=== PATIENT | female | born 1930 | race Caucasian/White ===

== ENCOUNTER 2016-07-04 13:15 | Inpatient (IN) | payer MEDICARE, OTHER, MEDICAID ==
[~2016-07-04] VITALS: Ht 165.1 cm; Wt 70.8 kg
--- OUTSIDE RECORDS SUMMARY | 2016-07-04 13:18 | XMS REPORT | Summary of Care ---
Author Author Meek Pham M.D. Unknown Address [address] [place], [place] [id number] Phone Unavailable Care Team Providers Care Pump Mechanic Name Role Phone Meek Pham M.D. Unavailable Unavailable NoxubeeSrikanth PP Unavailable Unavailable Unavailable Functional Status Functional Status Health Issues* Name Dates Details Functional status health issues are not documented Status: Cognitive Status Health Issues* Name Dates Details Cognitive status health issues are not documented Status: Problems Name Dates Details Cough (786.2, R05) Status: Active Complete heart block (426.0, I44.2) Status: Active Aortic stenosis (424.1, I35.0) Status: Active Mitral regurgitation (424.0, I34.0) Status: Active Atrial fibrillation (427.31, I48.91) Status: Active Encounter for interrogation of cardiac pacemaker (V53.31, Z45.018) Status: Active Hypertension (401.9, I10) Status: Active Hyperlipidemia (272.4, E78.5) Status: Active Medications Name Dates Details Lisinopril 20 MG Oral Tablet TAKE 1 TABLET DAILY DIRECTED. * Started 02-Jun-2014 ActiveTessalon Perles 100 MG Oral Capsule TAKE 1 CAPSULE EVERY 6 HOURS NEEDED. * Refills: 0 * Started 02-Jun-2014 ActiveAcetaminophen 325 MG Oral Tablet TAKE 1 TO 2 TABLETS EVERY 4 HOURS NEEDED * Refills: 0 * Started 02-Jun-2014 ActiveMetoprolol Succinate ER 50 MG Oral Tablet Extended Release 24 Hour TAKE 1 TABLET DAILY. * Refills: 0 * Started 02-Jun-2014 ActiveAspirin 81 MG Oral Tablet TAKE 1 TABLET DAILY. * Refills: 0 * Started 02-Jun-2014 ActiveAtorvastatin Calcium 20 MG Oral Tablet TAKE 2 TABLETs DAILY AT BEDTIME. * Refills: 0 * Started 02-Jun-2014 ActiveXarelto 20 MG Oral Tablet take one tablet by mouth every day * Quantity: 30 Refills: 3 Meek Pham M.D.* Started 10-Jun-2014 Active Allergies and Adverse Reactions Name Dates Details Biaxin Status: Active Duricef Status: Active Penicillins Status: Active Procedures Procedure Dates Details History of Pacemaker Placement History of Tonsillectomy CP Echo Ordered:03-Jun-2014 Immunization Name Dates Details Immunizations not documented Family History natural daughter* Name Dates Details Family history of heart murmur (V17.49, Z82.49) Status: Active Child* Name Dates Details Family history of heart murmur (V17.49, Z82.49) Status: Active Father* Name Dates Details Family history of arthritis (V17.7, Z82.61) Status: Active Social History Name Dates Details Smoking Status* Never smoker Vital Signs Date Test Result Details No Known Vitals to report Results Date Description Value Details Results not documented Plan of Care Planned Observations* Name Dates Details Planned Goals not documented Goal Planned Encounters* Appointment; Provider: Meek Pham On 27-Jul-2014 14:45 Instructions * Instructions not documented Encounters Appointment; Meek Pham Encounter Diagnosis: Problem not documented On 03-Jun-2014 10:00
--- OUTSIDE RECORDS SUMMARY | 2016-07-04 13:19 | XMS REPORT | Summary of Care ---
Author Author Meek Pham M.D. Unknown Address [address] [place], [place] [id number] Phone Unavailable Care Team Providers Care Loadmaster Name Role Phone Meek Pham M.D. Unavailable Unavailable MckinleySrikanth PP Unavailable Unavailable Unavailable Functional Status Functional [...]
--- OUTSIDE RECORDS SUMMARY | 2016-07-04 13:19 | XMS REPORT | Summary of Care ---
Author Author Srikanth Zamora M.D. Unknown Address [address] [place], [place] [id number] Phone Unavailable Care Team Providers Care Cassandra Architect Name Role Phone Meek Pham M.D. Unavailable Unavailable Srikanth Zamora PP Unavailable Unavailable Unavailable Functional Status Functional Status Health Issues* Name Dates Details Functional status health issues are not documented Status: Cognitive Status Health Issues* Name Dates Details Cognitive status health issues are not documented Status: Problems Name Dates Details Complete heart block (426.0, I44.2) Status: Active Aortic stenosis (747.22, Q25.3) Status: Active Mitral regurgitation (424.0, I34.0) Status: Active Encounter for interrogation of cardiac pacemaker (V53.31, Z45.018) Status: Active Hypertension (401.9, I10) Status: Active Pacemaker (V45.01, Z95.0) Status: Active Urinary tract infection, acute (599.0, N39.0) Status: Active Hyperlipidemia (272.4, E78.5) Status: Active Paroxysmal atrial fibrillation (427.31, I48.0) Status: Active Stroke (434.91, I63.9) Status: Active Chronic diastolic congestive heart failure (428.32, I50.32) Status: Active Carotid artery stenosis (433.10, I65.29) Status: Active Myocardial infarct (410.90, I21.3) Status: Active 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 Quantity: 90 Meek Pham M.D.* Started 02-Jun-2014 ActiveAcetaminophen 325 MG Oral Tablet [...] mouth every day * Quantity: 30 Refills: 11 Meek Pham M.D.* Started 10-Jun-2014 ActiveLasix 80 MG Oral Tablet TAKE 1 TABLET DAILY DIRECTED. * Refills: 0 * Started 24-Jun-2015 ActiveMacrobid 100 MG Oral Capsule TAKE 1 CAPSULE TWICE DAILY WITH MEALS. * Quantity: 20 Refills: 0 * Started 28-Jun-2015 Active Allergies and Adverse Reactions Name Dates Details Biaxin Status: Active Duricef Status: Active Penicillins Status: Active Past Medical History Name Dates Details History of labyrinthitis (V12.49, Z86.69) Status: Resolved Procedures Procedure Dates Details History of Pacemaker Placement History of Tonsillectomy Procedures not documented Immunization Name Dates Details Immunizations not documented Family History natural daughter* Name Dates Details Family history of heart murmur (V17.49, Z84.89) Status: Active Child* Name Dates Details Family history of heart murmur (V17.49, Z84.89) Status: Active Father* Name Dates Details Family history of arthritis (V17.7, Z82.61) Status: Active Social History Name Dates Details Smoking Status* Never smoker Vital Signs Date Test Result Details 05-Aug-2015 09:47 BP Systolic 124 mm[Hg] Status: BP Diastolic 62 mm[Hg] Status: Temperature 98.5 f Status: Heart Rate 60 /min Status: Respiration Rate 20 /min Status: Weight 150 lb Status: O2 SAT 95 % Status: Body Mass Index Calculated 25.75 kg/m2 Status: Body Surface Area Calculated 1.73 m2 Status: Results Date Description Value Details 01-Aug-2015 08:10 THYROID STIM. HORMONE 3602 THYROID STIM. HORMONE 0.09 (Better) 08:11 FREE T4 3604 FREE T4 0.81 (Better) Plan of Care Planned Observations* Name Dates Details Planned Goals not documented Goal Planned Encounters* Appointment; Provider: Meek Pham On 15:00 * Appointment; Provider: Rick Zamora On 02-Aug-2015 14:30 Instructions * Instructions not documented Encounters Appointment; Srikanth Zamora Encounter Diagnosis: Problem not documented On 08-Jul-2015 10:45 Appointment; Meek Pham Encounter Diagnosis: Problem not documented On 31-May-2015 14:45 Appointment; Meek Pham Encounter Diagnosis: Problem not documented On 22-Feb-2015 14:00 Appointment; Meek Pham Encounter Diagnosis: Problem not documented On 14:15 Appointment; Meek Pham Encounter Diagnosis: Problem not documented On 03-Jun-2014 10:00
--- OUTSIDE RECORDS SUMMARY | 2016-07-04 13:19 | XMS REPORT | Summary of Care ---
Author Author Vero Castaneda, Meek Durbin Unknown Address [address] [place], [place] [id number] Phone Unavailable Care Team Providers Care Ice Guard Inspector Name Role Phone Meek Pham M.D. Unavailable Unavailable Srikanth Zamora M.D. 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) Status: Active Insomnia (780.52, G47.00) Status: Active Depression (311, F32.9) Status: Active Constipation (564.00, K59.00) Status: Active Cataract (366.9, H26.9) Status: Active Altered mental status (780.97, R41.82) Status: Active Seizure (780.39, R56.9) Status: Active Atrial fibrillation (427.31, I48.91) Status: Active Dementia (294.20, F03.90) Status: Active Paroxysmal atrial fibrillation (427.31, I48.0) Status: Active Hypertension, essential, benign (401.1, I10) Status: Active Current use of [facility] anticoagulation (V58.61, Z79.01) Status: Active Medications Name Dates Details Acetaminophen 325 MG Oral Tablet Take 2 po q 8 hr * Started 02-Jun-2014 ActiveAtorvastatin Calcium 80 MG Oral Tablet TAKE 1 TABLET AT BEDTIME. * Quantity: 30 Refills: 11 * Started 02-Jun-2014 ActiveXarelto 20 MG Oral Tablet take one tablet by mouth every day * Quantity: 30 Refills: 11 Meek Pham M.D.* Started 10-Jun-2014 ActiveLasix 80 MG Oral Tablet TAKE 1 TABLET DAILY DIRECTED. * Refills: 0 * Started 24-Jun-2015 ActiveMacrobid 100 MG Oral Capsule TAKE 1 CAPSULE TWICE DAILY WITH MEALS. * Quantity: 20 Refills: 0 * Started 28-Jun-2015 ActiveLisinopril 10 MG Oral Tablet TAKE 1 TABLET DAILY. * Quantity: 30 Refills: 6 Srikanth Zamora M.D.* Started 09-Aug-2015 ActiveMetoprolol Tartrate 25 MG Oral Tablet TAKE 1 TABLET TWICE DAILY. * Refills: 0 Srikanth Zamora M.D.* Started 09-Aug-2015 ActiveMelatonin 3 MG Oral Tablet take one at hs * Refills: 0 Srikanth Zamora M.D.* Started 09-Aug-2015 ActivePotassium Chloride ER 10 MEQ Oral Capsule Extended Release TAKE 1 CAPSULE TWICE DAILY. * Refills: 0 Srikanth Zamora M.D.* Started 09-Aug-2015 ActiveCalcium 500 +D 500-400 MG-UNIT Oral Tablet Take one tab daily * Refills: 0 Srikanth Zamora M.D.* Started 09-Aug-2015 ActiveLevETIRAcetam 100 MG/ML Oral Solution Take 7.5 ml po twice daily * Refills: 0 Srikanth Zamora M.D.* Started 09-Aug-2015 ActiveFish Oil 1000 MG Oral Capsule TAKE ONE CAPSULE PO TWICE DAILY * Refills: 0 Srikanth Zamora M.D.* Started 09-Aug-2015 ActiveMulti-Vitamins Oral Tablet TAKE 1 TABLET DAILY. * Refills: 0 Srikanth Zamora M.D.* Started 09-Aug-2015 ActiveMirtazapine 15 MG Oral Tablet TAKE 1/2 TABLET AT BEDTIME. * Refills: 0 Srikanth Zamora M.D.* Started 09-Aug-2015 ActiveColace 100 MG Oral Capsule TAKE 1 CAPSULE TWICE DAILY. * Refills: 0 Srikanth Zamora M.D.* Started 09-Aug-2015 ActiveMilk of Magnesia 400 MG/5ML Oral Suspension Take 30 ml po daily PRN * Refills: 0 Srikanth Zamora M.D.* Started 09-Aug-2015 ActiveMiraLax Oral Powder MIX 1 CAPFUL IN 8 OUNCES OF WATER AND DRINK DAILY DIRECTED. * Refills: 0 Srikanth Zamora M.D.* Started 09-Aug-2015 ActiveBisacodyl 10 MG Rectal Suppository Insert one supp recutally BID PRN * Refills: 0 Srikanth Zamora M.D.* Started 09-Aug-2015 ActivePromethazine HCl - 12.5 MG Rectal Suppository Insert 1 supp rectally twice daily PRN * Refills: 0 Srikanth Zamora M.D.* Started 09-Aug-2015 Active Allergies and Adverse Reactions Name Dates Details Biaxin Status: Active Duricef Status: Active Penicillins Status: Active Shellfish Status: Active Past Medical History Name Dates Details History of Coronary artery disease (414.00, I25.10) Status: Resolved History of labyrinthitis (V12.49, Z86.69) Status: Resolved History of myocardial infarction (412, I25.2) Status: Resolved History of pulmonary hypertension (V12.59, Z86.79) Status: Resolved History of stroke (V12.54, Z86.73) Status: Resolved Procedures Procedure Dates Details History [...] smoker Vital Signs Date Test Result Details 01-Vjel-0080 15:05 BP Systolic 138 mm[Hg] Status: BP Diastolic 58 mm[Hg] Status: Heart Rate 75 /min Status: Weight 150.25 lb Status: Body Mass Index Calculated 25.79 kg/m2 Status: Body Surface Area Calculated 1.73 m2 Status: 11:12 BP Systolic 132 mm[Hg] Status: BP Diastolic 64 mm[Hg] Status: Temperature 97.8 f Status: Heart Rate 88 /min Status: Respiration Rate 16 /min Status: Weight 149 lb Status: Body Mass Index Calculated 25.58 kg/m2 Status: Body Surface Area Calculated 1.73 m2 Status: 05-Aug-2015 09:47 BP Systolic 124 mm[Hg] Status: [...] not documented Goal Planned Encounters* Appointment; Provider: Srikanth Zamora On 14:00 * Appointment; Provider: Rick Zamora On 02-Aug-2015 14:30 Instructions * Instructions not documented Encounters Appointment; Meek Pham Encounter Diagnosis: Problem not documented On 15:00 Appointment; Srikanth Zamora Encounter Diagnosis: Problem not documented On 08-Jul-2015 10:45 Appointment; Meek Pham Encounter Diagnosis: Problem not documented On 31-May-2015 14:45 Appointment; Meek Pham Encounter Diagnosis: Problem not documented On 22-Feb-2015 14:00 Appointment; Meek Pham Encounter Diagnosis: Problem not documented On 14:15 Appointment; Meek Pham Encounter Diagnosis: Problem not documented On 03-Jun-2014 10:00
--- OUTSIDE RECORDS SUMMARY | 2016-07-04 13:19 | XMS REPORT | Summary of Care ---
Author Author Meek Pham M.D. Unknown Address [address] [place], [place] [phone] Phone Unavailable Care Team Providers Care Watch Repair Person Name Role Phone Meek Pham M.D. Unavailable Unavailable MahaskaSrikanth PP Unavailable Unavailable Unavailable Functional Status Functional [...] Status: Active Hyperlipidemia (272.4, E78.5) Status: Active Atrial fibrillation (427.31, I48.91) Status: Active Current use of technician terminal and repeater anticoagulation (V58.61, Z79.01) Status: Active Medications Name Dates Details Lisinopril [...] Refills: 11 Meek Pham M.D.* Started 10-Jun-2014 ActiveAspirin 325 MG Oral Tablet TAKE 1 TABLET DAILY. * Refills: 0 * Started 31-May-2015 Active Allergies and Adverse Reactions Name Dates [...] smoker Vital Signs Date Test Result Details 31-May-2015 14:50 BP Systolic 112 mm[Hg] Status: BP Diastolic 54 mm[Hg] Status: Heart Rate 62 /min Status: Results Date Description Value Details Results not documented Plan of Care Planned Observations* Name Dates Details Planned Goals not documented Goal Instructions * Instructions not documented Encounters Appointment; Meek Pham Encounter Diagnosis: Problem not documented On 31-May-2015 14:45 Appointment; Meek Pham Encounter Diagnosis: Problem not documented On 22-Feb-2015 14:00 Appointment; Meek Pham Encounter Diagnosis: Problem not documented On 14:15 Appointment; Meek Pham Encounter Diagnosis: Problem not documented On 03-Jun-2014 10:00
--- OUTSIDE RECORDS SUMMARY | 2016-07-04 13:19 | XMS REPORT | Summary of Care ---
Author Author Noah Castaneda, Srikanth Organization Unknown Address Unknown Phone Unavailable Care Team Providers Care Rock Crusher Operator Name Role Phone Meek Pham M.D. Unavailable Unavailable Srikanth Zamora M.D. Unavailable Srikanth Zamora Unavailable Unavailable Ovidio Farris Unavailable Unavailable Unavailable Unavailable Functional Status Name Dates Details Functional status health issues are not documented Status: Name Dates Details Cognitive status health issues are not documented Status: Problems Name Dates Details Complete heart block (426.0, I44.2) Status: Active Aortic stenosis (424.1, I35.0) Status: Active Mitral regurgitation (424.0, I34.0) Status: Active Encounter for interrogation of cardiac pacemaker (V53.31, Z45.018) Status: Active Pacemaker (V45.01, Z95.0) Status: Active Urinary tract infection, acute (599.0, N39.0) Status: Active Stroke (434.91, I63.9) Status: Active [...] Status: Active Seizure (780.39, R56.9) Status: Active Dementia (294.20, F03.90) Status: Active Paroxysmal atrial fibrillation (427.31, I48.0) Status: Active Hypertension, essential, benign (401.1, I10) Status: Active Current use of [facility] anticoagulation (V58.61, Z79.01) Status: Active Seasonal allergies (477.9, J30.2) Status: Active Atrial fibrillation (427.31, I48.91) Status: Active Hyperlipidemia (272.4, E78.5) Status: Active Hypertension (401.9, I10) Status: Active Cough (786.2, R05) Status: Active Environmental allergies (V15.09, Z91.09) Status: Active Medications Name Dates Details Acetaminophen 500 MG Oral Tablet Take 2 tab po q 6 hr PRN * Start 02-Jun-2014 Active Atorvastatin Calcium 80 MG Oral Tablet TAKE 1 TABLET AT BEDTIME. * Quantity: 30 Refills: 11 * Start 02-Jun-2014 Active Xarelto 20 MG Oral Tablet take one tablet by mouth every day * Quantity: 30 Refills: 11 Meek Pham M.D. * Start 10-Jun-2014 Active Lasix 80 MG Oral Tablet TAKE 1 TABLET DAILY DIRECTED. * Refills: 0 * Start 24-Jun-2015 Active Lisinopril 10 MG Oral Tablet TAKE 1 TABLET DAILY. * Quantity: 30 Refills: 6 Prim M.D.Srikanth * Start 09-Aug-2015 Active Metoprolol Tartrate 25 MG Oral Tablet TAKE 1 TABLET TWICE DAILY. * Refills: 0 Prim M.D.Srikanth * Start 09-Aug-2015 Active Melatonin 3 MG Oral Tablet take one at hs * Refills: 0 Prim M.D., Srikanth * Start 09-Aug-2015 Active Potassium Chloride ER 10 MEQ Oral Capsule Extended Release TAKE 1 CAPSULE TWICE DAILY. * Refills: 0 Prim M.D.Srikanth * Start 09-Aug-2015 Active Calcium 500 +D 500-400 MG-UNIT Oral Tablet Take one tab daily * Refills: 0 Noah M.D., Srikanth * Start 09-Aug-2015 Active LevETIRAcetam 100 MG/ML Oral Solution Take 7.5 ml po twice daily * Refills: 0 Prim M.D., Srikanth * Start 09-Aug-2015 Active Fish Oil 1000 MG Oral Capsule TAKE ONE CAPSULE PO TWICE DAILY * Refills: 0 Prim M.D., Srikanth * Start 09-Aug-2015 Active Multi-Vitamins Oral Tablet TAKE 1 TABLET DAILY. * Refills: 0 Noah M.D., Srikanth * Start 09-Aug-2015 Active Mirtazapine 15 MG Oral Tablet TAKE 1/2 TABLET AT BEDTIME. * Refills: 0 Prim M.DCatracho, Srikanth * Start 09-Aug-2015 Active Colace 100 MG Oral Capsule TAKE 1 CAPSULE TWICE DAILY. * Refills: 0 Noah M.D., Srikanth * Start 09-Aug-2015 Active Milk of Magnesia 400 MG/5ML Oral Suspension Take 30 ml po daily PRN * Refills: 0 Prim M.D., Srikanth * Start 09-Aug-2015 Active MiraLax Oral Powder MIX 1 CAPFUL IN 8 OUNCES OF WATER AND DRINK DAILY DIRECTED. * Refills: 0 Noah M.D.Srikanth * Start 09-Aug-2015 Active Bisacodyl 10 MG Rectal Suppository Insert one supp recutally BID PRN * Refills: 0 Prim M.D., Srikanth * Start 09-Aug-2015 Active Promethazine HCl - 12.5 MG Rectal Suppository Insert 1 supp rectally twice daily PRN * Refills: 0 Prim M.D., Srikanth * Start 09-Aug-2015 Active Fluticasone Propionate 50 MCG/ACT Nasal Suspension 1 [place] Each Nostril Daily * Quantity: 1 Refills: 12 Prim M.D., Srikanth * Start 12-Oct-2015 Active 16 GM Bottle Refresh Lacri-Lube Ophthalmic Ointment APPLY 1/2" STRIP TO AFFECTED EYE(S) AT BEDTIME * Refills: 0 Prim M.D.Srikanth * Start 12-Oct-2015 Active Montelukast Sodium 10 MG Oral Tablet Take one tablet by mouth daily * Quantity: 30 Refills: 5 Prim M.D., Srikanth * Start 18-Jan-2016 Active Allergies and Adverse Reactions Name Dates Details Biaxin (Allergy) Status: Active Duricef (Allergy) Status: Active Penicillins (Allergy) Status: Active Shellfish (Allergy) Status: Active Past Medical History Name Dates [...] Dates Details Immunizations not documented Family History Name Dates Details Family history of heart murmur (V17.49, Z84.89) Status: Active Name Dates Details Family history of heart murmur (V17.49, Z84.89) Status: Active Name Dates Details Family history of arthritis (V17.7, Z82.61) Status: Active Social History Name Dates Details - Status: Name Dates Details Never smoker Vital Signs Date Test Result Details No Known Vitals to report Results Date Description Value Details Results not documented Plan of Care Name Dates Details Planned Observations Planned Goals not documented Interventions Provided Medication Changes* Montelukast Sodium 10 MG Oral Tablet - Start Instructions Name Dates Details Instructions not documented Encounters Appointment; Meek Pham M.D. Encounter Diagnosis: Problem not documented On 15:00 Appointment; Srikanth Zamora M.D. Encounter Diagnosis: Problem not documented On 08-Jul-2015 10:45 Appointment; Meek Pham M.D. Encounter Diagnosis: Problem not documented On 31-May-2015 14:45 Appointment; Meek Pham M.D. Encounter Diagnosis: Problem not documented On 22-Feb-2015 14:00 Appointment; Meek Pham M.D. Encounter Diagnosis: Problem not documented On 14:15 Appointment; Meek Pham M.D. Encounter Diagnosis: Problem not documented On 03-Jun-2014 10:00
--- OUTSIDE RECORDS SUMMARY | 2016-07-04 13:19 | XMS REPORT | Summary of Care ---
Author Author Noah Castaneda, Srikanth Organization Unknown Address Unknown Phone Unavailable Care Team Providers Care Lmsw Name Role Phone Vero Castaneda, Meek Unavailable Unavailable Srikanth Zmaora M.D. Unavailable Unavailable Iveth Xiao M.D. 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 * Quantity: 30 Refills: 6 [place] M.D.Srikanth * Start 09-Aug-2015 Active Metoprolol Tartrate 25 MG Oral Tablet TAKE 1 TABLET TWICE DAILY. * Refills: 0 Noah M.D., Srikanth * Start 09-Aug-2015 Active Melatonin 3 MG Oral Tablet take one at hs * Refills: 0 Noah M.D., Srikanth * Start 09-Aug-2015 Active Potassium Chloride ER 10 MEQ Oral Capsule Extended Release TAKE 1 CAPSULE TWICE DAILY. * Refills: 0 [place] M.D., Srikanth * Start 09-Aug-2015 Active Calcium 500 +D 500-400 MG-UNIT Oral Tablet Take one tab daily * Refills: 0 [place] M.D., Srikanth * Start 09-Aug-2015 Active LevETIRAcetam 100 MG/ML Oral Solution Take 7.5 ml po twice daily * Refills: 0 Noah M.D., Srikanth * Start 09-Aug-2015 Active Fish Oil 1000 MG Oral Capsule TAKE ONE CAPSULE PO TWICE DAILY * Refills: 0 Noah M.D., Srikanth * Start 09-Aug-2015 Active Multi-Vitamins Oral Tablet TAKE 1 TABLET DAILY. * Refills: 0 [place] M.D., Srikanth * Start 09-Aug-2015 Active Colace 100 MG Oral Capsule TAKE 1 CAPSULE TWICE DAILY. * Refills: 0 [place] M.D., Srikanth * Start 09-Aug-2015 Active Milk of Magnesia 400 MG/5ML Oral Suspension Take 30 ml po daily PRN * Refills: 0 Noah M.D., Srikanth * Start 09-Aug-2015 Active MiraLax Oral Powder MIX 1 CAPFUL IN 8 OUNCES OF WATER AND DRINK DAILY DIRECTED. * Refills: 0 [place]um [place] M.D., Srikanth * Start 09-Aug-2015 Active Bisacodyl 10 MG Rectal Suppository Insert one supp recutally BID PRN * Refills: 0 [place]um [place] M.D., Srikanth * Start 09-Aug-2015 Active Fluticasone Propionate 50 MCG/ACT Nasal Suspension 1 Garrett Each Nostril Daily * Quantity: 1 Refills: 12 Gum [place] M.D.Srikanth * Start 12-Oct-2015 Active 16 GM Bottle Refresh Lacri-Lube Ophthalmic Ointment APPLY 1/2" STRIP TO AFFECTED EYE(S) AT BEDTIME * Refills: 0 Noah M.DSrikanth Hayden * Start 12-Oct-2015 Active Montelukast Sodium 10 MG Oral Tablet Take one tablet by mouth daily * Quantity: 30 Refills: 5 Gum [place] M.D.Srikanth * Start 18-Jan-2016 Active Azelastine HCl - 0.1 % Nasal Solution USE 2 PUFFS EACH NOSTRIL EVERY 12 HOURS NEEDED. * Quantity: 30 Refills: 3 Ganj M.D., Beltran A * Start 19-Mar-2016 Active Saline Mist Garrett 0.65 % Nasal Solution USE 2 SPRAYS IN EACH NOSTRIL IN AM AND HS * Refills: 0 Beltran Xiao M.D. * Start 19-Mar-2016 Active Ativan 0.5 MG Oral Tablet Take 1 tab po TID PRN anxiety * Refills: 0 Gum [place] M.DSrikanth Hayden * Start 19-Apr-2016 Active ALPRAZolam ER 1 MG Oral Tablet Extended Release 24 Hour TAKE 1 TABLET DAILY. * Refills: 0 [place]um [place] M.D., Srikanth * Start 04-May-2016 Active BusPIRone HCl - 15 MG Oral Tablet TAKE 1 TABLET TWICE DAILY. * Quantity: 60 Refills: 1 Gum [place] M.D., Srikanth * Start 04-May-2016 Active LORazepam 1 MG Oral Tablet TAKE 1 TABLET 1 HOUR BEFORE MRI. MAY REPEAT ONCE 15 MINUTES BEFORE MRI. * Quantity: 1 Refills: 0 Gum [place] M.D., Srikanth * Start 17-May-2016 Active ALPRAZolam 0.5 MG Oral Tablet 1 po BID PRN anxiety * Quantity: 20 Refills: 2 Gum [place] M.D., Srikanth * Start 12-Jun-2016 Active Arthritis Pain Reliever 650 MG Oral Tablet Extended Release TAKE 1 TABLET BY MOUTH EVERY 8 HOURS * Quantity: 93 Refills: 3 Gum [place] M.D., Srikanth * Start 15-Jun-2016 Active Allergies and Adverse Reactions Name Dates [...] smoker Vital Signs Date Test Result Details 12-Jun-2016 11:02 BP Systolic 143 mm[Hg] Status: Comments: Location: ; Position: BP Diastolic 64 mm[Hg] Status: Comments: Location: ; Position: Temperature 97.1 f Status: Comments: Method: Heart Rate 60 /min Status: Comments: Location: ; Physical Findings 20 Status: Comments: Respiration Weight 161 lb Status: Body Mass Index Calculated 27.64 kg/m2 Status: Body Surface Area Calculated 1.78 m2 Status: Results Date Description Value Details Results not documented Plan of Care Name Dates Details Planned Observations Planned Goals not documented Instructions Name Dates Details Instructions not documented Encounters Appointment; Beltran Xiao M.D. Encounter Diagnosis: Problem not documented On 19-Mar-2016 09:15 Appointment; Meek Pham M.D. Encounter Diagnosis: Problem not documented On 15:00 Appointment; Srikanth Zamora M.D. Encounter Diagnosis: Problem not documented On 08-Jul-2015 10:45 Appointment; Meek Pham M.D. Encounter Diagnosis: Problem not documented On 31-May-2015 14:45 Appointment; Meek Pham M.D. Encounter Diagnosis: Problem not documented On 22-Feb-2015 14:00 Appointment; Meek hPam M.D. Encounter Diagnosis: Problem not documented On 14:15
--- OUTSIDE RECORDS SUMMARY | 2016-07-04 13:19 | XMS REPORT | Summary of Care ---
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 * Quantity: 20 Refills: 0 * Start 28-Jun-2015 Active Lisinopril 10 MG Oral Tablet TAKE 1 TABLET DAILY. * Quantity: 30 Refills: 6 [place] M.D.Srikanth * Start 09-Aug-2015 Active Metoprolol Tartrate 25 MG Oral Tablet TAKE 1 TABLET TWICE DAILY. * Refills: 0 [place] M.D., Srikanth * Start 09-Aug-2015 Active Melatonin 3 MG Oral Tablet take one at hs * Refills: 0 [place] M.D., Srikanth * Start 09-Aug-2015 Active Potassium Chloride ER 10 MEQ Oral Capsule Extended Release TAKE 1 CAPSULE TWICE DAILY. * Refills: 0 Noah M.D., Srikanth * Start 09-Aug-2015 Active Calcium [...] TWICE DAILY * Refills: 0 Noah M.D., Srkianth * Start 09-Aug-2015 Active Multi-Vitamins Oral Tablet TAKE 1 TABLET DAILY. * Refills: 0 [place] M.D., Srikanth * Start 09-Aug-2015 Active Mirtazapine 15 MG Oral Tablet TAKE 1/2 TABLET AT BEDTIME. * Refills: 0 [place] M.D., Srikanth * Start 09-Aug-2015 Active Colace [...] AND DRINK DAILY DIRECTED. * Refills: 0 [place] M.D., Srikanth * Start 09-Aug-2015 Active Bisacodyl 10 MG Rectal Suppository Insert one supp recutally BID PRN * Refills: 0 Noah M.D., Srikanth * Start 09-Aug-2015 Active Promethazine HCl - 12.5 MG Rectal Suppository Insert 1 supp rectally twice daily PRN * Refills: 0 [place] M.D., Srikanth * Start 09-Aug-2015 Active Allergies and Adverse Reactions Name [...] to report Results Date Description Value Details 16:32 POTASSIUM 1170 POTASSIUM 4.8 Plan of Care Name Dates Details Planned Observations Planned Goals not documented Planned Encounters Appointment; Provider: Srikanth Zamora M.D. On 11-Oct-2015 13:45 Instructions Name Dates Details Instructions not documented Encounters Appointment; Meek Pham M.D. Encounter Diagnosis: Problem not documented On 15:00 Appointment; Srikanth Zamora M.D. Encounter Diagnosis: Problem not documented On 08-Jul-2015 10:45 Appointment; Meek Pham M.D. Encounter Diagnosis: Problem not documented On 31-May-2015 14:45 Appointment; Meek Pham M.D. Encounter Diagnosis: Problem not documented On 22-Feb-2015 14:00 Appointment; Meke Pham M.D. Encounter Diagnosis: Problem not documented On 14:15 Appointment; Meek Pham M.D. Encounter Diagnosis: Problem not documented On 03-Jun-2014 10:00
--- OUTSIDE RECORDS SUMMARY | 2016-07-04 13:19 | XMS REPORT | Summary of Care ---
Author Author Noah Castaneda, Srikanth Organization Unknown Address [address] [place], [place] [id number] Phone Unavailable Care Team Providers Care Maintenance Leader Name Role Phone Meek Pham M.D. Unavailable [...] with residual effects (438.9, I69.30) Status: Active Current use of senior care anticoagulation (V58.61, Z79.01) Status: Active Insomnia (780.52, G47.00) Status: Active Depression (311, F32.9) Status: Active Constipation (564.00, K59.00) Status: Active Cataract (366.9, H26.9) Status: Active Altered mental status (780.97, R41.82) Status: Active Seizure (780.39, R56.9) Status: Active Atrial fibrillation (427.31, I48.91) Status: Active Dementia (294.20, F03.90) Status: Active Medications Name Dates Details Acetaminophen [...] Meek Pham On 15:00 * Appointment; Provider: Srikanth Zamora On 14:00 * [...]
--- OUTSIDE RECORDS SUMMARY | 2016-07-04 13:19 | XMS REPORT | Summary of Care ---
Author Author Vero Castaneda, Meek Durbin Unknown Address [address] [place], [place] [id number] Phone Unavailable Care Team Providers Care Meat Seafood Associate Name Role Phone Meek Pham M.D. Unavailable Unavailable [place]pet[place]Srikanth PP Unavailable Unavailable Unavailable Functional Status Functional [...] (427.31, I48.91) Status: Active Current use of long winder tender anticoagulation (V58.61, Z79.01) Status: Active Medications Name Dates Details Lisinopril 20 MG Oral Tablet TAKE 1 TABLET DAILY DIRECTED. * Started 02-Jun-2014 ActiveAcetaminophen 325 MG Oral [...] tablet by mouth every day * Quantity: 15 Refills: 0 Meek Pham M.D.* Started 10-Jun-2014 Active Allergies [...] smoker Vital Signs Date Test Result Details 14:18 BP Systolic 138 mm[Hg] Status: BP Diastolic 76 mm[Hg] Status: Heart Rate 60 /min Status: Weight 152 lb Status: Body Mass Index Calculated 26.09 kg/m2 Status: Body Surface Area Calculated 1.74 m2 Status: Results Date Description Value Details Results not documented Plan of Care Planned Observations* Name Dates Details Planned Goals not documented Goal Instructions * Instructions not documented Encounters Appointment; Meek Pham Encounter Diagnosis: Problem not documented On 14:15 Appointment; Meek Pham Encounter Diagnosis: Problem not documented On 03-Jun-2014 10:00
--- OUTSIDE RECORDS SUMMARY | 2016-07-04 13:20 | XMS REPORT | Continuity of Care Document ---
Author Author [facility] Address Unknown Phone Unavailable Care Team Providers Care Watch Train Assembler Name Role Phone BERNICE, KAUR Addison MD Primary Care Physician [phone] Insurance Providers Payer Name Policy Number Subscriber Name Relationship Snf Consolidated Billing Ginger Yan 18 Self / Same As Patient Advance Directives Directive Response Recorded Date/Time Advanced Directives Yes 10/06/15 8:56am Type Durable Power of Machine Bunch Maker 10/06/15 8:56am Problems Active Problems Medical Problem Onset Date Status Acute respiratory failure with hypoxia ~06/13/2015 Acute Acute systolic (congestive) heart failure Unknown Acute Fever ~06/13/2015 Acute Hypokalemia Unknown Acute Hypoxia ~06/13/2015 Acute Insomnia Unknown Acute Leukopenia Unknown Acute Pulmonary edema Unknown Acute SIRS (systemic inflammatory response syndrome) ~06/13/2015 Acute Medications Current Home Medications Medication Dose Units Route Directions Days/Qty Instructions Start Date Atorvastatin 80 Mg 80 Mg ORAL Daily 06/14/15 Levetiracetam 100 Mg/Ml 750 Mg ORAL Twice A Day 06/14/15 Metoprolol Tartrate 25 Mg 25 Mg ORAL Twice A Day 06/14/15 Rivaroxaban 20 Mg 20 Mg ORAL Daily 06/14/15 Aspirin 325 Mg 325 Mg ORAL Daily 06/14/15 Acetaminophen (Tylenol) 325 Mg 650 Mg ORAL Every 8HRS 06/14/15 Lisinopril (Zestril) 10 Mg 10 Mg ORAL Daily 06/14/15 Calcium Carbonate/Vitamin D3 1 Each 1 Tab ORAL Daily 06/14/15 Mirtazapine (Remeron) 15 Mg 7.5 Mg ORAL Bedtime 06/14/15 Acetaminophen (Tylenol) 325 Mg 325 Mg ORAL Every 4HRS as needed for Pain/ Fever 06/14/15 Bisacodyl 10 Mg 10 Mg RECTAL Twice A Day as needed for Constipation 06/14/15 Promethazine Hcl 12.5 Mg 12.5 Mg RECTAL Twice A Day as needed for Nausea/ Vomiting 06/14/15 Fluticasone Propionate 16 Gm 2 Sprays Each Nostril Daily 06/14/15 Mineral Oil/Petrolatum,White 3.5 Gm 1 Applic OPTHALMIC Every 4HRS as needed for Dry Eyes 06/14/15 Furosemide 20 Mg 40 Mg ORAL Daily 0 06/17/15 Potassium Chloride 10 Meq 10 Meq ORAL Twice A Day With Meals 0 Polyethylene Glycol 3350 17 Gm 17 Gm ORAL Daily as needed for Constipation 0 06/17/15 Magnesium Hydroxide 400 Mg/5 Ml 30 Ml ORAL Daily as needed for Constipation 0 06/17/15 Docusate Sodium 100 Mg 100 Mg ORAL Twice A Day as needed for Constipation 0 06/17/15 Melatonin 3 Mg 3 Mg ORAL Bedtime 0 06/17/15 Past Home Medications Medication Directions Ordered Status Furosemide 20 Mg Tablet, 20 Mg Oral Daily 06/14/15 Discontinued Alprazolam (Xanax) 0.25 Mg Tablet, 0.25 Mg Oral Bedtime 06/14/15 Discontinued Alprazolam (Xanax) 0.25 Mg Tablet, 0.25-0.5 Mg Oral Every 6 Hours as needed for Agitation 06/14/15 Discontinued Social History Social History Problem Response Recorded Date/Time Onset Date Status Occupation or Former Occupation retired 10/06/2015 8:58am Query Response Start Date Stop Date Smoking Status Never smoker Hospital Discharge Instructions No hospital discharge instructions. Plan of Care Discharge Date 10/06/15 11:04am Prescriptions See Medication Section Functional Status No functional status results. Allergies, Adverse Reactions, Alerts Allergen Type Severity Reaction Status Last Updated Penicillin Allergy Unknown Active 09/28/15 Clarithromycin Allergy Unknown Active 09/28/15 cefadroxil Allergy Unknown Active 10/05/15 shellfish derived Allergy Unknown Active 10/06/15 Immunizations No immunization records. Vital Signs Acute Vital Signs Vital Response Date/Time Temperature (Fahrenheit) 98.2 10/06/2015 8:56am Pulse 60 bpm 10/06/2015 10:45am Respirations 20 10/06/2015 10:45am Height 5 ft 2 in Weight 150 lb Body Mass Index 27.0 kg/m^2 Results Laboratory Results Test Name Result Units Flags Reference Collection Date/Time Result Date/ Time Comments Potassium Level 4.8 mmol/L # 3.5-5.1 10/06/2015 9:43am 10/06/2015 9:55am Pending Laboratory Results Test Name Collection Date/Time Procedures Procedure Status Date Provider(s) URINALYSIS AUTO W/O SCOPE Completed 09/26/15 MICROSCOPIC EXAM OF URINE Completed 09/26/15 URINE BACTERIA CULTURE Completed 09/26/15 Encounters Encounter Location Arrival/Admit Date Discharge/Depart Date Attending Provider Registered [facility] 10/06/15 8:52am NESHA COLON MD Registered Referred [facility] 09/26/15 3:24pm KAUR QUEEN MD
--- OUTSIDE RECORDS SUMMARY | 2016-07-04 13:20 | XMS REPORT | Summary of Care ---
Author Author Rick Zamora M.D. Unknown Address [address] [place], [place] [phone] Phone Unavailable Care Team Providers Care Rug Renovator Name Role Phone Meek Pham M.D. 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
--- OUTSIDE RECORDS SUMMARY | 2016-07-04 13:20 | XMS REPORT | Summary of Care ---
Author Author Meek Pham M.D. Unknown Address [address] [place], [place] [id number] Phone Unavailable Care Team Providers Care Mobility Specialist Name Role Phone Meek Pham M.D. Unavailable Unavailable DuplinSrikanth PP Unavailable Unavailable Unavailable Functional Status Functional [...] (427.31, I48.91) Status: Active Current use of professor of oceanography anticoagulation (V58.61, Z79.01) Status: Active Medications Name [...]
--- OUTSIDE RECORDS SUMMARY | 2016-07-04 13:20 | XMS REPORT | Summary of Care ---
Author Author Noah Castaneda, Srikanth Organization Unknown Address Unknown Phone Unavailable Care Team Providers Care Internet Project Manager Name Role Phone Meek Pham M.D. Unavailable [...] (401.1, I10) Status: Active Current use of group home anticoagulation (V58.61, Z79.01) Status: Active Seasonal allergies (477.9, J30.2) Status: Active Atrial fibrillation (427.31, I48.91) Status: Active Hyperlipidemia (272.4, E78.5) Status: Active Hypertension (401.9, I10) Status: Active Medications Name Dates Details Acetaminophen [...] TABLET DAILY. * Quantity: 30 Refills: 6 [place] M.D., Srikanth * Start 09-Aug-2015 Active Metoprolol Tartrate 25 MG Oral Tablet TAKE 1 TABLET TWICE DAILY. * Refills: 0 [place] M.D., Srikanth * Start 09-Aug-2015 Active Melatonin 3 MG Oral Tablet take one at hs * Refills: 0 Noah M.D., Srikanth * Start 09-Aug-2015 Active Potassium Chloride ER 10 MEQ Oral Capsule Extended Release TAKE 1 CAPSULE TWICE DAILY. * Refills: 0 [place] M.D., Srikanth * Start 09-Aug-2015 Active Calcium 500 +D 500-400 MG-UNIT Oral Tablet Take one tab daily * Refills: 0 [place] M.D., Srikanth * Start 09-Aug-2015 Active LevETIRAcetam 100 MG/ML Oral Solution Take 7.5 ml po twice daily * Refills: 0 [place] M.D., Srikanth * Start 09-Aug-2015 Active Fish Oil 1000 MG Oral Capsule TAKE ONE CAPSULE PO TWICE DAILY * Refills: 0 Noah M.D., Srikanth * Start 09-Aug-2015 Active Multi-Vitamins Oral Tablet TAKE 1 TABLET DAILY. * Refills: 0 Noah M.D., Srikanth * Start 09-Aug-2015 Active Mirtazapine 15 MG Oral Tablet TAKE 1/2 TABLET AT BEDTIME. * Refills: 0 Noah M.D., Srikanth * Start 09-Aug-2015 Active Colace 100 MG Oral Capsule TAKE 1 CAPSULE TWICE DAILY. * Refills: 0 [place] M.D., Srikanth * Start 09-Aug-2015 Active Milk of Magnesia 400 MG/5ML Oral Suspension Take 30 ml po daily PRN * Refills: 0 Noah M.D., Srikanth * Start 09-Aug-2015 Active MiraLax Oral Powder MIX 1 CAPFUL IN 8 OUNCES OF WATER AND DRINK DAILY DIRECTED. * Refills: 0 [place] M.D., Srikanth * Start 09-Aug-2015 Active Bisacodyl 10 MG Rectal Suppository Insert one supp recutally BID PRN * Refills: 0 Noah M.D., Srikanth * Start 09-Aug-2015 Active Promethazine HCl - 12.5 MG Rectal Suppository Insert 1 supp rectally twice daily PRN * Refills: 0 Noah M.D., Srikanth * Start 09-Aug-2015 Active Fluticasone Propionate 50 MCG/ACT Nasal Suspension 1 [place] Each Nostril Daily * Quantity: 1 Refills: 12 [place] M.D., Srikanth * Start 12-Oct-2015 Active 16 GM Bottle Refresh Lacri-Lube Ophthalmic Ointment APPLY 1/2" STRIP TO AFFECTED EYE(S) AT BEDTIME * Refills: 0 [place] M.D., Srikanth * Start 12-Oct-2015 Active Allergies and Adverse Reactions Name Dates [...] smoker Vital Signs Date Test Result Details 13-Dec-2015 08:49 BP Systolic 138 mm[Hg] Status: Comments: Location: ; Position: BP Diastolic 60 mm[Hg] Status: Comments: Location: ; Position: Temperature 97 f Status: Comments: Method: Heart Rate 60 /min Status: Comments: Location: ; Physical Findings 18 Status: Comments: Respiration Weight 148 lb Status: Body Mass Index Calculated 25.4 kg/m2 Status: Body Surface Area Calculated 1.72 m2 Status: Results Date Description Value Details Results not documented Plan of Care Name Dates Details Planned Observations Planned Goals not documented Planned Encounters Appointment; Provider: Srikanth Zamora M.D. On 13-Dec-2015 13:30 Instructions Name Dates Details Instructions not documented [...]
--- OUTSIDE RECORDS SUMMARY | 2016-07-04 13:20 | XMS REPORT | Summary of Care ---
Author Author Noah Castaneda, Srikanth Organization Unknown Address [address], [place] [phone] Phone Unavailable Care Team Providers Care Pot Pusher Name Role Phone Meek Pham M.D. Unavailable [...] (438.9, I69.30) Status: Active Current use of fpc anticoagulation (V58.61, Z79.01) Status: Active Insomnia (780.52, [...] smoker Vital Signs Date Test Result Details 11:12 BP Systolic 132 mm[Hg] Status: BP [...]
--- OUTSIDE RECORDS SUMMARY | 2016-07-04 13:20 | XMS REPORT | Summary of Care ---
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 * Quantity: 30 Refills: 6 [place] M.D.Srikanth * Start 09-Aug-2015 Active Metoprolol Tartrate 25 MG Oral Tablet TAKE 1 TABLET TWICE DAILY. * Refills: 0 [place] M.D., Srikanth * Start 09-Aug-2015 Active Melatonin 3 MG Oral Tablet take one at hs * Refills: 0 [place] M.D.Srikanth * Start 09-Aug-2015 Active Potassium Chloride ER 10 MEQ Oral Capsule Extended Release TAKE 1 CAPSULE TWICE DAILY. * Refills: 0 Noah M.D., Srikanth * Start 09-Aug-2015 Active Calcium 500 +D 500-400 MG-UNIT Oral Tablet Take one tab daily * Refills: 0 [place] M.D., Srikanth * Start 09-Aug-2015 Active LevETIRAcetam 100 MG/ML Oral Solution Take 7.5 ml po twice daily * Refills: 0 [place] M.D., Srikanth * Start 09-Aug-2015 Active Fish Oil 1000 MG Oral Capsule TAKE ONE CAPSULE PO TWICE DAILY * Refills: 0 [place] MSrikanth Mi * Start 09-Aug-2015 Active Multi-Vitamins Oral Tablet TAKE 1 TABLET DAILY. * Refills: 0 Noah M.Srikanth [place] * Start 09-Aug-2015 Active Colace 100 MG Oral Capsule TAKE 1 CAPSULE TWICE DAILY. * Refills: 0 Noah M.DCatracho, Srikanth * Start 09-Aug-2015 Active Milk of Magnesia 400 MG/5ML Oral Suspension Take 30 ml po daily PRN * Refills: 0 Noah M.DSrikanth Hayden * Start 09-Aug-2015 Active MiraLax Oral Powder MIX 1 CAPFUL IN 8 OUNCES OF WATER AND DRINK DAILY DIRECTED. * Refills: 0 Noah M.Srikanth [place] * Start 09-Aug-2015 Active Bisacodyl 10 MG Rectal Suppository Insert one supp recutally BID PRN * Refills: 0 [place] M.DCatracho, Srikanth * Start 09-Aug-2015 Active Fluticasone Propionate 50 MCG/ACT Nasal Suspension 1 [place] Each Nostril Daily * Quantity: 1 Refills: 12 [place] MCatrachoDSrikanth Hayden * Start 12-Oct-2015 Active 16 GM Bottle Refresh Lacri-Lube Ophthalmic Ointment APPLY 1/2" STRIP TO AFFECTED EYE(S) AT BEDTIME * Refills: 0 [place] MSrikanth Mi * Start 12-Oct-2015 Active Montelukast Sodium 10 MG Oral Tablet Take one tablet by mouth daily * Quantity: 30 Refills: 5 [place] MSrikanth Mi * Start 18-Jan-2016 Active Azelastine HCl - 0.1 % Nasal Solution USE 2 PUFFS EACH NOSTRIL EVERY 12 HOURS NEEDED. * Quantity: 30 Refills: 3 Ninoska Castaneda, Beltran A * Start 19-Mar-2016 Active Saline Mist [place] 0.65 % Nasal Solution USE 2 SPRAYS IN EACH NOSTRIL IN AM AND HS * Refills: 0 Beltran Xiao M.D. * Start 19-Mar-2016 Active DiazePAM 5 MG Oral Tablet Take 1 po 1 time only. * Quantity: 1 Refills: 0 BelcourtRick rizvi M.D. Start 18-Apr-2016 Active Ativan 0.5 MG Oral Tablet Take 1 tab po TID PRN anxiety * Refills: 0 [place] M.D., Srikanth * Start 19-Apr-2016 Active ALPRAZolam ER 1 MG Oral Tablet Extended Release 24 Hour TAKE 1 TABLET DAILY. * Refills: 0 [place] M.D., Srikanth * Start 04-May-2016 Active BusPIRone HCl - 15 MG Oral Tablet TAKE 1 TABLET TWICE DAILY. * Quantity: 60 Refills: 1 [place] M.D., Srikanth * Start 04-May-2016 Active LORazepam 1 MG Oral Tablet TAKE 1 TABLET 1 HOUR BEFORE MRI. MAY REPEAT ONCE 15 MINUTES BEFORE MRI. * Quantity: 1 Refills: 0 [place] M.D., Srikanth * Start 17-May-2016 Active Allergies and Adverse Reactions Name Dates [...] m2 Status: Results Date Description Value Details 14-May-2016 15:10 CBC w/ Auto Diff 7150 WBC 6.7 RBC 4.01 HGB 11.8 HCT 37.0 15:11 Comprehensive Metabolic Panel 1212 SODIUM 141 POTASSIUM 4.4 CHLORIDE 105 CARBON DIOXIDE 30 ANION GAP 6 BUN 23 GLUCOSE 92 AST 14 ALT 16 TOTAL PROTEIN 5.7 15:13 THYROID STIM. HORMONE 3602 THYROID STIM. HORMONE 0.05 15:14 VITAMIN B12 3606 VITAMIN B12 368 15:14 HIV Ag/Ab Combo 3405 HIV negative Plan of Care Name Dates Details Planned Observations Planned Goals not documented Planned Encounters Appointment; Provider: Srikanth Zamora M.D. On 12-Jun-2016 14:30 Instructions Name Dates Details Instructions not documented [...] not documented On 22-Feb-2015 14:00 Appointment; Meek Phma M.D. Encounter Diagnosis: Problem not documented On 14:15
--- OUTSIDE RECORDS SUMMARY | 2016-07-04 13:20 | XMS REPORT | Summary of Care ---
Author Author Noah Castaneda, Srikanth Organization Unknown Address Unknown Phone Unavailable Care Team Providers Care Buyer Agent Name Role Phone Meek Pham M.D. 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 * Quantity: 30 Refills: 11 * Start 02-Jun-2014 Active Xarelto 20 MG Oral Tablet take one tablet by mouth every day * Quantity: 30 Refills: 11 Mattar M.D., Costy * Start 10-Jun-2014 Active Lasix 80 MG Oral Tablet TAKE 1 TABLET DAILY DIRECTED. * Refills: 0 * Start 24-Jun-2015 Active Lisinopril 10 MG Oral Tablet TAKE 1 TABLET DAILY. * Quantity: 30 Refills: 6 [place] M.D., Srikanth * Start 09-Aug-2015 Active Metoprolol Tartrate 25 MG Oral Tablet TAKE 1 TABLET TWICE DAILY. * Refills: 0 Noah M.D., Srikanth * Start 09-Aug-2015 Active Melatonin 3 MG Oral Tablet take one at hs * Refills: 0 [place] M.D., Srikanth * Start 09-Aug-2015 Active Potassium Chloride ER 10 MEQ Oral Capsule Extended Release TAKE 1 CAPSULE TWICE DAILY. * Refills: 0 [place] M.D., Srikanth * Start 09-Aug-2015 Active Calcium 500 +D 500-400 MG-UNIT Oral Tablet Take one tab daily * Refills: 0 [place] M.D., Srikanth * Start 09-Aug-2015 Active LevETIRAcetam 100 MG/ML Oral Solution Take 7.5 ml po twice daily * Refills: 0 [place] M.D., Srikanth * Start 09-Aug-2015 Active Fish Oil 1000 MG Oral Capsule TAKE ONE CAPSULE PO TWICE DAILY * Refills: 0 Noah M.D., Srikanth * Start 09-Aug-2015 Active Multi-Vitamins Oral Tablet TAKE 1 TABLET DAILY. * Refills: 0 [place] M.D., Srikanth * Start 09-Aug-2015 Active Mirtazapine 15 MG Oral Tablet TAKE 1/2 TABLET AT BEDTIME. * Refills: 0 [place] M.D., Srikanth * Start 09-Aug-2015 Active Colace 100 MG Oral Capsule TAKE 1 CAPSULE TWICE DAILY. * Refills: 0 [place] M.D., Srikanth * Start 09-Aug-2015 Active Milk of Magnesia 400 MG/5ML Oral Suspension Take 30 ml po daily PRN * Refills: 0 [place] M.D., Srikanth * Start 09-Aug-2015 Active MiraLax Oral Powder MIX 1 CAPFUL IN 8 OUNCES OF WATER AND DRINK DAILY DIRECTED. * Refills: 0 Noah M.D., Srikanth * Start 09-Aug-2015 Active Bisacodyl 10 MG Rectal Suppository Insert one supp recutally BID PRN * Refills: 0 [place] M.D., Srikanth * Start 09-Aug-2015 Active Promethazine HCl - 12.5 MG Rectal Suppository Insert 1 supp rectally twice daily PRN * Refills: 0 [place] M.D., Srikanth * Start 09-Aug-2015 Active Fluticasone Propionate 50 MCG/ACT Nasal Suspension 1 [place] Each Nostril Daily * Quantity: 1 Refills: 12 [place] M.D., Srikanth * Start 12-Oct-2015 Active 16 GM Bottle Refresh Lacri-Lube Ophthalmic Ointment APPLY 1/2" STRIP TO AFFECTED EYE(S) AT BEDTIME * Refills: 0 Noah M.D., Srikanth * Start 12-Oct-2015 Active Montelukast Sodium 10 MG Oral Tablet Take one tablet by mouth daily * Quantity: 30 Refills: 5 Noah M.D., Srikanth * Start 18-Jan-2016 Active Allergies [...] smoker Vital Signs Date Test Result Details 14-Feb-2016 17:48 BP Systolic 104 mm[Hg] Status: Comments: Location: ; Position: BP Diastolic 54 mm[Hg] Status: Comments: Location: ; Position: Temperature 98.3 f Status: Comments: Method: Heart Rate 62 /min Status: Comments: Location: ; Physical Findings 20 Status: Comments: Respiration Physical Findings 95 Status: Comments: O2 Saturation Results Date Description Value Details 26-Jan-2016 08:32 LIPID PROFILE 1184 CHOLESTEROL 104 TRIGLYCERIDES 66 HDL Cholesterol 35 LDL - CALCULATED 56 CARDIAC RSK FACTOR 3.0 08:33 Comprehensive Metabolic Panel 1212 POTASSIUM 4.3 BUN 25 CREATININE, SERUM 0.89 CALCIUM 8.4 08:34 CBC w/ Auto Diff 7150 RBC 3.73 HGB 11.1 HCT 33.8 Plan of Care Name Dates Details Planned Observations Planned Goals not documented Planned Encounters Appointment; Provider: Srikanth Zamora M.D. On 14-Feb-2016 13:45 Instructions Name Dates Details Instructions not [...]
--- OUTSIDE RECORDS SUMMARY | 2016-07-04 13:20 | XMS REPORT | Summary of Care ---
Author Author Srikanth Zamora M.D. Unknown Address [address] [place], [place] [id number] Phone Unavailable Care Team Providers Care Clinical Project Assistant Name Role Phone Meke Pham M.D. Unavailable Unavailable Srikanth Zamora PP Unavailable Unavailable Unavailable Functional Status Functional Status Health Issues* Name Dates Details Functional status health issues are not documented Status: Cognitive Status Health Issues* Name Dates Details Cognitive status health issues are not documented Status: Problems Name Dates Details Encounter for interrogation of cardiac pacemaker (V53.31, Z45.018) Status: Active Hypertension (401.9, I10) Status: Active Hyperlipidemia (272.4, E78.5) Status: Active Atrial fibrillation (427.31, I48.91) Status: Active Paroxysmal atrial fibrillation (427.31, I48.0) Status: Active Current use of retirement anticoagulation (V58.61, Z79.01) Status: Active 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 * Refills: 0 * Started 31-May-2015 ActiveLasix 80 MG Oral Tablet TAKE 1 [...] smoker Vital Signs Date Test Result Details 08-Jul-2015 11:22 BP Systolic 118 mm[Hg] Status: BP Diastolic 50 mm[Hg] Status: Temperature 97.2 f Status: Heart Rate 82 /min Status: O2 SAT 95 % Status: Results Date Description Value Details Results not documented Plan of Care Planned Observations* Name Dates Details Planned Goals not documented Goal Planned Encounters* Appointment; Provider: Meek Pham On 15:00 Instructions * Instructions not documented Encounters Appointment; [...]
--- OUTSIDE RECORDS SUMMARY | 2016-07-04 13:21 | XMS REPORT | Summary of Care ---
Author Author Beltran Xiao M.D. Unknown Address Unknown Phone Unavailable Care Team Providers Care Vocational Education Teacher Name Role Phone Meek Pham M.D. Unavailable Unavailable Srikanth Zamora M.D. Unavailable Unavailable Iveth Xiao M.D. 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 * Quantity: 30 Refills: 6 [place] M.D., Srikanth * Start 09-Aug-2015 Active Metoprolol Tartrate 25 MG Oral Tablet TAKE 1 TABLET TWICE DAILY. * Refills: 0 [place] M.D., Srikanth * Start 09-Aug-2015 Active Melatonin 3 MG Oral Tablet take one at hs * Refills: 0 [place] M.D., Srikanth * Start 09-Aug-2015 Active Potassium Chloride ER 10 MEQ Oral Capsule Extended Release TAKE 1 CAPSULE TWICE DAILY. * Refills: 0 [place] M.D., Srikanth * Start 09-Aug-2015 Active Calcium 500 +D 500-400 MG-UNIT Oral Tablet Take one tab daily * Refills: 0 [place] M.D., Srikanth * Start 09-Aug-2015 Active LevETIRAcetam 100 MG/ML Oral Solution Take 7.5 ml po twice daily * Refills: 0 [place] M.D., Srikanth * Start 09-Aug-2015 Active Fish Oil 1000 MG Oral Capsule TAKE ONE CAPSULE PO TWICE DAILY * Refills: 0 [place] M.D., Srikanth * Start 09-Aug-2015 Active Multi-Vitamins Oral Tablet TAKE 1 TABLET DAILY. * Refills: 0 Noah M.D., Srikanth * Start 09-Aug-2015 Active Mirtazapine 15 MG Oral Tablet TAKE 1/2 TABLET AT BEDTIME. * Refills: 0 [place] M.D., Srikanth * Start 09-Aug-2015 Active Colace [...] supp recutally BID PRN * Refills: 0 [place] M.D., Srikanth * Start 09-Aug-2015 Active Promethazine HCl - 12.5 MG Rectal Suppository Insert 1 supp rectally twice daily PRN * Refills: 0 [place] M.D., Srikanth * Start 09-Aug-2015 Active Fluticasone Propionate 50 MCG/ACT Nasal Suspension 1 [place] Each Nostril Daily * Quantity: 1 Refills: 12 Noah M.D., Srikanth * Start 12-Oct-2015 Active 16 GM Bottle Refresh Lacri-Lube Ophthalmic Ointment APPLY 1/2" STRIP TO AFFECTED EYE(S) AT BEDTIME * Refills: 0 [place] M.D.Srikanth * Start 12-Oct-2015 Active Montelukast Sodium 10 MG Oral Tablet Take one tablet by mouth daily * Quantity: 30 Refills: 5 [place] M.D., Srikanth * Start 18-Jan-2016 Active Azelastine HCl - 0.1 % Nasal Solution USE 2 PUFFS EACH NOSTRIL EVERY 12 HOURS NEEDED. * Quantity: 30 Refills: 3 [place] M.Gene., Beltran Lazaro * Start 19-Mar-2016 Active Saline Mist [place] 0.65 % Nasal Solution USE 2 SPRAYS IN EACH NOSTRIL IN AM AND HS * Refills: 0 Ninoska Castaneda, Beltran A * Start 19-Mar-2016 Active Allergies and Adverse Reactions Name Dates [...] smoker Vital Signs Date Test Result Details 19-Mar-2016 09:41 Temperature 97 f Status: Comments: Method: Weight 159 lb Status: Body Mass Index Calculated 27.29 kg/m2 Status: Body Surface Area Calculated 1.77 m2 Status: Results Date Description Value Details [...]
--- OUTSIDE RECORDS SUMMARY | 2016-07-04 13:21 | XMS REPORT | Summary of Care ---
Author Author Noah Castaneda, Srikanth Durbin Unknown Address Unknown Phone Unavailable Care Team Providers Care Ocean Export Agent Name Role Phone Vero Castaneda, Meek Unavailable [...] (401.1, I10) Status: Active Current use of vermin exterminator anticoagulation (V58.61, Z79.01) Status: Active Seasonal allergies [...] TABLET DAILY. * Quantity: 30 Refills: 6 [place] M.D.Srikanth * Start 09-Aug-2015 Active Metoprolol Tartrate 25 MG Oral Tablet TAKE 1 TABLET TWICE DAILY. * Refills: 0 [place] M.D., Srikanth * Start 09-Aug-2015 Active Melatonin 3 MG Oral Tablet take one at hs * Refills: 0 [place] M.D.Srikanth * Start 09-Aug-2015 Active Potassium Chloride ER 10 MEQ Oral Capsule Extended Release TAKE 1 CAPSULE TWICE DAILY. * Refills: 0 Noah M.D., Srikanth * Start 09-Aug-2015 Active Calcium 500 +D 500-400 MG-UNIT Oral Tablet Take one tab daily * Refills: 0 [place] M.D., Srikanth * Start 09-Aug-2015 Active LevETIRAcetam 100 MG/ML Oral Solution Take 7.5 ml po twice daily * Refills: 0 [place] M.D., Srikanth * Start 09-Aug-2015 Active Fish Oil 1000 MG Oral Capsule TAKE ONE CAPSULE PO TWICE DAILY * Refills: 0 [place] MSrikanth Mi * Start 09-Aug-2015 Active Multi-Vitamins [...] supp recutally BID PRN * Refills: 0 [place] M.DCatracho, Srikanth * Start 09-Aug-2015 Active Fluticasone Propionate 50 MCG/ACT Nasal Suspension 1 [place] Each Nostril Daily * Quantity: 1 Refills: 12 [place] MCatrachoDSrikanth Hayden * Start 12-Oct-2015 Active 16 GM Bottle Refresh Lacri-Lube Ophthalmic Ointment APPLY 1/2" STRIP TO AFFECTED EYE(S) AT BEDTIME * Refills: 0 [place] MSrikanth Mi * Start 12-Oct-2015 Active Montelukast Sodium 10 MG Oral Tablet Take one tablet by mouth daily * Quantity: 30 Refills: 5 [place] MSrikanth Mi * Start 18-Jan-2016 Active Azelastine HCl - 0.1 % Nasal Solution USE 2 PUFFS EACH NOSTRIL EVERY 12 HOURS NEEDED. * Quantity: 30 Refills: 3 Ninoska Castaneda, Beltran A * Start 19-Mar-2016 Active Saline Mist [place] 0.65 % Nasal Solution USE 2 SPRAYS IN EACH NOSTRIL IN AM AND HS * Refills: 0 Beltran Xiao M.D. * Start 19-Mar-2016 Active DiazePAM 5 MG Oral Tablet Take 1 po 1 time only. * Quantity: 1 Refills: 0 [place] rizvi M.D. Start 18-Apr-2016 Active Ativan 0.5 MG Oral Tablet Take 1 tab po TID PRN anxiety * Refills: 0 [place] M.D., Srikanth * Start 19-Apr-2016 Active ALPRAZolam ER 1 MG Oral Tablet Extended Release 24 Hour TAKE 1 TABLET DAILY. * Refills: 0 [place] M.D., Srikanth * Start 04-May-2016 Active BusPIRone HCl - 15 MG Oral Tablet TAKE 1 TABLET TWICE DAILY. * Quantity: 60 Refills: 1 [place] M.D., Srikanth * Start 04-May-2016 Active Allergies and Adverse Reactions Name Dates [...] smoker Vital Signs Date Test Result Details 17-Apr-2016 17:37 BP Systolic 107 mm[Hg] Status: Comments: Location: ; Position: BP Diastolic 50 mm[Hg] Status: Comments: Location: ; Position: Temperature 97.3 f Status: Comments: Method: Heart Rate 60 /min Status: Comments: Location: ; Physical Findings 20 Status: Comments: Respiration Weight 156.1 lb Status: Body Mass Index Calculated 26.79 kg/m2 Status: Body Surface Area Calculated 1.76 m2 Status: Results Date Description Value Details Results not documented Plan of Care Name Dates Details Planned Observations Planned Goals not documented Interventions Provided Medication Changes* Mirtazapine 15 MG Oral Tablet - Stop Instructions Name Dates Details Instructions not documented [...]
--- OUTSIDE RECORDS SUMMARY | 2016-07-04 13:21 | XMS REPORT | Summary of Care ---
Author Author Noah Castaneda, Srikanth Durbin Unknown Address Unknown Phone Unavailable Care Team Providers Care Industrial Registered Nurse Name Role Phone Vero Castaneda, Meek Unavailable [...] (401.1, I10) Status: Active Current use of detention anticoagulation (V58.61, Z79.01) Status: Active Seasonal allergies [...] TABLET DAILY. * Quantity: 30 Refills: 6 [place] M.D., Srikanth * Start 09-Aug-2015 Active Metoprolol Tartrate 25 MG Oral Tablet TAKE 1 TABLET TWICE DAILY. * Refills: 0 [place] M.D., Srikanth * Start 09-Aug-2015 Active Melatonin 3 MG Oral Tablet take one at hs * Refills: 0 [place] M.D., Srikanth * Start 09-Aug-2015 Active Potassium Chloride ER 10 MEQ Oral Capsule Extended Release TAKE 1 CAPSULE TWICE DAILY. * Refills: 0 Noah M.D., Srikanth * Start 09-Aug-2015 Active Calcium 500 +D 500-400 MG-UNIT Oral Tablet Take one tab daily * Refills: 0 [place] M.D., Srikanth * Start 09-Aug-2015 Active LevETIRAcetam 100 MG/ML Oral Solution Take 7.5 ml po twice daily * Refills: 0 Noah M.D., Srikanth * Start 09-Aug-2015 Active Fish Oil 1000 MG Oral Capsule TAKE ONE CAPSULE PO TWICE DAILY * Refills: 0 [place] M.D., Srikanth * Start 09-Aug-2015 Active Multi-Vitamins Oral Tablet TAKE 1 TABLET DAILY. * Refills: 0 [place] M.D., Srikanth * Start 09-Aug-2015 Active Colace 100 MG Oral Capsule TAKE 1 CAPSULE TWICE DAILY. * Refills: 0 [place] M.D., Srikanth * Start 09-Aug-2015 Active Milk of Magnesia 400 MG/5ML Oral Suspension Take 30 ml po daily PRN * Refills: 0 Noah M.D., Srikanth * Start 09-Aug-2015 Active MiraLax Oral Powder MIX 1 CAPFUL IN 8 OUNCES OF WATER AND DRINK DAILY DIRECTED. * Refills: 0 [place] M.D., Srikanth * Start 09-Aug-2015 Active Bisacodyl 10 MG Rectal Suppository Insert one supp recutally BID PRN * Refills: 0 Noah M.D., Srikanth * Start 09-Aug-2015 Active Fluticasone Propionate 50 MCG/ACT Nasal Suspension 1 [place] Each Nostril Daily * Quantity: 1 Refills: 12 Noah M.D., Srikanth * Start 12-Oct-2015 Active 16 GM Bottle Refresh Lacri-Lube Ophthalmic Ointment APPLY 1/2" STRIP TO AFFECTED EYE(S) AT BEDTIME * Refills: 0 [place] M.D.Srikanth * Start 12-Oct-2015 Active Montelukast Sodium 10 MG Oral Tablet Take one tablet by mouth daily * Quantity: 30 Refills: 5 [place] M.D.Srikanth * Start 18-Jan-2016 Active Azelastine HCl - 0.1 % Nasal Solution USE 2 PUFFS EACH NOSTRIL EVERY 12 HOURS NEEDED. * Quantity: 30 Refills: 3 [place] M.D., Beltran A * Start 19-Mar-2016 Active Saline Mist [place] 0.65 % Nasal Solution USE 2 SPRAYS IN EACH NOSTRIL IN AM AND HS * Refills: 0 Ninoska MBeltran Mi * Start 19-Mar-2016 Active DiazePAM 5 MG Oral Tablet Take 1 po 1 time only. * Quantity: 1 Refills: 0 [place] MRick Mi * Start 18-Apr-2016 Active Ativan 0.5 MG Oral Tablet Take 1 tab po TID PRN anxiety * Refills: 0 [place] M.D., Srikanth * Start 19-Apr-2016 Active ALPRAZolam ER 1 MG Oral Tablet Extended Release 24 Hour TAKE 1 TABLET DAILY. * Refills: 0 [place] M.D., Srikanth * Start 04-May-2016 Active BusPIRone HCl - 15 MG Oral Tablet TAKE 1 TABLET TWICE DAILY. * Quantity: 60 Refills: 1 [place] M.D., Srikanth * Start 04-May-2016 Active LORazepam 1 MG Oral Tablet TAKE 1 TABLET 1 HOUR BEFORE MRI. MAY REPEAT ONCE 15 MINUTES BEFORE MRI. * Quantity: 1 Refills: 0 [place] M.D., Srikanth * Start 17-May-2016 Active Arthritis Pain Reliever 650 MG Oral Tablet Extended Release TAKE 1 TABLET BY MOUTH EVERY 8 HOURS * Quantity: 93 Refills: 3 Noah M.D., Srikanth * Start 14-Jun-2016 Active ALPRAZolam 0.5 MG Oral Tablet 1 po BID PRN anxiety * Quantity: 20 Refills: 2 [place] M.D., Srikanth * Start 12-Jun-2016 Active Allergies and Adverse Reactions Name Dates [...] Goals not documented Interventions Provided Medication Changes* Arthritis Pain Reliever 650 MG Oral Tablet Extended Release - Renew Instructions Name Dates Details Instructions not documented [...]
--- OUTSIDE RECORDS SUMMARY | 2016-07-04 13:21 | XMS REPORT | Summary of Care ---
Author Author Noah Castaneda, Srikanth Organization Unknown Address Unknown Phone Unavailable Care Team Providers Care Olive Pitter Name Role Phone Meek Pham M.D. Unavailable [...] TABLET DAILY. * Quantity: 30 Refills: 6 Langlade M.D., Srikanth * Start 09-Aug-2015 Active Metoprolol Tartrate 25 MG Oral Tablet TAKE 1 TABLET TWICE DAILY. * Refills: 0 Langlade M.D., Srikanth * Start 09-Aug-2015 Active Melatonin 3 MG Oral Tablet take one at hs * Refills: 0 Noah M.D., Srikanth * Start 09-Aug-2015 Active Potassium Chloride ER 10 MEQ Oral Capsule Extended Release TAKE 1 CAPSULE TWICE DAILY. * Refills: 0 Langlade M.D., Srikanth * Start 09-Aug-2015 Active Calcium 500 +D 500-400 MG-UNIT Oral Tablet Take one tab daily * Refills: 0 Langlade M.D., Srikanth * Start 09-Aug-2015 Active LevETIRAcetam 100 MG/ML Oral Solution Take 7.5 ml po twice daily * Refills: 0 Langlade M.D., Srikanth * Start 09-Aug-2015 Active Fish [...] 1 CAPSULE TWICE DAILY. * Refills: 0 Langlade M.D., Srikanth * Start 09-Aug-2015 Active Milk of Magnesia 400 MG/5ML Oral Suspension Take 30 ml po daily PRN * Refills: 0 Noah M.D., Srikanth * Start 09-Aug-2015 Active MiraLax Oral Powder MIX 1 CAPFUL IN 8 OUNCES OF WATER AND DRINK DAILY DIRECTED. * Refills: 0 Langlade M.D., Srikanth * Start 09-Aug-2015 Active Bisacodyl 10 MG Rectal Suppository Insert one supp recutally BID PRN * Refills: 0 Noah M.D., Srikanth * Start 09-Aug-2015 Active Promethazine HCl - 12.5 MG Rectal Suppository Insert 1 supp rectally twice daily PRN * Refills: 0 Noah M.D., Srikanth * Start 09-Aug-2015 Active Fluticasone Propionate 50 MCG/ACT Nasal Suspension 1 [place] Each Nostril Daily * Quantity: 1 Refills: 12 Langlade M.D., Srikanth * Start 12-Oct-2015 Active 16 GM Bottle Refresh Lacri-Lube Ophthalmic Ointment APPLY 1/2" STRIP TO AFFECTED EYE(S) AT BEDTIME * Refills: 0 Langlade M.D., Srikanth * Start 12-Oct-2015 Active Allergies [...] Provider: Srikanth Zamora M.D. On 13-Dec-2015 13:30 Appointment; Provider: Srikanth Zamora M.D. On 11-Oct-2015 13:45 Appointment; Provider: Srikanth Zamora M.D. On 14:00 Appointment; Provider: Rick Zamora M.D. On 02-Aug-2015 14:30 Instructions Name Dates Details Instructions not [...]
--- OUTSIDE RECORDS SUMMARY | 2016-07-04 13:21 | XMS REPORT | Summary of Care ---
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 * Refills: 0 * Started 02-Jun-2014 Active Allergies and Adverse Reactions Name Dates Details Biaxin Status: Active Duricef Status: Active Penicillins Status: Active Procedures Procedure Dates Details History of Pacemaker Placement History of Tonsillectomy CP Echo Ordered:03-Jun-2014 BASIC METABOLIC PROFILE 1210 Ordered:03-Jun-2014 Immunization Name Dates Details Immunizations not [...] smoker Vital Signs Date Test Result Details 03-Jun-2014 10:18 BP Systolic 130 mm[Hg] Status: BP Diastolic 60 mm[Hg] Status: Heart Rate 84 /min Status: Weight 145 lb Status: Height 64 in Status: Body Mass Index Calculated 24.89 kg/m2 Status: Body Surface Area Calculated 1.71 m2 Status: Results Date Description Value Details Results not documented Plan of Care Planned Observations* Name Dates Details Planned Goals not documented Goal Planned Encounters* Appointment; Provider: Meek Pham On 27-Jul-2014 14:45 Instructions * Instructions not documented Encounters Appointment; Meek Pham Encounter Diagnosis: Problem not documented On 03-Jun-2014 10:00
--- OUTSIDE RECORDS SUMMARY | 2016-07-04 13:21 | XMS REPORT | Referral Summary ---
Author Author [facility] Organization [facility] Address Unknown Phone Unavailable Care Team Providers Care Application Support Name Role Phone Azael Zamora Primary Care Physician [phone] Encounter VC Date(s): 04/05/15 - 04/26/15 [facility] [address] [place] [address] [phone] Discharge Disposition: 03-[facility] Facility Attending Physician: Junior Mc DO Admitting Physician: Zeeshan Pruett JR, MD Vital Signs Most recent to 1 oldest [Reference Range]: Temperature Axillary 36.5 degC [35.2-36.7 degC] (04/25/15 7:00 PM) Temperature Oral 36.6 degC [35.8-37.3 degC] (04/26/15 12:20 PM) Temperature Skin 36.8 degC [36-37 degC] (04/23/15 9:20 AM) Temperature Temporal 36.4 degC Artery [36.3-37.8 (04/23/15 10:50 AM) degC] Apical Heart Rate 60 bpm [60-100 bpm] (04/23/15 5:52 AM) Peripheral Pulse 60 bpm Rate [60-100 bpm] (04/26/15 12:20 PM) Heart Rate Monitored 74 bpm [60-100 bpm] (04/25/15 3:39 AM) Respiratory Rate 17 br/min [14-20 br/min] (04/26/15 12:20 PM) Blood Pressure 118/66 mmHg [90-140/60-90 mmHg] (04/26/15 12:20 PM) Mean Arterial 71 mmHg Pressure, Cuff (04/24/15 4:00 PM) Pulse Rate [60-100 74 bpm bpm] (04/16/15 8:35 AM) SpO2 94 % (04/26/15 12:20 PM) Problem List Condition Effective Dates Status Health Status Informant Acute Active pain(Confirmed) Alteration in Active nutrition(Confirmed) 1 At risk for activity Active intolerance(Confirme d)2 At risk for Active aspiration(Confirmed )3 At risk for Active falls(Confirmed)4 At risk for Active injury(Confirmed)5 At risk of pressure Active sore(Confirmed) Cardiac Active disorder(Confirmed)6 Pacemaker(Confirmed) Active patient Cataract(Confirmed) Active patient Fluid Active imbalance(Confirmed) 7 Hypertension(Confirm Active patient ed)8 Irregular heart Active patient rhythm(Confirmed)9 Knowledge Active deficit(Confirmed)10 Pressure ulcer stage Active 1(Confirmed) Pressure ulcer stage Active 2(Confirmed) Self -care Active deficit(Confirmed)11 Tissue perfusion Active alteration(Confirmed )12 1Problem added automatically by system based on initiation of Alteration in Nutrition Plan of Care 2Problem added automatically by system based on initiation of At Risk for Activity Intolerance Plan of Care 3Problem added automatically by system based on initiation of At Risk for Aspiration Plan of Care 4This problem was added by Discern Expert. 5Problem added automatically by system based on initiation of Risk for Injury Plan of Care 6Problem added automatically by system based on initiation of Cardiac Output/ Ineffective Cardiac Perfusion Plan of Care 7Problem added automatically by system based on initiation of Fluid Volume Imbalance Plan of Care 8lisinopril and metopolol home med 9Xarelto and Aspirin 10Problem added automatically by system based on initiation of Knowledge Deficit Plan of Care 11Problem added automatically by system based on initiation of Self Care Deficit Plan of Care 12Problem added automatically by system based on initiation of Tissue Perfusion Cerebral Plan of Care Allergies, Adverse Reactions, Alerts Substance Reaction Severity Status penicillin Active shellfish Active Medications acetaminophen 325 mg oral tablet 325 mg 1 tabs, G-Tube, q4hr, as needed for pain, # 60 tabs, 0 Refill(s), other reason (Rx) Start Date: 04/25/15 Status: Ordered aspirin 325 mg oral tablet 325 mg 1 tabs, G-Tube, Daily, 0 Refill(s) Start Date: 04/25/15 Status: Ordered Colace 100 mg 10 mL, Oral, BID, 0 Refill(s) Start Date: 04/25/15 Status: Ordered Dulcolax Laxative 10 mg rectal suppository 10 mg 1 supp, Rectal, BID, Constipation, 0 Refill(s) Start Date: 04/25/15 Status: Ordered lactulose 10 g/15 mL oral syrup 20 g 30 mL, Oral, TID, Constipation, 0 Refill(s) Start Date: 04/25/15 Status: Ordered levETIRAcetam 100 mg/mL oral solution 750 mg 7.5 mL, Dobhoff Tube, BID, 0 Refill(s) Start Date: 04/25/15 Status: Ordered Lipitor 80 mg oral tablet 80 mg 1 tabs, Oral, Daily, 0 Refill(s) Start Date: 04/25/15 Status: Ordered Lopressor 50 mg oral tablet 25 mg 0.5 tabs, NG-Tube, BID, 0 Refill(s) Start Date: 04/25/15 Status: Ordered ocular lubricant ophthalmic ointment Eye-Both, q4hr, Dry Eyes, 0 Refill(s) Start Date: 04/25/15 Status: Ordered Xarelto 20 mg oral tablet 20 mg 1 tabs, Oral, Daily, 0 Refill(s) Start Date: 04/25/15 Status: Ordered Results Blood Gases Most recent to 1 oldest [Reference Range]: pH [7.35-7.45] 7.49 *HI* (04/15/15 6:45 PM) pCO2 Art [35-45 46 mmHg mmHg] *HI* (04/15/15 6:45 PM) Bicarbonate [22-26 35 mEq/L mEq/L] *HI* (04/15/15 6:45 PM) Base Excess Art 10 [0-2] *HI* (04/15/15 6:45 PM) O2 Sat Art 96.8 % [90.0-97.0 %] (04/15/15 6:45 PM) pO2 Art [80-100 78 mmHg mmHg] *LOW* (04/15/15 6:45 PM) LPM Art 2.0 L/min (04/15/15 6:45 PM) O2 Panel Nasal Cannula (04/15/15 6:45 PM) Vent Mode AC (04/07/15 6:25 AM) Set Vt 450 mL (04/07/15 6:25 AM) Set Rate 14 br/min (04/07/15 6:25 AM) FiO2 Art [0-100] 30 (04/07/15 6:25 AM) PEEP 5.0 (04/07/15 6:25 AM) Inspiratory Time Art 0.90 seconds (04/07/15 6:25 AM) Spec Site Brachial-L (04/15/15 6:45 PM) Hematology Most recent to 1 oldest [Reference Range]: WBC [4.8-10.8 11.2 10*3/uL 10*3/uL] *HI* (04/25/15 6:40 AM) RBC [4.00-5.20] 4.37 (04/25/15 6:40 AM) Hgb [12.0-16.0 12.4 gm/dL gm/dL] (04/25/15 6:40 AM) Hct [37.0-47.0 %] 38.4 % (04/25/15 6:40 AM) MCV [82.0-99.0 fL] 87.9 fL (04/25/15 6:40 AM) MCH [27.0-32.0 pg] 28.4 pg (04/25/15 6:40 AM) MCHC [32.0-36.0 32.3 gm/dL gm/dL] (04/25/15 6:40 AM) RDW [11.5-14.5 %] 14.2 % (04/25/15 6:40 AM) Platelet [150-400 346 10*3/uL 10*3/uL] (04/25/15 6:40 AM) MPV [9.4-12.4 fL] 11.0 fL (04/25/15 6:40 AM) Immature 0.5 % Granulocytes (04/21/15 3:38 AM) [0.0-1.0 %] Neutrophils [51-75 65 % %] (04/21/15 3:38 AM) Band Man [0-8 %] 1 % (04/19/15 3:44 AM) Lymphocytes [20-46 19 % %] *LOW* (04/21/15 3:38 AM) Monocytes [4-11 %] 9 % (04/21/15 3:38 AM) Eosinophils [0-4 %] 7 % *HI* (04/21/15 3:38 AM) Basophils [0-2 %] 1 % (04/21/15 3:38 AM) Neutro Absolute 6.14 10*3 [1.90-7.00 10*3] (04/21/15 3:38 AM) Lymph Absolute 1.76 10*3 [0.80-3.30 10*3] (04/21/15 3:38 AM) Wetzel Absolute 0.83 10*3 [0.30-1.00 10*3] (04/21/15 3:38 AM) Eos Absolute 0.66 10*3 [0.00-0.50 10*3] *HI* (04/21/15 3:38 AM) Baso Absolute 0.05 10*3 [0.00-0.20 10*3] (04/21/15 3:38 AM) Giant Platelets Occasional *ABN* (04/19/15 3:44 AM) Polychrom Occasional *ABN* (04/19/15 3:44 AM) Ovalocytes Occasional *ABN* (04/19/15 3:44 AM) Nucleated RBC 0.0 /100 WBC Automated [0 /100 (04/21/15 3:38 AM) WBC] Differential Manual *ABN* (04/19/15 3:44 AM) Sedimentation Rate 25 Manual [0-20] *HI* (04/05/15 10:09 PM) Coagulation Most recent to 1 oldest [Reference Range]: INR [0.9-1.2] 1.4 *HI* (04/06/15 12:40 PM) PTT [25.0-35.0 77.5 seconds seconds] *HI* (04/13/15 8:10 AM) Factor 10A (Lovenox) Not Detected 1 (04/15/15 4:24 AM) 1Result Comment: Therapeutic ranges for Adults > or=18 years: -Standard heparin (UHF): 0.30 to 0.70 IU/mL -Low molecular weight heparin (LMWH): 0.50 to 1.0 IU/mL for twice daily dosing (specimen drawn 4-6 hours following subcutaneous injection) or 1.00 to 2.00 IU/mL for once daily dosing (specimen drawn 4-6 hours following subcutaneous injection) -LMWH (prophylactic): 0.10 to 0.30 IU/mL Chemistry Most recent to 1 oldest [Reference Range]: Sodium Lvl [136-144 136 mEq/L mEq/L] (2/15/16 6:40 AM) Potassium Lvl 4.2 mEq/L [3.6-5.1 mEq/L] (04/25/15 6:40 AM) Chloride [99-109 102 mEq/L mEq/L] (04/25/15 6:40 AM) CO2 [22-32 mEq/L] 27 mEq/L (04/25/15 6:40 AM) AGAP [3-20] 7 (04/25/15 6:40 AM) BUN [4-20 mg/dL] 25 mg/dL *HI* (04/25/15 6:40 AM) Glucose Lvl [70-100 137 mg/dL mg/dL] *HI* (04/25/15 6:40 AM) Creatinine Lvl 0.84 mg/dL [0.44-1.03 mg/dL] (04/25/15 6:40 AM) eGFR [>60] >60 1 (04/25/15 6:40 AM) Calcium Lvl 8.8 mg/dL [8.6-10.0 mg/dL] (04/25/15 6:40 AM) Albumin Lvl [3.5-4.8 2.6 gm/dL gm/dL] *LOW* (04/25/15 6:40 AM) Total Protein 6.0 gm/dL [6.1-7.9 gm/dL] *LOW* (04/21/15 3:38 AM) Globulin [1.9-4.3 3.5 gm/dL gm/dL] (04/21/15 3:38 AM) ALT [14-54 U/L] 24 U/L (04/21/15 3:38 AM) AST [15-41 U/L] 24 U/L (04/21/15 3:38 AM) Alk Phos [26-104 68 U/L U/L] (04/21/15 3:38 AM) Bili Total [0.2-1.2 0.3 mg/dL 2 mg/dL] (04/21/15 3:38 AM) Magnesium Lvl 2.2 mg/dL [1.8-2.5 mg/dL] (04/25/15 6:40 AM) Phosphorus [2.4-4.7 3.6 mg/dL 3 mg/dL] (04/25/15 6:40 AM) BNP [0-99 pg/mL] 841 pg/mL *HI* (04/06/15 3:30 AM) Troponin [<0.06 31.22 ng/mL 4 ng/mL] *HHI* (04/07/15 7:10 AM) Ammonia [9-35 23 mcmol/L mcmol/L] (04/14/15 8:06 AM) Osmolality [275-300 296 mOsm/kg mOsm/kg] (04/05/15 10:09 PM) Prealbumin [18-38 16 mg/dL mg/dL] *LOW* (04/19/15 3:44 AM) Homocyst Tot 13.8 mcmol/L [4.0-14.0 mcmol/L] (04/05/15 10:09 PM) Vitamin B12 Lvl 213 pg/mL [213-816 pg/mL] (04/05/15 10:09 PM) Folate Lvl [7.0-31.4 10.9 ng/mL ng/mL] (04/05/15 10:09 PM) Blood Glucose, 97 mg/dL Capillary [70-100 (04/23/15 9:05 AM) mg/dL] Blood Glucose, High Capillary Out of (04/11/15 6:43 PM) Range Chol [0-200 mg/dL] 102 mg/dL (04/06/15 3:30 AM) Trig [0-150 mg/dL] 126 mg/dL (04/06/15 3:30 AM) HDL [>40 mg/dL] 35 mg/dL *ABN* (04/06/15 3:30 AM) LDL [0-100 mg/dL] 42 mg/dL (04/06/15 3:30 AM) VLDL Cholesterol 25 mg/dL [0-30 mg/dL] (04/06/15 3:30 AM) Cardiac Risk 2.9 [0.0-5.0] (04/06/15 3:30 AM) Hep Bs Ag Negative (04/05/15 10:07 PM) Hep C Ab Negative (04/05/15 10:07 PM) HIV 1 and 2 Abs Non-reactive (04/05/15 10:07 PM) T4 Free [0.6-1.1 1.1 ng/dL ng/dL] (04/05/15 10:09 PM) TSH with Reflex Free 0.53 T4 [0.35-5.50] (04/22/15 3:29 AM) Hgb A1c [4.1-5.6 %] 6.1 % *HI* (04/05/15 10:09 PM) eAvg Glucose 128.4 mg/dL (04/05/15 10:09 PM) Procalcitonin 1.00 ng/mL 5 [0.00-0.09 ng/mL] *HI* (04/12/15 4:29 AM) 1Result Comment: Multiply eGFR results by 1.21 for race. 2Result Comment: Naproxen, specifically the metabolite O-desmethylnaproxen, may cause spurious elevation in Total Bilirubin levels. 3Result Comment: High dosages of liposomal Amphotericin B (AmBisome) therapy or other drug preparations that use a liposomal envelope to facilitate drug delivery may cause falsely elevated results for phosphorus. 4Result Comment: Critical value called, and read-back verified. Called to Kristin Mcgovern RN ([facility]) 04/07/2015 07:57 5Result Comment: Normal: <0.1 ng/mL (infants >72 hrs - adults) Suspected Lower Respiratory Tract Infection 0.10-0.25 ng/mL=Low likelihood for bacterial infection; Antibiotics discouraged. >0.25 ng/mL=Increased likelihood for bacterial infection; Antibiotics encouraged. Suspected Sepsis: Strongly consider initiating antibiotics in all unstable patients. 0.10-0.50 ng/mL=Low likelihood for sepsis; Antibiotics discouraged. >0.50 ng/mL=Increased likelihood for sepsis; Antibiotics encouraged. Decisions on antibiotic use should not be based solely on procalcitonin levels. If antibiotics are administered, repeat procalcitonin testing should be obtained every 2-3 days to consider early antibiotic cessation. PCT is a dynamic biomarker and most useful when trends are analyzed over time in accompaniment with other clinical data. Interpretation should be based upon clinical context and algorithms. Urinalysis Most recent to 1 oldest [Reference Range]: UA Color Yellow (04/18/15 6:46 PM) UA Appear Clear (04/18/15 6:46 PM) UA pH [5.0-8.0] 5.0 (04/18/15 6:46 PM) UA Leuk Est Negative [Negative] (04/18/15 6:46 PM) UA Nitrite Negative [Negative] (04/18/15 6:46 PM) UA Protein Negative [Negative] (04/18/15 6:46 PM) UA Glucose Negative [Negative] (04/18/15 6:46 PM) UA Ketones Negative [Negative] (04/18/15 6:46 PM) UA Urobilinogen 2.0 mg/dL [<1.0 mg/dL] *ABN* (04/18/15 6:46 PM) UA Bili [Negative] Negative (04/18/15 6:46 PM) UA Blood [Negative] Negative (04/18/15 6:46 PM) UA Spec Grav 1.030 [1.003-1.030] (04/18/15 6:46 PM) Type Catheter (04/18/15 6:46 PM) UA WBC [0-4] 2-5 (04/05/15 10:31 PM) UA RBC [0-2] 10-20 *ABN* (04/05/15 10:31 PM) Epithelial Cells None Seen (04/05/15 10:31 PM) UA Bacteria Rare (04/05/15 10:31 PM) UA Mucous Present (04/05/15 10:31 PM) Microbiology Reports TEST: Blood Culture STATUS: Auth (Verified) BODY SITE: SOURCE: Blood COLLECTED DATE/TIME: 04/18/15 6:21 PM Blood Culture No growth after 5 days of incubation. TEST: Blood Culture1 STATUS: Auth (Verified) BODY SITE: SOURCE: Blood COLLECTED DATE/TIME: 04/18/15 6:17 PM Blood Culture No growth after 5 days of incubation. TEST: Quant. Ventilator Associated Cult/Smear STATUS: Auth (Verified) BODY SITE: SOURCE: Mini - BAL COLLECTED DATE/TIME: 04/11/15 12:30 PM Quant. Ventilator Associated Cult/Smear Staphylococcus aureus >100,000 cfu/ml ORGANISM:Staphylococcus aureus INTERPRETIVE DATA 1Pediatric bottle ONLY received Immunizations No data available for this section Procedures Procedure Date Related Diagnosis Body Site Esophagogastroduodenoscopy - SN1 04/23/15 Esophagogastroduodenoscopy with Peg 04/23/15 Placement2 Arterial puncture, withdrawal of blood for 04/15/15 diagnosis Arterial puncture, withdrawal of blood for 04/15/15 diagnosis Arterial puncture, withdrawal of blood for 04/07/15 diagnosis Arterial puncture, withdrawal of blood for 04/05/15 diagnosis 1auto-populated from documented surgical case 2auto-populated from documented surgical case Social History Social History Type Response Smoking Status Never smoker Assessment and Plan Extracted from: Title: Neurology Inpt Progress Note Author: Manoj Jack MD Date: 04/23/15 Impression and Plan 1) Altered mental status Encephalopathy, multifactorial: ?? anoxic/hypoxic brain injury 2/2 NSTEMI, toxic metabolic (but labs now normal) ,? subclinical sz (less likely), ? thyroid , ? 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 Her mental status has been stable like this for many days now. No other neuro intervention planned. Will follow peripherally. Please call with questions. Extracted from: Title: Neurology Inpt Progress Note Author: Manoj Jack MD Date: 04/22/15 Impression and Plan 1) Altered mental status Encephalopathy, multifactorial: ?? anoxic/hypoxic brain injury 2/2 NSTEMI, toxic metabolic (but labs now normal) ,? subclinical sz (less likely), ? thyroid , ? thiamine def Has PPM, cannot get MRI B12 supplement started 04/18/15 for borderline B12 Levetiracetam started 04/18/15, mental status seems not much changed before and after Has QTc prolongation--per literature levetiracetam does not cause QTc prolongation EEG overnight with bitemporal sharps but no sz--will stop EEG monitoring-- official report pending On levetiracetam 750mg bid, continue--mental status was not clearly any worse now on levetiracetam compared to before levetiracetam Now on thiamine Unsure exactly what cause of lingering encephalopathy is--potentially reversible causes have been ruled out and covered 2) L basal ganglia subacute-chronic infarct Now back on ASA and Xarelto (home dose) 3) R CCA/ICA stenosis, 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 Morillo and nurse. Unsure what cause of encaphalopathy, therefore unsure prognosis. May well need PEG tube if not feeding/swallowing well. See no absolute indication for LP. No other neuro intervention planned. Please call with questions. Extracted from: Title: Neurology Inpt Progress Note Author: Manoj Jack MD Date: 04/21/15 Impression and Plan 1) Altered mental status Encephalopathy, multifactorial: ?? anoxic/hypoxic brain injury 2/2 NSTEMI, toxic metabolic (but labs now normal) ,? subclinical sz, ? thyroid Has PPM, cannot get MRI HCT showed L BG infarct, age indeterminate (also seems to have other areas of encephalomalacia elsewhere likely chronic) B12 supplement started 04/18/15 for borderline B12 Levetiracetam 500mg bid started 04/18/15 and mental status seemed improved some, increased to 750mg bid on 04/19/15 and not much response today Will keep LVT at 750mg bid for now--I am hesitant to increase more as LVT can also cause more sedation and alteration of consciousness in some patients Her exam in 2/9/16 was following some commands to me (on LVT 500mg bid)-- increased it to 750mg bid and she was sleepy--? unclear if due to med effects or her baseline waxing and waning state Ordered continuous bedside EEG today--Dr. Jacobsen to read--appreciate help-- anticipate until tomorrow to evaluate for possible subclinical sz (less likely) Unsure exactly what cause of lingering encephalopathy is Consider thiamine high-dose supplementation and/or thyroid recheck/correction-- thinking outside the box--discussed with Dr. 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 Morillo and nurse. No objection if for transfer to regular nursing floor at this time. Extracted from: Title: Neurology Inpt Progress Note Author: Manoj Jack MD Date: 04/20/15 Impression and Plan 1) Altered mental status Encephalopathy, multifactorial: likely toxic metabolic, ?? anoxic/hypoxic brain injury 2/2 NSTEMI, ? 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 Please call with questions. Extracted from: Title: Neurology Inpt Progress Note Author: Manoj Jack MD Date: 04/19/15 Impression and Plan 1) Altered mental status Encephalopathy, likely toxic metabolic ??? 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 subclinical sz ? delirium Has PPM, cannot get MRI--unclear why on PPM Mental status seems a bit better today, able to follow commands HCT showed L BG infarct, age indeterminate (also seems to have other areas of encephalomalacia elsewhere) B12 supplement started 04/18/15 for borderline B12 Levetiracetam 500mg bid started 04/18/15 due to epileptiform discharges noted and fluctuating mental status--today per nursing report mental status seems better, and able to follow some commands compared to yesterday Will increase LVT to 750mg bid, follow clinically for now 2) L basal ganglia subacute-chronic infarct Now back on ASA and Xarelto (home dose) 3) R CCA/ICA stenosis, 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 Please call with questions. Extracted from: Title: Neurology Inpt Progress Note Author: Manoj Jack MD Date: 04/18/15 Patient: GINGER YAN Age: 84 years Sex: Female : 1930 Associated Diagnoses: None Author: Manoj Jack MD Visit Information Visit type: Follow-up hospital visit. Accompanied by: Nurse. Source of history: Medical record, Nurse. History limitation: Clinical condition. Chief Complaint Follow-up History of Present Illness I am seeing Ms. Ginger Yan who neurology was asked to see due to altered mental status. Has pacemaker. 84/F admitted on 04/05/15, found unresponsive at home. Brought to [facility], intubated. Transferred to [facility] for ? stroke. On ASA and Xarelto at home. Found to have elevated troponin, HCT done showed ? L BG infarct (age indeterminate). She subsequently was transferred to CICU. She has had 2 HCT which were stable. CTA head/neck showed severely stenotic R CCA/ ICA stenosis and stenosis in post-PICA L vert artery. EEG showed diffuse encephalopathy. Labs for reversible causes of encephalopathy negative, except for TSH that was low. My partners Dr. Fisher and Dr. Baker had seen patient. Most recently, has been having fluctuating mental status. Pt seen today for follow-up. EEG just got done. Nurse tells me that mental status continues to fluctuate. However, on further questioning, pt seems to be "choosing" when she wants to respond. Per nurse, a PA was in this morning, and pt would not cooperate. With pain in limb, pt would not say or move limb. But with prolonged pressure and letting her know, pt apparently moved and said she could feel it. Pt apparently, at best, only could respond yes or no. No seizure-like activity noted. Cannot get MRI due to pacemaker. Cardiology awaiting mental status to improve before proceeding with heart cath for NSTEMI. Review of Systems Unable to obtain ROS due to pt's condition Health Status Allergies: Allergic Reactions (Selected) Severity Not Documented Penicillin- No reactions were documented. Shellfish- No reactions were documented. Current medications: (Selected) Inpatient Medications Ordered Colace: 100 mg=10 mL, Oral, BID Dulcolax Laxative: 10 mg=1 supp, Rectal, BID, PRN: Constipation Lipitor: 80 mg=1 tabs, Oral, Daily Lopressor: 25 mg=1 tabs, NG-Tube, BID Normal Saline Flush: 2 mL, IV Push, BID Normal Saline Flush: 2 mL, IV Push, q3min, PRN: Other (See Comment) Pepcid: 20 mg=1 tabs, Oral, BID Xarelto: 20 mg=1 tabs, Oral, Daily Zofran: 4 mg=2 mL, IV Push, q6hr, PRN: Nausea acetaminophen: 650 mg=1 supp, Rectal, q4hr, PRN: Other (See Comment) albuterol 5 mg/mL (0.5%) inhalation solution: 2.5 mg=0.5 mL, NEB, BID albuterol 5 mg/mL (0.5%) inhalation solution: 2.5 mg=0.5 mL, NEB, q2hr ( scheduled), PRN: Other (See Comment) aspirin: 325 mg=1 tabs, G-Tube, Daily labetalol: 10 mg=2 mL, IV Push, q6hr, PRN: Hypertension/High Blood Pressure lactulose: 20 g=30 mL, Oral, TID, PRN: Constipation ocular lubricant ophthalmic ointment: 3.5 g=1 ruddy, Eye-Both, q4hr, PRN: Dry Eyes Documented Medications Documented Communication: See Instructions, Patient transfered from [facility]. Refer to paperwork/MAR for recent orders, 0 Refill(s) Durezol 0.05% ophthalmic emulsion: See Instructions, Patient used when she had cataract surgery a couple of weeks ago. Family instilled some drops due to red eye and irritation, 0 Refill(s) Xarelto: 20 mg, Oral, Daily, 0 Refill(s) aspirin: 81 mg, Oral, Daily, 0 Refill(s) atorvastatin: 40 mg, Oral, Bedtime (once a day), 0 Refill(s) lisinopril: 20 mg, Oral, Bedtime (once a day), 0 Refill(s) metoprolol succinate 50 mg oral tablet, extended release: 50 mg=1 tabs, Oral, Daily, 0 Refill(s) Histories PMHx/FMHx/SHx reviewed. Physical Examination Vital Signs 04/18/2015 10:09 [employer] Heart Rate Monitored 60 bpm Respiratory Rate 32 br/min HI 04/18/2015 10:00 [employer] Systolic Blood Pressure 139 mmHg Diastolic Blood Pressure 58 mmHg LOW Mean Arterial Pressure, Cuff 88 mmHg SpO2 98 % 04/18/2015 8:00 [employer] Temperature Temporal Artery 36 degC LOW Measurements from flowsheet : Measurements 04/18/2015 10:34 [employer] Weight Nutrition 72.8 kg No sedation Eyes closed Not following commands No response to name calling or sternal rub Overweight, in bed (+) supple neck Mental status exam as above Pupils round minimally reactive to light, 3-4 mm (-) oculocephalic maneuver V1 to V3 sensation unable to assess No facial droop Hearing unable to assess Palate elevation unable to assess Shoulder shrug unable to assess Tongue protrusion unable to assess Motor strength unable to assess but at least antigravity Pt noted to be crossing ankles spontaneously intermittently--even when manually uncrossed, she would bring it back Reflexes 2+ on BUE, 3+ on B knees, ? upgoing toes bilaterally (+) flexion withdrawal to pain on all extremities Finger to nose test unable to assess Unable to have her stand Review / Management Results review: Lab results 04/18/2015 13:10 [employer] Blood Glucose, Capillary 130 mg /dL MA 04/18/2015 7:38 [employer] Blood Glucose, Capillary 123 mg/ dL HI 04/18/2015 7:36 [employer] Blood Glucose, Capillary 123 mg/ dL MA 04/18/2015 4:28 [employer] WBC 11.2 10*3/uL HI RBC 4.05 Hgb 11.5 gm/dL LOW Hct 36.1 % LOW MCV 89.1 fL MCH 28.4 pg MCHC 31.9 gm/dL LOW RDW 14.0 % Platelet 326 10*3/uL MPV 10.6 fL Immature Granulocytes 0.5 % Neutrophils 67 % Lymphocytes 20 % Monocytes 8 % Eosinophils 5 % HI Basophils 0 % Neutro Absolute 7.49 10*3 HI Lymph Absolute 2.21 10*3 Wetzel Absolute 0.85 10*3 Eos Absolute 0.51 10*3 HI Baso Absolute 0.03 10*3 Nucleated RBC Automated 0.0 /100 WBC Sodium Lvl 134 mEq/L LOW Potassium Lvl 4.2 mEq/L Chloride 97 mEq/L LOW CO2 31 mEq/L AGAP 6 BUN 34 mg/dL HI Glucose Lvl 140 mg/dL HI Creatinine Lvl 0.73 mg/dL eGFR > 60 Calcium Lvl 8.2 mg/dL LOW Albumin Lvl 2.3 gm/dL LOW Magnesium Lvl 2.4 mg/dL Phosphorus 1.9 mg/dL LOW 04/18/2015 0:17 [employer] Blood Glucose, Capillary 155 mg/ dL MA 04/17/2015 18:14 [employer] Blood Glucose, Capillary 117 mg /dL HI 04/17/2015 13:35 [employer] Blood Glucose, Capillary 136 mg /dL HI 04/17/2015 4:47 [employer] WBC 11.1 10*3/uL HI RBC 4.11 Hgb 11.7 gm/dL LOW Hct 36.8 % LOW MCV 89.5 fL MCH 28.5 pg MCHC 31.8 gm/dL LOW RDW 14.1 % Platelet 314 10*3/uL MPV 10.8 fL Immature Granulocytes 0.7 % Neutrophils 66 % Lymphocytes 19 % LOW Monocytes 9 % Eosinophils 5 % HI Basophils 0 % Neutro Absolute 7.33 10*3 HI Lymph Absolute 2.11 10*3 Wetzel Absolute 0.97 10*3 Eos Absolute 0.56 10*3 HI Baso Absolute 0.02 10*3 Nucleated RBC Automated 0.0 /100 WBC Sodium Lvl 137 mEq/L Potassium Lvl 4.1 mEq/L Chloride 98 mEq/L LOW CO2 33 mEq/L HI AGAP 6 BUN 39 mg/dL HI Glucose Lvl 120 mg/dL HI Creatinine Lvl 0.69 mg/dL eGFR > 60 Calcium Lvl 8.1 mg/dL LOW Albumin Lvl 2.3 gm/dL LOW Magnesium Lvl 2.4 mg/dL Phosphorus 2.0 mg/dL LOW 04/17/2015 0:23 [employer] Blood Glucose, Capillary 130 mg/ dL HI . 04/06/15 CTA head/neck (report only): 1: There is diffuse brain parenchymal small vessel ischemic disease with no gross CT evidence of acute cerebral infarct, intracranial hemorrhage, or enhancing mass. If there is concern for acute cerebral infarct, then MRI would better evaluate given the diffuse small vessel ischemic disease. 2: Otherwise brain parenchyma is unremarkable for patient's age. 3: There is severe stenosis with atherosclerotic calcification involving the distal right common carotid artery/right ICA bulb region. 4: There is [id number] narrowing of the intracranial post PICA left vertebral artery. 5: Heterogeneous thyroid gland and a 15 mm hypodense right thyroid gland nodule. Nonemergent thyroid ultrasound would better evaluate. 04/08/15 CT head wwo (report and films visualized): Stable CT appearance of the brain when compared to the recent prior study. No acute abnormality is suspected. 04/15/15 CT head wo (report and films visualized): Multifocal chronic ischemic sequelae, stable from the prior exam. No hemorrhage or acute finding. No interval change. 04/06/15 TTE: 1.Normal left ventricular ejection fraction. 2.Left ventricular hypertrophy. 3.Moderate to severe mitral regurgitation. Moderate pulmonary hypertension. 04/06/15 EEG (Dr. Bran): encephalopathy 04/08/15 EEG (Dr. Fisher): mod encephalopathy Impression and Plan 1) Altered mental status Encephalopathy likely toxic metabolic ??? 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 behavioral--with pt intermittently responding ? delirium Has PPM, cannot get MRI--unclear why on PPM HCT showed L BG infarct, age indeterminate (also seems to have other areas of encephalomalacia elsewhere)--? possible cardioembolic source in past At this time all treatable causes of encephalopathy have been ruled out. Repeat EEG pending 2) L basal ganglia subacute-chronic infarct Now back on ASA and Xarelto (home dose) 3) R CCA/ICA stenosis, severe 4) L vertebral artery stenosis (post-PICA), mild-mod Not candidate for intervention at this time High risk for CVA because of her carotid stenosis Vascular surgery consult when pt is medically stable 5) NSTEMI 6) PPM Cardiology waiting for mental status to improve--unclear if/when this will happen Will follow with you. Please call with questions. Addendum EEG report noted. Discussed with Dr. Jacobsen. EEG encephalopathy seems a bit improved by Sih, compared to previous, but now with more obvious L-sided epileptiform discharges. Would Maonj Ortiz recommend starting levetiracetam 500mg IV bid and follow clinically. Discussed with Dr. ROBERTSON on [facility]. April 18, 2015 18:09 [employer]
--- OUTSIDE RECORDS SUMMARY | 2016-07-04 13:22 | XMS REPORT | Summary of Care ---
Author Author Srikanth Zamora M.D. Unknown Address [address], [place] [id number] Phone Unavailable Care Team Providers Care Development Mgr Name Role Phone Meek Pham M.D. Unavailable [...] (427.31, I48.0) Status: Active Current use of watermelon inspector anticoagulation (V58.61, Z79.01) Status: Active Pacemaker (V45.01, Z95.0) Status: Active Stroke (434.91, I63.9) Status: Active Urinary tract infection, acute (599.0, N39.0) Status: Active Medications Name Dates Details Lisinopril [...]
--- OUTSIDE RECORDS SUMMARY | 2016-07-04 13:22 | XMS REPORT | Continuity of Care Document ---
Author Author [facility] Address Unknown Phone Unavailable Allergies Active Description Code Type Severity Reaction Onset Reported/Identified Relationship to Patient Clinical Status Yes No Known Drug Allergies [id number] Drug Allergy Unknown N/ A 06/13/2015 Yes cefadroxil [id number] Drug Allergy Unknown N/A 05/07/2016 Yes clarithromycin [id number] Drug Allergy Unknown N/A 05/07/2016 Yes Penicillins [id number] Drug Allergy Unknown N/A 05/07/2016 Yes shellfish derived [id number] Drug Allergy Unknown N/A 05/07/2016 Medications Problems Date Dx Coded Attending Type Code Diagnosis Diagnosed By 07/07/2014 PEACE ROBERTSON, ABIMBOLA S Ot 427.31 04/27/2015 Weston Ricci Ot R11.10 04/27/2015 Weston Ricci Ot R41.82 05/09/2015 Weston Ricci Ot R11.10 05/09/2015 Weston Ricci Ot R41.82 06/07/2015 BERNICE ROBERTSON, KAUR Addison Ot I69.391 06/07/2015 PEACE ROBERTSON, ABIMBOLA S Ot 427.31 06/07/2015 Weston Ricci Ot R11.10 06/07/2015 Weston Ricci Ot R41.82 06/07/2015 BERNICE ROBERTSON, KAUR Addison Ot I69.391 06/08/2015 Weston Ricci Ot R11.10 06/08/2015 Weston Ricci Ot R41.82 06/13/2015 BERNICE ROBERTSON, KAUR Addison Ot I69.391 DYSPHAGIA FOLLOWING CEREBRAL INFARCTION 06/16/2015 BERNICE ROBERTSON, KAUR Addison Ot I69.391 06/16/2015 BERNICE ROBERTSON, KAUR Addison Ot I69.391 06/17/2015 CARMEN ROBERTSON, FRANK Beaver Ot F32.9 06/17/2015 CARMEN ROBERTSON, FRANK Beaver Ot F41.9 06/17/2015 FRANK MORALES MD Ot 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 06/17/2015 FRANK MORALES MD Ot I10 06/17/2015 FRANK MORALES MD Ot I25.10 ATHSCL HEART DISEASE OF [place] CORONARY 06/17/2015 FRANK MORALES MD Ot I25.2 06/17/2015 FRANK MORALES MD Ot I35.0 NONRHEUMATIC AORTIC (VALVE) STENOSIS 06/17/2015 FRANK MORALES MD Ot I44.2 ATRIOVENTRICULAR BLOCK, COMPLETE 06/17/2015 FRANK MORALES MD Ot I48.91 UNSPECIFIED ATRIAL FIBRILLATION 06/17/2015 FRANK MORALES MD Ot I50.33 ACUTE ON CHRONIC DIASTOLIC (CONGESTIVE) 06/17/2015 FRANK MORALES MD Ot 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 06/17/2015 FRANK MORALES MD Ot J06.9 ACUTE UPPER RESPIRATORY INFECTION, UNSPE 06/17/2015 FRANK MORALES MD Ot J80 ACUTE RESPIRATORY DISTRESS SYNDROME 06/17/2015 FRANK MORALES MD Ot R11.2 NAUSEA WITH VOMITING, UNSPECIFIED 06/17/2015 FRANK MORALES MD Ot R65.10 SIRS OF NON-INFECTIOUS ORIGIN W/O ACUTE 06/17/2015 FRANK MORALES MD Ot Z66 DO NOT RESUSCITATE 06/17/2015 FRANK MORALES MD Ot Z86.73 06/17/2015 FRANK MORALES MD Ot Z95.0 PRESENCE OF CARDIAC PACEMAKER 06/29/2015 KAUR QUEEN MD Ot I69.391 DYSPHAGIA FOLLOWING CEREBRAL INFARCTION 06/29/2015 KAUR QUEEN MD Ot N39.0 URINARY TRACT INFECTION, SITE NOT SPECIF 07/05/2015 KYRIE CLINE MD Ot I50.9 HEART FAILURE, UNSPECIFIED 07/11/2015 KAUR QUEEN MD Ot I69.391 DYSPHAGIA FOLLOWING CEREBRAL INFARCTION 07/15/2015 KAUR QUEEN MD Ot N39.0 URINARY TRACT INFECTION, SITE NOT SPECIF 07/18/2015 KAUR QUEEN MD Ot I69.391 DYSPHAGIA FOLLOWING CEREBRAL INFARCTION 07/18/2015 PEACE ROBERTSON, ABIMBOLA S Ot 427.31 ATRIAL FIBRILLATION 07/18/2015 Weston Ricci Ot R11.10 VOMITING, UNSPECIFIED 07/18/2015 Weston Ricci Ot R41.82 ALTERED MENTAL STATUS, UNSPECIFIED 07/18/2015 KAUR QUEEN MD Ot I69.391 DYSPHAGIA FOLLOWING CEREBRAL INFARCTION 07/18/2015 KAUR QUEEN MD Ot N39.0 URINARY TRACT INFECTION, SITE NOT SPECIF 07/18/2015 KYRIE CLINE MD Ot I50.9 HEART FAILURE, UNSPECIFIED 07/18/2015 PEACE ROBERTSON, ABIMBOLA S Ot 427.31 ATRIAL FIBRILLATION 07/18/2015 Weston Ricci Ot R11.10 VOMITING, UNSPECIFIED 07/18/2015 Weston Ricci Ot R41.82 ALTERED MENTAL STATUS, UNSPECIFIED 07/18/2015 KAUR QUEEN MD, Ot I69.391 DYSPHAGIA FOLLOWING CEREBRAL INFARCTION 07/18/2015 KAUR QUEEN MD, Ot N39.0 URINARY TRACT INFECTION, SITE NOT SPECIF 07/18/2015 KYRIE CLINE MD Ot I50.9 HEART FAILURE, UNSPECIFIED 07/20/2015 KAUR QUEEN MD Ot N39.0 URINARY TRACT INFECTION, SITE NOT SPECIF 07/21/2015 KYRIE CLINE MD Ot I50.9 HEART FAILURE, UNSPECIFIED 07/25/2015 KAUR QUEEN MD, Ot N39.0 URINARY TRACT INFECTION, SITE NOT SPECIF 07/29/2015 KAUR QUEEN MD Ot M62.81 MUSCLE WEAKNESS (GENERALIZED) 07/29/2015 KAUR QUEEN MD Ot M62.81 MUSCLE WEAKNESS (GENERALIZED) 08/02/2015 KAUR QUEEN MD Ot I51.9 HEART DISEASE, UNSPECIFIED 08/02/2015 KAUR QUEEN MD Ot M62.81 MUSCLE WEAKNESS (GENERALIZED) 08/04/2015 KYRIE CLINE MD Ot I50.9 HEART FAILURE, UNSPECIFIED 08/04/2015 KAUR QUEEN MD Ot I51.9 HEART DISEASE, UNSPECIFIED 08/04/2015 KAUR QUEEN MD Ot M62.81 MUSCLE WEAKNESS (GENERALIZED) 08/09/2015 KAUR QUEEN MD Ot N39.0 URINARY TRACT INFECTION, SITE NOT SPECIF 08/10/2015 KAUR QUEEN MD Ot N39.0 URINARY TRACT INFECTION, SITE NOT SPECIF 08/19/2015 KAUR QUEEN MD Ot I51.9 HEART DISEASE, UNSPECIFIED 08/19/2015 KAUR QUEEN MD Ot M62.81 MUSCLE WEAKNESS (GENERALIZED) 08/24/2015 MARLYN ROBERTSON, KYRIE Naranjo Ot I50.9 HEART FAILURE, UNSPECIFIED 08/26/2015 KAUR QUEEN MD Ot N39.0 URINARY TRACT INFECTION, SITE NOT SPECIF 09/21/2015 KUAR QUEEN MD Ot I51.9 HEART DISEASE, UNSPECIFIED 09/21/2015 KAUR QUEEN MD Ot M62.81 MUSCLE WEAKNESS (GENERALIZED) 09/21/2015 KAUR QUEEN MD Ot I51.9 HEART DISEASE, UNSPECIFIED 09/21/2015 KAUR QUEEN MD Ot M62.81 MUSCLE WEAKNESS (GENERALIZED) 09/21/2015 KAUR QUEEN MD Ot N39.0 URINARY TRACT INFECTION, SITE NOT SPECIF 10/04/2015 KAUR QUEEN MD Ot N39.0 URINARY TRACT INFECTION, SITE NOT SPECIF 10/04/2015 KAUR QUEEN MD Ot R82.99 OTHER ABNORMAL FINDINGS IN URINE 10/06/2015 NESHA COLON MD Ot I48.91 UNSPECIFIED ATRIAL FIBRILLATION 10/06/2015 NESHA COLON MD Ot Z43.1 ENCOUNTER FOR ATTENTION TO GASTROSTOMY 10/06/2015 NESHA COLON MD Ot Z79.02 INCOMING FREIGHT CLERK (CURRENT) USE OF ANTITHROMBOTI 10/06/2015 NESHA COLON MD Ot Z79.82 INCOMING FREIGHT CLERK (CURRENT) USE OF ASPIRIN 10/06/2015 NESHA COLON MD Ot Z86.73 PRSNL HX OF TIA (TIA), AND CEREB INFRC W 10/13/2015 NESHA COLON MD Ot I48.91 UNSPECIFIED ATRIAL FIBRILLATION 10/13/2015 NESHA COLON MD Ot Z43.1 ENCOUNTER FOR ATTENTION TO GASTROSTOMY 10/13/2015 NESHA COLON MD Ot Z79.02 [facility] (CURRENT) USE OF ANTITHROMBOTI 10/13/2015 NESHA COLON MD Ot Z79.82 [facility] (CURRENT) USE OF ASPIRIN 10/13/2015 NESHA COLON MD Ot Z86.73 PRSNL HX OF TIA (TIA), AND CEREB INFRC W 10/13/2015 NESHA COLON MD Ot I48.91 UNSPECIFIED ATRIAL FIBRILLATION 10/13/2015 NESHA COLON MD, Ot Z43.1 ENCOUNTER FOR ATTENTION TO GASTROSTOMY 10/13/2015 NESHA COLON MD, Ot Z79.02 [facility] (CURRENT) USE OF ANTITHROMBOTI 10/13/2015 NESHA COLON MD Ot Z79.82 INCOMING FREIGHT CLERK (CURRENT) USE OF ASPIRIN 10/13/2015 NESHA COLON MD, Ot Z86.73 PRSNL HX OF TIA (TIA), AND CEREB INFRC W 10/20/2015 KAUR QUEEN MD, Ot N39.0 URINARY TRACT INFECTION, SITE NOT SPECIF 10/20/2015 KAUR QUEEN MD Ot R82.99 OTHER ABNORMAL FINDINGS IN URINE 10/20/2015 PEACE ROBERTSON, ABIMBOLA S Ot 427.31 ATRIAL FIBRILLATION 10/20/2015 Weston Ricci Ot R11.10 VOMITING, UNSPECIFIED 10/20/2015 Weston Ricci Ot R41.82 ALTERED MENTAL STATUS, UNSPECIFIED 10/20/2015 KAUR QUEEN MD Ot I69.391 DYSPHAGIA FOLLOWING CEREBRAL INFARCTION 10/20/2015 KAUR QUEEN MD, Ot N39.0 URINARY TRACT INFECTION, SITE NOT SPECIF 10/20/2015 MARLYN ROBERTSON, KYRIE Naranjo Ot I50.9 HEART FAILURE, UNSPECIFIED 10/20/2015 KAUR QUEEN MD, Ot N39.0 URINARY TRACT INFECTION, SITE NOT SPECIF 10/20/2015 KAUR QUEEN MD Ot I51.9 HEART DISEASE, UNSPECIFIED 10/20/2015 KAUR QUEEN MD Ot M62.81 MUSCLE WEAKNESS (GENERALIZED) 10/20/2015 KAUR QUEEN MD, Ot N39.0 URINARY TRACT INFECTION, SITE NOT SPECIF 10/20/2015 KAUR QUEEN MD, Ot N39.0 URINARY TRACT INFECTION, SITE NOT SPECIF 10/20/2015 KAUR QUEEN MD Ot R82.99 OTHER ABNORMAL FINDINGS IN URINE 10/25/2015 KAUR QUEEN MD, Ot N39.0 URINARY TRACT INFECTION, SITE NOT SPECIF 10/25/2015 KAUR QUEEN MD Ot R82.99 OTHER ABNORMAL FINDINGS IN URINE 11/04/2015 NESHA COLON MD Ot I48.91 UNSPECIFIED ATRIAL FIBRILLATION 11/04/2015 NESHA COLON MD, Ot Z43.1 ENCOUNTER FOR ATTENTION TO GASTROSTOMY 11/04/2015 NESHA COLON MD, Ot Z79.02 [facility] (CURRENT) USE OF ANTITHROMBOTI 11/04/2015 NESHA COLON MD, Ot Z79.82 [facility] (CURRENT) USE OF ASPIRIN 11/04/2015 NESHA COLON MD, Ot Z86.73 PRSNL HX OF TIA (TIA), AND CEREB INFRC W 11/08/2015 KAUR QUEEN MD Ot N39.0 URINARY TRACT INFECTION, SITE NOT SPECIF 11/08/2015 KAUR QUEEN MD Ot R82.99 OTHER ABNORMAL FINDINGS IN URINE 11/21/2015 NESHA COLON MD, Ot I48.91 UNSPECIFIED ATRIAL FIBRILLATION 11/21/2015 NESHA COLON MD, Ot Z43.1 ENCOUNTER FOR ATTENTION TO GASTROSTOMY 11/21/2015 NESHA COLON MD, Ot Z79.02 [facility] (CURRENT) USE OF ANTITHROMBOTI 11/21/2015 NESHA COLON MD, Ot Z79.82 INCOMING FREIGHT CLERK (CURRENT) USE OF ASPIRIN 11/21/2015 NESHA COLON MD, Ot Z86.73 PRSNL HX OF TIA (TIA), AND CEREB INFRC W 11/21/2015 NESHA COLON MD Ot I48.91 UNSPECIFIED ATRIAL FIBRILLATION 11/21/2015 NESHA COLON MD Ot Z43.1 ENCOUNTER FOR ATTENTION TO GASTROSTOMY 11/21/2015 NESHA COLON MD, Ot Z79.02 [facility] (CURRENT) USE OF ANTITHROMBOTI 11/21/2015 NESHA COLON MD, Ot Z79.82 INCOMING FREIGHT CLERK (CURRENT) USE OF ASPIRIN 11/21/2015 NESHA COLON MD Ot Z86.73 PRSNL HX OF TIA (TIA), AND CEREB INFRC W 11/28/2015 NESHA COLON MD Ot I48.91 UNSPECIFIED ATRIAL FIBRILLATION 11/28/2015 NESHA COLON MD Ot Z43.1 ENCOUNTER FOR ATTENTION TO GASTROSTOMY 11/28/2015 NESHA COLON MD, Ot Z79.02 INCOMING FREIGHT CLERK (CURRENT) USE OF ANTITHROMBOTI 11/28/2015 NESHA COLON MD, Ot Z79.82 INCOMING FREIGHT CLERK (CURRENT) USE OF ASPIRIN 11/28/2015 NESHA COLON MD, Ot Z86.73 PRSNL HX OF TIA (TIA), AND CEREB INFRC W 11/30/2015 NESHA COLON MD, Ot I48.91 UNSPECIFIED ATRIAL FIBRILLATION 11/30/2015 NESHA COLON MD, Ot Z43.1 ENCOUNTER FOR ATTENTION TO GASTROSTOMY 11/30/2015 NESHA COLON MD, Ot Z79.02 INCOMING FREIGHT CLERK (CURRENT) USE OF ANTITHROMBOTI 11/30/2015 NESHA COLON MD, Ot Z79.82 [facility] (CURRENT) USE OF ASPIRIN 11/30/2015 NESHA COLON MD, Ot Z86.73 PRSNL HX OF TIA (TIA), AND CEREB INFRC W 12/01/2015 NESHA COLON MD, Ot I48.91 UNSPECIFIED ATRIAL FIBRILLATION 12/01/2015 NESHA COLON MD, Ot Z43.1 ENCOUNTER FOR ATTENTION TO GASTROSTOMY 12/01/2015 NESHA COLON MD, Ot Z79.02 [facility] (CURRENT) USE OF ANTITHROMBOTI 12/01/2015 NESHA COLON MD, Ot Z79.82 [facility] (CURRENT) USE OF ASPIRIN 12/01/2015 NESHA COLON MD, Ot Z86.73 PRSNL HX OF TIA (TIA), AND CEREB INFRC W 12/05/2015 NESHA COLON MD, Ot I48.91 UNSPECIFIED ATRIAL FIBRILLATION 12/05/2015 NESHA OCLON MD, Ot Z43.1 ENCOUNTER FOR ATTENTION TO GASTROSTOMY 12/05/2015 NESHA COLON MD, Ot Z79.02 INCOMING FREIGHT CLERK (CURRENT) USE OF ANTITHROMBOTI 12/05/2015 NESHA COLON MD, Ot Z79.82 INCOMING FREIGHT CLERK (CURRENT) USE OF ASPIRIN 12/05/2015 NESHA COLON MD, Ot Z86.73 PRSNL HX OF TIA (TIA), AND CEREB INFRC W 12/07/2015 NESHA COLON MD, Ot I48.91 UNSPECIFIED ATRIAL FIBRILLATION 12/07/2015 NESHA COLON MD, Ot Z43.1 ENCOUNTER FOR ATTENTION TO GASTROSTOMY 12/07/2015 NESHA COLON MD Ot Z79.02 [facility] (CURRENT) USE OF ANTITHROMBOTI 12/07/2015 NESHA COLON MD Ot Z79.82 [facility] (CURRENT) USE OF ASPIRIN 12/07/2015 NESHA COLON MD Ot Z86.73 PRSNL HX OF TIA (TIA), AND CEREB INFRC W 02/03/2016 KAUR QUEEN MD, Ot N39.0 URINARY TRACT INFECTION, SITE NOT SPECIF 02/03/2016 KAUR QUEEN MD Ot R82.99 OTHER ABNORMAL FINDINGS IN URINE 02/11/2016 KAUR QUEEN MD, Ot N39.0 URINARY TRACT INFECTION, SITE NOT SPECIF 02/11/2016 KAUR QUEEN MD, Ot N39.0 URINARY TRACT INFECTION, SITE NOT SPECIF 02/11/2016 KAUR QUEEN MD, Ot N39.0 URINARY TRACT INFECTION, SITE NOT SPECIF 02/17/2016 KAUR QUEEN MD, Ot N39.0 URINARY TRACT INFECTION, SITE NOT SPECIF 03/07/2016 KAUR QUEEN MD, Ot N39.0 URINARY TRACT INFECTION, SITE NOT SPECIF 03/28/2016 KAUR QUEEN MD, Ot N39.0 URINARY TRACT INFECTION, SITE NOT SPECIF 05/17/2016 KAUR QUEEN MD Ot R35.0 FREQUENCY OF MICTURITION 05/19/2016 KAUR QUEEN MD Ot R35.0 FREQUENCY OF MICTURITION 06/05/2016 KAUR QUEEN MD Ot R35.0 FREQUENCY OF MICTURITION 06/12/2016 KAUR QUEEN MD Ot R35.0 FREQUENCY OF MICTURITION 06/13/2016 PEACE ROBERTSON, ABIMBOLA S Ot 427.31 ATRIAL FIBRILLATION 06/13/2016 Weston Ricci Ot R11.10 VOMITING, UNSPECIFIED 06/13/2016 Weston Ricci Ot R41.82 ALTERED MENTAL STATUS, UNSPECIFIED 06/13/2016 KAUR QUEEN MD Ot I69.391 DYSPHAGIA FOLLOWING CEREBRAL INFARCTION 06/13/2016 KAUR QUEEN MD, Ot N39.0 URINARY TRACT INFECTION, SITE NOT SPECIF 06/13/2016 MARLYN ROBERTSON, KYRIE Naranjo Ot I50.9 HEART FAILURE, UNSPECIFIED 06/13/2016 KAUR QUEEN MD, Ot N39.0 URINARY TRACT INFECTION, SITE NOT SPECIF 06/13/2016 KAUR QUEEN MD, Ot I51.9 HEART DISEASE, UNSPECIFIED 06/13/2016 KAUR QUEEN MD Ot M62.81 MUSCLE WEAKNESS (GENERALIZED) 06/13/2016 KAUR QUEEN MD, Ot N39.0 URINARY TRACT INFECTION, SITE NOT SPECIF 06/13/2016 KAUR QUEEN MD, Ot N39.0 URINARY TRACT INFECTION, SITE NOT SPECIF 06/13/2016 KAUR QUEEN MD Ot R82.99 OTHER ABNORMAL FINDINGS IN URINE 06/13/2016 KAUR QUEEN MD, Ot N39.0 URINARY TRACT INFECTION, SITE NOT SPECIF 06/13/2016 KAUR QUEEN MD Ot R35.0 FREQUENCY OF MICTURITION 06/14/2016 PEACE ROBERTSON, ABIMBOLA S Ot 427.31 ATRIAL FIBRILLATION 06/14/2016 Weston Ricci Ot R11.10 VOMITING, UNSPECIFIED 06/14/2016 Weston Ricci Ot R41.82 ALTERED MENTAL STATUS, UNSPECIFIED 06/14/2016 KAUR QUEEN MD Ot I69.391 DYSPHAGIA FOLLOWING CEREBRAL INFARCTION 06/14/2016 KAUR QUEEN MD, Ot N39.0 URINARY TRACT INFECTION, SITE NOT SPECIF 06/14/2016 MARLYN ROBERTSON, KYRIE Naranjo Ot I50.9 HEART FAILURE, UNSPECIFIED 06/14/2016 KAUR QUEEN MD, Ot N39.0 URINARY TRACT INFECTION, SITE NOT SPECIF 06/14/2016 KAUR QUEEN MD, Ot I51.9 HEART DISEASE, UNSPECIFIED 06/14/2016 KAUR QUEEN MD Ot M62.81 MUSCLE WEAKNESS (GENERALIZED) 06/14/2016 KAUR QUEEN MD, Ot N39.0 URINARY TRACT INFECTION, SITE NOT SPECIF 06/14/2016 KAUR QUEEN MD, Ot N39.0 URINARY TRACT INFECTION, SITE NOT SPECIF 06/14/2016 KAUR QUEEN MD Ot R82.99 OTHER ABNORMAL FINDINGS IN URINE 06/14/2016 KAUR QUEEN MD, Ot N39.0 URINARY TRACT INFECTION, SITE NOT SPECIF 06/14/2016 KAUR QUEEN MD Ot R35.0 FREQUENCY OF MICTURITION 06/18/2016 KAUR QUEEN MD Ot F03.90 UNSPECIFIED DEMENTIA WITHOUT BEHAVIORAL 06/23/2016 KAUR QUEEN MD Ot F03.90 UNSPECIFIED DEMENTIA WITHOUT BEHAVIORAL Procedures Results Test Result Range UA (urinalysis) - 02/10/16 23:55 COLLECTION METHOD RANDOM VOIDED Color of urine by auto Yellow Urine appearance determination Cloudy Urine pH measurement by automated test strip 5.0 5.0 - 8.0 Specific gravity of urine by automated test strip 1.025 1.005-1.030 PROTEIN, URINE Negative Urine glucose detection by automated test strip Negative Negative Urine erythrocytes count by automated test strip (number/volume) Trace-intact Negative Urine ketones detection by automated test strip Negative Negative NITRITE,URINE Negative Negative Urine total bilirubin detection by automated test strip Negative Negative Urine urobilinogen measurement by automated test strip (mass/volume) 0.2 0.2-1.0 Urine leukocyte esterase detection by dipstick 2+ Negative Microscopic examination of urine - 02/10/16 23:55 Urine volume measurement 12 mL Urine erythrocytes detection by automated method 5-10 Automated urine sediment leukocyte count by microscopy (number/high power field ) Bacteria 1+ Negative SQUAMOUS EPITHELIAL CELL,UR 2-5 Amorphous sediment detection in urine sediment by light microscopy 3+ Urine culture - 02/10/16 23:55 Urine culture DUBOSE FOR RESULTS: * - NEW RESULT - RESULT WAS MODIFIED AFTER FINAL STATUS SET Encounters ACCT No. Visit Date/Time Discharge Status Pt. Type Provider Facility Loc./Unit Complaint [id number] 02/11/2016 08:58:00 2015 08:58:00 CAN Preadmit KAUR QUEEN MD [facility] LAB LAB DROP OFF FROM [facility] [id number] 10/06/2015 08:52:00 2015 11:04:00 DIS Outpatient ISAIAH ROBERTSON, NESHA Mills [facility] ASC REMOVAL OF PEG TUBE IN ASC W/ANESTHESIA [id number] 06/13/2015 21:34:00 2015 14:00:00 DIS Inpatient CARMEN ROBERTSON, FRANK [facility] MED/SURG SIRS [id number] 06/07/2015 11:40:00 2015 10:48:00 DIS Outpatient BERNICE ROBERTSON, KAUR [facility] [id number] 06/15/2014 16:29:00 2014 23:59:59 CLS Outpatient PEACE ROBERTSON, ABIMBOLA Ortiz [facility] LAB [id number] 06/14/2016 10:14:00 ACT Outpatient BERNICE ROBERTSON, [facility] RAD UNSPECIFIED DEMENTIA W/O BEHAVIORAL DISTURBANCE [id number] 05/07/2016 16:24:00 ACT Outpatient BERNICE ROBERTSON, [facility] EUOP [id number] 02/10/2016 16:02:00 ACT Outpatient BERNICE ROBERTSON, [facility] LAB CEDARS DROP OFF [id number] 09/26/2015 15:24:00 ACT Outpatient BERNICE ROBERTSON, [facility] LAB [id number] 08/01/2015 16:13:00 ACT Outpatient BERNICE ROBERTSON, [id number]/2015 13:25:00 ACT Outpatient BERNICE ROBERTSON, [facility] LAB [id number] 07/12/2015 11:43:00 ACT Outpatient BERNICE ROBERTSON, [facility] LAB LAB DROP OFF: DR KAUR QUEEN [id number] 06/29/2015 15:25:00 ACT Outpatient MARLYN ROBERTSON , [facility] RAD [id number] 06/21/2015 15:51:00 ACT Outpatient BERNICE ROBERTSON, [facility] LAB LAB DROP OFF FROM [facility] FOR DR. Audra QUEEN [id number] 06/07/2015 10:04:00 ACT Outpatient BERNICE ROBERTSON, [facility] RAD ORAL [place]ANY[place] DYSPHAGIA I69.391 [id number] 04/05/2015 17:36:00 ACT Outpatient Weston Ricci [facility] TRANSPORT FROM HOME TO [facility]
--- OUTSIDE RECORDS SUMMARY | 2016-07-04 13:22 | XMS REPORT | Summary of Care ---
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 * Quantity: 30 Refills: 6 Monroe M.D., Srikanth * Start 09-Aug-2015 Active Metoprolol Tartrate 25 MG Oral Tablet TAKE 1 TABLET TWICE DAILY. * Refills: 0 Noah M.D., Srikanth * Start 09-Aug-2015 Active Melatonin 3 MG Oral Tablet take one at hs * Refills: 0 Monroe M.D., Srikanth * Start 09-Aug-2015 Active Potassium Chloride ER 10 MEQ Oral Capsule Extended Release TAKE 1 CAPSULE TWICE DAILY. * Refills: 0 Monroe M.D., Srikanth * Start 09-Aug-2015 Active Calcium 500 +D 500-400 MG-UNIT Oral Tablet Take one tab daily * Refills: 0 Monroe M.D., Srikanth * Start 09-Aug-2015 Active LevETIRAcetam 100 MG/ML Oral Solution Take 7.5 ml po twice daily * Refills: 0 Noah M.D., Srikanth * Start 09-Aug-2015 Active Fish Oil 1000 MG Oral Capsule TAKE ONE CAPSULE PO TWICE DAILY * Refills: 0 Noah M.D., Srikanth * Start 09-Aug-2015 Active Multi-Vitamins Oral Tablet TAKE 1 TABLET DAILY. * Refills: 0 Monroe M.D., Srikanth * Start 09-Aug-2015 Active Mirtazapine 15 MG Oral Tablet TAKE 1/2 TABLET AT BEDTIME. * Refills: 0 Monroe M.D., Srikanth * Start 09-Aug-2015 Active Colace 100 MG Oral Capsule TAKE 1 CAPSULE TWICE DAILY. * Refills: 0 Noah M.D., Srikanth * Start 09-Aug-2015 Active Milk of Magnesia 400 MG/5ML Oral Suspension Take 30 ml po daily PRN * Refills: 0 Monroe M.D., Srikanth * Start 09-Aug-2015 Active MiraLax Oral Powder MIX 1 CAPFUL IN 8 OUNCES OF WATER AND DRINK DAILY DIRECTED. * Refills: 0 Monroe M.D., Srikanth * Start 09-Aug-2015 Active Bisacodyl 10 MG Rectal Suppository Insert one supp recutally BID PRN * Refills: 0 Monroe M.D., Srikanth * Start 09-Aug-2015 Active Promethazine HCl - 12.5 MG Rectal Suppository Insert 1 supp rectally twice daily PRN * Refills: 0 Noah M.D., Srikanth * Start 09-Aug-2015 Active Fluticasone Propionate 50 MCG/ACT Nasal Suspension 1 [place] Each Nostril Daily * Quantity: 1 Refills: 12 Monroe M.D., Srikanth * Start 12-Oct-2015 Active 16 GM Bottle Refresh Lacri-Lube Ophthalmic Ointment APPLY 1/2" STRIP TO AFFECTED EYE(S) AT BEDTIME * Refills: 0 Monroe M.D., Srikanth * Start 12-Oct-2015 Active Montelukast Sodium 10 MG Oral Tablet Take one tablet by mouth daily * Quantity: 30 Refills: 5 Noah M.D., Srikanth * Start 18-Jan-2016 Active Azelastine HCl - 0.1 % Nasal Solution USE 2 PUFFS EACH NOSTRIL EVERY 12 HOURS NEEDED. * Quantity: 30 Refills: 3 Ninoska M.Gene., Beltran Lazaro * Start 19-Mar-2016 Active Saline Mist [place] 0.65 % Nasal Solution USE 2 SPRAYS IN EACH NOSTRIL IN AM AND HS * Refills: 0 Beltran Xiao M.D. * Start 19-Mar-2016 Active Allergies and Adverse [...] Body Surface Area Calculated 1.76 m2 Status: 19-Mar-2016 09:41 Temperature 97 f Status: Comments: Method: Weight 159 lb Status: Body Mass Index Calculated 27.29 kg/m2 Status: Body Surface Area Calculated 1.77 m2 Status: Results Date Description Value Details Results not documented Plan of Care Name Dates Details Planned Observations Planned Goals not documented Planned Encounters Appointment; Provider: Srikanth Zamora M.D. On 17-Apr-2016 14:00 Instructions Name Dates Details Instructions not documented [...]
--- OUTSIDE RECORDS SUMMARY | 2016-07-04 13:22 | XMS REPORT | Summary of Care ---
Author Author Noah Castaneda, Srikanth Durbin Unknown Address Unknown Phone Unavailable Care Team Providers Care Conduit Installer Name Role Phone Vero Castaneda, Meek Unavailable [...] (401.1, I10) Status: Active Current use of assisted anticoagulation (V58.61, Z79.01) Status: Active Seasonal allergies [...] Altered mental status (780.97, R41.82) Status: Active Medications Name Dates Details Acetaminophen [...] TABLET DAILY. * Quantity: 30 Refills: 6 [place] M.D.Srikanth * Start 09-Aug-2015 Active Metoprolol Tartrate 25 MG Oral Tablet TAKE 1 TABLET TWICE DAILY. * Refills: 0 [place] M.D., Srikanth * Start 09-Aug-2015 Active Melatonin 3 MG Oral Tablet take one at hs * Refills: 0 [place] M.D., Srikanth * Start 09-Aug-2015 Active Potassium Chloride ER 10 MEQ Oral Capsule Extended Release TAKE 1 CAPSULE TWICE DAILY. * Refills: 0 Noah M.D., Srikanth * Start 09-Aug-2015 Active Calcium 500 +D 500-400 MG-UNIT Oral Tablet Take one tab daily * Refills: 0 [place] M.D., Srikanth * Start 09-Aug-2015 Active LevETIRAcetam 100 MG/ML Oral Solution Take 7.5 ml po twice daily * Refills: 0 [place] M.D., Srikanth * Start 09-Aug-2015 Active Fish Oil 1000 MG Oral Capsule TAKE ONE CAPSULE PO TWICE DAILY * Refills: 0 [place] MSrikanth Mi * Start 09-Aug-2015 Active Multi-Vitamins [...] supp recutally BID PRN * Refills: 0 [place] M.DCatracho, Srikanth * Start 09-Aug-2015 Active Fluticasone Propionate 50 MCG/ACT Nasal Suspension 1 [place] Each Nostril Daily * Quantity: 1 Refills: 12 [place] MCatrachoDSrikanth Hayden * Start 12-Oct-2015 Active 16 GM Bottle Refresh Lacri-Lube Ophthalmic Ointment APPLY 1/2" STRIP TO AFFECTED EYE(S) AT BEDTIME * Refills: 0 [place] MSrikanth iM * Start 12-Oct-2015 Active Montelukast Sodium 10 MG Oral Tablet Take one tablet by mouth daily * Quantity: 30 Refills: 5 [place] MSrikanth Mi * Start 18-Jan-2016 Active Azelastine HCl - 0.1 % Nasal Solution USE 2 PUFFS EACH NOSTRIL EVERY 12 HOURS NEEDED. * Quantity: 30 Refills: 3 Ninoska Castaneda, Beltran A * Start 19-Mar-2016 Active Saline Mist [place] 0.65 % Nasal Solution USE 2 SPRAYS IN EACH NOSTRIL IN AM AND HS * Refills: 0 Beltran Xiao M.D. * Start 19-Mar-2016 Active DiazePAM 5 MG Oral Tablet Take 1 po 1 time only. * Quantity: 1 Refills: 0 InvernessRick rizvi M.D. Start 18-Apr-2016 Active Ativan 0.5 MG Oral Tablet Take 1 tab po TID PRN anxiety * Refills: 0 [place] M.D., Srikanth * Start 19-Apr-2016 Active ALPRAZolam ER 1 MG Oral Tablet Extended Release 24 Hour TAKE 1 TABLET DAILY. * Refills: 0 [place] M.D., Srikanth * Start 04-May-2016 Active BusPIRone HCl - 15 MG Oral Tablet TAKE 1 TABLET TWICE DAILY. * Quantity: 60 Refills: 1 [place] M.D., Srikanth * Start 04-May-2016 Active LORazepam 1 MG Oral Tablet TAKE 1 TABLET 1 HOUR BEFORE MRI. MAY REPEAT ONCE 15 MINUTES BEFORE MRI. * Quantity: 1 Refills: 0 [place] M.D., Srikanth * Start 17-May-2016 Active ALPRAZolam 0.5 MG Oral Tablet 1 po BID PRN anxiety * Quantity: 20 Refills: 2 [place] M.D., Srikanht * Start 12-Jun-2016 Active Allergies and Adverse [...] Provider: Srikanth Zamora M.D. On 12-Jun-2016 14:30 Interventions Provided Medication Changes* ALPRAZolam 0.5 MG Oral Tablet - Start Instructions Name [...]
--- NOTE | 2016-07-04 13:35 | NUR ---
PROVIDER LANCE ASENCIO IN ROOM W/ PT.
--- NOTE | 2016-07-04 13:39 | ERPDOC ---
Departure Disposition Decision Date: Jul 04, 2016 Disposition Decision Time: 14:21 Disposition: 01 DISCHARGED HOME, SELF-CARE Impression Impression Impression: Primary Impression: Dementia with behavioral disturbance Dementia type: unspecified type Qualified Codes: F03.91 - Unspecified dementia with behavioral disturbance Severity: Moderate Condition: Stable Seen By: Mid-level only Problems/Meds/Labs Reviewed?: Yes Medications reviewed and manag: Yes Follow up care ordered?: Yes Mental Status: Alert HPI - Psychosocial General Chief Complaint: Psychiatric Problems Stated Complaint: CLEARANCE FOR [facility] Time Seen by MD: 13:20 Source: patient Exam Limitations: no limitations HPI - Psychosocial Initial Comments She presents to [facility] today from [facility] in [place] for medical clearance to [facility] unit. From reading nursing notes from [facility] it appears she has been having increased anxiety and agitation over the last few weeks. Has been trying to leave the facility. Has been asking the nursing staff about her whom is . She denies any pain at this time. Does have a head CT dated 06/14/16 that shows no evidence of acute intracranial process, stable small chronic lacunar infarct involving left basal ganglia and bilateral cerebellar regions, stable age related brain parenchymal changes and chronic small vessel ischemic disease. Occurred At: home Onset: Gradual Duration: 1 week Severity: moderate Associated Symptoms: anxiety, DENIES: impaired concentration, ingestion, injury , insomnia, suicidal ideation Hx of Similar Symptoms: No Review of Systems Constitutional Constitutional: DENIES: appetite decrease, chills, dizziness, fatigue, fever, weakness Eyes Vision: DENIES: blurring, double vision ENMT Ears: DENIES: drainage, pain Sinuses: DENIES: congestion, rhinorrhea Mouth/Throat: DENIES: scratchy throat, sore throat Cardiovascular Cardiac: DENIES: chest pain, orthopnea Rhythm/Rate: DENIES: irregular beat, palpitations Pulmonary Respiratory: DENIES: cough, dyspnea, sputum GI Upper Abdomen: DENIES: nausea, pain, vomiting Lower Abdomen: DENIES: constipation, diarrhea, pain Integumentary Skin: DENIES: rash Neurological General: DENIES: headache, numbness, tingling, weakness Physical Exam General General Nourishment: well nourished, well developed, appears stated age, no acute distress, adult General Body Habitus: well groomed Vitals and Pain First Documented Vital Signs Date Time Temp Pulse Resp B/P Pulse Ox O2 Delivery O2 Flow Rate FiO2 07/04/16 14:16 60 18 136/59 94 Room Air Weight: Kilograms: Height (feet): Height (inches): Triage Pain Scale: RN VS reviewed by Provider: Yes Normal Exams: Neck: Full range of motion, without adenopathy, JVD, bruits or thyromegaly Chest/Resp: Clear all lopez, with good airflow, and symmetry bilaterally CV: Regular rate and rhythm, without murmur or gallop, Pulses 2+ all extremities, capillary refill, <2 seconds all ext., no pedal edema noted Abdomen: Bowel sounds positive, soft, non-tender, non-distended, no hepatosplenomegaly, masses or bruits noted Lymphatic: No lymphadenopathy, or lymphedema noted Integumentary: No rashes, hives, or bruising noted Neurologic: Patient is alert, and oriented Psychiatric: Patient exhibits, appropriate attention, emotion and affect Differential Diagnoses Considering: Anxiety, Delirium, Dementia, Depression, Hallucinations, Acute Psychosis Progress Results/Orders Orders Procedure Category Date Status Time EKG EKG 07/04/16 Taken Tsh - Thyroid Stim LAB 07/04/16 In Process Hormone Cbc W/Auto LAB 07/04/16 Complete Diff-Reflex Manual Bmp - Basic Metabolic LAB 07/04/16 In Process Panel Ua, Dip Wreflex LAB 07/04/16 Complete Microsc & Furniture Packer 13:36 Lab Results Laboratory Tests Test 07/04/16 13:54 07/04/16 14:11 White Blood Count 6.0T/MM3 Red Blood Count 3.89M/MM3 Hemoglobin 11.6GM/DL Hematocrit 36.3% Mean Corpuscular Volume 93.3UM3 Mean Corpuscular Hemoglobin 29.8UUG Mean Corpuscular Hemoglobin Concent 32.0GM/DL RDW Standard Deviation 42.2FL Platelet Count 241T/MM3 Mean Platelet Volume 9.7UM3 Immature Granulocyte % (Auto) 0.0% Neutrophils (%) (Auto) 52.9% Lymphocytes (%) (Auto) 29.5% Monocytes (%) (Auto) 10.6% Eosinophils (%) (Auto) 6.5% Basophils (%) (Auto) 0.5% Absolute Immature Granulocyte (auto 0.00T/MM3 Absolute Neutrophils (auto) 3.2T/MM3 Absolute Lymphocytes (auto) 1.8T/MM3 Absolute Monocytes (auto) 0.6T/MM3 Absolute Eosinophils (auto) 0.4T/MM3 Absolute Basophils (auto) 0.0T/MM3 Turbidity < 20 Sodium Level 145MEQ/L Potassium Level 4.7MEQ/L Chloride Level 102MEQ/L Carbon Dioxide Level 31MEQ/L Anion Gap 12MEQ/L Blood Urea Nitrogen 27.0MG/DL Creatinine 1.2MG/DL Glomerular Filtration Rate Calc 43 BUN/Creatinine Ratio 23RATIO Glucose Level 105MG/DL Calculated Osmolality 284MOSM/KG Calcium Level 9.2MG/DL Icterus Index < 2 Thyroid Stimulating Hormone (TSH) Pending Chemistry Specimen Hemolysis < 15 Urine Collection Type Cleancatch-midstream Urine Color Yellow Urine Turbidity Clear Urine pH 6.0 Urine Specific [place] <=1.005 Urine Protein Negative Urine Glucose (UA) Negative Urine Ketones Negative Urine Blood Negative Urine Nitrite Negative Urine Bilirubin Negative Urine Urobilinogen 0.2EU/DL Urine Leukocyte Esterase Negative Urinalysis Comment Microscopic not ind. Progress Progress CBC, BMP, and UA today are clear. EKG shows atrial and ventricular paced rhythm. Will clear her at this time for [facility] admission. NERISSA COLLINS SALES LEADER Jul 04, 2016 13:39
--- OUTSIDE RECORDS SUMMARY | 2016-07-04 13:45 | XMS REPORT | Continuity of Care Document ---
Author Author [facility] Address Unknown Phone Unavailable Allergies Active Description Code Type Severity Reaction Onset Reported/Identified Relationship to Patient Clinical Status Yes No Known Drug Allergies [id number] Drug Allergy Unknown N/ A 06/13/2015 Yes cefadroxil [id number] Drug Allergy Unknown N/A 05/07/2016 Yes clarithromycin [id number] Drug Allergy Unknown N/A 05/07/2016 Yes Penicillins [id number] Drug Allergy Unknown N/A 05/07/2016 Yes shellfish derived [id number] Drug Allergy Unknown N/A 05/07/2016 Medications Problems [...] MD Ot I25.10 ATHSCL HEART DISEASE OF [place] CORONARY 06/17/2015 FRANK MORALES MD Ot I25.2 [...] URINARY TRACT INFECTION, SITE NOT SPECIF 09/21/2015 KAUR QUEEN MD Ot I51.9 HEART [...] GASTROSTOMY 10/06/2015 NESHA COLON MD Ot Z79.02 STONE LAYER (CURRENT) USE OF ANTITHROMBOTI 10/06/2015 NESHA COLON MD Ot Z79.82 STONE LAYER (CURRENT) USE OF ASPIRIN 10/06/2015 NESHA COLON MD Ot Z86.73 PRSNL HX OF TIA (TIA), AND CEREB INFRC W 10/13/2015 ENSHA COLON MD Ot I48.91 UNSPECIFIED ATRIAL FIBRILLATION 10/13/2015 NESHA COLON MD Ot Z43.1 ENCOUNTER FOR ATTENTION TO GASTROSTOMY 10/13/2015 NESHA COLON MD Ot Z79.02 INTERMEDIATE (CURRENT) USE OF ANTITHROMBOTI 10/13/2015 NESHA COLON MD Ot Z79.82 INTERMEDIATE (CURRENT) USE OF ASPIRIN 10/13/2015 NESHA COLON MD Ot Z86.73 PRSNL HX OF TIA (TIA), AND CEREB INFRC W 10/13/2015 NESHA COLON MD Ot I48.91 UNSPECIFIED ATRIAL FIBRILLATION 10/13/2015 NESHA COLON MD, Ot Z43.1 ENCOUNTER FOR ATTENTION TO GASTROSTOMY 10/13/2015 NESHA COLON MD, Ot Z79.02 INTERMEDIATE (CURRENT) USE OF ANTITHROMBOTI 10/13/2015 NESHA COLON MD Ot Z79.82 STONE LAYER (CURRENT) USE OF ASPIRIN 10/13/2015 NESHA COLON [...] GASTROSTOMY 11/04/2015 NESHA COLON MD, Ot Z79.02 INTERMEDIATE (CURRENT) USE OF ANTITHROMBOTI 11/04/2015 NESHA COLON MD, Ot Z79.82 INTERMEDIATE (CURRENT) USE OF ASPIRIN 11/04/2015 NESHA COLON [...] GASTROSTOMY 11/21/2015 NESHA COLON MD, Ot Z79.02 INTERMEDIATE (CURRENT) USE OF ANTITHROMBOTI 11/21/2015 NESHA COLON MD, Ot Z79.82 STONE LAYER (CURRENT) USE OF ASPIRIN 11/21/2015 NESHA COLON MD, Ot Z86.73 PRSNL HX OF TIA (TIA), AND CEREB INFRC W 11/21/2015 NESHA COLON MD Ot I48.91 UNSPECIFIED ATRIAL FIBRILLATION 11/21/2015 NESHA COLON MD Ot Z43.1 ENCOUNTER FOR ATTENTION TO GASTROSTOMY 11/21/2015 NESHA COLON MD, Ot Z79.02 INTERMEDIATE (CURRENT) USE OF ANTITHROMBOTI 11/21/2015 NESHA COLON MD, Ot Z79.82 STONE LAYER (CURRENT) USE OF ASPIRIN 11/21/2015 NESHA COLON MD Ot Z86.73 PRSNL HX OF TIA (TIA), AND CEREB INFRC W 11/28/2015 NESHA COLON MD Ot I48.91 UNSPECIFIED ATRIAL FIBRILLATION 11/28/2015 NESHA COLON MD Ot Z43.1 ENCOUNTER FOR ATTENTION TO GASTROSTOMY 11/28/2015 NESHA COLON MD, Ot Z79.02 STONE LAYER (CURRENT) USE OF ANTITHROMBOTI 11/28/2015 NESHA COLON MD, Ot Z79.82 STONE LAYER (CURRENT) USE OF ASPIRIN 11/28/2015 NESHA COLON MD, Ot Z86.73 PRSNL HX OF TIA (TIA), AND CEREB INFRC W 11/30/2015 NESHA COLON MD, Ot I48.91 UNSPECIFIED ATRIAL FIBRILLATION 11/30/2015 NESHA COLON MD, Ot Z43.1 ENCOUNTER FOR ATTENTION TO GASTROSTOMY 11/30/2015 NESHA COLON MD, Ot Z79.02 STONE LAYER (CURRENT) USE OF ANTITHROMBOTI 11/30/2015 NESHA COLON MD, Ot Z79.82 INTERMEDIATE (CURRENT) USE OF ASPIRIN 11/30/2015 NESHA COLON MD, Ot Z86.73 PRSNL HX OF TIA (TIA), AND CEREB INFRC W 12/01/2015 NESHA COLON MD, Ot I48.91 UNSPECIFIED ATRIAL FIBRILLATION 12/01/2015 NESHA COLON MD, Ot Z43.1 ENCOUNTER FOR ATTENTION TO GASTROSTOMY 12/01/2015 NESHA COLON MD, Ot Z79.02 INTERMEDIATE (CURRENT) USE OF ANTITHROMBOTI 12/01/2015 NESHA COLON MD, Ot Z79.82 INTERMEDIATE (CURRENT) USE OF ASPIRIN 12/01/2015 NESHA COLON MD, Ot Z86.73 PRSNL HX OF TIA (TIA), AND CEREB INFRC W 12/05/2015 NESHA COLON MD, Ot I48.91 UNSPECIFIED ATRIAL FIBRILLATION 12/05/2015 NESHA COLON MD, Ot Z43.1 ENCOUNTER FOR ATTENTION TO GASTROSTOMY 12/05/2015 NESHA COLON MD, Ot Z79.02 STONE LAYER (CURRENT) USE OF ANTITHROMBOTI 12/05/2015 NESHA COLON MD, Ot Z79.82 STONE LAYER (CURRENT) USE OF ASPIRIN 12/05/2015 NESHA COLON MD, Ot Z86.73 PRSNL HX OF TIA (TIA), AND CEREB INFRC W 12/07/2015 NESHA COLON MD, Ot I48.91 UNSPECIFIED ATRIAL FIBRILLATION 12/07/2015 NESHA COLON MD, Ot Z43.1 ENCOUNTER FOR ATTENTION TO GASTROSTOMY 12/07/2015 NESHA COLON MD Ot Z79.02 INTERMEDIATE (CURRENT) USE OF ANTITHROMBOTI 12/07/2015 NESHA COLON MD Ot Z79.82 INTERMEDIATE (CURRENT) USE OF ASPIRIN 12/07/2015 NESHA COLON [...] Status Pt. Type Provider Facility Loc./Unit Complaint [id number] 02/11/2016 08:58:00 2015 08:58:00 CAN Preadmit KAUR QUEEN MD [facility] LAB LAB DROP OFF FROM THE [facility] [id number] 10/06/2015 08:52:00 2015 11:04:00 DIS Outpatient ISAIAH ROBERTSON, NESHA Mills [facility] ASC REMOVAL OF PEG TUBE IN ASC W/ANESTHESIA [id number] 06/13/2015 21:34:00 2015 14:00:00 DIS Inpatient CARMEN ROBERTSON, FRANK [facility] MED/SURG SIRS [id number] 06/07/2015 11:40:00 2015 10:48:00 DIS Outpatient BERNICE ROBERTSON, KAUR [facility] [id number] 06/15/2014 16:29:00 2014 23:59:59 CLS Outpatient PEACE ROBERTSON, ABIMBOLA Ortiz [facility] LAB [id number] 06/14/2016 10:14:00 ACT Outpatient BRENICE ROBERTSON, [facility] RAD UNSPECIFIED DEMENTIA W/O BEHAVIORAL DISTURBANCE [id number] 05/07/2016 16:24:00 ACT Outpatient BERNICE ROBERTSON, [facility] EUOP [id number] 02/10/2016 16:02:00 ACT Outpatient BERNICE ROBERTSON, [facility] LAB CEDARS DROP OFF [id number] 09/26/2015 15:24:00 ACT Outpatient BERNICE ROBERTSON, [facility] LAB [id number] 08/01/2015 16:13:00 ACT Outpatient BERNICE ROBERTSON, [facility] [id number] 07/29/2015 13:25:00 ACT Outpatient BERNICE ROBERTSON, [facility] LAB [id number] 07/12/2015 11:43:00 ACT Outpatient BERNICE ROBERSTON, [facility] LAB LAB DROP OFF: DR KAUR QUEEN [id number] 06/29/2015 15:25:00 ACT Outpatient MARLYN ROBERTSON , [facility] RAD [id number] 06/21/2015 15:51:00 ACT Outpatient BERNICE ROBERTSON, [facility] LAB LAB DROP OFF FROM [facility] FOR DR. Audra QUEEN [id number] 06/07/2015 10:04:00 ACT Outpatient BERNICE ROBERTSON, [facility] RAD ORAL PHANYGA DYSPHAGIA I69.391 [id number] 04/05/2015 17:36:00 ACT Outpatient Weston Ricci [facility] EMS TRANSPORT FROM HOME TO [facility]
[2016-07-04] MEDS ORDERED: RIVA20TA PO (13:49)
[2016-07-04] MEDS ORDERED: POTA10CA37 PO (13:49)
[2016-07-04] MEDS ORDERED: MULT-933 PO (13:49)
[2016-07-04] MEDS ORDERED: LISI10TA7 PO (13:49)
[2016-07-04] MEDS ORDERED: FURO80TA88 PO (13:49)
[2016-07-04] MEDS ORDERED: ATOR80TA76 PO (13:49)
[2016-07-04] MEDS ORDERED: MONT10TA22 PO (13:49)
[2016-07-04] MEDS ORDERED: OMEG1CAP79 PO (13:49)
[2016-07-04] MEDS ORDERED: AZEL137S11 NAS (13:49)
[2016-07-04] MEDS ORDERED: CALC-689 PO (13:49)
[2016-07-04] MEDS ORDERED: LEVE500S PO (13:49)
[2016-07-04] MEDS ORDERED: METO25TA6 PO (13:49)
--- NOTE | 2016-07-04 13:51 | NUR ---
LAB LAB IN ROOM FOR BLOOD DRAW.
[2016-07-04] MEDS ORDERED: ALPR1TAB5 PO (13:52)
[2016-07-04] MEDS ORDERED: SODI30SP3 NAS (13:52)
[2016-07-04 13:58] LABS: BASOPHILS % (AUTO) 0.5 % (0-2); EOSINOPHILS # (AUTO) 0.4 T/MM3 (0-0.5); EOSINOPHILS % (AUTO) 6.5 % (0-4); HCT - HEMATOCRIT 36.3 % (36-46); HGB - HEMOGLOBIN 11.6 GM/DL (12-16); LYMPHOCYTES # (AUTO) 1.8 T/MM3 (1-4.8); LYMPHOCYTES % (AUTO) 29.5 % (23-45); MEAN CORPUSCULAR HGB 29.8 UUG (26-34); MEAN CORPUSCULAR VOLUME 93.3 UM3 (80-100); MEAN PLATELET VOLUME 9.7 UM3 (9.4-12.4); MONOCYTES # (AUTO) 0.6 T/MM3 (0-0.8); MONOCYTES % (AUTO) 10.6 % (0-9.0); NEUTROPHILS #(AUTO)-ABSOLUTE 3.2 T/MM3 (1.8-7.7); NEUTROPHILS % (AUTO) 52.9 % (33-66); RED BLOOD COUNT 3.89 M/MM3 (4.00-5.20)
[2016-07-04] MEDS ORDERED: BUSP15TA3 PO (14:00)
[2016-07-04] MEDS ORDERED: ACET-62 PO (14:00)
[2016-07-04] MEDS ORDERED: MAGN400O4 PO (14:00)
[2016-07-04] MEDS ORDERED: DOCU-168 PO (14:00)
[2016-07-04] MEDS ORDERED: LORA0.5T86 PO (14:00)
[2016-07-04] MEDS ORDERED: ACET-2890 PO (14:00)
[2016-07-04] MEDS ORDERED: POLY17PO6 PO (14:00)
[2016-07-04] MEDS ORDERED: BISA10SU8 RECTALLY (14:00)
[2016-07-04] MEDS ORDERED: OLAN5TAB2 PO (14:00)
[2016-07-04] MEDS ORDERED: MAG360OR92 PO (14:00)
--- NOTE | 2016-07-04 14:11 | NUR ---
UA COLLECTED VOIDED BEDSIDE TOILET YELLOW CLEAR URINE 200 CC OUPUT.
[2016-07-04 14:15] LABS: BLOOD, URINE NEGATIVE (NEGATIVE); COLOR,URINE YELLOW (YELLOW); LEUKOCYTE ESTERASE ,URINE NEGATIVE (NEGATIVE); NITRITE,URINE NEGATIVE (NEGATIVE); UROBILINOGEN,URINE 0.2 EU/DL (NORMAL)
[2016-07-04 14:16] LABS: ANION GAP 12 MEQ/L (5-15); BUN/CREATININE RATIO 23 RATIO (6-26); CALCIUM 9.2 MG/DL (8.4-10.2); CHLORIDE 102 MEQ/L (98-107); CO2 - CARBON DIOXIDE 31 MEQ/L (22-30); CREATININE 1.2 MG/DL (0.7-1.2); GLOMERULAR FILTRATION RATE 43; GLUCOSE 105 MG/DL (65-110); POTASSIUM 4.7 MEQ/L (3.6-5); SODIUM 145 MEQ/L (134-144)
--- NOTE | 2016-07-04 14:43 | NUR ---
DEPART PT LEFT ER ADMIT TO [facility] VIA WHEEL CHAIR W/ BELONGINGS INCLUDING, 2 PERSONAL BAGS WALKER CAOT AND SWEATER, ALERT, NO ACUTE DISTRESS AND PT CARE XFERED TO [facility] ANA MALDONADO AT RM 192 W/O CHANGE.
--- NOTE | 2016-07-04 14:45 | NUR ---
ADMISSION NOTE 85 year old female kerry Alcazar was admitted to room 192 today at 1445, she came from [facility] ED, and came to ED from the [facility] at [place]. patient arrived via Wheel chair accompanied by [facility] ED staff, (topher). Patient is AO x 1 self only, speech is clear and appropriate. Patient was dressed appropriate for season, she was cleaned. Patient is able to verbalize needs. Patient belongings are with her, patient was oriented to out unit, room, call light. Patient was in a passive mood. Patient admission statement is " they are checking me out, didn't say what." Patient has some dark spots on her right arm. No glasses, dentures or hearing aids noted. Patient transfers with FWW x 1 assist. Family was not present during admission. DPOA aware of admission. Patient continue to ask frequently that when was she going home and where was she at. Patient was cooperative with assessment.
--- OUTSIDE RECORDS SUMMARY | 2016-07-04 14:54 | XMS REPORT | Continuity of Care Document ---
Author Author [facility] Address Unknown Phone Unavailable Allergies Active Description Code Type Severity Reaction Onset Reported/Identified Relationship to Patient Clinical Status Yes No Known Drug Allergies [id number] Drug Allergy Unknown N/ A 06/13/2015 Yes cefadroxil [id number] Drug Allergy Unknown N/A 05/07/2016 Yes clarithromycin [id number] Drug Allergy Unknown N/A 05/07/2016 Yes Penicillins [id number] Drug Allergy Unknown N/A 05/07/2016 Yes shellfish derived [id number] Drug Allergy Unknown N/A 05/07/2016 Medications Problems [...] MD Ot I25.10 ATHSCL HEART DISEASE OF [place] CORONARY 06/17/2015 FRANK MORALES MD Ot I25.2 [...] GASTROSTOMY 10/06/2015 NESHA COLON MD Ot Z79.02 PATENT SOLICITOR (CURRENT) USE OF ANTITHROMBOTI 10/06/2015 NESHA COLON MD Ot Z79.82 PATENT SOLICITOR (CURRENT) USE OF ASPIRIN 10/06/2015 NESHA COLON MD Ot Z86.73 PRSNL HX OF TIA (TIA), AND CEREB INFRC W 10/13/2015 NESHA COLON MD Ot I48.91 UNSPECIFIED ATRIAL FIBRILLATION 10/13/2015 NESHA COLON MD Ot Z43.1 ENCOUNTER FOR ATTENTION TO GASTROSTOMY 10/13/2015 NESHA COLON MD Ot Z79.02 RESIDENTIAL (CURRENT) USE OF ANTITHROMBOTI 10/13/2015 NESHA COLON MD Ot Z79.82 RESIDENTIAL (CURRENT) USE OF ASPIRIN 10/13/2015 NESHA COLON MD Ot Z86.73 PRSNL HX OF TIA (TIA), AND CEREB INFRC W 10/13/2015 NESHA COLON MD Ot I48.91 UNSPECIFIED ATRIAL FIBRILLATION 10/13/2015 NESHA COLON MD, Ot Z43.1 ENCOUNTER FOR ATTENTION TO GASTROSTOMY 10/13/2015 NESHA COLON MD, Ot Z79.02 RESIDENTIAL (CURRENT) USE OF ANTITHROMBOTI 10/13/2015 NESHA COLON MD Ot Z79.82 PATENT SOLICITOR (CURRENT) USE OF ASPIRIN 10/13/2015 NESHA COLON [...] GASTROSTOMY 11/04/2015 NESHA COLON MD, Ot Z79.02 RESIDENTIAL (CURRENT) USE OF ANTITHROMBOTI 11/04/2015 NESHA COLON MD, Ot Z79.82 RESIDENTIAL (CURRENT) USE OF ASPIRIN 11/04/2015 NESAH COLON MD, Ot Z86.73 PRSNL HX OF TIA (TIA), AND CEREB INFRC W 11/08/2015 KAUR QUEEN MD Ot N39.0 URINARY TRACT INFECTION, SITE NOT SPECIF 11/08/2015 KAUR QUEEN MD Ot R82.99 OTHER ABNORMAL FINDINGS IN URINE 11/21/2015 NESHA COLON MD, Ot I48.91 UNSPECIFIED ATRIAL FIBRILLATION 11/21/2015 NESHA COLON MD, Ot Z43.1 ENCOUNTER FOR ATTENTION TO GASTROSTOMY 11/21/2015 NESHA COLON MD, Ot Z79.02 RESIDENTIAL (CURRENT) USE OF ANTITHROMBOTI 11/21/2015 NESHA COLON MD, Ot Z79.82 PATENT SOLICITOR (CURRENT) USE OF ASPIRIN 11/21/2015 NESHA COLON MD, Ot Z86.73 PRSNL HX OF TIA (TIA), AND CEREB INFRC W 11/21/2015 NESHA COLON MD Ot I48.91 UNSPECIFIED ATRIAL FIBRILLATION 11/21/2015 NESHA COLON MD Ot Z43.1 ENCOUNTER FOR ATTENTION TO GASTROSTOMY 11/21/2015 NESHA COLON MD, Ot Z79.02 RESIDENTIAL (CURRENT) USE OF ANTITHROMBOTI 11/21/2015 NESHA COLON MD, Ot Z79.82 PATENT SOLICITOR (CURRENT) USE OF ASPIRIN 11/21/2015 NESHA COLON MD Ot Z86.73 PRSNL HX OF TIA (TIA), AND CEREB INFRC W 11/28/2015 NESHA COLON MD Ot I48.91 UNSPECIFIED ATRIAL FIBRILLATION 11/28/2015 NESHA COLON MD Ot Z43.1 ENCOUNTER FOR ATTENTION TO GASTROSTOMY 11/28/2015 NESHA COLON MD, Ot Z79.02 PATENT SOLICITOR (CURRENT) USE OF ANTITHROMBOTI 11/28/2015 NESHA COLON MD, Ot Z79.82 PATENT SOLICITOR (CURRENT) USE OF ASPIRIN 11/28/2015 NESHA COLON MD, Ot Z86.73 PRSNL HX OF TIA (TIA), AND CEREB INFRC W 11/30/2015 NESHA COLON MD, Ot I48.91 UNSPECIFIED ATRIAL FIBRILLATION 11/30/2015 NESHA COLON MD, Ot Z43.1 ENCOUNTER FOR ATTENTION TO GASTROSTOMY 11/30/2015 NESHA COLON MD, Ot Z79.02 PATENT SOLICITOR (CURRENT) USE OF ANTITHROMBOTI 11/30/2015 NESHA COLON MD, Ot Z79.82 RESIDENTIAL (CURRENT) USE OF ASPIRIN 11/30/2015 NESHA COLON MD, Ot Z86.73 PRSNL HX OF TIA (TIA), AND CEREB INFRC W 12/01/2015 NESHA COLON MD, Ot I48.91 UNSPECIFIED ATRIAL FIBRILLATION 12/01/2015 NESHA COLON MD, Ot Z43.1 ENCOUNTER FOR ATTENTION TO GASTROSTOMY 12/01/2015 NESHA COLON MD, Ot Z79.02 RESIDENTIAL (CURRENT) USE OF ANTITHROMBOTI 12/01/2015 NESHA COLON MD, Ot Z79.82 RESIDENTIAL (CURRENT) USE OF ASPIRIN 12/01/2015 NESHA COLON MD, Ot Z86.73 PRSNL HX OF TIA (TIA), AND CEREB INFRC W 12/05/2015 NESHA COLON MD, Ot I48.91 UNSPECIFIED ATRIAL FIBRILLATION 12/05/2015 NESHA COLON MD, Ot Z43.1 ENCOUNTER FOR ATTENTION TO GASTROSTOMY 12/05/2015 NESHA COLON MD, Ot Z79.02 PATENT SOLICITOR (CURRENT) USE OF ANTITHROMBOTI 12/05/2015 NESHA COLON MD, Ot Z79.82 PATENT SOLICITOR (CURRENT) USE OF ASPIRIN 12/05/2015 NESHA COLON MD, Ot Z86.73 PRSNL HX OF TIA (TIA), AND CEREB INFRC W 12/07/2015 NESHA COLON MD, Ot I48.91 UNSPECIFIED ATRIAL FIBRILLATION 12/07/2015 NESHA COLON MD, Ot Z43.1 ENCOUNTER FOR ATTENTION TO GASTROSTOMY 12/07/2015 NESHA COLON MD Ot Z79.02 RESIDENTIAL (CURRENT) USE OF ANTITHROMBOTI 12/07/2015 NESHA COLON MD Ot Z79.82 RESIDENTIAL (CURRENT) USE OF ASPIRIN 12/07/2015 NESHA COLON [...] TRACT INFECTION, SITE NOT SPECIF 06/13/2016 MARLYN ROEBRTSON, KYRIE Naranjo Ot I50.9 HEART FAILURE, UNSPECIFIED [...] Status Pt. Type Provider Facility Loc./Unit Complaint [id number] 02/11/2016 08:58:00 2015 08:58:00 CAN Preadmit KAUR QUEEN MD [facility] LAB LAB DROP OFF FROM [facility] [id number] 10/06/2015 08:52:00 2015 11:04:00 DIS Outpatient ISAIAH ROBERTSON, NESHA [facility] ASC REMOVAL OF PEG TUBE IN ASC W/ANESTHESIA [id number] 06/13/2015 21:34:00 2015 14:00:00 DIS Inpatient CARMEN ROBERTSON, FRANK [facility] MED/SURG SIRS [id number] 06/07/2015 11:40:00 2015 10:48:00 DIS Outpatient BERNICE ROBERTSON, KAUR [facility] [id number] 06/15/2014 16:29:00 2014 23:59:59 CLS Outpatient PEACE ROBERTSON, ABIMBOLA Ortiz [facility] LAB [id number] 06/14/2016 10:14:00 ACT Outpatient BERNICE ROBERTSON, [facility] RAD UNSPECIFIED DEMENTIA W/O BEHAVIORAL DISTURBANCE [id number] 05/07/2016 16:24:00 ACT Outpatient BERNICE ROBERTSON, [facility] EUOP [id number] 02/10/2016 16:02:00 ACT Outpatient BERNICE ROBERTSON, [facility] LAB CEDARS DROP OFF [id number] 09/26/2015 15:24:00 ACT Outpatient BERNICE ROBERTSON, [facility] LAB [id number] 08/01/2015 16:13:00 ACT Outpatient BERNICE ROBERTSON, [facility] [id number] 07/29/2015 13:25:00 ACT Outpatient BERNICE ROBERTSON, [facility] LAB [id number] 07/12/2015 11:43:00 ACT Outpatient BERNICE ROBERTSON, [facility] LAB LAB DROP OFF: DR KAUR QUEEN [id number] 06/29/2015 15:25:00 ACT Outpatient MARLYN ROBERTSON , [facility] RAD [id number] 06/21/2015 15:51:00 ACT Outpatient BERNICE ROBERTSON, [facility] LAB LAB DROP OFF FROM [facility] FOR DR. Audra QUEEN [id number] 06/07/2015 10:04:00 ACT Outpatient BERNICE ROBERTSON, [facility] RAD ORAL PHANYGA DYSPHAGIA I69.391 [id number] 04/05/2015 17:36:00 ACT Outpatient Weston Ricci [facility] EMS TRANSPORT FROM HOME TO [facility]
[2016-07-04 15:21] VITALS: Ht 165.1 cm; Wt 70.8 kg
[2016-07-04 15:32] LABS: THYROID STIM HORMONE-TSH 0.02 MIU/L (0.47-4.68)
[2016-07-04] MEDS ORDERED: HALOPERIDOL 0.5 MG TABLET PO PRN (15:45)
[2016-07-04] MEDS ORDERED: PRN ORDERS MC (15:45)
[2016-07-04] MEDS ORDERED: HALOPERIDOL 5 MG/ML INJECTION IM PRN (15:45)
[2016-07-04] MEDS ORDERED: LORAZEPAM 2 MG/ML INJECTION IM PRN (15:45)
[2016-07-04 16:00] VITALS: BP 147/64; PULSE 62; RESP 16; TEMP 97.8; O2SAT 90
[2016-07-04 16:12] VITALS: PULSE 62; RESP 16
--- NOTE | 2016-07-04 17:19 | HPPDOC ---
KARIME VIGIL V CONCRETE RUBBER 07/04/16 1712: HPI - Adult Date DATE: 07/04/16 TIME: 17:09 General Chief Complaint: Dementia with behaviors History of Present Illness Patient is an 85-year-old female who currently resides in [place] at [facility]. She has a known history of dementia. [facility] records indicate patient has had an increase in agitation and anxiety over the last several weeks. She has had displayed exit seeking behaviors and has been looking for her who is . She was brought to [facility] emergency room today for medical evaluation and clearance and then accepted to the [facility] unit for further psychiatric evaluation and treatment. Basic labs were obtained. The BBC count from normal 6.0, hemoglobin 11.6, hematocrit 36.6, platelet count 241. Sodium is slightly elevated at 145, potassium 4.7, BUN 27, creatinine 1.2. TSH was found to be slightly low at 0.02. A urinalysis is obtained that is unremarkable. Records indicate that she did have an outpatient CT scan of the head on 06/14/16 showed no acute intracranial abnormality with chronic lacunar infarct involving left basal ganglia and bilateral cerebellar region, along with chronic small vessel ischemia disease. Past Medical History Past Medical History Diastolic heart failure. Chronic atrial fibrillation. Cardiac pacemaker Aortic stenosis Coronary artery disease with history of [place] Hypertension Pulmonary hypertension History of CVA Seizures Dementia Depression Surgical History Patient's Surgical History: Pacemaker No surgical history is sent with patient Current Medications Home Meds Reported Medications Lorazepam (Ativan) 0.5 Mg Tablet, 0.5 MG PO TID Y for ANXIETY 07/04/16 Mag Hydrox/Al Hydrox/Simeth (Alum-Mag Hydroxide-Simeth Liq) 360 Ml Oral.susp, 30 ML PO Q4H Y for EPIGASTRIC DISTRESS 07/04/16 Acetaminophen (Acetaminophen) 500 Mg Tablet, 1000 MG PO Q6H Y for PAIN 07/04/16 Bisacodyl (Bisacodyl) 10 Mg Supp.rect, 1 SUPP RECTALLY BID Y for CONSTIPATION 07/04/16 Polyethylene Glycol 3350 (Miralax) 17 Gm Powd.pack, 17 G PO DAILY Y for CONSTIPATION 07/04/16 Magnesium Hydroxide (Milk of Magnesia) 400 Mg/5 Ml Oral.susp, 30 ML PO DAILY Y for CONSTIPATION 07/04/16 Docusate Sodium (Colace) 100 Mg Capsule, 100 MG PO BID 07/04/16 Acetaminophen (Acetaminophen) 650 Mg Tablet.er, 650 MG PO TID 07/04/16 Buspirone HCl (Buspirone HCl) 15 Mg Tablet, 15 MG PO BID 07/04/16 Sodium Chloride (Saline Nasal [place]) 30 Ml [place], 2 SPRAY YONY BID 07/04/16 Azelastine HCl (Azelastine HCl) 137 Mcg/0.137 Ml [place].pump, 2 SPRAY YONY BID 07/04/16 Montelukast Sodium (Singulair) 10 Mg Tablet, 10 MG PO DAILY 07/04/16 Rivaroxaban (Xarelto) 20 Mg Tablet, 20 MG PO DAILY 07/04/16 Furosemide (Lasix) 80 Mg Tablet, 80 MG PO DAILY 07/04/16 Multivitamin (Multi-Day Vitamins) 1 Each Tablet, 1 TAB PO DAILY 07/04/16 [place]-3/Dha/Epa/Fish Oil (Fish Oil 1,000 mg Softgel) 1 Each Capsule, 1000 MG PO BID 07/04/16 Metoprolol Tartrate (Metoprolol Tartrate) 25 Mg Tablet, 25 MG PO BIDWM 07/04/16 Lisinopril (Lisinopril) 10 Mg Tablet, 10 MG PO DAILY 07/04/16 Levetiracetam (Levetiracetam) 500 Mg/5 Ml Solution, 7.5 MG PO BID 07/04/16 Calcium Carbonate/Vitamin D3 (Calcium 500 + Vit D Caplet) 1 Each Tablet, 1 TAB PO DAILY 07/04/16 Atorvastatin Calcium (Atorvastatin Calcium) 80 Mg Tablet, 80 MG PO HS 07/04/16 Potassium Chloride (Potassium Chloride) 10 Meq Capsule.er, 10 MEQ PO BIDWM 07/04/16 Allergies: Coded Allergies: Penicillins (Verified Allergy, Unknown, 07/04/16) cefadroxil (Verified Allergy, Unknown, 07/04/16) clarithromycin (Verified Allergy, Unknown, 07/04/16) shellfish derived (Verified Allergy, Unknown, 07/04/16) Family History Family History: Unable to obtain Social History Smoking Status: Never smoker Advance Directives: Yes DNR, Yes DPOA for Healthcare Only Social History Comments Resides at [facility] in [place], primary care provider, Dr. Srikanth Zamora Review of Systems Unable to Obtain ROS Due to: dementia Comments Unable to obtain ROS due to dementia Physical Exam General General Nourishment: well nourished, well developed, apparent age Vital Signs Vital Signs Date Time Temp Pulse Resp B/P Pulse Ox O2 Delivery O2 Flow Rate FiO2 07/04/16 16:12 62 16 07/04/16 16:00 97.8 147/64 90 Room Air Height (Feet): 5 Height (Inches): 5.00 ENMT Brief: FOUND: mucosa moist Respiratory Brief: FOUND: clear all lopez, equal bilaterally Cardiovascular (brief) Cardiac Brief: FOUND: pedal edema (trace bilateal lower), regular rate, regular rhythm Abdomen (brief) Abdominal Brief: FOUND: BS normo active x4, soft, NOT FOUND: distended, tender Integumentary (brief) Integumentary Brief: FOUND: dry, pink, warm Neurologic (brief) Neurological Brief: FOUND: cranial 2-12 intact (grossly), motor (moves all ext equally) Neurologic RN Documented GCS Eye Opening: (4)Spontaneous Verbal: (5)Oriented Motor: (6)Obeys Commands Total: Psychiatric (brief) FOUND: alert, normal affect Comments Pleasantly confused Laboratory Laboratory Tests Test 07/04/16 13:52 07/04/16 13:54 07/04/16 14:11 White Blood Count 6.0T/MM3 Red Blood Count 3.89M/MM3 Hemoglobin 11.6GM/DL Hematocrit 36.3% Mean Corpuscular Volume 93.3UM3 Mean Corpuscular Hemoglobin 29.8UUG Mean Corpuscular Hemoglobin Concent 32.0GM/DL RDW Standard Deviation 42.2FL Platelet Count 241T/MM3 Mean Platelet Volume 9.7UM3 Immature Granulocyte % (Auto) 0.0% Neutrophils (%) (Auto) 52.9% Lymphocytes (%) (Auto) 29.5% Monocytes (%) (Auto) 10.6% Eosinophils (%) (Auto) 6.5% Basophils (%) (Auto) 0.5% Absolute Immature Granulocyte (auto 0.00T/MM3 Absolute Neutrophils (auto) 3.2T/MM3 Absolute Lymphocytes (auto) 1.8T/MM3 Absolute Monocytes (auto) 0.6T/MM3 Absolute Eosinophils (auto) 0.4T/MM3 Absolute Basophils (auto) 0.0T/MM3 Turbidity < 20 Sodium Level 145MEQ/L Potassium Level 4.7MEQ/L Chloride Level 102MEQ/L Carbon Dioxide Level 31MEQ/L Anion Gap 12MEQ/L Blood Urea Nitrogen 27.0MG/DL Creatinine 1.2MG/DL Glomerular Filtration Rate Calc 43 BUN/Creatinine Ratio 23RATIO Glucose Level 105MG/DL Calculated Osmolality 284MOSM/KG Calcium Level 9.2MG/DL Icterus Index < 2 Thyroid Stimulating Hormone (TSH) 0.02MIU/L Chemistry Specimen Hemolysis < 15 Urine Collection Type Cleancatch-midstream Urine Color Yellow Urine Turbidity Clear Urine pH 6.0 Urine Specific [place] <=1.005 Urine Protein Negative Urine Glucose (UA) Negative Urine Ketones Negative Urine Blood Negative Urine Nitrite Negative Urine Bilirubin Negative Urine Urobilinogen 0.2EU/DL Urine Leukocyte Esterase Negative Urinalysis Comment Microscopic not ind. Assessment & Plan Assessment Dementia with acute behaviors Depression. Chronic diastolic heart failure. Atrial fibrillation with cardiac pacemaker Aortic stenosis. Coronary artery disease with MA history. History of CVA. Seizures Pulmonary hypertension. Plan/Intensity of Service Agree with admission to [facility] unit for further psychiatric evaluation and treatment. Patient does have significant cardiac history. Current med list is reviewed. Continue with lisinopril, metoprolol for blood pressure control. Agree with continuing Lasix 80 milligrams daily for ongoing diuresis given chronic heart failure. Monitor for evidence of dehydration. Given hypernatremia, would recommend encouraging oral intake. Patient takes Xarelto for chronic anticoagulation Continue Keppra twice a day with known seizure history. Scheduled Colace and MiraLAX for ongoing bowel motivation The hospitalist services will continue to follow patient medically manage her existing comorbidities during her stay in the [facility] unit. At time of discharge medical care will return to her primary care provider. Dr. Srikanth Zamora in [place] Code Status Do Not Resuscitate Hospital Course Summary Disclaimer The hospital course summary below is not to be considered part of the above Progress Note. BEATRIZ ROME MD 07/05/161929: Past Medical History Current Medications Home Meds Reported Medications Lorazepam (Ativan) 0.5 Mg Tablet, 0.5 MG PO TID Y for ANXIETY 07/04/16 Mag Hydrox/Al Hydrox/Simeth (Alum-Mag Hydroxide-Simeth Liq) 360 Ml Oral.susp, 30 ML PO Q4H Y for EPIGASTRIC DISTRESS 07/04/16 Acetaminophen (Acetaminophen) 500 Mg Tablet, 1000 MG PO Q6H Y for PAIN 07/04/16 Bisacodyl (Bisacodyl) 10 Mg Supp.rect, 1 SUPP RECTALLY BID Y for CONSTIPATION 07/04/16 Polyethylene Glycol 3350 (Miralax) 17 Gm Powd.pack, 17 G PO DAILY Y for CONSTIPATION 07/04/16 Magnesium Hydroxide (Milk of Magnesia) 400 Mg/5 Ml Oral.susp, 30 ML PO DAILY Y for CONSTIPATION 07/04/16 Docusate Sodium (Colace) 100 Mg Capsule, 100 MG PO BID 07/04/16 Acetaminophen (Acetaminophen) 650 Mg Tablet.er, 650 MG PO TID 07/04/16 Buspirone HCl (Buspirone HCl) 15 Mg Tablet, 15 MG PO BID 07/04/16 Sodium Chloride (Saline Nasal [place]) 30 Ml [place], 2 SPRAY YONY BID 07/04/16 Azelastine HCl (Azelastine HCl) 137 Mcg/0.137 Ml [place].pump, 2 SPRAY YONY BID 07/04/16 Montelukast Sodium (Singulair) 10 Mg Tablet, 10 MG PO DAILY 07/04/16 Rivaroxaban (Xarelto) 20 Mg Tablet, 20 MG PO DAILY 07/04/16 Furosemide (Lasix) 80 Mg Tablet, 80 MG PO DAILY 07/04/16 Multivitamin (Multi-Day Vitamins) 1 Each Tablet, 1 TAB PO DAILY 07/04/16 [place]-3/Dha/Epa/Fish Oil (Fish Oil 1,000 mg Softgel) 1 Each Capsule, 1000 MG PO BID 07/04/16 Metoprolol Tartrate (Metoprolol Tartrate) 25 Mg Tablet, 25 MG PO BIDWM 07/04/16 Lisinopril (Lisinopril) 10 Mg Tablet, 10 MG PO DAILY 07/04/16 Levetiracetam (Levetiracetam) 500 Mg/5 Ml Solution, 7.5 MG PO BID 07/04/16 Calcium Carbonate/Vitamin D3 (Calcium 500 + Vit D Caplet) 1 Each Tablet, 1 TAB PO DAILY 07/04/16 Atorvastatin Calcium (Atorvastatin Calcium) 80 Mg Tablet, 80 MG PO HS 07/04/16 Potassium Chloride (Potassium Chloride) 10 Meq Capsule.er, 10 MEQ PO BIDWM 07/04/16 Allergies: Coded Allergies: Penicillins (Verified Allergy, Unknown, 4/26/17) cefadroxil (Verified Allergy, Unknown, 07/04/16) clarithromycin (Verified Allergy, Unknown, 07/04/16) shellfish derived (Verified Allergy, Unknown, 07/04/16) KARIME VGIIL APRN Jul 04, 2016 17:12 BEATRIZ ROME MD Jul 05, 2016 19:30
[2016-07-04] MEDS ORDERED: MILK OF MAGNESIA 30 ML SUSP PO PRN (18:15)
[2016-07-04] MEDS ORDERED: POLYETHYL.GLYCOL 3350 PACKET 17gm PO PRN (18:15)
[2016-07-04] MEDS ORDERED: LORAZEPAM 0.5 MG TABLET PO PRN (18:15)
[2016-07-04] MEDS ORDERED: BISACODYL 10 MG SUPPOSITORY RECTALLY PRN (18:15)
[2016-07-04] MEDS ORDERED: MAG-AL + SIM XS 30 ML UDC PO PRN (18:15)
[2016-07-04 19:38] VITALS: PULSE 60; RESP 18; O2SAT 94
--- NOTE | 2016-07-04 20:09 | NUR ---
SHIFT SUMMARY Patient has been cooperative with cares since admission, she has been pleasant, she ate all her dinner she was in the dining room for dinner and then requested to go rest after dinner, she is able to make needs known. No hallucinations noted, no inappropriate behaviors noted, No PRN medications given. Patient continues to ask frequently that when is she going to go home. she is AO x self only. No complains of pain, patient denies needs or concerns at the moment.
[2016-07-04] MEDS: ACETAMINOPHEN SR 650 MG TABLET PO SCH (20:18)
[2016-07-04] MEDS: ATORVASTATIN 40 MG TABLET PO SCH (20:18)
[2016-07-04] MEDS: OMEGA-3 ACID ESTERS 1 G CAPSULE PO SCH (20:18)
[2016-07-04] MEDS: LEVETIRACETAM 500 MG/5 ML PO SCH (20:19)
[2016-07-04] MEDS: SALINE NASAL SPRAY 45ml NAS SCH (20:19)
[2016-07-04] MEDS: AZELASTINE 0.1% NAS SCH (20:19)
[2016-07-04] MEDS: DOCUSATE SODIUM 100 MG CAPSULE PO SCH (20:22)
[2016-07-04 20:37] VITALS: BP 147/70; PULSE 70; RESP 18; TEMP 98.1; O2SAT 94
[2016-07-04 21:12] VITALS: RESP 16
--- NOTE | 2016-07-04 22:00 | GENHPPDOC ---
[facility] 07/04/16 Start Time: 18:40 Stop Time: 19:20 >50% of this visit spent in counseling/coordination care. Chief Complaint: "I stopped to look at people and they put me in this bed" History of Present Illness Patient is an 85-year-old female admitted to [facility] on 07/04/[address] [facility]. Per facility, patient has been hallucinating seeing her , believes someone is trying to kill her and poison her food/drink. She is obsessed with leaving facility to find . She has been physically aggressive with staff. She is refusing and attempting to hide medications. She has made statements that her family should visit her because she is getting ready to kill herself. She has gained 7.4 lb in the past 2 weeks (and reportedly has increased appetite). She has erratic sleep (up 31 hours and then slept for days). These behaviors have been present since March, increasing over past week. Patient has many chronic medical conditions (stroke with residual effects, seizures, cerebral infarction, chronic diastolic CHF with pacemaker). On interview, patient is in her room sitting in bed. She is pleasantly confused through interview and oriented to self only. She states that she went to [place] with her to look for someplace to stay temporarily, stopped on the way home to look at people, and they put her in this bed. She says her mood is "just tired" and denies feeling depressed most of the time. She denies any prior psych hx but history is not reliable. She denies any history of suicide attempts or psych hospitalizations. She denies any current SI, HI, AVH or cognitive changes. Per records: outpatient psychiatrist is Annabel Atkins, PCp Srikanth Zamora. Depression: irritable, change in appetite, sleep disturbance, poor concentration, morbid thinking Jane: aggresion, irritability, sleep changes Psychosis: hallucinations, visual, delusions, paranoia Dementia: memory impairment, poor executive function. Past Medical History Past Medical History Diastolic heart failure. Chronic atrial fibrillation. Cardiac pacemaker Aortic stenosis Coronary artery disease with history of [place] Hypertension Pulmonary hypertension History of CVA Seizures Dementia Depression Surgical History Patient's Surgical History: Pacemaker No surgical history is sent with patient Current Medications Home Meds Reported Medications Lorazepam (Ativan) 0.5 Mg Tablet, 0.5 MG PO TID Y for ANXIETY 07/04/16 Mag Hydrox/Al Hydrox/Simeth (Alum-Mag Hydroxide-Simeth Liq) 360 Ml Oral.susp, 30 ML PO Q4H Y for EPIGASTRIC DISTRESS 07/04/16 Acetaminophen (Acetaminophen) 500 Mg Tablet, 1000 MG PO Q6H Y for PAIN 07/04/16 Bisacodyl (Bisacodyl) 10 Mg Supp.rect, 1 SUPP RECTALLY BID Y for CONSTIPATION 07/04/16 Polyethylene Glycol 3350 (Miralax) 17 Gm Powd.pack, 17 G PO DAILY Y for CONSTIPATION 07/04/16 Magnesium Hydroxide (Milk of Magnesia) 400 Mg/5 Ml Oral.susp, 30 ML PO DAILY Y for CONSTIPATION 07/04/16 Docusate Sodium (Colace) 100 Mg Capsule, 100 MG PO BID 07/04/16 Acetaminophen (Acetaminophen) 650 Mg Tablet.er, 650 MG PO TID 07/04/16 Buspirone HCl (Buspirone HCl) 15 Mg Tablet, 15 MG PO BID 07/04/16 Sodium Chloride (Saline Nasal [place]) 30 Ml [place], 2 SPRAY YONY BID 07/04/16 Azelastine HCl (Azelastine HCl) 137 Mcg/0.137 Ml [place].pump, 2 SPRAY YONY BID 07/04/16 Montelukast Sodium (Singulair) 10 Mg Tablet, 10 MG PO DAILY 07/04/16 Rivaroxaban (Xarelto) 20 Mg Tablet, 20 MG PO DAILY 07/04/16 Furosemide (Lasix) 80 Mg Tablet, 80 MG PO DAILY 07/04/16 Multivitamin (Multi-Day Vitamins) 1 Each Tablet, 1 TAB PO DAILY 07/04/16 [place]-3/Dha/Epa/Fish Oil (Fish Oil 1,000 mg Softgel) 1 Each Capsule, 1000 MG PO BID 07/04/16 Metoprolol Tartrate (Metoprolol Tartrate) 25 Mg Tablet, 25 MG PO BIDWM 07/04/16 Lisinopril (Lisinopril) 10 Mg Tablet, 10 MG PO DAILY 07/04/16 Levetiracetam (Levetiracetam) 500 Mg/5 Ml Solution, 7.5 MG PO BID 07/04/16 Calcium Carbonate/Vitamin D3 (Calcium 500 + Vit D Caplet) 1 Each Tablet, 1 TAB PO DAILY 07/04/16 Atorvastatin Calcium (Atorvastatin Calcium) 80 Mg Tablet, 80 MG PO HS 07/04/16 Potassium Chloride (Potassium Chloride) 10 Meq Capsule.er, 10 MEQ PO BIDWM 07/04/16 Allergies: Coded Allergies: Penicillins (Verified Allergy, Unknown, 07/04/16) cefadroxil (Verified Allergy, Unknown, 07/04/16) clarithromycin (Verified Allergy, Unknown, 07/04/16) shellfish derived (Verified Allergy, Unknown, 07/04/16) Family History Family History: Unable to obtain Vaccines 11/25/15 PCV13 11/25/15, PPSV23 04/30/15 PCV13 11/25/15 PPSV23 04/30/15 Social History Smoking Status: Never smoker Substance Use Type: does not use Alcohol Intake: none Marital Status: Housing: [facility] Number of Children: 2 Current Occupational Status: retired 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 Constitutional: REPORTS: appetite increase, insomnia, weight gain Eyes Vision: DENIES: acuity, aura, blurring, bright flashes, change in color, double vision, glare, loss of visual lopez, night blindness, other, see HPI, tunnel vision, vision changes Cardiovascular DENIES: chest pain Pulmonary Respiratory: DENIES: cough GI Upper Abdomen: DENIES: nausea, vomiting Musculoskeletal General: DENIES: pain Integumentary Skin: DENIES: itching, rash Neurological General: memory disturbances, seizures (history, not current), DENIES: headache Psychiatric Psychiatric: emotional instability, hallucinations, irritability, memory impairment, suicidal ideation/attempt All Other Systems All Other Systems: Reviewed (remainder of 10-point ROS Neg.) [facility]ations Exam Vitals Vital Signs Date Time Temp Pulse Resp B/P Pulse Ox O2 Delivery O2 Flow Rate FiO2 07/04/16 21:12 16 07/04/16 20:37 98.1 70 147/70 94 Room Air Physical examination performed by the hospitalist. Height (Feet): 5 Height (Inches): 5.00 Mental Status Exam Muscle Strength/Tone: Normal Dressing: Casual Grooming: Good Attitude: Cooperative Motor Activity: Normal Eye Contact: Fair Speech: Normal Volume: Normal Rhythm: Appropriate Rhythm Sensory: Alert Orientation: Disoriented to time, Disoriented to place, Disoriented to situation, Oriented to person Mood: Other ("Just tired") Affect: Labile (reportedly, not during interview) Rate of Thoughts: Delayed Thought Organization: Confused Associations: Illogical Abstract Reasoning: Poor abstract reasoning Thought Content: Delusions (reported), Paranoia (reported) Perception/Psychotic: Psychotic Current Hallucinations: Visual Attention Span/Concentration: Short Span Language: Naming Impaired Fund of Knowledge: Poor fund of knowledge Memory: Poor-immediate, Poor-recent Suicidal Ideation: Other (Denies upon interview, recent comments made to staff at facility) Homicidal Ideation: Denies Insight: Impaired Judgment: Impaired Impulse Control: Poor Laboratory Tests Test 07/04/16 13:51 07/04/16 13:52 07/04/16 13:54 07/04/16 14:11 Magnesium Level 2.4MG/DL Vitamin B12 Level Pending Folate Pending White Blood Count 6.0T/MM3 Red Blood Count 3.89M/MM3 Hemoglobin 11.6GM/DL Hematocrit 36.3% Mean Corpuscular Volume 93.3UM3 Mean Corpuscular Hemoglobin 29.8UUG Mean Corpuscular Hemoglobin Concent 32.0GM/DL RDW Standard Deviation 42.2FL Platelet Count 241T/MM3 Mean Platelet Volume 9.7UM3 Immature Granulocyte % (Auto) 0.0% Neutrophils (%) (Auto) 52.9% Lymphocytes (%) (Auto) 29.5% Monocytes (%) (Auto) 10.6% Eosinophils (%) (Auto) 6.5% Basophils (%) (Auto) 0.5% Absolute Immature Granulocyte (auto 0.00T/MM3 Absolute Neutrophils (auto) 3.2T/MM3 Absolute Lymphocytes (auto) 1.8T/MM3 Absolute Monocytes (auto) 0.6T/MM3 Absolute Eosinophils (auto) 0.4T/MM3 Absolute Basophils (auto) 0.0T/MM3 Turbidity < 20 Sodium Level 145MEQ/L Potassium Level 4.7MEQ/L Chloride Level 102MEQ/L Carbon Dioxide Level 31MEQ/L Anion Gap 12MEQ/L Blood Urea Nitrogen 27.0MG/DL Creatinine 1.2MG/DL Glomerular Filtration Rate Calc 43 BUN/Creatinine Ratio 23RATIO Glucose Level 105MG/DL Calculated Osmolality 284MOSM/KG Calcium Level 9.2MG/DL Icterus Index < 2 Thyroid Stimulating Hormone (TSH) 0.02MIU/L Chemistry Specimen Hemolysis < 15 Urine Collection Type Cleancatch-midstream Urine Color Yellow Urine Turbidity Clear Urine pH 6.0 Urine Specific [place] <=1.005 Urine Protein Negative Urine Glucose (UA) Negative Urine Ketones Negative Urine Blood Negative Urine Nitrite Negative Urine Bilirubin Negative Urine Urobilinogen 0.2EU/DL Urine Leukocyte Esterase Negative Urinalysis Comment Microscopic not ind. Assessment and Plan (1) Psychosis (2) Major neurocognitive disorder, due to multiple etiologies, with behavioral disturbance, moderate Assessment: Vascular component suspected, hx of stroke and seizures as well Evaluate and stabilize. Maintain safety and elopement precautions. Obtain further collateral history. QTc found to be significantly prolonged on admission (535ms). Will hold all antipsychotics (scheduled and PRN). K level is WNL; will check Mg level and replace if necessary. QTc will need to be WNL before further medication changes made with antipsychotics. Monitor mood and behavior on the unit. MAREK TOLLIVER MD Jul 04, 2016 21:48
[2016-07-05] MEDS: LORAZEPAM INTENSOL 1mg/0.5ml ORAL SOLUTION SL PRN ×2 (00:41→00:49)
--- NOTE | 2016-07-05 00:55 | NUR ---
PRN Pt was increasingly restless, in and out of bed repeatedly, going to the BR and voiding every time. Pt confused and disoriented every time she got up, thinking she was at her home, not recognizing the BR, thinking someone put a new BR in her home. Pt anxiety increased each time she was up. Used therapeutic touch and approach to help calm and assure pt of her location. Pt complained of not being able to sleep, stating "I don't know why I can't get to sleep". Pt has been up every 30 minutes since beginning of shift. Therapeutic approaches worked for short term. Pt forgets every time where she is. Due to increased restlessness and anxiety and inability to get rest and sleep, PRN Ativan Intensol 0.5 mg given at 0049 in cranberry juice. Pt compliant and drank juice. Will continue to monitor
--- NOTE | 2016-07-05 01:14 | NUR ---
Mid shift status Pt was sitting in her room in recliner at beginning of shift. Pt alert x 3 at assessment. Up SBA x 1 to FWW. Pt compliant with HS meds, taking whole. Pt has been restless and has been unable to go to sleep. She has been up every 30 minutes repeatedly, and voiding each time. Pt states she feels the urge to urinate all the time. UA results were negative on earlier lab today. Pt received PRN Ativan Intensol 0.5 mg at 0049 to help calm and relax her so she could sleep. See PRN note. Pt has not displayed any type of aggression. Has not been resistive with cares. Pt is pleasant with staff. Currently resting in bed at this time. Bed rails up x 2 and alarm on. Will continue to monitor
--- NOTE | 2016-07-05 01:28 | NUR ---
Bed time Pt went to bed at 2145 and did fall asleep at 2200 for about 1.25 hours. Pt has been up since then and is still currently awake in bed and restless. Will continue to monitor
--- NOTE | 2016-07-05 01:41 | NUR ---
Chart Check 24 hour chart check completed
--- NOTE | 2016-07-05 06:43 | NUR ---
Summary Pt slept from 0130 to 0530 and is currently awake in her room. Pt alert x 3. Up SBA to FWW. Pt has exhibited restlessness this shift along with anxiety. Given PRN Ativan Intensol 0.5 mg to help pt relax and sleep. See PRN notes. Pt has not been resistive with cares. Has not shown any aggressive behaviors. No agitation. Bed rails up x 2 and alarm on. Will continue to monitor
[2016-07-05 07:30] VITALS: BP 147/62; PULSE 60; RESP 18; TEMP 97.6; O2SAT 95
[2016-07-05] MEDS: ACETAMINOPHEN SR 650 MG TABLET PO SCH ×3 (07:56→19:54)
[2016-07-05] MEDS: DOCUSATE SODIUM 100 MG CAPSULE PO SCH ×2 (07:57→19:52)
[2016-07-05] MEDS: CALCIUM PO SCH (07:57)
[2016-07-05] MEDS: OMEGA-3 ACID ESTERS 1 G CAPSULE PO SCH ×2 (07:57→19:53)
[2016-07-05] MEDS: [UNRECOGNIZED DRUG - OTHER] PO SCH (07:57)
[2016-07-05] MEDS: MONTELUKAST 10 MG TABLET PO SCH (07:57)
[2016-07-05] MEDS: RIVAROXABAN 20 MG TABLET PO SCH (07:58)
[2016-07-05] MEDS: FUROSEMIDE 80 MG TABLET PO SCH (07:58)
[2016-07-05] MEDS: MULTIVITAMIN PLAIN TABLET PO SCH (07:58)
[2016-07-05 08:00] VITALS: PULSE 60; RESP 18
[2016-07-05] MEDS: LEVETIRACETAM 500 MG/5 ML PO SCH ×2 (08:02→19:53)
[2016-07-05] MEDS: AZELASTINE 0.1% NAS SCH ×2 (08:03→19:54)
[2016-07-05] MEDS: SALINE NASAL SPRAY 45ml NAS SCH ×2 (08:04→19:54)
[2016-07-05] MEDS: POTASSIUM CL. 10mEq CAP PO SCH ×2 (08:11→17:48)
[2016-07-05] MEDS: LISINOPRIL 10 MG TABLET PO SCH (08:11)
--- NOTE | 2016-07-05 12:22 | PNPDOC ---
ALISSA ALMANZA CLASSICS PROFESSOR 07/05/16 1211: Subjective Date DATE: 07/05/16 TIME: 12:08 Subjective Ginger was sleeping soundly and did not easily awaken. When she is awake, she is alert and oriented 3. She is also been restless and anxious at times. Heart rate has been bradycardic or borderline bradycardic since admission. Objective Vital Signs Vital signs Vital Signs Date Time Temp Pulse Resp B/P Pulse Ox O2 Delivery O2 Flow Rate FiO2 07/05/16 08:00 60 18 07/05/16 07:30 97.6 147/62 95 Room Air Height (Feet): 5 Height (Inches): 5.00 Weight (Kilograms): 72.300 General General Appearance: No Acute Distress Respiratory (Brief) Respiratory: FOUND: clear all lopez, equal bilaterally Cardiovascular (Brief) Cardiac: FOUND: regular rate, regular rhythm Abdomen (Brief) Abdominal: FOUND: BS normo active x4, soft Extremities (Brief) Extremity : Side: Bilateral Extremity Finding: NOT FOUND: edema Musculoskeletal (Brief) Musculoskeletal: NOT FOUND: deformity Integumentary (Brief) Integumentary: FOUND: dry, pink, warm Laboratory Laboratory Laboratory Tests 07/04/16 13:54 Laboratory Tests 07/04/16 13:54 Assessment & Plan Assessment Dementia with acute behaviors Depression. Chronic diastolic heart failure. Atrial fibrillation with cardiac pacemaker Aortic stenosis. Coronary artery disease with RI history. History of CVA. Seizures Pulmonary hypertension. Overweight, BMI 26.5 kg/m Plan/Intensity of Service EKG was reviewed. Atrially paced rhythm, prolonged QTc at 535 ms. This was discussed with Dr. Urbano. She has holding antipsychotics at this time. She plans on rechecking EKG in a couple of days. Potassium is normal, and magnesium was elevated at 2.4. Pharmacy also reviewed medications, and other than antipsychotics, none other were associated with prolonged QT. Heart rate has been bradycardic or borderline bradycardic. This morning's dose of Lopressor was held, and hold parameters were put in place to hold if heart rate is less than 60. Her systolic blood pressure is less than 110 mmHg. The dose was decreased to 12.5 mg twice a day. Labs are reviewed. Her TSH was 0.02. Will check free T4 and free T3. Mild hypernatremia noted. Monitor closely, patient does take 80 mg of Lasix daily. Mild normocytic anemia with a hemoglobin of 11.6. Vitamin B12 and folate have been ordered and are pending. Will discuss with Dr. Nuno. DVT Prophylaxis: Xarelto Code Status Do Not Resuscitate Hospital Course Summary Disclaimer The hospital course summary below is not to be considered part of the above Progress Note. Hospital Course Summary Agree with admission to [facility] for further psychiatric evaluation and treatment. Patient does have significant cardiac history. Current med list is reviewed. Continue with lisinopril, metoprolol for blood pressure control. Agree with continuing Lasix 80 milligrams daily for ongoing diuresis given chronic heart failure. Monitor for evidence of dehydration. Given hypernatremia, would recommend encouraging oral intake. Patient takes Xarelto for chronic anticoagulation Continue Keppra twice a day with known seizure history. Scheduled Colace and MiraLAX for ongoing bowel motivation The hospitalist services will continue to follow patient medically manage her existing comorbidities during her stay in the [facility]. At time of discharge medical care will return to her primary care provider. Dr. Srikanth Zamora in [place] 07/05/16 EKG was reviewed. Atrially paced rhythm, prolonged QTc at 535 ms. This was discussed with Dr. Urbano. She has holding antipsychotics at this time. She plans on rechecking EKG in a couple of days. Potassium is normal, and magnesium was elevated at 2.4. Pharmacy also reviewed medications, and other than antipsychotics, none other were associated with prolonged QT. Heart rate has been bradycardic or borderline bradycardic. This morning's dose of Lopressor was held, and hold parameters were put in place to hold if heart rate is less than 60. Her systolic blood pressure is less than 110 mmHg. The dose was decreased to 12.5 mg twice a day. Labs are reviewed. Her TSH was 0.02. Will check free T4 and free T3. Mild hypernatremia noted. Monitor closely, patient does take 80 mg of Lasix daily. Mild normocytic anemia with a hemoglobin of 11.6. Vitamin B12 and folate have been ordered and are pending. BEATRIZ NUNO MD 07/05/16 1933: Assessment & Plan Assessment 07/05/2016-I reviewed this chart, the patient history, and the CLASSICS PROFESSOR's/PA's documented findings as above. We discussed and formulated the assessment and plan as above with the additions below.-Dr. Nuno I did go to see the patient this evening, but she was sleeping quietly in her bed. Because of recent problems with agitation and confusion I did not awaken her. I agree with rechecking EKG which has been ordered. If this still shows prolonged QT I will review it with cardiology. I reviewed her medicines and did not see any that typically cause prolonged QT. Her magnesium and potassium levels are okay. Agree with hold parameters on beta sarah. ALISSA ALMANZA CLASSICS PROFESSOR Jul 05, 2016 12:11 BEATRIZ NUNO MD Jul 05, 2016 19:33
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
[2016-07-05 16:03] VITALS: BP 120/48; PULSE 60; RESP 18; TEMP 98; O2SAT 97
--- NOTE | 2016-07-05 17:27 | NUR ---
wake up note patient woke up at 0730 this morning
--- NOTE | 2016-07-05 17:29 | NUR ---
STATUS patient is AO x 1. patient was cooperative with assessment, compliant with medications, she was very confuse this morning, she was worry about her granddaughter, and states she left her alone and who was going to take care of her. Patient was obsesses about going home today no matter what, she said she is going home regardless or what the doctor says, patient was able to be redirect, she also spoke to her daughter and granddaughter. and was more calm after wards. Patient is currently resting in her room, denies needs or concerns at the moment.
--- NOTE | 2016-07-05 18:31 | NUR ---
SHIFT SUMMARY Patient has been cooperative with cares, compliant with medications, pleasant mood, she does not use call light appropriately, Patient did not had any aggressive behaviors, no hallucinations noted, no exit seeking noted, patient did said she was going home today, she was obsess about going home and said she was going home no matter what, she asked if her was here to pick her up yet or if he was on the bottom floor. This RN tried to explain to patient that she was going to be here for a couple of days, that this hospital only has one floor and her was not here yet. No PRN medications given, patient has been in her room resting a lot, she refuses to come to the day room at times ans states she just wants to sit in her room. Patient is currently in her room, bed alarm is on, bed side rails are up x 2. Patient denies needs or concerns at the moment.
[2016-07-05] MEDS: ATORVASTATIN 40 MG TABLET PO SCH (19:53)
[2016-07-05 22:13] VITALS: RESP 18
--- NOTE | 2016-07-06 01:02 | NUR ---
Mid shift status Pt was already in bed at beginning of shift. Pt alert x 2 at assessment. Up SBA to FWW. Lab came to get EKG on pt at 1929. Pt was a bit resistive, demanding the tech to leave her alone. I went in to assist and to attempt to calm pt and explain the need for the EKG. Pt finally relaxed so an EKG could be read. Pt stated she did not like it at all. Pt was cooperative with assessment. Denied pain. Denied SOA. Pt compliant with HS meds, taking whole without difficulty. Pt kept saying she wanted to be left alone to sleep. After pt had been in bed for a bit, she set off bed alarm multiple times and when going in to check on pt, she was found leaning over in her bed and spitting repeatedly on the floor next to her recliner. Pt did not explain why she was spitting. Floor cleaned up around her recliner. Pt went to sleep at 2114 and has been up a couple times to use BR. Pt has not displayed any verbal or physical aggression. Just some agitation when lab was in room. No PRNs given. Currently sleeping. Bed rails up x 2 and alarm on. Will continue to monitor
--- NOTE | 2016-07-06 01:06 | NUR ---
Chart Check 24 hour chart check completed
--- NOTE | 2016-07-06 01:13 | NUR ---
Bed time Pt was in bed at beginning of shift. Pt fell to sleep at 2114, getting up a few times to use BR. No sleep during days. Currently sleeping. Bed rails up x 2 and alarm on. Will continue to monitor
[2016-07-06 03:36] LABS: FOLATE > 20.0 NG/ML (2.76-20); VITAMIN B12 - BATCH 315 PG/ML (239-931)
--- NOTE | 2016-07-06 05:29 | NUR ---
Summary Pt has been sleeping since 2114. Up once to use BR. Alert x 2. Up SBA to FWW. Compliant with meds. No visual hallucinations or paranoia noted this shift. No aggressive behaviors. Pt has isolated in room since beginning of shift. Resistive at first with aquatic life laborer during the EKG. EKG was obtained. Pt has not exhibited exit seeking behaviors on this shift. Has not fixated on wanting to go home. Pt has been spitting on floor next to recliner earlier on shift. Currently sleeping. Bed rails up x 2 and alarm on. Will continue to monitor
[2016-07-06 08:00] VITALS: BP 121/59; PULSE 60; RESP 16; TEMP 97.5; O2SAT 96
[2016-07-06] MEDS: DOCUSATE SODIUM 100 MG CAPSULE PO SCH ×2 (08:23→21:16)
[2016-07-06] MEDS: FUROSEMIDE 80 MG TABLET PO SCH (08:23)
[2016-07-06] MEDS: [UNRECOGNIZED DRUG - OTHER] PO SCH (08:24)
[2016-07-06] MEDS: OMEGA-3 ACID ESTERS 1 G CAPSULE PO SCH ×2 (08:24→21:16)
[2016-07-06] MEDS: CALCIUM PO SCH (08:24)
[2016-07-06] MEDS: LISINOPRIL 10 MG TABLET PO SCH (08:24)
[2016-07-06] MEDS: MONTELUKAST 10 MG TABLET PO SCH (08:24)
[2016-07-06] MEDS: LEVETIRACETAM 500 MG/5 ML PO SCH ×2 (08:25→21:20)
[2016-07-06] MEDS: RIVAROXABAN 20 MG TABLET PO SCH (08:25)
[2016-07-06] MEDS: MULTIVITAMIN PLAIN TABLET PO SCH (08:25)
[2016-07-06] MEDS: ACETAMINOPHEN SR 650 MG TABLET PO SCH ×3 (08:25→21:16)
[2016-07-06] MEDS: AZELASTINE 0.1% NAS SCH ×2 (08:27→21:17)
[2016-07-06] MEDS: SALINE NASAL SPRAY 45ml NAS SCH ×2 (08:27→21:17)
[2016-07-06] MEDS: POTASSIUM CL. 10mEq CAP PO SCH ×2 (08:28→17:55)
--- NOTE | 2016-07-06 09:00 | NUR ---
SLEEP 10.0 Hours Pt went to bed at 2045 last night and awoke at 0730. Pt slept a total of 10.0 hours as documented on the 15 minute observation forms.
--- NOTE | 2016-07-06 11:31 | GENPN ---
[facility] Subjective Date DATE: 07/05/16 TIME: 08:29 Subjective/Severity of Illness Medications Current Medications Medications (Trade) Dose Ordered Sig/Nelly Start Time Stop Time Status Last Admin Dose Admin Miscellaneous Medication (May use PRN orders) 13 PRN PRN 07/04/16 15:45 Haloperidol (Haldol) 0.5 mg Q6H PRN 07/04/16 15:45 07/04/16 18:19 DC Lorazepam (Ativan) 0.5 mg Q6H PRN 07/04/16 15:45 Lorazepam (Ativan) 0.5 mg Q6H PRN 07/04/16 15:45 Haloperidol Lactate (Haldol 5 Mg/ml Inj) 0.5 mg Q6H PRN 07/04/16 15:45 07/04/16 18:19 DC Acetaminophen (Tylenol Extra Strength) 1,000 mg Q6H PRN 07/04/16 18:15 Acetaminophen (Tylenol Arthritis) 650 mg TID 07/04/16 21:00 07/05/16 07:56 650 MG Azelastine HCl (Astelin) 2 spray BID 07/04/16 21:00 07/05/16 08:03 2 SPRAY Bisacodyl (Dulcolax) 10 mg BID PRN 07/04/16 18:15 Buspirone HCl (Buspar) 15 mg BID 07/04/16 21:00 07/05/16 07:58 15 MG Docusate Sodium (Colace) 100 mg BID 07/04/16 21:00 07/05/16 07:57 100 MG Furosemide (Lasix) 80 mg DAILY 07/05/16 09:00 07/05/16 07:58 80 MG Lisinopril (Prinivil) 10 mg DAILY 07/05/16 09:00 07/05/16 08:11 10 MG Lorazepam (Ativan) 0.5 mg TID PRN 07/04/16 18:15 Magnesium Hydroxide (Mom) 30 ml DAILY PRN 07/04/16 18:15 Metoprolol Tartrate (Lopressor) 25 mg BIDWM 07/05/16 08:00 07/05/16 08:18 DC Montelukast Sodium (SINGULAIR 10 mg) 10 mg DAILY 07/05/16 09:00 07/05/16 07:57 10 MG Polyethylene Glycol (Miralax) 17 g DAILY PRN 07/04/16 18:15 Potassium Chloride (Micro-K) 10 meq BIDWM 07/05/16 08:00 07/05/16 08:11 10 MEQ Rivaroxaban (Xarelto) 20 mg DAILY 07/05/16 09:00 07/05/16 07:58 20 MG Sodium Chloride (DEEP SEA Nasal Windber) 2 spray BID 07/04/16 21:00 07/05/16 08:04 2 SPRAY Atorvastatin Calcium (LIPITOR 40 mg) 80 mg HS 07/04/16 21:00 07/04/16 20:18 80 MG Calcium/Vitamin D (Oyst-Isai-D) 1 tab DAILY 07/05/16 09:00 07/05/16 07:57 1 TAB Levetiracetam (Keppra) 750 mg BID 07/04/16 21:00 07/05/16 08:02 750 MG Al Hydroxide/Mg Hydroxide (Maalox Plus Xs) 30 ml Q4H PRN 07/04/16 18:15 Multivitamins Therapeutic (Theragran) 1 tab DAILY 07/05/16 09:00 07/05/16 07:58 1 TAB Oyujf-4-Qbro Ethyl Esters (Lovaza) 1 g BID 07/04/16 21:00 07/05/16 07:57 1 G Lorazepam (Ativan Intensol) 1 mg Q6HR PRN 07/05/16 00:45 07/05/16 06:31 DC 07/05/16 00:49 1 MG Metoprolol Tartrate (Lopressor) 12.5 mg BIDWM 07/05/16 17:30 Subjective Patient seen and chart reviewed. Case discussed with treatment team. Patient is sleeping during AM rounds. Per staff, patient has been restless overnight and given PRN Ativan at 0049. She then slept from approximately 0130 to 0530. Patient has not gotten Zyprexa due to prolonged QTc - Mg high and K WNL. Will recheck EKG today. No significant behavioral difficulties last evening. Start Time: 10:00 Stop Time: 10:20 Care >50% of this visit spent in counseling/coordination care. [facility] Exam Vitals Vital Signs Date Time Temp Pulse Resp B/P Pulse Ox O2 Delivery O2 Flow Rate FiO2 07/05/16 07:30 97.6 60 18 147/62 95 Room Air Physical examination performed by the hospitalist. Height (Feet): 5 Height (Inches): 5.00 Mental Status Exam Muscle Strength/Tone: Normal Dressing: Casual Grooming: Fair Attitude: Cooperative Motor Activity: Restless (at ties) Eye Contact: Fair Speech: Normal Volume: Normal Rhythm: Appropriate Rhythm Sensory: Other (Currently sleeping during rounds) Orientation: Disoriented to time, Disoriented to place, Disoriented to situation, Oriented to person Mood: Neutral Affect: Labile Rate of Thoughts: Delayed Thought Organization: Confused Associations: Illogical Abstract Reasoning: Impaired, concrete Thought Content: Delusions (believes is still alive) Perception/Psychotic: Other (Doesn't appear to be responding to internal stimuli outside of delusional thoughts) Attention Span/Concentration: Distractable Language: Naming Impaired Fund of Knowledge: Poor fund of knowledge Memory: Poor-immediate, Poor-recent Suicidal Ideation: None Homicidal Ideation: None Insight: Impaired Judgment: Impaired Impulse Control: Poor Laboratory Tests Test 07/04/16 13:51 07/04/16 13:52 07/04/16 13:54 07/04/16 14:11 Magnesium Level 2.4MG/DL Vitamin B12 Level Pending Folate Pending White Blood Count 6.0T/MM3 Red Blood Count 3.89M/MM3 Hemoglobin 11.6GM/DL Hematocrit 36.3% Mean Corpuscular Volume 93.3UM3 Mean Corpuscular Hemoglobin 29.8UUG Mean Corpuscular Hemoglobin Concent 32.0GM/DL RDW Standard Deviation 42.2FL Platelet Count 241T/MM3 Mean Platelet Volume 9.7UM3 Immature Granulocyte % (Auto) 0.0% Neutrophils (%) (Auto) 52.9% Lymphocytes (%) (Auto) 29.5% Monocytes (%) (Auto) 10.6% Eosinophils (%) (Auto) 6.5% Basophils (%) (Auto) 0.5% Absolute Immature Granulocyte (auto 0.00T/MM3 Absolute Neutrophils (auto) 3.2T/MM3 Absolute Lymphocytes (auto) 1.8T/MM3 Absolute Monocytes (auto) 0.6T/MM3 Absolute Eosinophils (auto) 0.4T/MM3 Absolute Basophils (auto) 0.0T/MM3 Turbidity < 20 Sodium Level 145MEQ/L Potassium Level 4.7MEQ/L Chloride Level 102MEQ/L Carbon Dioxide Level 31MEQ/L Anion Gap 12MEQ/L Blood Urea Nitrogen 27.0MG/DL Creatinine 1.2MG/DL Glomerular Filtration Rate Calc 43 BUN/Creatinine Ratio 23RATIO Glucose Level 105MG/DL Calculated Osmolality 284MOSM/KG Calcium Level 9.2MG/DL Icterus Index < 2 Thyroid Stimulating Hormone (TSH) 0.02MIU/L Chemistry Specimen Hemolysis < 15 Urine Collection Type Cleancatch-midstream Urine Color Yellow Urine Turbidity Clear Urine pH 6.0 Urine Specific [place] <=1.005 Urine Protein Negative Urine Glucose (UA) Negative Urine Ketones Negative Urine Blood Negative Urine Nitrite Negative Urine Bilirubin Negative Urine Urobilinogen 0.2EU/DL Urine Leukocyte Esterase Negative Urinalysis Comment Microscopic not ind. Test 07/05/16 06:36 Hemoglobin A1c 6.1% Triglycerides Level Pending Cholesterol Level Pending LDL Cholesterol, Calculated Pending VLDL Cholesterol Pending HDL Cholesterol Direct Pending Cholesterol/HDL Ratio Pending Assessment and Plan (1) Psychosis Assessment: 07/04/16: Hold Zyprexa and PRN antipsychotics due to prolonged QTc. Check Mg level to see if replacement may help normalize QTc 07/05/16: Continuing to hold medications, Mg high. Will recheck EKG today. (2) Major neurocognitive disorder, due to multiple etiologies, with behavioral disturbance, moderate Assessment: Vascular component suspected, hx of stroke and seizures as well MAREK TOLLIVER MD Jul 05, 2016 08:29
[2016-07-06 16:00] VITALS: BP 135/61; PULSE 76; RESP 16; TEMP 98.2; O2SAT 90
--- NOTE | 2016-07-06 17:13 | PNPDOC ---
Progress Note Date 07/06/16 I reviewed the EKG's with Dr Segundo and he said the patient is just paced and does not have prolonged QT, so she should not be limited on her medications because of the QT reading. BEATRIZ ROME MD Jul 06, 2016 17:12
--- NOTE | 2016-07-06 19:54 | NUR ---
SHIFT SUMMARY PATIENT WAS VERY CONFUSE THIS MORNING SHE DID NOT REMEMBER HER NAME, WHERE SHE WAS OR DATE, PATIENT, ISOLATED HER SELF IN THE ROOM PART OF THE DAY, SHE SAID SHE WAS TIRED AND WANTED TO SLEEP, SHE WAS IN BED SLEEPING WHEN SHE WAS IN HER ROOM, PATIENT CAME OUT FOR MEALS TO THE DINING ROOM, NO AGGRESSIVE BEHAVIORS NOTED, NO HALLUCINATIONS NOTED, NO PRN MEDICATIONS GIVEN, FAMILY WAS CALLED TO REQUEST WASTEWATER TREATMENT ENGINEER INFORMATION AND SAID THEY WOULD CALL BACK WITH NAME, NURSING FACILITY WAS ALSO CALLED AND THEY DID NOT HAD WASTEWATER TREATMENT ENGINEER NAME ON FILE. NO COMPLAINS OF PAIN. PATIENT DENIES NEEDS OR CONCERNS AT THE MOMENT.
[2016-07-06 20:44] VITALS: BP 127/55; PULSE 62; RESP 16; TEMP 98; O2SAT 94
--- NOTE | 2016-07-06 20:50 | NUR ---
Bedtime/ Status Pt has been sitting/laying in bed during the evening and all of the night. Pt bedtime is 1830. Pt is A/O to self only, confused and asked if she already had taken her medications, when she had taken them 10 minutes before. Pt took meds whole without difficulty. Pt in no acute distress. Pt helped to bathroom. Pt doesn't seem anxious but sit on side of the bed with shoes on and at times bending to lay head on her knees. Will continue to monitor. Call light in reach. Bed locked and low. Bed alarm on.
[2016-07-06 21:18] VITALS: PULSE 62; RESP 16
[2016-07-06] MEDS: ATORVASTATIN 40 MG TABLET PO SCH (21:21)
--- NOTE | 2016-07-07 06:21 | NUR ---
Summary Pt has been mostly awake this shift, Pt slept 3 hours total. Pt up awake from 0200 to 0315. Pt slept from [id number]. Pt then up and sitting on the bed at 0345 until 0515. Pt encouraged to go to bathroom, and Pt cooperative, but then sits on side of bed and doesn't want to lay down, or will lay down and then get back up and put on shoes but not get up. Pt can be heard in hallway with hacking and spitting; Pt given snack but still awake. Pt in no acute distress. Pt remains to have flat affect. Unsure about delusions and why Pt continues to continually spit. Hasn't had any exit seeking. Pt took medications one by one without difficulty and swallowed them. No physical or verbal aggression. Pt did ask if jello given to her "had anything in it." Will continue to monitor. Call light in reach. Bed locked and low. Bed alarm on. Pt has voided adequately. Pt up with stand by assist with walker and is fairly steady.
[2016-07-07] MEDS: LEVETIRACETAM 500 MG/5 ML PO SCH (08:52)
[2016-07-07] MEDS: CALCIUM PO SCH (08:52)
[2016-07-07] MEDS: POTASSIUM CL. 10mEq CAP PO SCH (08:52)
[2016-07-07] MEDS: OMEGA-3 ACID ESTERS 1 G CAPSULE PO SCH (08:52)
[2016-07-07] MEDS: MONTELUKAST 10 MG TABLET PO SCH (08:52)
[2016-07-07] MEDS: [UNRECOGNIZED DRUG - OTHER] PO SCH (08:52)
[2016-07-07] MEDS: ACETAMINOPHEN SR 650 MG TABLET PO SCH ×3 (08:52→21:00)
[2016-07-07] MEDS: DOCUSATE SODIUM 100 MG CAPSULE PO SCH (08:53)
[2016-07-07] MEDS: MULTIVITAMIN PLAIN TABLET PO SCH (08:53)
[2016-07-07] MEDS: LISINOPRIL 10 MG TABLET PO SCH (08:53)
[2016-07-07] MEDS: FUROSEMIDE 80 MG TABLET PO SCH (08:53)
[2016-07-07] MEDS: SALINE NASAL SPRAY 45ml NAS SCH ×2 (08:54→21:00)
[2016-07-07] MEDS: AZELASTINE 0.1% NAS SCH ×2 (08:54→21:00)
[2016-07-07 09:00] VITALS: BP 133/62; PULSE 60; RESP 24; TEMP 97.9; O2SAT 98
[2016-07-07 09:37] VITALS: RESP 16
--- NOTE | 2016-07-07 13:42 | NUR ---
MID SHIFT NOTE PT IS ORIENTED TO SELF ONLY. PT WAS SUSPICIOUS OF CARES AND STAFF BUT WAS COMPLIANT PT GOT UP WENT TO RESTROOM AND GOT DRESSED WITH STAFF ASSISTANCE THEN REFUSED TO LEAVE ROOM AND ONCE OUT OF ROOM PT REFUSED SOME OF HER MORNING MEDICATION AND TRIED TO HIDE FOOD IN [place]. PT ATTEMPTED TO ISOLATE IN ROOM AND WAS SUSPICIOUS OF STAFF FOR THE REST OF THE MORNING. PT IS REDIRECTED WITH FOOD BUT REFUSES TO EAT MORE THAN A FEW BITES. WILL CONTINUE TO MONITOR PT.
--- NOTE | 2016-07-07 15:06 | PNPDOC ---
Subjective Date DATE: 07/07/16 TIME: 14:59 Subjective Ginger is seen today in follow up. Irritable, wants to go home. Chart is reviewed. Noted that daughter reported that pt. has never had a seizure. Is on Keppra for prophylaxis post stroke. Objective Vital Signs Vital signs Vital Signs Date Time Temp Pulse Resp B/P Pulse Ox O2 Delivery O2 Flow Rate FiO2 07/07/16 09:37 16 07/07/16 09:00 97.9 60 133/62 98 Room Air Height (Feet): 5 Height (Inches): 5.00 Weight (Kilograms): 72.300 General General Appearance: Alert, Confused, Cooperative, No Acute Distress Comments Irritable. Neck (Brief) Neck: FOUND: midline, NOT FOUND: JVD, nuchal rigidity, spasm Respiratory (Brief) Respiratory: FOUND: clear all lopez, equal bilaterally, symmetrical, NOT FOUND : rales, wheezes Cardiovascular (Brief) Cardiac: FOUND: regular rate, regular rhythm, NOT FOUND: murmur, pedal edema Abdomen (Brief) Abdominal: FOUND: BS normo active x4, soft, NOT FOUND: distended, tender Extremities (Brief) Extremity : Side: Bilateral Extremity Finding: NOT FOUND: edema Musculoskeletal (Brief) Musculoskeletal: NOT FOUND: tenderness Integumentary (Brief) Integumentary: FOUND: dry, pink, warm Psychiatric (Brief) Psychiatric: FOUND: alert, NOT FOUND: oriented Assessment & Plan Problems: (1) Major neurocognitive disorder, due to multiple etiologies, with behavioral disturbance, moderate (2) Dementia with behavioral disturbance Status: Acute Qualifiers: Dementia type: unspecified type Qualified Codes: F03.91 - Unspecified dementia with behavioral disturbance (3) Aortic stenosis Status: Chronic (4) Atrial fibrillation Status: Chronic (5) Presence of cardiac pacemaker Status: Chronic (6) Diastolic heart failure Status: Chronic (7) History of CVA (cerebrovascular accident) (8) Pulmonary HTN Status: Chronic Assessment 07/07/16- Pt. remains irritable at times. Continue supportive care, med mgmt per attending. Stop singulair- can cause behaviors/psychosis. (Don't see hx of pulmonary issues ). No history of seizures per family reports- may want to confirm with PCP during the week. Will decrease Keppra to 500mg PO BID. Keppra can cause irritable behavior as well. If she needs sz. px., consider change to Depakote. No evidence of QT changes- EKG changes due to PPM per Dr. Segundo. Ok for antipsychotics. Recheck TSH, T3,T4 is pending. If she is truly hyperthyroid, consider further evaluation as thyroid toxicosis can cause mental health concerns and acute psychosis. Will repeat labs in AM. Potassium is a bit elevated- decrease to daily dosing. DVT Prophylaxis: Xarelto Code Status Do Not Resuscitate Hospital Course Summary Disclaimer The hospital course summary below is not to be considered part of the above Progress Note. Hospital Course Summary Agree with admission to [facility] for further psychiatric evaluation and treatment. Patient does have significant cardiac history. Current med list is reviewed. Continue with lisinopril, metoprolol for blood pressure control. Agree with continuing Lasix 80 milligrams daily for ongoing diuresis given chronic heart failure. Monitor for evidence of dehydration. Given hypernatremia, would recommend encouraging oral intake. Patient takes Xarelto for chronic anticoagulation Continue Keppra twice a day with known seizure history. Scheduled Colace and MiraLAX for ongoing bowel motivation The hospitalist services will continue to follow patient medically manage her existing comorbidities during her stay in the [facility]. At time of discharge medical care will return to her primary care provider. Dr. Srikanth Zamora in [place] 07/05/16 EKG was reviewed. Atrially paced rhythm, prolonged QTc at 535 ms. This was discussed with Dr. Urbano. She has holding antipsychotics at this time. She plans on rechecking EKG in a couple of days. Potassium is normal, and magnesium was elevated at 2.4. Pharmacy also reviewed medications, and other than antipsychotics, none other were associated with prolonged QT. Heart rate has been bradycardic or borderline bradycardic. This morning's dose of Lopressor was held, and hold parameters were put in place to hold if heart rate is less than 60. Her systolic blood pressure is less than 110 mmHg. The dose was decreased to 12.5 mg twice a day. Labs are reviewed. Her TSH was 0.02. Will check free T4 and free T3. Mild hypernatremia noted. Monitor closely, patient does take 80 mg of Lasix daily. Mild normocytic anemia with a hemoglobin of 11.6. Vitamin B12 and folate have been ordered and are pending. 07/07/16- Pt. remains irritable at times. Continue supportive care, med mgmt per attending. Stop singulair- can cause behaviors/psychosis. (Don't see hx of pulmonary issues ). No history of seizures per family reports- may want to confirm with PCP during the week. Will decrease Keppra to 500mg PO BID. Keppra can cause irritable behavior as well. If she needs sz. px., consider change to Depakote. No evidence of QT changes- EKG changes due to PPM per Dr. Segundo. Ok for antipsychotics. Recheck TSH, T3,T4 is pending. If she is truly hyperthyroid, consider further evaluation as thyroid toxicosis can cause mental health concerns and acute psychosis. Will repeat labs in AM. VENU GUILLEN APRN Jul 07, 2016 15:05
[2016-07-07 16:00] VITALS: BP 141/52; PULSE 60; RESP 16; TEMP 99; O2SAT 93
--- NOTE | 2016-07-07 17:04 | GENPN ---
[facility] Subjective Date DATE: 07/07/16 TIME: 10:47 Subjective/Severity of Illness Medications Current Medications Medications (Trade) Dose Ordered Sig/Nelly Start Time Stop Time Status Last Admin Dose Admin Miscellaneous Medication (May use PRN orders) 13 PRN PRN 07/04/16 15:45 Haloperidol (Haldol) 0.5 mg Q6H PRN 07/04/16 15:45 07/04/16 18:19 DC Lorazepam (Ativan) 0.5 mg Q6H PRN 07/04/16 15:45 Lorazepam (Ativan) 0.5 mg Q6H PRN 07/04/16 15:45 Haloperidol Lactate (Haldol 5 Mg/ml Inj) 0.5 mg Q6H PRN 07/04/16 15:45 07/04/16 18:19 DC Acetaminophen (Tylenol Extra Strength) 1,000 mg Q6H PRN 07/04/16 18:15 Acetaminophen (Tylenol Arthritis) 650 mg TID 07/04/16 21:00 07/07/16 08:52 650 MG Azelastine HCl (Astelin) 2 spray BID 07/04/16 21:00 07/07/16 08:54 2 SPRAY Bisacodyl (Dulcolax) 10 mg BID PRN 07/04/16 18:15 Buspirone HCl (Buspar) 15 mg BID 07/04/16 21:00 07/07/16 08:52 15 MG Docusate Sodium (Colace) 100 mg BID 07/04/16 21:00 07/07/16 08:53 100 MG Furosemide (Lasix) 80 mg DAILY 07/05/16 09:00 07/07/16 08:53 80 MG Lisinopril (Prinivil) 10 mg DAILY 07/05/16 09:00 07/07/16 08:53 10 MG Lorazepam (Ativan) 0.5 mg TID PRN 07/04/16 18:15 Magnesium Hydroxide (Mom) 30 ml DAILY PRN 07/04/16 18:15 Metoprolol Tartrate (Lopressor) 25 mg BIDWM 07/05/16 08:00 07/05/16 08:18 DC Montelukast Sodium (SINGULAIR 10 mg) 10 mg DAILY 07/05/16 09:00 07/07/16 08:52 10 MG Polyethylene Glycol (Miralax) 17 g DAILY PRN 07/04/16 18:15 Potassium Chloride (Micro-K) 10 meq BIDWM 07/05/16 08:00 07/07/16 08:52 10 MEQ Rivaroxaban (Xarelto) 20 mg DAILY 07/05/16 09:00 07/06/16 10:06 DC 07/06/16 08:25 20 MG Sodium Chloride (DEEP SEA Nasal [place]) 2 spray BID 07/04/16 21:00 07/07/16 08:54 2 SPRAY Atorvastatin Calcium (LIPITOR 40 mg) 80 mg HS 07/04/16 21:00 07/06/16 21:21 80 MG Calcium/Vitamin D (Oyst-Isai-D) 1 tab DAILY 07/05/16 09:00 07/07/16 08:52 1 TAB Levetiracetam (Keppra) 750 mg BID 07/04/16 21:00 07/07/16 08:52 750 MG Al Hydroxide/Mg Hydroxide (Maalox Plus Xs) 30 ml Q4H PRN 07/04/16 18:15 Multivitamins Therapeutic (Theragran) 1 tab DAILY 07/05/16 09:00 07/07/16 08:53 1 TAB Esqwl-1-Yews Ethyl Esters (Lovaza) 1 g BID 07/04/16 21:00 07/07/16 08:52 1 G Lorazepam (Ativan Intensol) 1 mg Q6HR PRN 07/05/16 00:45 07/05/16 06:31 DC 07/05/16 00:49 1 MG Metoprolol Tartrate (Lopressor) 12.5 mg BIDWM 07/05/16 17:30 07/07/16 08:53 12.5 MG Rivaroxaban (Xarelto) 20 mg WS 07/07/16 17:30 07/07/16 17:30 DC Rivaroxaban (Xarelto) 15 mg WS 07/07/16 17:30 Subjective Patient seen and chart reviewed. Case discussed with treatment team. Hospitalist consulted with skilled helper who reported QTc prolongation due to pacing and stated okay to proceed with medication changes. Patient is sitting with peers in dayroom on approach and is pleasantly confused through interview. She says her mood is "pretty good." She does tell me she "just wants to go home" to [place] with her (who is now ) and that they currently are hosting an exchange student from [place]. Per staff, patient is intermittently agitated, verbally aggressive with HS cares, combative with dressing this morning. She slept only 3 hours overnight, interrupted. No exit- seeking. Patient does spit frequently, though not necessarily at people but does not appear to have excessive saliva. No psychotropic PRNs required in the last 24 hours. Start Time: 14:20 Stop Time: 14:40 Care >50% of this visit spent in counseling/coordination care. [facility] Exam Vitals Vital Signs Date Time Temp Pulse Resp B/P Pulse Ox O2 Delivery O2 Flow Rate FiO2 07/07/16 09:37 16 07/07/16 09:00 97.9 60 133/62 98 Room Air Physical examination performed by the hospitalist. Height (Feet): 5 Height (Inches): 5.00 Mental Status Exam Muscle Strength/Tone: Normal Dressing: Casual Grooming: Fair Attitude: Uncooperative, Combative (intermittent) Motor Activity: Retardation Eye Contact: Good Speech: Normal Volume: Normal Rhythm: Appropriate Rhythm Sensory: Alert Orientation: Disoriented to time, Disoriented to place, Disoriented to situation, Oriented to person Mood: Euthymic Affect: Labile Rate of Thoughts: Delayed Thought Organization: Confused Associations: Illogical Abstract Reasoning: Impaired, concrete Thought Content: Delusions (questionable) Perception/Psychotic: Perception Normal Attention Span/Concentration: Short Span Language: Naming Impaired Fund of Knowledge: Poor fund of knowledge Memory: Poor-immediate, Poor-recent Suicidal Ideation: Denies Homicidal Ideation: Denies Insight: Impaired Judgment: Impaired Impulse Control: Poor Assessment and Plan (1) Psychosis Assessment: 07/04/16: Hold Zyprexa and PRN antipsychotics due to prolonged QTc. Check Mg level to see if replacement may help normalize QTc 07/05/16: Continuing to hold medications, Mg high. Will recheck EKG today. 07/07/16: Food Taster reports QTc prolongation due to pacing and states it is okay to proceed with medication changes. Daughter reports patient has no known seizure history and Keppra was used for seizure prophylaxis only. Discussed medication changes and risks/benefits with daughter/DPOA, who is in agreement with switching from Keppra to Depakote and restarting an antipsychotic. Patient was previously taking Zyprexa without significant benefit, so will start Risperdal 0.5mg PO q HS tonight as it has less tendency to prolong QTc. (2) Major neurocognitive disorder, due to multiple etiologies, with behavioral disturbance, moderate Assessment: Vascular component suspected, hx of stroke and seizures as well MAREK TOLLIVER MD Jul 07, 2016 10:47
[2016-07-07] MEDS: RIVAROXABAN 15 MG TABLET PO SCH (17:30)
[2016-07-07] MEDS ORDERED: RIVAROXABAN 20 MG TABLET PO SCH (17:30)
--- NOTE | 2016-07-07 18:18 | NUR ---
SHIFT SUMMARY SEE PRIOR NOTE. PT REMAINS SUSPICIOUS OF STAFF AND CONTINUES TO TRY AND ISOLATES. PT REFUSES MEDS DINNER MEDS WERE GIVEN CRUSHED IN PUDDING AND THIS SEEMED TO HELP. PT HAS BEEN CONTINENT FOR THIS SHIFT. PT HAS HAD NO C/O PAIN AND HAS HAD NO PRN MEDICATION. WILL CONTINUE TO MONITOR PT TILL END OF SHIFT.
[2016-07-07 20:00] VITALS: RESP 14
[2016-07-07] MEDS: RISPERIDONE 0.5 MG TABLET PO SCH (21:00)
[2016-07-07 22:41] VITALS: BP 138/57; PULSE 67; RESP 20; TEMP 98.1; O2SAT 96
[2016-07-08] VITALS: RESP 14
[2016-07-08] MEDS: DOCUSATE SODIUM 100 MG CAPSULE PO SCH ×3 (01:54→20:32)
[2016-07-08] MEDS: LEVETIRACETAM 500 MG/5 ML PO SCH ×3 (01:54→20:25)
[2016-07-08] MEDS: OMEGA-3 ACID ESTERS 1 G CAPSULE PO SCH ×3 (01:55→20:25)
[2016-07-08] MEDS: ATORVASTATIN 40 MG TABLET PO SCH ×2 (01:55→20:25)
--- NOTE | 2016-07-08 02:53 | NUR ---
Midsihft note: PT has followed commands. She denies pain. She did not take meds at 2100 but took pills whole this morning for RN. PT has been able to get up the restroom with assistance.
--- NOTE | 2016-07-08 04:00 | NUR ---
Chart Check 24 hour chart check completed
--- NOTE | 2016-07-08 06:32 | NUR ---
shift summary: PT did not have any hallucinations overnight. PT was nervous that RN stole a becker or ticket from the patient's grandson. RN reoriented patient and she followed commands and was calmed down easily. PT did not get aggressive with staff. PT was too sleepy for night meds but she did take her meds and asked for them when she woke up this morning to void. PT took pills with no difficulty. Bed alarm on as patient tried to get out of bed a few times last night.
[2016-07-08 06:50] LABS: BASOPHILS % (AUTO) 0.5 % (0-2); EOSINOPHILS # (AUTO) 0.4 T/MM3 (0-0.5); EOSINOPHILS % (AUTO) 6.5 % (0-4); IMMATURE GRANULOCYTE # (AUTO) 0.02 T/MM3 (0.00-0.03); IMMATURE GRANULOCYTE % (AUTO) 0.4 % (0.0-0.5); LYMPHOCYTES # (AUTO) 2.2 T/MM3 (1-4.8); LYMPHOCYTES % (AUTO) 38.9 % (23-45); MEAN CORPUSCULAR HGB 29.7 UUG (26-34); MEAN CORPUSCULAR HGB CONC(MCHC 32.4 GM/DL (31-37); MEAN CORPUSCULAR VOLUME 91.6 UM3 (80-100); MEAN PLATELET VOLUME 10.7 UM3 (9.4-12.4); MONOCYTES # (AUTO) 0.6 T/MM3 (0-0.8); MONOCYTES % (AUTO) 10.5 % (0-9.0); NEUTROPHILS #(AUTO)-ABSOLUTE 2.5 T/MM3 (1.8-7.7); NEUTROPHILS % (AUTO) 43.2 % (33-66); RED BLOOD COUNT 4.04 M/MM3 (4.00-5.20); WBC - WHITE BLOOD COUNT 5.7 T/MM3 (4.5-11.0)
[2016-07-08 06:57] LABS: ALBUMIN 3.5 G/DL (3.5-5.0); ANION GAP 12 MEQ/L (5-15); BUN/CREATININE RATIO 31 RATIO (6-26); CALCIUM 9.2 MG/DL (8.4-10.2); CHLORIDE 104 MEQ/L (98-107); CO2 - CARBON DIOXIDE 28 MEQ/L (22-30); CREATININE 0.9 MG/DL (0.7-1.2); GLOMERULAR FILTRATION RATE 60; GLUCOSE 102 MG/DL (65-110); MAGNESIUM 2.5 MG/DL (1.6-2.3); PHOSPHORUS 3.5 MG/DL (2.5-4.5); POTASSIUM 4.2 MEQ/L (3.6-5); SODIUM 144 MEQ/L (134-144)
[2016-07-08 07:42] LABS: THYROID STIM HORMONE-TSH < 0.02 MIU/L (0.47-4.68)
[2016-07-08] MEDS: ACETAMINOPHEN SR 650 MG TABLET PO SCH ×3 (07:58→20:32)
[2016-07-08] MEDS: POTASSIUM CL. 10mEq CAP PO SCH (07:59)
[2016-07-08 08:00] VITALS: BP 137/61; PULSE 72; RESP 16; TEMP 97.5; O2SAT 96
[2016-07-08] MEDS: FUROSEMIDE 80 MG TABLET PO SCH (08:00)
[2016-07-08] MEDS: MULTIVITAMIN PLAIN TABLET PO SCH (08:01)
[2016-07-08] MEDS: [UNRECOGNIZED DRUG - OTHER] PO SCH (08:01)
[2016-07-08] MEDS: LISINOPRIL 10 MG TABLET PO SCH (08:01)
[2016-07-08] MEDS: CALCIUM PO SCH (08:01)
[2016-07-08] MEDS: SALINE NASAL SPRAY 45ml NAS SCH ×2 (08:02→20:26)
[2016-07-08] MEDS: AZELASTINE 0.1% NAS SCH ×2 (08:02→20:26)
--- NOTE | 2016-07-08 15:18 | GENPN ---
[facility] Subjective Date DATE: 07/08/16 TIME: 09:54 Subjective/Severity of Illness Medications Current Medications Medications (Trade) Dose Ordered Sig/Nelly Start Time Stop Time Status Last Admin Dose Admin Miscellaneous Medication (May use PRN orders) 13 PRN PRN 07/04/16 15:45 Haloperidol (Haldol) 0.5 mg Q6H PRN 07/04/16 15:45 07/04/16 18:19 DC Lorazepam (Ativan) 0.5 mg Q6H PRN 07/04/16 15:45 Lorazepam (Ativan) 0.5 mg Q6H PRN 07/04/16 15:45 Haloperidol Lactate (Haldol 5 Mg/ml Inj) 0.5 mg Q6H PRN 07/04/16 15:45 07/04/16 18:19 DC Acetaminophen (Tylenol Extra Strength) 1,000 mg Q6H PRN 07/04/16 18:15 Acetaminophen (Tylenol Arthritis) 650 mg TID 07/04/16 21:00 07/08/16 07:58 650 MG Azelastine HCl (Astelin) 2 spray BID 07/04/16 21:00 07/08/16 08:02 2 SPRAY Bisacodyl (Dulcolax) 10 mg BID PRN 07/04/16 18:15 Buspirone HCl (Buspar) 15 mg BID 07/04/16 21:00 07/08/16 07:59 15 MG Docusate Sodium (Colace) 100 mg BID 07/04/16 21:00 07/08/16 08:00 100 MG Furosemide (Lasix) 80 mg DAILY 07/05/16 09:00 07/08/16 08:00 80 MG Lisinopril (Prinivil) 10 mg DAILY 07/05/16 09:00 07/08/16 08:01 10 MG Lorazepam (Ativan) 0.5 mg TID PRN 07/04/16 18:15 Magnesium Hydroxide (Mom) 30 ml DAILY PRN 07/04/16 18:15 Metoprolol Tartrate (Lopressor) 25 mg BIDWM 07/05/16 08:00 07/05/16 08:18 DC Montelukast Sodium (SINGULAIR 10 mg) 10 mg DAILY 07/05/16 09:00 07/07/16 15:07 DC 07/07/16 08:52 10 MG Polyethylene Glycol (Miralax) 17 g DAILY PRN 07/04/16 18:15 Potassium Chloride (Micro-K) 10 meq BIDWM 07/05/16 08:00 07/07/16 15:07 DC 07/07/16 08:52 10 MEQ Rivaroxaban (Xarelto) 20 mg DAILY 07/05/16 09:00 07/06/16 10:06 DC 07/06/16 08:25 20 MG Sodium Chloride (DEEP SEA Nasal [place]) 2 spray BID 07/04/16 21:00 07/08/16 08:02 2 SPRAY Atorvastatin Calcium (LIPITOR 40 mg) 80 mg HS 07/04/16 21:00 07/08/16 01:55 80 MG Calcium/Vitamin D (Oyst-Isai-D) 1 tab DAILY 07/05/16 09:00 07/08/16 08:01 1 TAB Levetiracetam (Keppra) 750 mg BID 07/04/16 21:00 07/07/16 15:07 DC 07/07/16 08:52 750 MG Al Hydroxide/Mg Hydroxide (Maalox Plus Xs) 30 ml Q4H PRN 07/04/16 18:15 Multivitamins Therapeutic (Theragran) 1 tab DAILY 07/05/16 09:00 07/08/16 08:01 1 TAB Eosqf-4-Zqft Ethyl Esters (Lovaza) 1 g BID 07/04/16 21:00 07/08/16 08:00 1 G Lorazepam (Ativan Intensol) 1 mg Q6HR PRN 07/05/16 00:45 07/05/16 06:31 DC 07/05/16 00:49 1 MG Metoprolol Tartrate (Lopressor) 12.5 mg BIDWM 07/05/16 17:30 07/08/16 07:58 12.5 MG Rivaroxaban (Xarelto) 20 mg WS 07/07/16 17:30 07/07/16 17:30 DC Rivaroxaban (Xarelto) 15 mg WS 07/07/16 17:30 07/07/16 17:30 15 MG Levetiracetam (Keppra) 500 mg BID 07/07/16 21:00 07/08/16 08:00 500 MG Potassium Chloride (Micro-K) 10 meq WB 07/08/16 08:00 07/08/16 07:59 10 MEQ Risperidone (Risperdal) 0.5 mg HS 07/07/16 21:00 Subjective Patient seen and chart reviewed. Patient lying in bed on approach and is pleasantly confused through interview. She says her mood is "average" and denies any complaints. Per staff, patient was suspicious of staff stealing from her grandson last night but has not had any other significant behavioral issues on the unit. Patient was restless at times overnight but did not get HS meds until early AM. No exit-seeking. Patient does spit frequently, though not necessarily at people but does not appear to have excessive saliva. Good appetite. No psychotropic PRNs required in the last 24 hours. Start Time: 10:00 Stop Time: 10:20 Care >50% of this visit spent in counseling/coordination care. [facility] Exam Vitals Vital Signs Date Time Temp Pulse Resp B/P Pulse Ox O2 Delivery O2 Flow Rate FiO2 07/08/16 08:00 97.5 72 16 137/61 96 Room Air Physical examination performed by the hospitalist. Height (Feet): 5 Height (Inches): 5.00 Mental Status Exam Muscle Strength/Tone: Normal Dressing: Casual Grooming: Fair Attitude: Suspicious (at times) Motor Activity: Retardation Eye Contact: Fair Speech: Normal Volume: Normal Rhythm: Appropriate Rhythm Sensory: Alert Orientation: Disoriented to time, Oriented to person, Oriented to place Mood: Neutral Affect: Congruent Rate of Thoughts: Appropriate Rate Thought Organization: Confused Associations: Illogical (at times) Thought Content: Paranoia, Other (Believes is still alive) Perception/Psychotic: Perception Normal Attention Span/Concentration: Short Span Language: Naming Intact Fund of Knowledge: Poor fund of knowledge Memory: Poor-recent Suicidal Ideation: Denies Homicidal Ideation: Denies Insight: Limited Judgment: Limited Impulse Control: Fair (improving) Laboratory Tests Test 07/08/16 05:52 White Blood Count 5.7T/MM3 Red Blood Count 4.04M/MM3 Hemoglobin 12.0GM/DL Hematocrit 37.0% Mean Corpuscular Volume 91.6UM3 Mean Corpuscular Hemoglobin 29.7UUG Mean Corpuscular Hemoglobin Concent 32.4GM/DL RDW Standard Deviation 41.9FL Platelet Count 257T/MM3 Mean Platelet Volume 10.7UM3 Immature Granulocyte % (Auto) 0.4% Neutrophils (%) (Auto) 43.2% Lymphocytes (%) (Auto) 38.9% Monocytes (%) (Auto) 10.5% Eosinophils (%) (Auto) 6.5% Basophils (%) (Auto) 0.5% Absolute Immature Granulocyte (auto 0.02T/MM3 Absolute Neutrophils (auto) 2.5T/MM3 Absolute Lymphocytes (auto) 2.2T/MM3 Absolute Monocytes (auto) 0.6T/MM3 Absolute Eosinophils (auto) 0.4T/MM3 Absolute Basophils (auto) 0.0T/MM3 Turbidity < 20 Sodium Level 144MEQ/L Potassium Level 4.2MEQ/L Chloride Level 104MEQ/L Carbon Dioxide Level 28MEQ/L Anion Gap 12MEQ/L Blood Urea Nitrogen 28.0MG/DL Creatinine 0.9MG/DL Glomerular Filtration Rate Calc 60 BUN/Creatinine Ratio 31RATIO Glucose Level 102MG/DL Calculated Osmolality 283MOSM/KG Calcium Level 9.2MG/DL Phosphorus Level 3.5MG/DL Magnesium Level 2.5MG/DL Icterus Index < 2 Albumin 3.5G/DL Thyroid Stimulating Hormone (TSH) < 0.02MIU/L Chemistry Specimen Hemolysis < 15 Assessment and Plan (1) Psychosis Assessment: 07/04/16: Hold Zyprexa and PRN antipsychotics due to prolonged QTc. Check Mg level to see if replacement may help normalize QTc 07/05/16: Continuing to hold medications, Mg high. Will recheck EKG today. 07/07/16: Greenhouse Manager reports QTc prolongation due to pacing and states it is okay to proceed with medication changes. Daughter reports patient has no known seizure history and Keppra was used for seizure prophylaxis only. Discussed medication changes and risks/benefits with daughter/DPOA, who is in agreement with switching from Keppra to Depakote and restarting an antipsychotic. Patient was previously taking Zyprexa without significant benefit, so will start Risperdal 0.5mg PO q HS tonight as it has less tendency to prolong QTc. 07/08/16: Start Depakote 250mg PO BID per plan to switch from Keppra to Depakote. Daughter/DPOA in agreement with plan. (2) Major neurocognitive disorder, due to multiple etiologies, with behavioral disturbance, moderate Assessment: Vascular component suspected, hx of stroke and seizures as well MAREK TOLLIVER MD Jul 08, 2016 09:54
--- NOTE | 2016-07-08 15:51 | NUR ---
WAKE UP NOTE PATIENT WOKE UP AT 0800 AM THIS MORNING.
[2016-07-08 16:00] VITALS: BP 131/60; PULSE 88; RESP 16; TEMP 97; O2SAT 97
[2016-07-08] MEDS: RIVAROXABAN 15 MG TABLET PO SCH (17:56)
--- NOTE | 2016-07-08 18:34 | NUR ---
SHIFT SUMMARY patient is AO x 1. she has been cooperative with assessment, patient did not wanted to take a shower this morning , staff was able to convince her after several tries, patient had a shower with out aggressive behaviors, patient did not wanted to stay in the day room this morning, she only stay out for meals and around 10 minutes after breakfast. Patient was compliant with medications, NO aggressive behaviors noted, no hallucination noted, patient likes to isolate in her room, and refuses to stay out and socialize. patient denied any pain this shift, NO PRN medications given. Patient denies needs or concerns at the moment. 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
[2016-07-08 20:24] VITALS: BP 128/61; PULSE 59; RESP 18; TEMP 97.6; O2SAT 97
[2016-07-08] MEDS: RISPERIDONE 0.5 MG TABLET PO SCH (20:25)
--- NOTE | 2016-07-08 22:49 | NUR ---
status pt laying in bed when this nurse assumes cares. compliant with hs medication. pleasant and cooperative
[2016-07-09 00:58] LABS: FREE T4 (FREE THYROXINE)-BATCH 1.32 NG/DL (0.78-2.19)
--- NOTE | 2016-07-09 06:09 | NUR ---
SHIFT ASSESSMENT PT IS RESTING IN ROOM. PT IS CONFUSED AND ASKS TO GO OUTSIDE WHILE PUTTING SHOES ON. PT IS REDIRECTABLE AND NOT AGGRESSIVE WITH STAFF AT THIS TIME. 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 PT HAS SLEPT TILL ABOUT 0400 AND THEN IS BACK SITTING AT EDGE OF BED QUIETLY WITH LIGHTS OUT. PT HAS REMAINED CONTINENT AND HAS HAD NO BEHAVIORS OR PRNS FOR THIS SHIFT. PT DID REFUSE LABS BUT WAS CALM. WILL CONTINUE TO MONITOR TILL END OF SHIFT.
[2016-07-09 08:00] VITALS: BP 123/51; PULSE 64; RESP 16; TEMP 97; O2SAT 95
[2016-07-09] MEDS: POTASSIUM CL. 10mEq CAP PO SCH (08:47)
[2016-07-09] MEDS: LEVETIRACETAM 500 MG/5 ML PO SCH (08:48)
[2016-07-09] MEDS: CALCIUM PO SCH (08:48)
[2016-07-09] MEDS: DOCUSATE SODIUM 100 MG CAPSULE PO SCH ×2 (08:48→20:57)
[2016-07-09] MEDS: FUROSEMIDE 80 MG TABLET PO SCH (08:48)
[2016-07-09] MEDS: OMEGA-3 ACID ESTERS 1 G CAPSULE PO SCH ×2 (08:48→20:57)
[2016-07-09] MEDS: [UNRECOGNIZED DRUG - OTHER] PO SCH (08:48)
[2016-07-09] MEDS: SALINE NASAL SPRAY 45ml NAS SCH ×2 (08:49→20:57)
[2016-07-09] MEDS: LISINOPRIL 10 MG TABLET PO SCH (08:49)
[2016-07-09] MEDS: ACETAMINOPHEN SR 650 MG TABLET PO SCH ×3 (08:49→20:54)
[2016-07-09] MEDS: MULTIVITAMIN PLAIN TABLET PO SCH (08:49)
[2016-07-09] MEDS: AZELASTINE 0.1% NAS SCH ×2 (08:50→20:58)
--- NOTE | 2016-07-09 13:28 | PNPDOC ---
Subjective Date DATE: 07/09/16 TIME: 11:23 Subjective Ginger was resting in bed - I introduced myself and she told me it was a "bad time" and that she wanted to rest. Staff report that she's been confused but redirectable; usually is cooperative with cares. She's A&O x1 only. Taking in 25 -75% of meals recently. Objective Vital Signs Vital signs Vital Signs Date Time Temp Pulse Resp B/P Pulse Ox O2 Delivery O2 Flow Rate FiO2 07/09/16 08:00 97.0 64 16 123/51 95 Room Air Height (Feet): 5 Height (Inches): 5.00 Weight (Kilograms): 72.300 General General Appearance: Alert, Orientated x 3, Well Nourished, Well Developed, No Acute Distress Eyes (Brief) Eyes: FOUND: PERRL, NOT FOUND: scleral icterus ENMT (Brief) ENMT: FOUND: mucosa moist, NOT FOUND: pharnyx erythema Respiratory (Brief) Respiratory: FOUND: clear all lopez, equal bilaterally Cardiovascular (Brief) Cardiac: FOUND: regular rate, regular rhythm Abdomen (Brief) Abdominal: NOT FOUND: distended Extremities (Brief) Extremity : Side: Bilateral Extremity Finding: NOT FOUND: edema Musculoskeletal (Brief) Musculoskeletal: NOT FOUND: deformity Integumentary (Brief) Integumentary: FOUND: dry, pink, warm Psychiatric (Brief) Psychiatric: FOUND: alert, attentive, normal affect, oriented Laboratory Laboratory Laboratory Tests 07/08/16 05:52 Laboratory Tests 07/08/16 05:52 Assessment & Plan Problems: (1) Major neurocognitive disorder, due to multiple etiologies, with behavioral disturbance, moderate (2) Dementia with behavioral disturbance Status: Acute Qualifiers: Dementia type: unspecified type Qualified Codes: F03.91 - Unspecified dementia with behavioral disturbance (3) Aortic stenosis Status: Chronic (4) Atrial fibrillation Status: Chronic (5) Presence of cardiac pacemaker Status: Chronic (6) Diastolic heart failure Status: Chronic (7) History of CVA (cerebrovascular accident) (8) Pulmonary HTN Status: Chronic (9) Low TSH level Plan/Intensity of Service Discussed low TSH level and normal T4 value with Dr. Florez. If free T3 is normal, he recommends simply observing the patient and rechecking TSH in about 6 months. It is not uncommon to see frequent fluctuations and TSH in older adults. Recommend follow-up with primary care provider to discuss ongoing need for seizure prophylaxis. Potassium level is stable at 4.2. Dose was reduced yesterday. Psychiatric progress notes were reviewed. Daughter reported no known seizure history, and Keppra was discontinued. Depakote was initiated. Risperdal has been started. Code Status Do Not Resuscitate Hospital Course Summary Disclaimer The hospital course summary below is not to be considered part of the above Progress Note. Hospital Course Summary Agree with admission to [facility] for further psychiatric evaluation and treatment. Patient does have significant cardiac history. Current med list is reviewed. Continue with lisinopril, metoprolol for blood pressure control. Agree with continuing Lasix 80 milligrams daily for ongoing diuresis given chronic heart failure. Monitor for evidence of dehydration. Given hypernatremia, would recommend encouraging oral intake. Patient takes Xarelto for chronic anticoagulation Continue Keppra twice a day with known seizure history. Scheduled Colace and MiraLAX for ongoing bowel motivation The hospitalist services will continue to follow patient medically manage her existing comorbidities during her stay in the [facility]. At time of discharge medical care will return to her primary care provider. Dr. Srikanth Zamora in [place] 07/05/16 EKG was reviewed. Atrially paced rhythm, prolonged QTc at 535 ms. This was discussed with Dr. Urbano. She has holding antipsychotics at this time. She plans on rechecking EKG in a couple of days. Potassium is normal, and magnesium was elevated at 2.4. Pharmacy also reviewed medications, and other than antipsychotics, none other were associated with prolonged QT. Heart rate has been bradycardic or borderline bradycardic. This morning's dose of Lopressor was held, and hold parameters were put in place to hold if heart rate is less than 60. Her systolic blood pressure is less than 110 mmHg. The dose was decreased to 12.5 mg twice a day. Labs are reviewed. Her TSH was 0.02. Will check free T4 and free T3. Mild hypernatremia noted. Monitor closely, patient does take 80 mg of Lasix daily. Mild normocytic anemia with a hemoglobin of 11.6. Vitamin B12 and folate have been ordered and are pending. 07/07/16- Pt. remains irritable at times. Continue supportive care, med mgmt per attending. Stop singulair- can cause behaviors/psychosis. (Don't see hx of pulmonary issues ). No history of seizures per family reports- may want to confirm with PCP during the week. Will decrease Keppra to 500mg PO BID. Keppra can cause irritable behavior as well. If she needs sz. px., consider change to Depakote. No evidence of QT changes- EKG changes due to PPM per Dr. Segundo. Ok for antipsychotics. Recheck TSH, T3,T4 is pending. If she is truly hyperthyroid, consider further evaluation as thyroid toxicosis can cause mental health concerns and acute psychosis. Will repeat labs in AM. 07/09/16 Discussed low TSH level and normal T4 value with Dr. Florez. If free T3 is normal, he recommends simply observing the patient and rechecking TSH in about 6 months. It is not uncommon to see frequent fluctuations and TSH in older adults. Recommend follow-up with primary care provider to discuss ongoing need for seizure prophylaxis. Potassium level is stable at 4.2. Dose was reduced yesterday. Psychiatric progress notes were reviewed. Daughter reported no known seizure history, and Keppra was discontinued. Depakote was initiated. Risperdal has been started. ALISSA ALMANZA LAST CHALKER July 09, 2016 11:25
--- NOTE | 2016-07-09 14:13 | NUR ---
Status/Sleep 3.25 Pt to bed at 2130, up at 815 AM. According to the 15 minute obsevations sheet pt only slept 3.25 hours. The longest pt slept was from 1:45 AM to 3:00 AM. Pt cooperative with cares and assessment this morning. Pt was able to assist staff with getting dressed and washing up and brushing teeth this morning. Pt is forgetful only oriented to self. Pt will request to lay down, but then sit right back up and then request to lay down. Pt did have a BM this afternoon. Ate 100% of breakfast and lunch. Pt's son and [id number]-hke did come to visit pt. Daughter
--- NOTE | 2016-07-09 14:19 | NUR ---
Cont. [id number] was under the impression that all of pt's Meds were going to be stopped to see which medication was causing the behaviors that pt was having at the intermediate. Informed [id number] that the doctors are looking at pt's medications, but that generally the doctors don't stop all Meds.
--- NOTE | 2016-07-09 15:43 | GENPN ---
[facility] Subjective Date DATE: 07/09/16 TIME: 15:39 Subjective/Severity of Illness Medications Current Medications Medications (Trade) Dose Ordered Sig/Nelly Start Time Stop Time Status Last Admin Dose Admin Miscellaneous Medication (May use PRN orders) 13 PRN PRN 07/04/16 15:45 Haloperidol (Haldol) 0.5 mg Q6H PRN 07/04/16 15:45 07/04/16 18:19 DC Lorazepam (Ativan) 0.5 mg Q6H PRN 07/04/16 15:45 Lorazepam (Ativan) 0.5 mg Q6H PRN 07/04/16 15:45 Haloperidol Lactate (Haldol 5 Mg/ml Inj) 0.5 mg Q6H PRN 07/04/16 15:45 07/04/16 18:19 DC Acetaminophen (Tylenol Extra Strength) 1,000 mg Q6H PRN 07/04/16 18:15 Acetaminophen (Tylenol Arthritis) 650 mg TID 07/04/16 21:00 07/09/16 14:40 650 MG Azelastine HCl (Astelin) 2 spray BID 07/04/16 21:00 07/09/16 08:50 2 SPRAY Bisacodyl (Dulcolax) 10 mg BID PRN 07/04/16 18:15 Buspirone HCl (Buspar) 15 mg BID 07/04/16 21:00 07/09/16 08:47 15 MG Docusate Sodium (Colace) 100 mg BID 07/04/16 21:00 07/09/16 08:48 100 MG Furosemide (Lasix) 80 mg DAILY 07/05/16 09:00 07/09/16 08:48 80 MG Lisinopril (Prinivil) 10 mg DAILY 07/05/16 09:00 07/09/16 08:49 10 MG Lorazepam (Ativan) 0.5 mg TID PRN 07/04/16 18:15 Magnesium Hydroxide (Mom) 30 ml DAILY PRN 07/04/16 18:15 Metoprolol Tartrate (Lopressor) 25 mg BIDWM 07/05/16 08:00 07/05/16 08:18 DC Montelukast Sodium (SINGULAIR 10 mg) 10 mg DAILY 07/05/16 09:00 07/07/16 15:07 DC 07/07/16 08:52 10 MG Polyethylene Glycol (Miralax) 17 g DAILY PRN 07/04/16 18:15 Potassium Chloride (Micro-K) 10 meq BIDWM 07/05/16 08:00 07/07/16 15:07 DC 07/07/16 08:52 10 MEQ Rivaroxaban (Xarelto) 20 mg DAILY 07/05/16 09:00 07/06/16 10:06 DC 07/06/16 08:25 20 MG Sodium Chloride (DEEP SEA Nasal [place]) 2 spray BID 07/04/16 21:00 07/09/16 08:49 2 SPRAY Atorvastatin Calcium (LIPITOR 40 mg) 80 mg HS 07/04/16 21:00 07/08/16 20:25 80 MG Calcium/Vitamin D (Oyst-Isai-D) 1 tab DAILY 07/05/16 09:00 07/09/16 08:48 1 TAB Levetiracetam (Keppra) 750 mg BID 07/04/16 21:00 07/07/16 15:07 DC 07/07/16 08:52 750 MG Al Hydroxide/Mg Hydroxide (Maalox Plus Xs) 30 ml Q4H PRN 07/04/16 18:15 Multivitamins Therapeutic (Theragran) 1 tab DAILY 07/05/16 09:00 07/09/16 08:49 1 TAB Esfny-9-Gvbe Ethyl Esters (Lovaza) 1 g BID 07/04/16 21:00 07/09/16 08:48 1 G Lorazepam (Ativan Intensol) 1 mg Q6HR PRN 07/05/16 00:45 07/05/16 06:31 DC 07/05/16 00:49 1 MG Metoprolol Tartrate (Lopressor) 12.5 mg BIDWM 07/05/16 17:30 07/09/16 08:47 12.5 MG Rivaroxaban (Xarelto) 20 mg WS 07/07/16 17:30 07/07/16 17:30 DC Rivaroxaban (Xarelto) 15 mg WS 07/07/16 17:30 07/08/16 17:56 15 MG Levetiracetam (Keppra) 500 mg BID 07/07/16 21:00 07/09/16 08:48 500 MG Potassium Chloride (Micro-K) 10 meq WB 07/08/16 08:00 07/09/16 08:47 10 MEQ Risperidone (Risperdal) 0.5 mg HS 07/07/16 21:00 07/08/16 20:25 0.5 MG Subjective Patient is an 85-year-old female admitted to [facility] on 07/04/16 from [facility].Per facility, patient has been hallucinating seeing her , believes someone is trying to kill her and poison her food/drink. She is obsessed with leaving facility to find . Patient seen and chart reviewed. . No exit-seeking in the last 24 hours according to staff. She is on Risperidone, Keppra and Buspar. She denies any side effect from her medications. Good appetite. No psychotropic PRNs required in the last 24 hours. Time of Service: 11:00 Start Time: 11:00 Stop Time: 11:15 Care >50% of this visit spent in counseling/coordination care. [facility] Exam Vitals Vital Signs Date Time Temp Pulse Resp B/P Pulse Ox O2 Delivery O2 Flow Rate FiO2 07/09/16 08:00 97.0 64 16 123/51 95 Room Air Physical examination performed by the hospitalist. Height (Feet): 5 Height (Inches): 5.00 Mental Status Exam Muscle Strength/Tone: Weak Dressing: Casual Grooming: Fair Attitude: Cooperative Motor Activity: Normal Eye Contact: Fair Speech: Normal Volume: Soft Rhythm: Appropriate Rhythm Sensory: Alert Orientation: Oriented to person Mood: Neutral Affect: Restricted Rate of Thoughts: Appropriate Rate Associations: Loose-associations Abstract Reasoning: Impaired, concrete Computation: Poor Computation Thought Content: Delusions Perception/Psychotic: Psychotic Current Hallucinations: Auditory Language: Naming Impaired Fund of Knowledge: Poor fund of knowledge Memory: Poor-immediate, Poor-recent Suicidal Ideation: None Homicidal Ideation: None Insight: Poor Judgment: Poor Impulse Control: Poor Assessment and Plan (1) Psychosis Assessment: 07/04/16: Hold Zyprexa and PRN antipsychotics due to prolonged QTc. Check Mg level to see if replacement may help normalize QTc 07/05/16: Continuing to hold medications, Mg high. Will recheck EKG today. 07/07/16: Centrifuge Operator reports QTc prolongation due to pacing and states it is okay to proceed with medication changes. Daughter reports patient has no known seizure history and Keppra was used for seizure prophylaxis only. Discussed medication changes and risks/benefits with daughter/DPOA, who is in agreement with switching from Keppra to Depakote and restarting an antipsychotic. Patient was previously taking Zyprexa without significant benefit, so will start Risperdal 0.5mg PO q HS tonight as it has less tendency to prolong QTc. 07/08/16: Start Depakote 250mg PO BID per plan to switch from Keppra to Depakote. Daughter/DPOA in agreement with plan. 07/09/16: Cont current treatment (2) Major neurocognitive disorder, due to multiple etiologies, with behavioral disturbance, moderate Assessment: Vascular component suspected, hx of stroke and seizures as well RONIT ARITA MD July 09, 2016 15:42
[2016-07-09 16:00] VITALS: BP 136/60; PULSE 96; RESP 16; TEMP 97.6; O2SAT 98
--- NOTE | 2016-07-09 16:29 | NUR ---
SHEFALI MEEHAN SPOKE WITH ESTEBAN PT GRANDDAUGHTER REGARDING D/C PLAN FOR PT. PT WILL RETURN TO [facility] IN [place].SHEFALI EXPLAINED ROLE AND PROVIDED CONTACT INFORMATION. ESTEBAN AWARE TO CONTACT CM IF NEEDS ARISE. SHEFALI LEFT MESSAGE FOR JONH THE EMBALMER/FUNERAL DIRECTOR AT [facility] EXPLAINED ROLE AND PROVIDED CONTACT INFORMATION.
[2016-07-09] MEDS: RIVAROXABAN 15 MG TABLET PO SCH (17:05)
--- NOTE | 2016-07-09 18:35 | NUR ---
Shift Summary Pt hasn't slept at all this shift. No behaviors noted, no prns given. Pt is very forgetful will ask the same question that has just been answered, but pt doesn't seem to get frustrated is able to be redirected easily.
[2016-07-09 19:45] VITALS: BP 120/55; PULSE 60; RESP 16; TEMP 97.8; O2SAT 96
[2016-07-09 20:00] VITALS: RESP 18
[2016-07-09] MEDS: RISPERIDONE 0.5 MG TABLET PO SCH (20:58)
[2016-07-09] MEDS: ATORVASTATIN 40 MG TABLET PO SCH (20:59)
[2016-07-09] MEDS: LORAZEPAM 0.5 MG TABLET PO PRN (22:14)
--- NOTE | 2016-07-09 22:14 | NUR ---
prn given Pt awake, very restless, pt up and down in room, pt looking for her children concerned that they will miss school tomorrow and that her daughters hair will not be fixed. Pt reassured that her children were fine and home. Pt requested that her back be scratched, pt back scratched, lotion offered, pt refused lotion at this time. Pt agreed to take something for sleep, pt took Ativan 0.5mg po. Pt up several more times, upset about noise in the halls, pt thought someone went into her room, pt reassured, pt is now resting in bed with 2 bed rails up and bed alarm on.
--- NOTE | 2016-07-09 23:15 | NUR ---
bedtime Pt went to sleep at 23:15, pt slept for a brief time and has been up and down since, pt is currently resting in bed. Pt is in bed with 2 bed rails up and bed alarm on.
--- NOTE | 2016-07-09 23:15 | NUR ---
prn update Pt is sleeping in bed with 2 bed rails up will monitor pt
[2016-07-10 00:55] LABS: VLDL CHOLESTEROL 32.2 MG/DL (0-28)
--- NOTE | 2016-07-10 01:29 | NUR ---
Chart Check 24 hour chart check completed
--- NOTE | 2016-07-10 02:35 | NUR ---
Pt status Pt woke up set up sat on the side of the bed, setting the bed alarm off. Pt states "this place is deteriorating there is trash all over the place." Pt described seeing weeds all over the barney, "pt states they are kind of pretty because they have Casey lights." Pt assisted to the bathroom with front wheeled walker, pt voided, pt came out of the bathroom, overhead light turned on. Pt stated "they have cleaned this place up and the heavy metal object I had a hard time lifting is now moved, someone must have come in here quietly and removed it." Pt assisted back to bed, another patient was yelling in the hallway, a new staff member came into the room to help, pt fearful at first asking if it was a man. Staffer came over and reassured patient, pt asked "are you real." Staff member states I am real, and rubbed patients hands. Pt agreeable to lay down, pt is now resting in bed with 2 bed rails up and bed alarm on.
[2016-07-10] MEDS: LORAZEPAM 0.5 MG TABLET PO PRN ×2 (04:18→17:23)
--- NOTE | 2016-07-10 04:18 | NUR ---
prn given Pt is awake sitting on the side of the bed. Pt is talking to the chair and having a conversation. Pt states she has seen a blond very curly headed boy running through the hallways with three friends. Pt given Ativan 0.5mg po. Pt laid back down in bed, pt in bed with 2 bed rails up and bed alarm on.
--- NOTE | 2016-07-10 06:40 | NUR ---
Prn given Pt is sleeping in bed, with 2 bed rails up and bed alarm on. Addendum: 07/10/16 at 0641 by MICHAEL ARRIAGA RN prn update
--- NOTE | 2016-07-10 06:55 | NUR ---
end of shift summary Pt is alert and orientated x2, with confusion, pt had visual and tactile hallucination during the night (see previous notes), pt did not sleep well, pt went to bed at 2300 and slept briefly, pt up and down several times during the night. Pt received Ativan at 22:14 and 04:18, pt fell asleep at 0500, and has been sleeping since, pt is in bed with 2 bed rails up and bed alarm on.
[2016-07-10 08:00] VITALS: BP 137/70; PULSE 107; RESP 16; TEMP 97.4; O2SAT 93
[2016-07-10] MEDS: MULTIVITAMIN PLAIN TABLET PO SCH (09:00)
[2016-07-10] MEDS: AZELASTINE 0.1% NAS SCH ×2 (09:00→19:06)
[2016-07-10] MEDS: SALINE NASAL SPRAY 45ml NAS SCH ×2 (09:00→19:06)
[2016-07-10] MEDS ORDERED: LEVETIRACETAM 500 MG TABLET PO SCH (09:00)
[2016-07-10] MEDS: POTASSIUM CL. 10mEq CAP PO SCH (09:23)
[2016-07-10] MEDS: OMEGA-3 ACID ESTERS 1 G CAPSULE PO SCH ×2 (09:23→19:05)
[2016-07-10] MEDS: LISINOPRIL 10 MG TABLET PO SCH (09:24)
[2016-07-10] MEDS: FUROSEMIDE 80 MG TABLET PO SCH (09:24)
[2016-07-10] MEDS: [UNRECOGNIZED DRUG - OTHER] PO SCH (09:24)
[2016-07-10] MEDS: CALCIUM PO SCH (09:24)
[2016-07-10] MEDS: ACETAMINOPHEN SR 650 MG TABLET PO SCH ×3 (09:24→19:05)
[2016-07-10] MEDS: DOCUSATE SODIUM 100 MG CAPSULE PO SCH ×2 (09:25→19:06)
[2016-07-10 10:46] LABS: LDL CHOLESTEROL,CALCULATED 32.8 (66-159); RISK FACTOR 3.2 RATIO (0-4.0)
--- NOTE | 2016-07-10 10:55 | NUR ---
SHEFALI MEEHAN SPOKE WITH NURSE FROM [facility] THIS AM AND THEY WILL TRANSPORT PT AT TIME OF D/C AND SVENZoey COOK GOES TO THEIR FACILITY FOR MENTAL HEALTH FOLLOW UP. NURSE WILL ASK JONH THE D/C SUPERVISOR [employer] TO CONTACT SHEFALI.
[2016-07-10 11:06] LABS: T3 FREE - BATCH 5.07 PG/ML (2.77-5.27)
--- NOTE | 2016-07-10 14:25 | NUR ---
Status Pt was cooperative with assessment, medications and cares. Pt is able to make her needs known. Pt has not had any hallucinations so far this shift and no complaints of pain or discomfort. Pt has not had any verbally or physically aggressive behaviors and has eaten well at breakfast and lunch. Pt is currently in the day room watching television and conversing with staff.
--- NOTE | 2016-07-10 15:10 | NUR ---
SLEEP 5.25 Hours Pt went to bed at 2215 last night and awoke at 0730. Pt slept a total of 5.25 hours as documented on the 15 minute observation forms.
[2016-07-10 16:16] VITALS: BP 134/52; PULSE 61; RESP 16; TEMP 97.4
[2016-07-10] MEDS: RIVAROXABAN 15 MG TABLET PO SCH (17:23)
--- NOTE | 2016-07-10 18:06 | NUR ---
Summary Pt had no behaviors until later in the shift. Pt began to speak of her and how he was brought to her in a small wooden box when they lived in [facility]. She went on to state that the box had two heads and her was still alive and she could not understand where the second head came from. Pt was also concerned that her had not had his coffee before he was put into the box so she gave him coffee and he "perked up". Pt was down regulated with redirection and therapeutic communication and touch by rubbing her back as she was walked back to the day room. Pt sat for a little while and then began to speak about it again. at this time she was beginning to become more concerned so she was given 0.5mg Ativan @ 1723 to help her calm. Pt is currently in the day room watching television with staff present.
--- NOTE | 2016-07-10 18:56 | GENPN ---
[facility] Subjective Date DATE: 07/10/16 TIME: 18:47 Subjective/Severity of Illness Medications Current Medications Medications (Trade) Dose Ordered Sig/Nelly Start Time Stop Time Status Last Admin Dose Admin Miscellaneous Medication (May use PRN orders) 13 PRN PRN 07/04/16 15:45 Haloperidol (Haldol) 0.5 mg Q6H PRN 07/04/16 15:45 07/04/16 18:19 DC Lorazepam (Ativan) 0.5 mg Q6H PRN 07/04/16 15:45 07/10/16 17:23 0.5 MG Lorazepam (Ativan) 0.5 mg Q6H PRN 07/04/16 15:45 Haloperidol Lactate (Haldol 5 Mg/ml Inj) 0.5 mg Q6H PRN 07/04/16 15:45 07/04/16 18:19 DC Acetaminophen (Tylenol Extra Strength) 1,000 mg Q6H PRN 07/04/16 18:15 Acetaminophen (Tylenol Arthritis) 650 mg TID 07/04/16 21:00 07/10/16 15:33 650 MG Azelastine HCl (Astelin) 2 spray BID 07/04/16 21:00 07/10/16 09:00 2 SPRAY Bisacodyl (Dulcolax) 10 mg BID PRN 07/04/16 18:15 Buspirone HCl (Buspar) 15 mg BID 07/04/16 21:00 07/10/16 09:23 15 MG Docusate Sodium (Colace) 100 mg BID 07/04/16 21:00 07/10/16 09:25 100 MG Furosemide (Lasix) 80 mg DAILY 07/05/16 09:00 07/10/16 09:24 80 MG Lisinopril (Prinivil) 10 mg DAILY 07/05/16 09:00 07/10/16 09:24 10 MG Lorazepam (Ativan) 0.5 mg TID PRN 07/04/16 18:15 Magnesium Hydroxide (Mom) 30 ml DAILY PRN 07/04/16 18:15 Metoprolol Tartrate (Lopressor) 25 mg BIDWM 07/05/16 08:00 07/05/16 08:18 DC Montelukast Sodium (SINGULAIR 10 mg) 10 mg DAILY 07/05/16 09:00 07/07/16 15:07 DC 07/07/16 08:52 10 MG Polyethylene Glycol (Miralax) 17 g DAILY PRN 07/04/16 18:15 Potassium Chloride (Micro-K) 10 meq BIDWM 07/05/16 08:00 07/07/16 15:07 DC 07/07/16 08:52 10 MEQ Rivaroxaban (Xarelto) 20 mg DAILY 07/05/16 09:00 07/06/16 10:06 DC 07/06/16 08:25 20 MG Sodium Chloride (DEEP SEA Nasal [place]) 2 spray BID 07/04/16 21:00 07/10/16 09:00 2 SPRAY Atorvastatin Calcium (LIPITOR 40 mg) 80 mg HS 07/04/16 21:00 07/09/16 20:59 80 MG Calcium/Vitamin D (Oyst-Isai-D) 1 tab DAILY 07/05/16 09:00 07/10/16 09:24 1 TAB Levetiracetam (Keppra) 750 mg BID 07/04/16 21:00 07/07/16 15:07 DC 07/07/16 08:52 750 MG Al Hydroxide/Mg Hydroxide (Maalox Plus Xs) 30 ml Q4H PRN 07/04/16 18:15 Multivitamins Therapeutic (Theragran) 1 tab DAILY 07/05/16 09:00 07/10/16 09:00 1 TAB Ckgld-2-Aftn Ethyl Esters (Lovaza) 1 g BID 07/04/16 21:00 07/10/16 09:23 1 G Lorazepam (Ativan Intensol) 1 mg Q6HR PRN 07/05/16 00:45 07/05/16 06:31 DC 07/05/16 00:49 1 MG Metoprolol Tartrate (Lopressor) 12.5 mg BIDWM 07/05/16 17:30 07/10/16 17:23 12.5 MG Rivaroxaban (Xarelto) 20 mg WS 07/07/16 17:30 07/07/16 17:30 DC Rivaroxaban (Xarelto) 15 mg WS 07/07/16 17:30 07/10/16 17:23 15 MG Levetiracetam (Keppra) 500 mg BID 07/07/16 21:00 07/09/16 16:33 DC 07/09/16 08:48 500 MG Potassium Chloride (Micro-K) 10 meq WB 07/08/16 08:00 07/10/16 09:23 10 MEQ Risperidone (Risperdal) 0.5 mg HS 07/07/16 21:00 07/09/16 20:58 0.5 MG Levetiracetam (Keppra) 500 mg DAILY 07/10/16 09:00 07/10/16 15:56 DC 07/10/16 09:25 500 MG Divalproex Sodium (Depakote) 125 mg BID 07/10/16 21:00 Subjective Patient is an 85-year-old female admitted to [facility] on 07/04/16 from [facility].Per facility, patient has been hallucinating seeing her , believes someone is trying to kill her and poison her food/drink. She is obsessed with leaving facility to find . Patient seen and chart reviewed. She admits to feeling confused prior to presenting to the hospital and had difficulty distinguishing reality from what' s not real, but she is feeling better with the medication but continues to have some "confusion". She is on Risperidone, Keppra and Buspar. She denies any side effect from her medications. Good appetite. No psychotropic PRNs required in the last 24 hours. The plan today will be to discontinue Keppra and start Depakote 125mg BID Time of Service: 14:30 Start Time: 14:30 Stop Time: 14:45 Care >50% of this visit spent in counseling/coordination care. [facility] Exam Vitals Vital Signs Date Time Temp Pulse Resp B/P Pulse Ox O2 Delivery O2 Flow Rate FiO2 07/10/16 16:16 97.4 61 16 134/52 Room Air 07/10/16 08:00 93 Physical examination performed by the hospitalist. Height (Feet): 5 Height (Inches): 5.00 Mental Status Exam Muscle Strength/Tone: Weak Dressing: Casual Grooming: Fair Attitude: Cooperative Motor Activity: Normal Eye Contact: Fair Speech: Slowed Volume: Soft Rhythm: Appropriate Rhythm Sensory: Alert Orientation: Oriented to person, Oriented to place Mood: Anxious Affect: Restricted Rate of Thoughts: Appropriate Rate Thought Organization: Confused Associations: Intact Abstract Reasoning: Impaired, concrete Computation: Poor Computation Thought Content: Delusions Perception/Psychotic: Psychotic Fund of Knowledge: Poor fund of knowledge Memory: Grossly Intact Suicidal Ideation: None Homicidal Ideation: None Insight: Fair Judgment: Fair Impulse Control: Fair Assessment and Plan (1) Psychosis Assessment: 07/04/16: Hold Zyprexa and PRN antipsychotics due to prolonged QTc. Check Mg level to see if replacement may help normalize QTc 07/05/16: Continuing to hold medications, Mg high. Will recheck EKG today. 07/07/16: Bench Machine Operator reports QTc prolongation due to pacing and states it is okay to proceed with medication changes. Daughter reports patient has no known seizure history and Keppra was used for seizure prophylaxis only. Discussed medication changes and risks/benefits with daughter/DPOA, who is in agreement with switching from Keppra to Depakote and restarting an antipsychotic. Patient was previously taking Zyprexa without significant benefit, so will start Risperdal 0.5mg PO q HS tonight as it has less tendency to prolong QTc. 07/08/16: Start Depakote 250mg PO BID per plan to switch from Keppra to Depakote. Daughter/DPOA in agreement with plan. 07/09/16: Cont current treatment 07/10/16: Discontinue Keppa 500mg BID and start Depakote 125mg BID. (2) Major neurocognitive disorder, due to multiple etiologies, with behavioral disturbance, moderate Assessment: Vascular component suspected, hx of stroke and seizures as well RONIT ARITA MD July 10, 2016 18:52
[2016-07-10] MEDS: RISPERIDONE 0.5 MG TABLET PO SCH (19:05)
[2016-07-10] MEDS: ATORVASTATIN 40 MG TABLET PO SCH (19:06)
[2016-07-10] MEDS: DIVALPROEX 125 MG TABLET PO SCH (19:17)
[2016-07-10 19:52] VITALS: BP 116/48; PULSE 18; RESP 18; TEMP 97.7; O2SAT 94
--- NOTE | 2016-07-10 22:34 | NUR ---
SUMMARY PATIENT WAS PLEASANT AND COOPERATIVE TODAY WITH STAFF. SHE TOOK ALL HER MEDICATIONS WHOLE. SHE CONTINUES TO BE CONFUSED AND CONTINUES TO HAVE VISUAL HALLUCINATIONS. SHE HAS NOT HAD ANY BEHAVIORS THIS EVENING. NO PRN'S GIVEN OF NOW. PATIENT IS IN BED SLEEPING WITH BED RAILS UP X2 AND BED ALARM ON.
--- NOTE | 2016-07-11 04:13 | NUR ---
Chart Check 24 hour chart check completed
--- NOTE | 2016-07-11 04:30 | NUR ---
Bedtime Pt. is asleep at 2044. Pt. is up to void and back to sleep.
[2016-07-11 05:32] VITALS: PULSE 66
--- NOTE | 2016-07-11 07:36 | NUR ---
Summary Pt. is pleasant and cooperative with assessment and cares. Pt. is having visual hallucinations and delusions . Pt. remembers the hallucinations from the night before and seeing metal car part in her room and weeds with [place] lights on her wall. Pt. is having delusions of her . Pt. tells this RN she was told her was but she talks about him and giving him coffee everyday and holding his head up and he drinks it. Pt. asks staff to look under the bed for her . Pt. tells this RN that she was told her from suicide but she says its not his nature, he probably fell over a breaux. Pt. is challenged by stating your is he is not here. Pt. says, if you believe in God, he can do all things, whatever he sees fit. Pt. then returns to bed. Pt. sets off her bed alarm later and asks [facility] where's my grandson? Pt. says your grandson isnt here. Pt. says, I was putting coffee in his stomach and he disappeared. Is it raining? I hope he gets nourishment from the rain. No prn meds given. Pt. is resting in bed with the bed alarm activated and SR up x2.
[2016-07-11 08:12] VITALS: BP 155/56; PULSE 60; RESP 18; TEMP 97.8; O2SAT 95
[2016-07-11] MEDS: [UNRECOGNIZED DRUG - OTHER] PO SCH (08:26)
[2016-07-11] MEDS: FUROSEMIDE 80 MG TABLET PO SCH (08:26)
[2016-07-11] MEDS: OMEGA-3 ACID ESTERS 1 G CAPSULE PO SCH ×2 (08:26→20:00)
[2016-07-11] MEDS: CALCIUM PO SCH (08:26)
[2016-07-11] MEDS: POTASSIUM CL. 10mEq CAP PO SCH (08:27)
[2016-07-11] MEDS: LISINOPRIL 10 MG TABLET PO SCH (08:27)
[2016-07-11] MEDS: DOCUSATE SODIUM 100 MG CAPSULE PO SCH ×2 (08:27→20:00)
[2016-07-11] MEDS: DIVALPROEX 125 MG TABLET PO SCH ×2 (08:28→20:01)
[2016-07-11] MEDS: SALINE NASAL SPRAY 45ml NAS SCH ×2 (08:37→20:02)
[2016-07-11] MEDS: MULTIVITAMIN PLAIN TABLET PO SCH (08:37)
[2016-07-11] MEDS: ACETAMINOPHEN SR 650 MG TABLET PO SCH ×3 (08:37→21:00)
[2016-07-11] MEDS: AZELASTINE 0.1% NAS SCH ×2 (08:37→20:02)
--- NOTE | 2016-07-11 13:00 | NUR ---
status pt woke this am at0843 for a total 5 hrs of sleep. at well at breakfast but did not eat any lunch. pt more groggy this afternoon. has no complaints of pain or discomfort. compliant with medication so far this shift.
--- NOTE | 2016-07-11 13:44 | GENPN ---
[facility] Subjective Date DATE: 07/11/16 TIME: 13:38 Subjective/Severity of Illness Medications Current Medications Medications (Trade) Dose Ordered Sig/Nelly Start Time Stop Time Status Last Admin Dose Admin Miscellaneous Medication (May use PRN orders) 13 PRN PRN 07/04/16 15:45 Haloperidol (Haldol) 0.5 mg Q6H PRN 07/04/16 15:45 07/04/16 18:19 DC Lorazepam (Ativan) 0.5 mg Q6H PRN 07/04/16 15:45 07/10/16 17:23 0.5 MG Lorazepam (Ativan) 0.5 mg Q6H PRN 07/04/16 15:45 Haloperidol Lactate (Haldol 5 Mg/ml Inj) 0.5 mg Q6H PRN 07/04/16 15:45 07/04/16 18:19 DC Acetaminophen (Tylenol Extra Strength) 1,000 mg Q6H PRN 07/04/16 18:15 Acetaminophen (Tylenol Arthritis) 650 mg TID 07/04/16 21:00 07/11/16 08:37 650 MG Azelastine HCl (Astelin) 2 spray BID 07/04/16 21:00 07/11/16 08:37 2 SPRAY Bisacodyl (Dulcolax) 10 mg BID PRN 07/04/16 18:15 Buspirone HCl (Buspar) 15 mg BID 07/04/16 21:00 07/11/16 08:27 15 MG Docusate Sodium (Colace) 100 mg BID 07/04/16 21:00 07/11/16 08:27 100 MG Furosemide (Lasix) 80 mg DAILY 07/05/16 09:00 07/11/16 08:26 80 MG Lisinopril (Prinivil) 10 mg DAILY 07/05/16 09:00 07/11/16 08:27 10 MG Lorazepam (Ativan) 0.5 mg TID PRN 07/04/16 18:15 Magnesium Hydroxide (Mom) 30 ml DAILY PRN 07/04/16 18:15 Metoprolol Tartrate (Lopressor) 25 mg BIDWM 07/05/16 08:00 07/05/16 08:18 DC Montelukast Sodium (SINGULAIR 10 mg) 10 mg DAILY 07/05/16 09:00 07/07/16 15:07 DC 07/07/16 08:52 10 MG Polyethylene Glycol (Miralax) 17 g DAILY PRN 07/04/16 18:15 Potassium Chloride (Micro-K) 10 meq BIDWM 07/05/16 08:00 07/07/16 15:07 DC 07/07/16 08:52 10 MEQ Rivaroxaban (Xarelto) 20 mg DAILY 07/05/16 09:00 07/06/16 10:06 DC 07/06/16 08:25 20 MG Sodium Chloride (DEEP SEA Nasal [place]) 2 spray BID 07/04/16 21:00 07/11/16 08:37 2 SPRAY Atorvastatin Calcium (LIPITOR 40 mg) 80 mg HS 07/04/16 21:00 07/10/16 19:06 80 MG Calcium/Vitamin D (Oyst-Isai-D) 1 tab DAILY 07/05/16 09:00 07/11/16 08:26 1 TAB Levetiracetam (Keppra) 750 mg BID 07/04/16 21:00 07/07/16 15:07 DC 07/07/16 08:52 750 MG Al Hydroxide/Mg Hydroxide (Maalox Plus Xs) 30 ml Q4H PRN 07/04/16 18:15 Multivitamins Therapeutic (Theragran) 1 tab DAILY 07/05/16 09:00 07/11/16 08:37 1 TAB [id number] Ethyl Esters (Lovaza) 1 g BID 07/04/16 21:00 07/11/16 08:26 1 G Lorazepam (Ativan Intensol) 1 mg Q6HR PRN 07/05/16 00:45 07/05/16 06:31 DC 07/05/16 00:49 1 MG Metoprolol Tartrate (Lopressor) 12.5 mg BIDWM 07/05/16 17:30 07/11/16 08:27 12.5 MG Rivaroxaban (Xarelto) 20 mg WS 07/07/16 17:30 07/07/16 17:30 DC Rivaroxaban (Xarelto) 15 mg WS 07/07/16 17:30 07/10/16 17:23 15 MG Levetiracetam (Keppra) 500 mg BID 07/07/16 21:00 07/09/16 16:33 DC 07/09/16 08:48 500 MG Potassium Chloride (Micro-K) 10 meq WB 07/08/16 08:00 07/11/16 08:27 10 MEQ Risperidone (Risperdal) 0.5 mg HS 07/07/16 21:00 07/10/16 19:05 0.5 MG Levetiracetam (Keppra) 500 mg DAILY 07/10/16 09:00 07/10/16 15:56 DC 07/10/16 09:25 500 MG Divalproex Sodium (Depakote) 125 mg BID 07/10/16 21:00 07/11/16 08:28 125 MG Subjective Patient is an 85-year-old female admitted to [facility], [place], operated by [facility] on 07/04/16 from [facility].Per facility, patient has been hallucinating seeing her , believes someone is trying to kill her and poison her food/drink. She is obsessed with leaving facility to find . Patient seen and chart reviewed. She admits to feeling confused prior to presenting to the hospital and had difficulty distinguishing reality from what' s not real. There is reports of patient isolating in her room. She is on Risperidone, Keppra and Buspar. She denies any side effect from her medications. There is no acute or chronic EPS reported and nonce elicited. Good appetite. No psychotropic PRNs required in the last 24 hours. Keppra was discontinued yesterday and she was started on Depakote 125mg BID. The plan will be to evaluate patient's psychotic symptoms with stopping Keppra. Time of Service: 10:45 Start Time: 10:45 Stop Time: 11:00 Care >50% of this visit spent in counseling/coordination care. [facility] Exam Vitals Vital Signs Date Time Temp Pulse Resp B/P Pulse Ox O2 Delivery O2 Flow Rate FiO2 07/11/16 08:12 97.8 60 18 155/56 95 Room Air Physical examination performed by the hospitalist. Height (Feet): 5 Height (Inches): 5.00 Mental Status Exam Muscle Strength/Tone: Weak Dressing: Neat Grooming: Good Attitude: Cooperative Motor Activity: Normal Eye Contact: Fair Speech: Slowed Volume: Soft Rhythm: Other (sleepy) Orientation: Oriented to person Mood: Neutral Affect: Stable Rate of Thoughts: Appropriate Rate Thought Organization: [place] Abstract Reasoning: Impaired, concrete Computation: Poor Computation Thought Content: Delusions Perception/Psychotic: Psychotic Attention Span/Concentration: Short Span Fund of Knowledge: Poor fund of knowledge Memory: Grossly Intact Suicidal Ideation: None Homicidal Ideation: None Insight: Poor Judgment: Poor Impulse Control: Poor Assessment and Plan (1) Psychosis Assessment: 07/04/16: Hold Zyprexa and PRN antipsychotics due to prolonged QTc. Check Mg level to see if replacement may help normalize QTc 07/05/16: Continuing to hold medications, Mg high. Will recheck EKG today. 07/07/16: Cardiac Cath Lab Technologist reports QTc prolongation due to pacing and states it is okay to proceed with medication changes. Daughter reports patient has no known seizure history and Keppra was used for seizure prophylaxis only. Discussed medication changes and risks/benefits with daughter/DPOA, who is in agreement with switching from Keppra to Depakote and restarting an antipsychotic. Patient was previously taking Zyprexa without significant benefit, so will start Risperdal 0.5mg PO q HS tonight as it has less tendency to prolong QTc. 07/08/16: Start Depakote 250mg PO BID per plan to switch from Keppra to Depakote. Daughter/DPOA in agreement with plan. 07/09/16: Cont current treatment 07/10/16: Discontinue Keppa 500mg BID and start Depakote 125mg BID. 07/11/16: Cont current medication and monitor patient for psychotic symptoms. (2) Major neurocognitive disorder, due to multiple etiologies, with behavioral disturbance, moderate Assessment: Vascular component suspected, hx of stroke and seizures as well RONIT ARITA MD July 11, 2016 13:42
[2016-07-11 16:00] VITALS: BP 114/39; PULSE 57; RESP 16; TEMP 97.6; O2SAT 94
[2016-07-11] MEDS: RIVAROXABAN 15 MG TABLET PO SCH (17:38)
--- NOTE | 2016-07-11 18:16 | NUR ---
summary pt has not exhibited any signs of hallucinations nor has she verbalized any.pt has taken all medication with no issues. pt slept a total of 2hrs since waking this am. no exit seeking behavior noted. pt has allowed staff to help her with cares with no physical or verbal aggression.
[2016-07-11] MEDS: RISPERIDONE 0.5 MG TABLET PO SCH (20:00)
[2016-07-11] MEDS: ACETAMINOPHEN 500 MG TABLET PO PRN (20:00)
[2016-07-11] MEDS: ATORVASTATIN 40 MG TABLET PO SCH (20:01)
[2016-07-11 21:11] VITALS: BP 124/49; PULSE 60; RESP 15; TEMP 97.4; O2SAT 94
--- NOTE | 2016-07-12 | NUR ---
status arrived on shift, patient was in dayroom recliner watching tv with staff present. Patient was passive with assessment and hs medications. Patient began to doze off in recliner, fell asleep at 2030. Patient slept in recliner in dayroom for 1.5hrs. Patient was slightly irritated that staff woke patient to have her transition to her room and she couldn't sleep where she was at which was observed by short and blunted tone of voice, with a frown and guarded body posture. Staff helped patient transition to bed with providing hs cares. Once in bed patient quickly fell back to sleep at 2230.
--- NOTE | 2016-07-12 03:00 | NUR ---
Chart Check 24 hour chart check completed
--- NOTE | 2016-07-12 05:56 | NUR ---
summary after going to bed at 2230, patient has once to use the restroom. Patient was SBA and able to provide own hygiene cares. once done in the restroom patient self directed back to bed, no behaviors noted. no prns given. patient is currently asleep in bed at this time.
[2016-07-12] MEDS: MULTIVITAMIN PLAIN TABLET PO SCH (08:47)
[2016-07-12] MEDS: [UNRECOGNIZED DRUG - OTHER] PO SCH (08:47)
[2016-07-12] MEDS: CALCIUM PO SCH (08:47)
[2016-07-12] MEDS: DOCUSATE SODIUM 100 MG CAPSULE PO SCH ×2 (08:47→20:18)
[2016-07-12] MEDS: OMEGA-3 ACID ESTERS 1 G CAPSULE PO SCH ×2 (08:47→20:18)
[2016-07-12] MEDS: DIVALPROEX 125 MG TABLET PO SCH ×3 (08:48→21:43)
[2016-07-12] MEDS: LISINOPRIL 10 MG TABLET PO SCH (08:49)
[2016-07-12] MEDS: POTASSIUM CL. 10mEq CAP PO SCH (08:49)
[2016-07-12] MEDS: FUROSEMIDE 80 MG TABLET PO SCH (08:49)
[2016-07-12 08:50] VITALS: BP 136/73; PULSE 60; RESP 24; TEMP 97.6; O2SAT 93
[2016-07-12] MEDS: ACETAMINOPHEN SR 650 MG TABLET PO SCH ×4 (08:50→21:44)
[2016-07-12] MEDS: AZELASTINE 0.1% NAS SCH ×3 (08:50→20:27)
[2016-07-12] MEDS: SALINE NASAL SPRAY 45ml NAS SCH ×3 (08:51→20:28)
--- NOTE | 2016-07-12 10:52 | NUR ---
JOURNALISTS AND OTHER WRITERS--AM GROUP Pt. was present and passively engaged in psychoeducational group facilitated by [facility]. Topic was on favorite memories of our mothers and Mother's Day memories. Pt. sat in recliner with her eyes closed. Even with cueing, she did not open her eyes or respond to her name being called. Expanded conversation to include influence of spiritual austyn as a means of support and strength when facing challenges in life. Ended group by playing Hymns. Pt. remained disengaged with group the entire time by sitting in chair with eyes closed. She was observed to be blinking her eyes; she did not appear to be in sound sleep.
[2016-07-12 13:11] LABS: BLOOD, URINE NEGATIVE (NEGATIVE); COLOR,URINE YELLOW (YELLOW); LEUKOCYTE ESTERASE ,URINE 1+ (NEGATIVE); NITRITE,URINE NEGATIVE (NEGATIVE); UROBILINOGEN,URINE 0.2 EU/DL (NORMAL)
[2016-07-12 13:18] LABS: BACTERIA,URINE 1+ (NEGATIVE); MUCUS,URINE PRESENT; RBC,URINE 0-1 /HPF (0-3)
[2016-07-12 16:50] VITALS: BP 125/63; PULSE 60; RESP 16; TEMP 98.6; O2SAT 97
[2016-07-12] MEDS: RIVAROXABAN 15 MG TABLET PO SCH (17:29)
--- NOTE | 2016-07-12 18:06 | NUR ---
summary pt woke this am at 0630 slept for a total of 8hrs. pt pleasant and cooperative all shift. pt is compliant with medication. pt has a good appetite. has had no signs of visual hallucinations this shift. pt has stayed out in day room all shift. pt's affect a little brighter today than previous shifts. she talked with this nurse and smiled more today. no verbal or physical aggression noted this shift. no prn meds given
--- NOTE | 2016-07-12 20:10 | NUR ---
status arrived on shift, patient is pleasant and cooperative in dayroom. patient is watching tv with staff present, will continue to monitor
[2016-07-12 20:15] VITALS: BP 116/50; PULSE 60; RESP 16; TEMP 97.7; O2SAT 95
[2016-07-12] MEDS: ATORVASTATIN 40 MG TABLET PO SCH ×2 (20:18→21:00)
[2016-07-12] MEDS: RISPERIDONE 0.5 MG TABLET PO SCH ×2 (20:19→21:43)
--- NOTE | 2016-07-12 22:12 | GENPN ---
[facility] Subjective Date DATE: 07/12/16 TIME: 22:05 Subjective/Severity of Illness Medications Current Medications Medications (Trade) Dose Ordered Sig/Nelly Start Time Stop Time Status Last Admin Dose Admin Miscellaneous Medication (May use PRN orders) 13 PRN PRN 07/04/16 15:45 Haloperidol (Haldol) 0.5 mg Q6H PRN 07/04/16 15:45 07/04/16 18:19 DC Lorazepam (Ativan) 0.5 mg Q6H PRN 07/04/16 15:45 07/10/16 17:23 0.5 MG Lorazepam (Ativan) 0.5 mg Q6H PRN 07/04/16 15:45 Haloperidol Lactate (Haldol 5 Mg/ml Inj) 0.5 mg Q6H PRN 07/04/16 15:45 07/04/16 18:19 DC Acetaminophen (Tylenol Extra Strength) 1,000 mg Q6H PRN 07/04/16 18:15 07/11/16 20:00 1,000 MG Acetaminophen (Tylenol Arthritis) 650 mg TID 07/04/16 21:00 07/12/16 21:44 650 MG Azelastine HCl (Astelin) 2 spray BID 07/04/16 21:00 07/12/16 08:50 2 SPRAY Bisacodyl (Dulcolax) 10 mg BID PRN 07/04/16 18:15 Buspirone HCl (Buspar) 15 mg BID 07/04/16 21:00 07/12/16 21:43 15 MG Docusate Sodium (Colace) 100 mg BID 07/04/16 21:00 07/12/16 20:18 100 MG Furosemide (Lasix) 80 mg DAILY 07/05/16 09:00 07/12/16 08:49 80 MG Lisinopril (Prinivil) 10 mg DAILY 07/05/16 09:00 07/12/16 08:49 10 MG Lorazepam (Ativan) 0.5 mg TID PRN 07/04/16 18:15 Magnesium Hydroxide (Mom) 30 ml DAILY PRN 07/04/16 18:15 Metoprolol Tartrate (Lopressor) 25 mg BIDWM 07/05/16 08:00 07/05/16 08:18 DC Montelukast Sodium (SINGULAIR 10 mg) 10 mg DAILY 07/05/16 09:00 07/07/16 15:07 DC 07/07/16 08:52 10 MG Polyethylene Glycol (Miralax) 17 g DAILY PRN 07/04/16 18:15 Potassium Chloride (Micro-K) 10 meq BIDWM 07/05/16 08:00 07/07/16 15:07 DC 07/07/16 08:52 10 MEQ Rivaroxaban (Xarelto) 20 mg DAILY 07/05/16 09:00 07/06/16 10:06 DC 07/06/16 08:25 20 MG Sodium Chloride (DEEP SEA Nasal [place]) 2 spray BID 07/04/16 21:00 07/12/16 08:51 2 SPRAY Atorvastatin Calcium (LIPITOR 40 mg) 80 mg HS 07/04/16 21:00 07/11/16 20:01 80 MG Calcium/Vitamin D (Oyst-Isai-D) 1 tab DAILY 07/05/16 09:00 07/12/16 08:47 1 TAB Levetiracetam (Keppra) 750 mg BID 07/04/16 21:00 07/07/16 15:07 DC 07/07/16 08:52 750 MG Al Hydroxide/Mg Hydroxide (Maalox Plus Xs) 30 ml Q4H PRN 07/04/16 18:15 Multivitamins Therapeutic (Theragran) 1 tab DAILY 07/05/16 09:00 07/12/16 08:47 1 TAB Ekujn-3-Suue Ethyl Esters (Lovaza) 1 g BID 07/04/16 21:00 07/12/16 20:18 1 G Lorazepam (Ativan Intensol) 1 mg Q6HR PRN 07/05/16 00:45 07/05/16 06:31 DC 07/05/16 00:49 1 MG Metoprolol Tartrate (Lopressor) 12.5 mg BIDWM 07/05/16 17:30 07/12/16 17:29 12.5 MG Rivaroxaban (Xarelto) 20 mg WS 07/07/16 17:30 07/07/16 17:30 DC Rivaroxaban (Xarelto) 15 mg WS 07/07/16 17:30 07/12/16 17:29 15 MG Levetiracetam (Keppra) 500 mg BID 07/07/16 21:00 07/09/16 16:33 DC 07/09/16 08:48 500 MG Potassium Chloride (Micro-K) 10 meq WB 07/08/16 08:00 07/12/16 08:49 10 MEQ Risperidone (Risperdal) 0.5 mg HS 07/07/16 21:00 07/12/16 21:43 0.5 MG Levetiracetam (Keppra) 500 mg DAILY 07/10/16 09:00 07/10/16 15:56 DC 07/10/16 09:25 500 MG Divalproex Sodium (Depakote) 125 mg BID 07/10/16 21:00 07/12/16 21:43 125 MG Subjective Patient is an 85-year-old female admitted to [facility] on 07/04/16 from [facility].Per facility, patient has been hallucinating seeing her , believes someone is trying to kill her and poison her food/drink. She is obsessed with leaving facility to find . Patient seen and chart reviewed.She feels better today and reports less confusion. Staff reports that patient appears to have brighter affect today and more engaging. She denies any side effect from her medications. There is no acute or chronic EPS reported and nonce elicited. Good appetite. No psychotropic PRNs required in the last 24 hours. Keppra was discontinued on 05/25 and she was started on Depakote 125mg BID. The plan will be to evaluate patient's psychotic symptoms with stopping Keppra. Time of Service: 19:00 Start Time: 19:00 Stop Time: 19:15 Care >50% of this visit spent in counseling/coordination care. [facility] Exam Vitals Vital Signs Date Time Temp Pulse Resp B/P Pulse Ox O2 Delivery O2 Flow Rate FiO2 07/12/16 20:15 97.7 60 16 116/50 95 Room Air Physical examination performed by the hospitalist. Height (Feet): 5 Height (Inches): 5.00 Mental Status Exam Muscle Strength/Tone: Weak Dressing: Casual Grooming: Good Attitude: Cooperative Motor Activity: Normal Eye Contact: Good Speech: Normal Volume: Soft Rhythm: Appropriate Rhythm Sensory: Alert Orientation: Oriented to person, Oriented to place Mood: Anxious Affect: Restricted Rate of Thoughts: Appropriate Rate Thought Organization: Perseverations, [place] Associations: Illogical Abstract Reasoning: Impaired, concrete Thought Content: Delusions Attention Span/Concentration: Short Span Fund of Knowledge: Poor fund of knowledge Memory: Poor-immediate Suicidal Ideation: None Homicidal Ideation: None Insight: Poor Judgment: Poor Impulse Control: Poor Laboratory Tests Test 07/12/16 13:02 Urine Collection Type Cleancatch-midstream Urine Color Yellow Urine Turbidity Clear Urine pH 5.0 Urine Specific [place] 1.020 Urine Protein Negative Urine Glucose (UA) Negative Urine Ketones Negative Urine Blood Negative Urine Nitrite Negative Urine Bilirubin Negative Urine Urobilinogen 0.2EU/DL Urine Leukocyte Esterase 1+ Urine RBC 0-1/HPF Urine WBC 1-3/HPF Urine Squamous Epithelial Cells 5-10 Urine Bacteria 1+ Urine Hyaline Casts 1-3/LPF Urine Mucus Present Urine Culture Indicated Cult not indicated Assessment and Plan (1) Psychosis Assessment: 07/04/16: Hold Zyprexa and PRN antipsychotics due to prolonged QTc. Check Mg level to see if replacement may help normalize QTc 07/05/16: Continuing to hold medications, Mg high. Will recheck EKG today. 07/07/16: Industrial Chemicals Supervisor reports QTc prolongation due to pacing and states it is okay to proceed with medication changes. Daughter reports patient has no known seizure history and Keppra was used for seizure prophylaxis only. Discussed medication changes and risks/benefits with daughter/DPOA, who is in agreement with switching from Keppra to Depakote and restarting an antipsychotic. Patient was previously taking Zyprexa without significant benefit, so will start Risperdal 0.5mg PO q HS tonight as it has less tendency to prolong QTc. 07/08/16: Start Depakote 250mg PO BID per plan to switch from Keppra to Depakote. Daughter/DPOA in agreement with plan. 07/09/16: Cont current treatment 07/10/16: Discontinue Keppa 500mg BID and start Depakote 125mg BID. 07/11/16: Cont current medication and monitor patient for psychotic symptoms. 07/12/16: Cont current treatment (2) Major neurocognitive disorder, due to multiple etiologies, with behavioral disturbance, moderate Assessment: Vascular component suspected, hx of stroke and seizures as well Cont. current psych. meds RONIT ARITA MD July 12, 2016 22:08
--- NOTE | 2016-07-13 02:01 | NUR ---
Chart Check 24 hour chart check completed
--- NOTE | 2016-07-13 05:19 | NUR ---
Summary patient is alert and oriented to person and place. patient was cooperative with assessment. Patient started to be compliant with hs scheduled medications on first attempt, though patient accidentally dropped most medications, did take vitamins at that time. while getting patient new doses, other patient walked by Ginger talking to self. Patient then stated "well i'm not going to take my meds now." Patient had believed the other person was making comments about her. After refusing medications, patient sat in dayroom becoming suspicious. While staff was rounding in the hallway patient sat looking down hallway yelling at the nurse to stay out of her room. Other staff explained to patient that the nurse wasn't going into her room and checking on other pts, Ginger asked "she wasn't?". Staff explained her room was on the other side of the zavala, patient then quickly calmed. Once transitioning to her room, patient was guarded yet could be reassure. Hs medications were taken to patient and explained, patient then was cooperative and took all hs medications except scheduled atorvastatin. Patient was cooperative with hs cares. Was asleep in bed by 2030. Patient has slept through the night, except to get up once to use the restroom. Patient self directed back to bed once done, and is currently still asleep in bed.
--- NOTE | 2016-07-13 08:00 | NUR ---
Pt Status Pt awake but indicates she is not ready to get up. Calm affect and bed alarm on.
--- NOTE | 2016-07-13 09:30 | NUR ---
Layton rodriguez Pt cooperative with cares, did not want shower but assisted with washing at sink. Pt oriented only to self, thinks she is in [place] and month of December and reports doesn't know the year.
[2016-07-13 09:38] VITALS: BP 139/51; PULSE 60; RESP 16; TEMP 97.9; O2SAT 95
[2016-07-13] MEDS: POTASSIUM CL. 10mEq CAP PO SCH (09:40)
[2016-07-13] MEDS: DOCUSATE SODIUM 100 MG CAPSULE PO SCH ×2 (09:41→20:23)
[2016-07-13] MEDS: [UNRECOGNIZED DRUG - OTHER] PO SCH (09:41)
[2016-07-13] MEDS: OMEGA-3 ACID ESTERS 1 G CAPSULE PO SCH ×2 (09:41→20:23)
[2016-07-13] MEDS: DIVALPROEX 125 MG TABLET PO SCH ×2 (09:41→20:23)
[2016-07-13] MEDS: FUROSEMIDE 80 MG TABLET PO SCH (09:41)
[2016-07-13] MEDS: CALCIUM PO SCH (09:41)
[2016-07-13] MEDS: MULTIVITAMIN PLAIN TABLET PO SCH (09:42)
[2016-07-13] MEDS: ACETAMINOPHEN SR 650 MG TABLET PO SCH ×3 (09:42→20:24)
[2016-07-13] MEDS: LISINOPRIL 10 MG TABLET PO SCH (09:42)
[2016-07-13] MEDS: AZELASTINE 0.1% NAS SCH ×2 (09:42→09:43)
[2016-07-13] MEDS: SALINE NASAL SPRAY 45ml NAS SCH (09:43)
--- NOTE | 2016-07-13 11:13 | NUR ---
HOME PERFORMANCE CONSULTANT--AM GROUP Pt. was present and actively engaged in psychoeducational group facilitated by [facility]. Began group by talking about [place] and traditions of the celebration. Pt. was not able to identify a reason for the celebration. She was alert with dysthymic mood. Pt. correctly answered some of the questions asked of her. Played different kinds of music from different countries. Ended group by listening to special requests from patients. Pt. sat in recliner and remained part of group for entire session. Pt. sat in recliner with her eyes closed and her head leaning forward but she would make a comment about the music being stopped before it was done playing.
--- NOTE | 2016-07-13 15:02 | NUR ---
TILE ERECTOR--PM GROUP Pt. was present and actively engaged for most of psychoeducational group facilitated by [facility]. Topic was on importance of having fun and staying engaged in activities at any age. Played neurocognitive Hero Card Management ASing game to help stimulate social interactions between staff and patients. Pt. was alert, Ox1 with depressed, slightly irritable mood. Pt. did answer most questions asked of her correctly. Towards the end of the game, she would smile occasionally at something that was said. About 5 min. before group ended, pt. got up and began walking the hallway but was not disruptive.
--- NOTE | 2016-07-13 15:30 | PNPDOC ---
Subjective Date DATE: 07/13/16 TIME: 15:18 Subjective Ginger is seen today while siting in the day room playing card games with group therapy. She is alert and pleasant during examination. She denies feeling short of breath or having chest pain. No acute distress. Objective Vital Signs Vital signs Vital Signs Date Time Temp Pulse Resp B/P Pulse Ox O2 Delivery O2 Flow Rate FiO2 07/13/16 09:38 97.9 60 16 139/51 95 Room Air Height (Feet): 5 Height (Inches): 5.00 Weight (Kilograms): 67.700 General General Appearance: Alert, Orientated x 1, Cooperative, No Acute Distress Eyes (Brief) Eyes: FOUND: EOMI ENMT (Brief) ENMT: FOUND: mucosa moist, normal dentition, NOT FOUND: pharnyx erythema Neck (Brief) Neck: FOUND: midline, NOT FOUND: adenopathy, carotid bruits, tracheal deviation Respiratory (Brief) Respiratory: FOUND: clear all lopez, equal bilaterally, NOT FOUND: wheezes Cardiovascular (Brief) Cardiac: FOUND: regular rate, regular rhythm, NOT FOUND: murmur, pedal edema Capillary Refill: <2 sec Abdomen (Brief) Abdominal: FOUND: BS normo active x4, soft, NOT FOUND: distended, tender Lymphatic (Brief) Lymphatic: NOT FOUND: adenopathy Musculoskeletal (Brief) Musculoskeletal: NOT FOUND: tenderness Integumentary (Brief) Integumentary: FOUND: dry, pink, warm Neurologic (Brief) Neurological: FOUND: cranial 2-12 intact Psychiatric (Brief) Psychiatric: FOUND: alert, attentive, normal affect Assessment & Plan Problems: (1) Major neurocognitive disorder, due to multiple etiologies, with behavioral disturbance, moderate (2) Dementia with behavioral disturbance Status: Acute Qualifiers: Dementia type: unspecified type Qualified Codes: F03.91 - Unspecified dementia with behavioral disturbance (3) Aortic stenosis Status: Chronic (4) Atrial fibrillation Status: Chronic (5) Presence of cardiac pacemaker Status: Chronic (6) Diastolic heart failure Status: Chronic (7) History of CVA (cerebrovascular accident) (8) Pulmonary HTN Status: Chronic (9) Low TSH level Plan/Intensity of Service 07/13/16 Low TSH level discussed with clinic office coordinator on admission. He recommends outpatient follow-up and ask months. Blood Pressure is well-controlled on Lopressor and lisinopril. Continues relative for chronic anticoagulation Encourage patient to participate in unit activities, and provide a safe environment. Code Status Do Not Resuscitate Hospital Course Summary Disclaimer The hospital course summary below is not to be considered part of the above Progress Note. Hospital Course Summary Agree with admission to [facility] for further psychiatric evaluation and treatment. Patient does have significant cardiac history. Current med list is reviewed. Continue with lisinopril, metoprolol for blood pressure control. Agree with continuing Lasix 80 milligrams daily for ongoing diuresis given chronic heart failure. Monitor for evidence of dehydration. Given hypernatremia, would recommend encouraging oral intake. Patient takes Xarelto for chronic anticoagulation Continue Keppra twice a day with known seizure history. Scheduled Colace and MiraLAX for ongoing bowel motivation The hospitalist services will continue to follow patient medically manage her existing comorbidities during her stay in the [facility]. At time of discharge medical care will return to her primary care provider. Dr. Srikanth Zamora in [place] 07/05/16 EKG was reviewed. Atrially paced rhythm, prolonged QTc at 535 ms. This was discussed with Dr. Urbano. She has holding antipsychotics at this time. She plans on rechecking EKG in a couple of days. Potassium is normal, and magnesium was elevated at 2.4. Pharmacy also reviewed medications, and other than antipsychotics, none other were associated with prolonged QT. Heart rate has been bradycardic or borderline bradycardic. This morning's dose of Lopressor was held, and hold parameters were put in place to hold if heart rate is less than 60. Her systolic blood pressure is less than 110 mmHg. The dose was decreased to 12.5 mg twice a day. Labs are reviewed. Her TSH was 0.02. Will check free T4 and free T3. Mild hypernatremia noted. Monitor closely, patient does take 80 mg of Lasix daily. Mild normocytic anemia with a hemoglobin of 11.6. Vitamin B12 and folate have been ordered and are pending. 07/07/16- Pt. remains irritable at times. Continue supportive care, med mgmt per attending. Stop singulair- can cause behaviors/psychosis. (Don't see hx of pulmonary issues ). No history of seizures per family reports- may want to confirm with PCP during the week. Will decrease Keppra to 500mg PO BID. Keppra can cause irritable behavior as well. If she needs sz. px., consider change to Depakote. No evidence of QT changes- EKG changes due to PPM per Dr. Segundo. Ok for antipsychotics. Recheck TSH, T3,T4 is pending. If she is truly hyperthyroid, consider further evaluation as thyroid toxicosis can cause mental health concerns and acute psychosis. Will repeat labs in AM. 07/09/16 Discussed low TSH level and normal T4 value with Dr. Florez. If free T3 is normal, he recommends simply observing the patient and rechecking TSH in about 6 months. It is not uncommon to see frequent fluctuations and TSH in older adults. Recommend follow-up with primary care provider to discuss ongoing need for seizure prophylaxis. Potassium level is stable at 4.2. Dose was reduced yesterday. Psychiatric progress notes were reviewed. Daughter reported no known seizure history, and Keppra was discontinued. Depakote was initiated. Risperdal has been started. 07/13/16 Low TSH level discussed with clinic office coordinator on admission. He recommends outpatient follow-up and ask months. Blood Pressure is well-controlled on Lopressor and lisinopril. Continues relative for chronic anticoagulation Encourage patient to participate in unit activities, and provide a safe environment. KARIME VIGIL APRN July 13, 2016 15:30
[2016-07-13 16:00] VITALS: BP 137/58; PULSE 69; RESP 16; TEMP 97.4; O2SAT 94
[2016-07-13] MEDS: RIVAROXABAN 15 MG TABLET PO SCH (17:23)
--- NOTE | 2016-07-13 17:27 | GENPN ---
[facility] Subjective Date DATE: 07/13/16 TIME: 17:24 Subjective/Severity of Illness Medications Current Medications Medications (Trade) Dose Ordered Sig/Nelly Start Time Stop Time Status Last Admin Dose Admin Miscellaneous Medication (May use PRN orders) 13 PRN PRN 07/04/16 15:45 Haloperidol (Haldol) 0.5 mg Q6H PRN 07/04/16 15:45 07/04/16 18:19 DC Lorazepam (Ativan) 0.5 mg Q6H PRN 07/04/16 15:45 07/10/16 17:23 0.5 MG Lorazepam (Ativan) 0.5 mg Q6H PRN 07/04/16 15:45 Haloperidol Lactate (Haldol 5 Mg/ml Inj) 0.5 mg Q6H PRN 07/04/16 15:45 07/04/16 18:19 DC Acetaminophen (Tylenol Extra Strength) 1,000 mg Q6H PRN 07/04/16 18:15 07/11/16 20:00 1,000 MG Acetaminophen (Tylenol Arthritis) 650 mg TID 07/04/16 21:00 07/13/16 15:35 650 MG Azelastine HCl (Astelin) 2 spray BID 07/04/16 21:00 07/13/16 09:42 2 SPRAY Bisacodyl (Dulcolax) 10 mg BID PRN 07/04/16 18:15 Buspirone HCl (Buspar) 15 mg BID 07/04/16 21:00 07/13/16 09:41 15 MG Docusate Sodium (Colace) 100 mg BID 07/04/16 21:00 07/13/16 09:41 100 MG Furosemide (Lasix) 80 mg DAILY 07/05/16 09:00 07/13/16 09:41 80 MG Lisinopril (Prinivil) 10 mg DAILY 07/05/16 09:00 07/13/16 09:42 10 MG Lorazepam (Ativan) 0.5 mg TID PRN 07/04/16 18:15 Magnesium Hydroxide (Mom) 30 ml DAILY PRN 07/04/16 18:15 Metoprolol Tartrate (Lopressor) 25 mg BIDWM 07/05/16 08:00 07/05/16 08:18 DC Montelukast Sodium (SINGULAIR 10 mg) 10 mg DAILY 07/05/16 09:00 07/07/16 15:07 DC 07/07/16 08:52 10 MG Polyethylene Glycol (Miralax) 17 g DAILY PRN 07/04/16 18:15 Potassium Chloride (Micro-K) 10 meq BIDWM 07/05/16 08:00 07/07/16 15:07 DC 07/07/16 08:52 10 MEQ Rivaroxaban (Xarelto) 20 mg DAILY 07/05/16 09:00 07/06/16 10:06 DC 07/06/16 08:25 20 MG Sodium Chloride (DEEP SEA Nasal Seanor) 2 spray BID 07/04/16 21:00 07/13/16 09:43 2 SPRAY Atorvastatin Calcium (LIPITOR 40 mg) 80 mg HS 07/04/16 21:00 07/11/16 20:01 80 MG Calcium/Vitamin D (Oyst-Isai-D) 1 tab DAILY 07/05/16 09:00 07/13/16 09:41 1 TAB Levetiracetam (Keppra) 750 mg BID 07/04/16 21:00 07/07/16 15:07 DC 07/07/16 08:52 750 MG Al Hydroxide/Mg Hydroxide (Maalox Plus Xs) 30 ml Q4H PRN 07/04/16 18:15 Multivitamins Therapeutic (Theragran) 1 tab DAILY 07/05/16 09:00 07/13/16 09:42 1 TAB Aaqcc-5-Iotf Ethyl Esters (Lovaza) 1 g BID 07/04/16 21:00 07/13/16 09:41 1 G Lorazepam (Ativan Intensol) 1 mg Q6HR PRN 07/05/16 00:45 07/05/16 06:31 DC 07/05/16 00:49 1 MG Metoprolol Tartrate (Lopressor) 12.5 mg BIDWM 07/05/16 17:30 07/13/16 09:40 12.5 MG Rivaroxaban (Xarelto) 20 mg WS 07/07/16 17:30 07/07/16 17:30 DC Rivaroxaban (Xarelto) 15 mg WS 07/07/16 17:30 07/12/16 17:29 15 MG Levetiracetam (Keppra) 500 mg BID 07/07/16 21:00 07/09/16 16:33 DC 07/09/16 08:48 500 MG Potassium Chloride (Micro-K) 10 meq WB 07/08/16 08:00 07/13/16 09:40 10 MEQ Risperidone (Risperdal) 0.5 mg HS 07/07/16 21:00 07/12/16 21:43 0.5 MG Levetiracetam (Keppra) 500 mg DAILY 07/10/16 09:00 07/10/16 15:56 DC 07/10/16 09:25 500 MG Divalproex Sodium (Depakote) 125 mg BID 07/10/16 21:00 07/13/16 09:41 125 MG Subjective Pt seen and chart examined. Nursing reports sleeping well and has a good appetite. Pt has been pleasant but confused. Only oriented to self self but no behaviors noted. On face to face the pt states she is doing well. She reports her mood is stable. She denies any psychotic symptoms or pain. Tolerating meds. Time of Service: 17:15 Start Time: 17:15 Stop Time: 17:30 Care >50% of this visit spent in counseling/coordination care. [facility] Exam Vitals Vital Signs Date Time Temp Pulse Resp B/P Pulse Ox O2 Delivery O2 Flow Rate FiO2 07/13/16 16:00 97.4 69 16 137/58 94 Room Air Physical examination performed by the hospitalist. Height (Feet): 5 Height (Inches): 5.00 Mental Status Exam Muscle Strength/Tone: Normal Dressing: Casual Grooming: Good Attitude: Cooperative Motor Activity: Retardation Eye Contact: Fair Speech: Slowed Volume: Soft Rhythm: Appropriate Rhythm Sensory: Alert Orientation: Oriented to person Mood: Neutral Affect: Congruent Rate of Thoughts: Delayed Thought Organization: [place] Associations: Illogical Abstract Reasoning: Impaired, concrete Thought Content: Normal Perception/Psychotic: Perception Normal Attention Span/Concentration: Short Span Fund of Knowledge: Poor fund of knowledge Memory: Poor-immediate, Poor-recent Suicidal Ideation: None Homicidal Ideation: None Insight: Fair, Poor Judgment: Poor Impulse Control: Fair Assessment and Plan (1) Psychosis Assessment: 07/04/16: Hold Zyprexa and PRN antipsychotics due to prolonged QTc. Check Mg level to see if replacement may help normalize QTc 07/05/16: Continuing to hold medications, Mg high. Will recheck EKG today. 07/07/16: Seo Expert reports QTc prolongation due to pacing and states it is okay to proceed with medication changes. Daughter reports patient has no known seizure history and Keppra was used for seizure prophylaxis only. Discussed medication changes and risks/benefits with daughter/DPOA, who is in agreement with switching from Keppra to Depakote and restarting an antipsychotic. Patient was previously taking Zyprexa without significant benefit, so will start Risperdal 0.5mg PO q HS tonight as it has less tendency to prolong QTc. 07/08/16: Start Depakote 250mg PO BID per plan to switch from Keppra to Depakote. Daughter/DPOA in agreement with plan. 07/09/16: Cont current treatment 07/10/16: Discontinue Keppa 500mg BID and start Depakote 125mg BID. 07/11/16: Cont current medication and monitor patient for psychotic symptoms. 07/12/16: Cont current treatment 07/13/16 Continue current care (2) Major neurocognitive disorder, due to multiple etiologies, with behavioral disturbance, moderate Assessment: Vascular component suspected, hx of stroke and seizures as well Cont. current psych. meds SARI ARAGON MD July 13, 2016 17:27
--- NOTE | 2016-07-13 18:06 | NUR ---
Shift Summary and Sleep Time Pt had .75 hour of sleep since awake this a.m. Has walked in [place] with walker with standby assist. Will go to room and forget what she went to room for. Does accept assistance and is sad and confused but not angry or combative. Did interact with other patients at meal-time, did tell another pt "don't be upset about your food," when other one didn't get what she wanted.
[2016-07-13 20:23] VITALS: PULSE 59; RESP 16
[2016-07-13] MEDS: ATORVASTATIN 40 MG TABLET PO SCH (20:23)
[2016-07-13] MEDS: RISPERIDONE 0.5 MG TABLET PO SCH (20:23)
--- NOTE | 2016-07-13 21:15 | NUR ---
IN BED / Determined to feed animals Pt in room in bed at this time but awake with eyes opened. Pt in no acute distress. Took meds whole one at time without difficulty. For the evening, Pt in day room and Pt talked about "needing to go home to feed my animals," attempted to reorient to situation but Pt not responding to orientation. Asked PT about her animals and what they were and how many, Pt calmer and able to be distracted while talking about that and also able to move on to the topic of "vacations." Pt more likely to move and get up regulate when the staff talking to her moved to different area or had to go get something. Pt agreeable after talking about her animals being fed by her and is now in bedroom with eyes open, bed alarm on. Will continue to monitor.
[2016-07-13 21:21] VITALS: BP 133/49; PULSE 59; RESP 20; TEMP 98; O2SAT 98
--- NOTE | 2016-07-13 23:26 | NUR ---
Bed/ ROOM changed to 196 Registration called and notified of Pt moved from room 192 to 196. Pt moved due to another Pt beside her being loud and disruptive when Ginger about to fall asleep. Pt has been sitting up on side of the bed and then laying down, and about the time Pt is asleep she is disturbed. Pt doesn't want her room door shut. Pt belongings including her turquoise ring moved to room 196 with her. Pt now laying in bed, with bed alarm on. Call light in reach. Will continue to monitor.
--- NOTE | 2016-07-13 23:45 | NUR ---
still awake Pt did lay down for about 30 minutes but now sitting on side of the bed and yell at this RN when I went to check on a Pt across the zavala, states, "Hey you! Get out of there." Pt able to be de regulated from her statement and Pt didn't want to lay down. Pt is still sitting on side of bed with bed alarm on. Will continue to monitor.
--- NOTE | 2016-07-14 01:13 | NUR ---
Awake Pt slept so far a total of .75 hours. Pt continues to sit up in bed and not lay down to sleep. When Pt awake this time, Pt asked POUNCING MACHINE OPERATOR, "Will you lock my garage, I mean my house?" Reassurance provided and Pt calm and took off shoes. Pt also awake earlier when another Pt down the zavala, after PT had moved, was screaming and PT stated, "Tell her that the boss says to go to bed." Pt has hacked up some of the night, but not as constant as before. Will continue to monitor. Call light in reach. Bed locked and low. Bed alarm on.
--- NOTE | 2016-07-14 03:32 | NUR ---
Chart Check 24 hour chart check completed
--- NOTE | 2016-07-14 05:52 | NUR ---
Shift Summary Pt is A/O to self. Pt confused and thinking that her room is her house at times. Pt awaken and not able to fall asleep very early. Pt given music with radio on and fell asleep at 0030 and then back up at 0130, and back to sleep at 0215. Pt has been sleeping solid since 214 until now. Music helpful in keeping Pt laying down and eventually falling asleep. Pt did have hacking and spitting up some of the night. Pt did void 3 times throughout the night. Pt didn't have any exit seeking behavior, and ambulated a few times this evening when wanting to "go feed my animal". Pt did get aggressive once at 2044 when she was trying to come out of the room and stated, "This isn't my room!", RECEIVING LEAD encouraged to go back to bed and Pt turned around and RECEIVING LEAD had hand on her back to steady PT and PT raised up elbow to get RECEIVING LEAD's hand off of the PT. Pt stated, "Don't touch me". Allowed some space and Pt back sitting on bed at that moment. PT took meds whole without difficulty. Will continue to monitor. Call light in reach. Bed locked and low. Bed alarm on.
--- NOTE | 2016-07-14 07:30 | NUR ---
Pt Assessment and Sleep Time Pt asleep at 0030 but reports did not sleep well due to yelling of other patient. Pt is cooperative with cares but fatigued and requires prompting. Oriented only to person, not time, date or place. Pt provided orientation to room location as she was moved to new room during the night.
[2016-07-14 08:00] VITALS: RESP 16
[2016-07-14] MEDS: POTASSIUM CL. 10mEq CAP PO SCH (08:05)
[2016-07-14] MEDS: FUROSEMIDE 80 MG TABLET PO SCH (08:06)
[2016-07-14] MEDS: [UNRECOGNIZED DRUG - OTHER] PO SCH (08:06)
[2016-07-14] MEDS: CALCIUM PO SCH (08:06)
[2016-07-14] MEDS: LISINOPRIL 10 MG TABLET PO SCH (08:06)
[2016-07-14] MEDS: MULTIVITAMIN PLAIN TABLET PO SCH (08:06)
[2016-07-14 08:07] VITALS: BP 132/51; PULSE 60; RESP 16; TEMP 97.6; O2SAT 94
[2016-07-14] MEDS: ACETAMINOPHEN SR 650 MG TABLET PO SCH ×3 (08:07→22:41)
[2016-07-14] MEDS: OMEGA-3 ACID ESTERS 1 G CAPSULE PO SCH ×2 (08:08→19:52)
[2016-07-14] MEDS: DIVALPROEX 125 MG TABLET PO SCH ×2 (08:08→19:52)
[2016-07-14] MEDS: AZELASTINE 0.1% NAS SCH ×2 (08:09→21:00)
[2016-07-14] MEDS: DOCUSATE SODIUM 100 MG CAPSULE PO SCH ×2 (08:09→19:51)
[2016-07-14] MEDS: SALINE NASAL SPRAY 45ml NAS SCH ×2 (08:21→21:00)
--- NOTE | 2016-07-14 11:24 | GENPN ---
[facility] Subjective Date DATE: 07/14/16 TIME: 11:21 Subjective/Severity of Illness Medications Current Medications Medications (Trade) Dose Ordered Sig/Nelly Start Time Stop Time Status Last Admin Dose Admin Miscellaneous Medication (May use PRN orders) 13 PRN PRN 07/04/16 15:45 Haloperidol (Haldol) 0.5 mg Q6H PRN 07/04/16 15:45 07/04/16 18:19 DC Lorazepam (Ativan) 0.5 mg Q6H PRN 07/04/16 15:45 07/10/16 17:23 0.5 MG Lorazepam (Ativan) 0.5 mg Q6H PRN 07/04/16 15:45 Haloperidol Lactate (Haldol 5 Mg/ml Inj) 0.5 mg Q6H PRN 07/04/16 15:45 07/04/16 18:19 DC Acetaminophen (Tylenol Extra Strength) 1,000 mg Q6H PRN 07/04/16 18:15 07/11/16 20:00 1,000 MG Acetaminophen (Tylenol Arthritis) 650 mg TID 07/04/16 21:00 07/14/16 08:07 650 MG Azelastine HCl (Astelin) 2 spray BID 07/04/16 21:00 07/14/16 08:09 2 SPRAY Bisacodyl (Dulcolax) 10 mg BID PRN 07/04/16 18:15 Buspirone HCl (Buspar) 15 mg BID 07/04/16 21:00 07/14/16 08:05 15 MG Docusate Sodium (Colace) 100 mg BID 07/04/16 21:00 07/14/16 08:09 100 MG Furosemide (Lasix) 80 mg DAILY 07/05/16 09:00 07/14/16 08:06 80 MG Lisinopril (Prinivil) 10 mg DAILY 07/05/16 09:00 07/14/16 08:06 10 MG Lorazepam (Ativan) 0.5 mg TID PRN 07/04/16 18:15 Magnesium Hydroxide (Mom) 30 ml DAILY PRN 07/04/16 18:15 Metoprolol Tartrate (Lopressor) 25 mg BIDWM 07/05/16 08:00 07/05/16 08:18 DC Montelukast Sodium (SINGULAIR 10 mg) 10 mg DAILY 07/05/16 09:00 07/07/16 15:07 DC 07/07/16 08:52 10 MG Polyethylene Glycol (Miralax) 17 g DAILY PRN 07/04/16 18:15 Potassium Chloride (Micro-K) 10 meq BIDWM 07/05/16 08:00 07/07/16 15:07 DC 07/07/16 08:52 10 MEQ Rivaroxaban (Xarelto) 20 mg DAILY 07/05/16 09:00 07/06/16 10:06 DC 07/06/16 08:25 20 MG Sodium Chloride (DEEP SEA Nasal Bazine) 2 spray BID 07/04/16 21:00 07/13/16 09:43 2 SPRAY Atorvastatin Calcium (LIPITOR 40 mg) 80 mg HS 07/04/16 21:00 07/13/16 20:23 80 MG Calcium/Vitamin D (Oyst-Isai-D) 1 tab DAILY 07/05/16 09:00 07/14/16 08:06 1 TAB Levetiracetam (Keppra) 750 mg BID 07/04/16 21:00 07/07/16 15:07 DC 07/07/16 08:52 750 MG Al Hydroxide/Mg Hydroxide (Maalox Plus Xs) 30 ml Q4H PRN 07/04/16 18:15 Multivitamins Therapeutic (Theragran) 1 tab DAILY 07/05/16 09:00 07/14/16 08:06 1 TAB Getuu-1-Zvob Ethyl Esters (Lovaza) 1 g BID 07/04/16 21:00 07/14/16 08:08 1 G Lorazepam (Ativan Intensol) 1 mg Q6HR PRN 07/05/16 00:45 07/05/16 06:31 DC 07/05/16 00:49 1 MG Metoprolol Tartrate (Lopressor) 12.5 mg BIDWM 07/05/16 17:30 07/14/16 08:03 12.5 MG Rivaroxaban (Xarelto) 20 mg WS 07/07/16 17:30 07/07/16 17:30 DC Rivaroxaban (Xarelto) 15 mg WS 07/07/16 17:30 07/13/16 17:23 15 MG Levetiracetam (Keppra) 500 mg BID 07/07/16 21:00 07/09/16 16:33 DC 07/09/16 08:48 500 MG Potassium Chloride (Micro-K) 10 meq WB 07/08/16 08:00 07/14/16 08:05 10 MEQ Risperidone (Risperdal) 0.5 mg HS 07/07/16 21:00 07/13/16 20:23 0.5 MG Levetiracetam (Keppra) 500 mg DAILY 07/10/16 09:00 07/10/16 15:56 DC 07/10/16 09:25 500 MG Divalproex Sodium (Depakote) 125 mg BID 07/10/16 21:00 07/14/16 08:08 125 MG Subjective Pt seen and chart examined. Nursing reports sleeping well and has a good appetite. Pt has been pleasant but confused. Only oriented to self self but no behaviors noted.On face to face the pt states she is doing well. She is focused on going home. Tolerating meds. Denies any psychotic type symptoms. Time of Service: 11:00 Start Time: 11:00 Stop Time: 11:15 Care >50% of this visit spent in counseling/coordination care. [facility] Exam Vitals Vital Signs Date Time Temp Pulse Resp B/P Pulse Ox O2 Delivery O2 Flow Rate FiO2 07/14/16 08:07 97.6 60 16 132/51 94 Room Air Physical examination performed by the hospitalist. Height (Feet): 5 Height (Inches): 5.00 Mental Status Exam Muscle Strength/Tone: Normal Dressing: Casual Grooming: Good Attitude: Guarded Motor Activity: Normal Eye Contact: Good Speech: Normal Volume: Normal Rhythm: Appropriate Rhythm Sensory: Alert Orientation: Oriented to person Mood: Neutral Affect: Congruent Rate of Thoughts: Delayed Thought Organization: [place] Abstract Reasoning: Poor abstract reasoning Thought Content: Normal Perception/Psychotic: Hx psychosis,not current Attention Span/Concentration: Short Span Fund of Knowledge: Poor fund of knowledge Memory: Poor-immediate, Poor-recent Suicidal Ideation: None Homicidal Ideation: None Insight: Poor Judgment: Poor Impulse Control: Fair Assessment and Plan (1) Psychosis Assessment: 07/04/16: Hold Zyprexa and PRN antipsychotics due to prolonged QTc. Check Mg level to see if replacement may help normalize QTc 07/05/16: Continuing to hold medications, Mg high. Will recheck EKG today. 07/07/16: Fashion Supervisor reports QTc prolongation due to pacing and states it is okay to proceed with medication changes. Daughter reports patient has no known seizure history and Keppra was used for seizure prophylaxis only. Discussed medication changes and risks/benefits with daughter/DPOA, who is in agreement with switching from Keppra to Depakote and restarting an antipsychotic. Patient was previously taking Zyprexa without significant benefit, so will start Risperdal 0.5mg PO q HS tonight as it has less tendency to prolong QTc. 07/08/16: Start Depakote 250mg PO BID per plan to switch from Keppra to Depakote. Daughter/DPOA in agreement with plan. 07/09/16: Cont current treatment 07/10/16: Discontinue Keppa 500mg BID and start Depakote 125mg BID. 07/11/16: Cont current medication and monitor patient for psychotic symptoms. 07/12/16: Cont current treatment 07/13/16 Continue current care 07/14/16 Continue current care (2) Major neurocognitive disorder, due to multiple etiologies, with behavioral disturbance, moderate Assessment: Vascular component suspected, hx of stroke and seizures as well Cont. current psych. meds SARI ARAGON MD July 14, 2016 11:23
--- NOTE | 2016-07-14 11:30 | NUR ---
Pt status Pt reports too tired to eat but did get up and at small amts. Continued disoriented to room location and needs prompting.
[2016-07-14 16:43] VITALS: BP 136/55; PULSE 60; RESP 16; TEMP 97.6; O2SAT 93
[2016-07-14] MEDS: RIVAROXABAN 15 MG TABLET PO SCH (17:11)
--- NOTE | 2016-07-14 18:00 | NUR ---
Shift summary and Sleep Time Pt had .75 hr of sleep since awake at 0715. Pt fatigued but interacts appropriately with others and takes pills without problems.
[2016-07-14 19:45] VITALS: BP 151/62; PULSE 62; RESP 16; TEMP 97.9; O2SAT 94
[2016-07-14] MEDS: ATORVASTATIN 40 MG TABLET PO SCH (19:52)
[2016-07-14] MEDS: RISPERIDONE 0.5 MG TABLET PO SCH (19:53)
--- NOTE | 2016-07-15 00:59 | NUR ---
Status Assumed patient care at 191 and assessment completed at 1944. Patient sitting at the side of her bed at time of assessment. She is DOMO to person only and is in a pleasant/cooperative mood; affect is flat. Follows simple commands appropriately. VS are stable. She ambulates with FWW and stand-by assist (needs x1 assist to change from a sitting to standing position). Denies any pain/discomfort. Ambulates to dayroom soon after assessment; affect remains flat although she initiates brief conversation with both staff and other patients (asking a patient sitting next to her in the dayroom, "Are you okay?" when she heard her cough/clear her throat). Readily compliant with medications (politely refuses nasal spray stating that, "I don't think that I need it."). Requests a snack late this evening with scheduled Tylenol (previous dose given late and patient requested that this dose be give late, as well). No hallucinations are noted or reported. No delusional/paranoid statements or behaviors are noted. No aggressive or exit-seeking behaviors are noted.
--- NOTE | 2016-07-15 02:30 | NUR ---
Bedtime Patient was in bed at 2044 and asleep by 2199 although she sleeps for only a brief time - she is then awake until falling asleep again at 2330. She slept 0.75 hour on day shift. Sleeping quietly at the current time. Bed alarm is on and side rails are up x2.
--- NOTE | 2016-07-15 02:33 | NUR ---
Chart Check 24 hour chart check completed
--- NOTE | 2016-07-15 06:16 | NUR ---
Summary Patient is DOMO to person only this shift. Flat affect; engages in brief conversation with staff and other patients. Accepting/appreciative of staff assistance when needed; patient needs cueing to complete activities and with direction. Readily compliant with medications (except nasal spray which she claims is no longer necessary). No evidence of delusions, hallucinations, or paranoia is noted. She does not exhibit any exit-seeking or aggressive behaviors; demeanor is calm/relaxed. Sets off bed alarm several times during the night; sometimes in getting up to toilet and other times to sit at the edge of her bed. She remains pleasant and redirects easily.
[2016-07-15] MEDS: ACETAMINOPHEN SR 650 MG TABLET PO SCH ×3 (07:41→20:25)
[2016-07-15] MEDS: DIVALPROEX 125 MG TABLET PO SCH ×2 (07:41→20:23)
[2016-07-15] MEDS: [UNRECOGNIZED DRUG - OTHER] PO SCH (07:42)
[2016-07-15] MEDS: CALCIUM PO SCH (07:42)
[2016-07-15] MEDS: POTASSIUM CL. 10mEq CAP PO SCH (07:43)
[2016-07-15] MEDS: DOCUSATE SODIUM 100 MG CAPSULE PO SCH ×2 (07:43→20:23)
[2016-07-15] MEDS: FUROSEMIDE 80 MG TABLET PO SCH (07:44)
[2016-07-15] MEDS: LISINOPRIL 10 MG TABLET PO SCH (07:44)
[2016-07-15] MEDS: SALINE NASAL SPRAY 45ml NAS SCH ×2 (07:46→20:26)
[2016-07-15] MEDS: AZELASTINE 0.1% NAS SCH ×2 (07:46→20:26)
[2016-07-15] MEDS: MULTIVITAMIN PLAIN TABLET PO SCH (07:47)
[2016-07-15] MEDS: OMEGA-3 ACID ESTERS 1 G CAPSULE PO SCH ×2 (07:47→20:23)
[2016-07-15 08:00] VITALS: BP 158/77; PULSE 75; RESP 16; TEMP 97.4; O2SAT 97
--- NOTE | 2016-07-15 09:16 | PNPDOC ---
Subjective Date DATE: 07/15/16 TIME: 09:11 Subjective Ginger was seen at the breakfast table. She had no complaints. She denied any chest pain or shortness of breath, no abdominal pain or GI complaints. She has been alert and oriented 1 with a flat affect. She has been complaint with cares. Objective Vital Signs Vital signs Vital Signs Date Time Temp Pulse Resp B/P Pulse Ox O2 Delivery O2 Flow Rate FiO2 07/14/16 19:45 97.9 62 16 151/62 94 Room Air Height (Feet): 5 Height (Inches): 5.00 Weight (Kilograms): 67.700 General General Appearance: Alert, Orientated x 1, Well Nourished, Well Developed, No Acute Distress Eyes (Brief) Eyes: FOUND: PERRL, NOT FOUND: scleral icterus ENMT (Brief) ENMT: FOUND: mucosa moist, NOT FOUND: pharnyx erythema Respiratory (Brief) Respiratory: FOUND: clear all lopez, equal bilaterally Cardiovascular (Brief) Cardiac: FOUND: regular rate, regular rhythm Abdomen (Brief) Abdominal: FOUND: BS normo active x4, soft, NOT FOUND: distended Extremities (Brief) Extremity : Extremity: leg Extremity Finding: NOT FOUND: edema Musculoskeletal (Brief) Musculoskeletal: FOUND: extremities move equally Integumentary (Brief) Integumentary: FOUND: dry, pink, warm Psychiatric (Brief) Psychiatric: FOUND: alert, oriented (to self) Assessment & Plan Problems: (1) Major neurocognitive disorder, due to multiple etiologies, with behavioral disturbance, moderate (2) Dementia with behavioral disturbance Status: Acute Qualifiers: Dementia type: unspecified type Qualified Codes: F03.91 - Unspecified dementia with behavioral disturbance (3) Aortic stenosis Status: Chronic (4) Atrial fibrillation Status: Chronic (5) Presence of cardiac pacemaker Status: Chronic (6) Diastolic heart failure Status: Chronic (7) History of CVA (cerebrovascular accident) (8) Pulmonary HTN Status: Chronic (9) Low TSH level Plan/Intensity of Service Patient is medically stable and well managed on current pharmacologic regimen, despite multiple chronic conditions. Will repeat BMP tomorrow morning to follow-up on hypernatremia noted on admission. She is also on high doses of diuretics. Vitamin B12 was in the low normal range at 315. Will start oral replacement. Psychiatric progress notes reviewed. DVT Prophylaxis: Xarelto Code Status Do Not Resuscitate Hospital Course Summary Disclaimer The hospital course summary below is not to be considered part of the above Progress Note. Hospital Course Summary Agree with admission to [facility] for further psychiatric evaluation and treatment. Patient does have significant cardiac history. Current med list is reviewed. Continue with lisinopril, metoprolol for blood pressure control. Agree with continuing Lasix 80 milligrams daily for ongoing diuresis given chronic heart failure. Monitor for evidence of dehydration. Given hypernatremia, would recommend encouraging oral intake. Patient takes Xarelto for chronic anticoagulation Continue Keppra twice a day with known seizure history. Scheduled Colace and MiraLAX for ongoing bowel motivation The hospitalist services will continue to follow patient medically manage her existing comorbidities during her stay in the [facility]. At time of discharge medical care will return to her primary care provider. Dr. Srikanth Zamora in [place] 07/05/16 EKG was reviewed. Atrially paced rhythm, prolonged QTc at 535 ms. This was discussed with Dr. Urbano. She has holding antipsychotics at this time. She plans on rechecking EKG in a couple of days. Potassium is normal, and magnesium was elevated at 2.4. Pharmacy also reviewed medications, and other than antipsychotics, none other were associated with prolonged QT. Heart rate has been bradycardic or borderline bradycardic. This morning's dose of Lopressor was held, and hold parameters were put in place to hold if heart rate is less than 60. Her systolic blood pressure is less than 110 mmHg. The dose was decreased to 12.5 mg twice a day. Labs are reviewed. Her TSH was 0.02. Will check free T4 and free T3. Mild hypernatremia noted. Monitor closely, patient does take 80 mg of Lasix daily. Mild normocytic anemia with a hemoglobin of 11.6. Vitamin B12 and folate have been ordered and are pending. 07/07/16- Pt. remains irritable at times. Continue supportive care, med mgmt per attending. Stop singulair- can cause behaviors/psychosis. (Don't see hx of pulmonary issues ). No history of seizures per family reports- may want to confirm with PCP during the week. Will decrease Keppra to 500mg PO BID. Keppra can cause irritable behavior as well. If she needs sz. px., consider change to Depakote. No evidence of QT changes- EKG changes due to PPM per Dr. Segundo. Ok for antipsychotics. Recheck TSH, T3,T4 is pending. If she is truly hyperthyroid, consider further evaluation as thyroid toxicosis can cause mental health concerns and acute psychosis. Will repeat labs in AM. 07/09/16 Discussed low TSH level and normal T4 value with Dr. Florez. If free T3 is normal, he recommends simply observing the patient and rechecking TSH in about 6 months. It is not uncommon to see frequent fluctuations and TSH in older adults. Recommend follow-up with primary care provider to discuss ongoing need for seizure prophylaxis. Potassium level is stable at 4.2. Dose was reduced yesterday. Psychiatric progress notes were reviewed. Daughter reported no known seizure history, and Keppra was discontinued. Depakote was initiated. Risperdal has been started. 07/13/16 Low TSH level discussed with teacher aide on admission. He recommends outpatient follow-up and ask months. Blood Pressure is well-controlled on Lopressor and lisinopril. Encourage patient to participate in unit activities, and provide a safe environment. 07/15/16 Patient is medically stable and well managed on current pharmacologic regimen, despite multiple chronic conditions. Will repeat BMP tomorrow morning to follow-up on hypernatremia noted on admission. She is also on high doses of diuretics. Vitamin B12 was in the low normal range at 315. Will start oral replacement. Psychiatric progress notes reviewed. ALISSA ALMANZA APRN July 15, 2016 09:15
--- NOTE | 2016-07-15 12:37 | GENPN ---
[facility] Subjective Date DATE: 07/15/16 TIME: 12:35 Subjective/Severity of Illness Medications Current Medications Medications (Trade) Dose Ordered Sig/Nelly Start Time Stop Time Status Last Admin Dose Admin Miscellaneous Medication (May use PRN orders) 13 PRN PRN 07/04/16 15:45 Haloperidol (Haldol) 0.5 mg Q6H PRN 07/04/16 15:45 07/04/16 18:19 DC Lorazepam (Ativan) 0.5 mg Q6H PRN 07/04/16 15:45 07/10/16 17:23 0.5 MG Lorazepam (Ativan) 0.5 mg Q6H PRN 07/04/16 15:45 Haloperidol Lactate (Haldol 5 Mg/ml Inj) 0.5 mg Q6H PRN 07/04/16 15:45 07/04/16 18:19 DC Acetaminophen (Tylenol Extra Strength) 1,000 mg Q6H PRN 07/04/16 18:15 07/11/16 20:00 1,000 MG Acetaminophen (Tylenol Arthritis) 650 mg TID 07/04/16 21:00 07/15/16 07:41 650 MG Azelastine HCl (Astelin) 2 spray BID 07/04/16 21:00 07/15/16 07:46 2 SPRAY Bisacodyl (Dulcolax) 10 mg BID PRN 07/04/16 18:15 Buspirone HCl (Buspar) 15 mg BID 07/04/16 21:00 07/15/16 07:40 15 MG Docusate Sodium (Colace) 100 mg BID 07/04/16 21:00 07/15/16 07:43 100 MG Furosemide (Lasix) 80 mg DAILY 07/05/16 09:00 07/15/16 07:44 80 MG Lisinopril (Prinivil) 10 mg DAILY 07/05/16 09:00 07/15/16 07:44 10 MG Lorazepam (Ativan) 0.5 mg TID PRN 07/04/16 18:15 Magnesium Hydroxide (Mom) 30 ml DAILY PRN 07/04/16 18:15 Metoprolol Tartrate (Lopressor) 25 mg BIDWM 07/05/16 08:00 07/05/16 08:18 DC Montelukast Sodium (SINGULAIR 10 mg) 10 mg DAILY 07/05/16 09:00 07/07/16 15:07 DC 07/07/16 08:52 10 MG Polyethylene Glycol (Miralax) 17 g DAILY PRN 07/04/16 18:15 Potassium Chloride (Micro-K) 10 meq BIDWM 07/05/16 08:00 07/07/16 15:07 DC 07/07/16 08:52 10 MEQ Rivaroxaban (Xarelto) 20 mg DAILY 07/05/16 09:00 07/06/16 10:06 DC 07/06/16 08:25 20 MG Sodium Chloride (DEEP SEA Nasal [place]) 2 spray BID 07/04/16 21:00 07/15/16 07:46 2 SPRAY Atorvastatin Calcium (LIPITOR 40 mg) 80 mg HS 07/04/16 21:00 07/14/16 19:52 80 MG Calcium/Vitamin D (Oyst-Isai-D) 1 tab DAILY 07/05/16 09:00 07/15/16 07:42 1 TAB Levetiracetam (Keppra) 750 mg BID 07/04/16 21:00 07/07/16 15:07 DC 07/07/16 08:52 750 MG Al Hydroxide/Mg Hydroxide (Maalox Plus Xs) 30 ml Q4H PRN 07/04/16 18:15 Multivitamins Therapeutic (Theragran) 1 tab DAILY 07/05/16 09:00 07/15/16 07:47 1 TAB Zyhhv-[id number] Ethyl Esters (Lovaza) 1 g BID 07/04/16 21:00 07/15/16 07:47 1 G Lorazepam (Ativan Intensol) 1 mg Q6HR PRN 07/05/16 00:45 07/05/16 06:31 DC 07/05/16 00:49 1 MG Metoprolol Tartrate (Lopressor) 12.5 mg BIDWM 07/05/16 17:30 07/15/16 07:45 12.5 MG Rivaroxaban (Xarelto) 20 mg WS 07/07/16 17:30 07/07/16 17:30 DC Rivaroxaban (Xarelto) 15 mg WS 07/07/16 17:30 07/14/16 17:11 15 MG Levetiracetam (Keppra) 500 mg BID 07/07/16 21:00 07/09/16 16:33 DC 07/09/16 08:48 500 MG Potassium Chloride (Micro-K) 10 meq WB 07/08/16 08:00 07/15/16 07:43 10 MEQ Risperidone (Risperdal) 0.5 mg HS 07/07/16 21:00 07/14/16 19:53 0.5 MG Levetiracetam (Keppra) 500 mg DAILY 07/10/16 09:00 07/10/16 15:56 DC 07/10/16 09:25 500 MG Divalproex Sodium (Depakote) 125 mg BID 07/10/16 21:00 07/15/16 07:41 125 MG Cyanocobalamin (Vit. B-12) 1,000 mcg DAILY 07/16/16 09:00 Subjective Pt seen and chart examined. Nursing reports pt has been a little more sleepy today and slightly more confused. Nursing reports pt is sleeping well and has a good appetite. On face to face the pt is pleasant but confused. She is only oriented to self. She states she does feel more sleepy but does not feel ill. She denies any pain. Tolerating meds. Voices no other concerns at this time. Time of Service: 11:00 Start Time: 11:00 Stop Time: 11:15 Care >50% of this visit spent in counseling/coordination care. [facility] Exam Vitals Vital Signs Date Time Temp Pulse Resp B/P Pulse Ox O2 Delivery O2 Flow Rate FiO2 07/15/16 08:00 16 07/15/16 08:00 97.4 75 158/77 97 Room Air Physical examination performed by the hospitalist. Height (Feet): 5 Height (Inches): 5.00 Mental Status Exam Muscle Strength/Tone: Normal Dressing: Casual Grooming: Good Attitude: Cooperative Motor Activity: Retardation Eye Contact: Fair Speech: Slowed Volume: Soft Rhythm: Appropriate Rhythm Sensory: Alert Orientation: Oriented to person Mood: Neutral Affect: Congruent Rate of Thoughts: Delayed Thought Organization: [place] Associations: Intact Abstract Reasoning: Impaired, concrete Thought Content: Normal Perception/Psychotic: Hx psychosis,not current Attention Span/Concentration: Short Span Fund of Knowledge: Poor fund of knowledge Memory: Poor-immediate, Poor-recent Suicidal Ideation: None Homicidal Ideation: None Insight: Poor Judgment: Poor Impulse Control: Fair Assessment and Plan (1) Psychosis Assessment: 07/04/16: Hold Zyprexa and PRN antipsychotics due to prolonged QTc. Check Mg level to see if replacement may help normalize QTc 07/05/16: Continuing to hold medications, Mg high. Will recheck EKG today. 07/07/16: Corn Sheller reports QTc prolongation due to pacing and states it is okay to proceed with medication changes. Daughter reports patient has no known seizure history and Keppra was used for seizure prophylaxis only. Discussed medication changes and risks/benefits with daughter/DPOA, who is in agreement with switching from Keppra to Depakote and restarting an antipsychotic. Patient was previously taking Zyprexa without significant benefit, so will start Risperdal 0.5mg PO q HS tonight as it has less tendency to prolong QTc. 07/08/16: Start Depakote 250mg PO BID per plan to switch from Keppra to Depakote. Daughter/DPOA in agreement with plan. 07/09/16: Cont current treatment 07/10/16: Discontinue Keppa 500mg BID and start Depakote 125mg BID. 07/11/16: Cont current medication and monitor patient for psychotic symptoms. 07/12/16: Cont current treatment 07/13/16 Continue current care 07/14/16 Continue current care 07/15/16 Continue current care (2) Major neurocognitive disorder, due to multiple etiologies, with behavioral disturbance, moderate Assessment: Vascular component suspected, hx of stroke and seizures as well Cont. current psych. meds SARI ARAGON MD July 15, 2016 12:37
[2016-07-15] MEDS: LORAZEPAM 0.5 MG TABLET PO PRN (14:09)
--- NOTE | 2016-07-15 14:19 | NUR ---
Restlessness Pt has been restless for about an hour. Several refocusing techniques were tried. Pt unsure of why she is restless. Pt starting to get agitated by signs of cursing and yelling staff, pushing and pulling away as we were trying to help her stand up. Pt is resting in bed currently as per her request.
[2016-07-15] MEDS: RIVAROXABAN 15 MG TABLET PO SCH (17:01)
--- NOTE | 2016-07-15 17:39 | NUR ---
SHIFT SUMMARY 7A-7P Pt has been agitated and anxious most of day. She was sleepy this am, but remained agitated. She slept from 10 to 1130 then up to restroom then back to bed and up at 0720 this am. She had a shower with hesitance. She napped this afternoon for about an hour. She was up and down out of her chair and bed when in it. She is forgetful and does not remember her walkeer Addendum: 07/15/16 at 2644 by BEATRIZ SHEEHAN RN marietta (elizabeth) when she gets up. She is oriented to herself. No hallucinations noted this shift.
[2016-07-15 19:40] VITALS: PULSE 60; RESP 16
[2016-07-15] MEDS: ATORVASTATIN 40 MG TABLET PO SCH (20:24)
[2016-07-15] MEDS: RISPERIDONE 0.5 MG TABLET PO SCH (20:24)
[2016-07-15 20:35] VITALS: BP 133/50; PULSE 60; RESP 16; TEMP 98; O2SAT 97
--- NOTE | 2016-07-16 01:07 | NUR ---
Status Assumed patient care at 1915 and assessment completed at 2034. Patient is in dayroom recliner at time of assessment; she is DOMO to person only and exhibits a flat affect. She interacts only minimally with staff and other patients although she is pleasant/polite. Cooperative with assessment; follows simple commands appropriately. Ambulates with FWW and steady gait (posture is stooped and she often asks for assistance in rising from a sitting position). She needs cueing for direction and to complete most activities - she responds in a positive manner to staff cues and provided assistance, often saying, "Thank you, dear." VS are stable. Readily compliant with medications. Continent of urine and able to notify staff of needs. No evidence of visual/auditory hallucinations, exit-seeking behaviors, paranoia, or delusions - only confusion/forgetfulness. No aggressive behaviors are noted.
--- NOTE | 2016-07-16 01:29 | NUR ---
Bedtime Patient was in bed by 2100. Alternates between lying down and sitting at the side of the bed for a time, although she does not appear restless or anxious - merely awake (denies pain/discomfort). Snack provided at 2315 per her request and then she falls asleep by 2345. She slept a total of 0.75 hours on day shift.
--- NOTE | 2016-07-16 01:34 | NUR ---
Chart Check 24 hour chart check completed
--- NOTE | 2016-07-16 06:24 | NUR ---
Summary Patient was DOMO to person only this shift. Flat affect; cooperative mood and pleasant with staff. Forgetful and needs cueing to complete activities - she responds in a positive manner when staff redirects/assists. No paranoia, delusions, aggressive or exit-seeking behaviors are noted.
[2016-07-16 09:07] LABS: ANION GAP 10 MEQ/L (5-15); BUN/CREATININE RATIO 32 RATIO (6-26); CALCIUM 8.6 MG/DL (8.4-10.2); CHLORIDE 104 MEQ/L (98-107); CO2 - CARBON DIOXIDE 29 MEQ/L (22-30); CREATININE 0.9 MG/DL (0.7-1.2); GLOMERULAR FILTRATION RATE 60; GLUCOSE 97 MG/DL (65-110); POTASSIUM 4.5 MEQ/L (3.6-5); SODIUM 143 MEQ/L (134-144)
[2016-07-16] MEDS: DOCUSATE SODIUM 100 MG CAPSULE PO SCH ×2 (09:21→20:15)
[2016-07-16] MEDS: POTASSIUM CL. 10mEq CAP PO SCH (09:21)
[2016-07-16] MEDS: ACETAMINOPHEN SR 650 MG TABLET PO SCH ×3 (09:21→20:15)
[2016-07-16] MEDS: OMEGA-3 ACID ESTERS 1 G CAPSULE PO SCH ×2 (09:21→20:16)
[2016-07-16] MEDS: DIVALPROEX 125 MG TABLET PO SCH ×2 (09:21→20:16)
[2016-07-16] MEDS: CALCIUM PO SCH (09:22)
[2016-07-16] MEDS: MULTIVITAMIN PLAIN TABLET PO SCH (09:22)
[2016-07-16] MEDS: CYANOCOBALAMIN (B-12) 500mcg TABLET PO SCH (09:22)
[2016-07-16] MEDS: [UNRECOGNIZED DRUG - OTHER] PO SCH (09:22)
[2016-07-16] MEDS: SALINE NASAL SPRAY 45ml NAS SCH ×2 (09:24→20:16)
[2016-07-16] MEDS: AZELASTINE 0.1% NAS SCH ×2 (09:24→20:16)
[2016-07-16 09:27] VITALS: BP 120/51; PULSE 60; RESP 24; TEMP 98.4; O2SAT 96
[2016-07-16] MEDS: FUROSEMIDE 80 MG TABLET PO SCH (09:29)
[2016-07-16] MEDS: LISINOPRIL 10 MG TABLET PO SCH (09:29)
[2016-07-16 10:33] VITALS: PULSE 60; RESP 16
--- NOTE | 2016-07-16 10:47 | NUR ---
status pt woke this am at 0845. total sleep time is 9.0hrs. pt is cooperative with am cares. compliant with medications. ate 100% of breakfast. has no complaints of pain. has a flat affect but pleasant.
--- NOTE | 2016-07-16 11:21 | NUR ---
MAPLE PRODUCTS MAKER--AM GROUP Pt. was only passively engaged in psychoeducational group facilitated by [facility]. She was sitting at table in dining room area with her head on the table. At one point she stood up and asked to go back to bed. Staff helped redirect her back to staying in the day room. She did not respond to any questions or appear to be listening to the music that was played.
--- NOTE | 2016-07-16 15:19 | NUR ---
RENAL DOSING: Today's SCr = 0.9 mg/dl. Calculated CrCl = 40 ml/min. The patient is currently on Rivaroxaban 15 mg po with evening meal. The pharmacy will continue to review the renal function and adjust the medication accordingly. Thanks, Craig Alvarez RPh.
--- NOTE | 2016-07-16 15:55 | NUR ---
SENIOR STRATEGY ANALYST--PM GROUP Pt. was present and actively engaged in group led by [facility]. Topic was on importance of having fun and laughing as a way to lift spirits. Played with [employer] ball. Pt. was only Ox1. She has dysthymic mood and affect. She seemed to enjoy hitting the ball back and forth and remained engaged through entire activity.
[2016-07-16 16:00] VITALS: BP 140/59; PULSE 65; RESP 20; TEMP 98.2; O2SAT 97
[2016-07-16] MEDS: RIVAROXABAN 15 MG TABLET PO SCH (17:00)
--- NOTE | 2016-07-16 18:12 | NUR ---
summary pt has not slept since waking this am. is compliant with medication. pt has not shown any paranoia or anxiousness this shift. is pleasant and cooperative with cares. no exit seeking behavior noted. pt does walk up and down [place] for exercise.
[2016-07-16 19:40] VITALS: BP 123/53; PULSE 60; RESP 16; TEMP 97.5; O2SAT 96
[2016-07-16 20:00] VITALS: PULSE 60; RESP 18
[2016-07-16] MEDS: ATORVASTATIN 40 MG TABLET PO SCH (20:16)
[2016-07-16] MEDS: RISPERIDONE 0.5 MG TABLET PO SCH (20:16)
--- NOTE | 2016-07-16 23:45 | NUR ---
Pt status Pt went to bed at 21:30, pt up and down in room, pt went to sleep at 23:45 with 2 bed rails up and bed alarm on.
--- NOTE | 2016-07-17 00:27 | NUR ---
Chart Check 24 hour chart check completed
[2016-07-17] MEDS: LORAZEPAM 0.5 MG TABLET PO PRN (01:34)
[2016-07-17] MEDS: ACETAMINOPHEN 500 MG TABLET PO PRN (01:34)
--- NOTE | 2016-07-17 01:34 | NUR ---
prn given Pt awake, unable to sleep, pt is tearful states to staff "I can't believe my is gone" pt reassured, pt requested music be played pt cd player turned on and piano music cd playing. Pt anxious up and down sitting on the side of the bed, pt assisted to bathroom, pt still restless, up and down, pt requested coffee, pt agreed to drink apple juice. Pt became anxious with other patient behavior, pt reassured, pt okay with taking Tylenol and Ativan 0.5mg po given. Pt remains sitting on the side of her bed listen to music, pt bed alarm on, pt checked frequently, will monitor pt.
--- NOTE | 2016-07-17 02:19 | NUR ---
prn update Pt is sleeping in bed with cd playing piano music, pt is in bed with 2 bed rails up and bed alarm on.
--- NOTE | 2016-07-17 06:22 | NUR ---
shift summary Pt is alert and oriented x2 to person and time, pt in dayroom at the start of shift, pt cooperative with meds, vitals, and assessment. Pt took all medications one at a time, pt has a hacking non productive cough. Pt went to bed at 21:30, pt went to sleep at 23:45, pt back up at 00:30, pt up and down anxious and tearful states she can't believe her is gone. Pt talked with staff had a snack of apple juice, assisted to bathroom and listened to a music cd. Pt having no hallucination, pt confused at why the bed alarm was going off and apologized for it. Pt given Tylenol and Ativan at 01:34 to help patient sleep. Pt has been sleeping since 02:00 with 2 bed rails up and bed alarm on.
[2016-07-17 08:00] VITALS: BP 133/54; PULSE 60; RESP 16; RESP 22; TEMP 97.6; O2SAT 96
[2016-07-17] MEDS: [UNRECOGNIZED DRUG - OTHER] PO SCH (08:29)
[2016-07-17] MEDS: OMEGA-3 ACID ESTERS 1 G CAPSULE PO SCH ×2 (08:29→19:29)
[2016-07-17] MEDS: FUROSEMIDE 80 MG TABLET PO SCH (08:29)
[2016-07-17] MEDS: CALCIUM PO SCH (08:29)
[2016-07-17] MEDS: CYANOCOBALAMIN (B-12) 500mcg TABLET PO SCH (08:31)
[2016-07-17] MEDS: DIVALPROEX 125 MG TABLET PO SCH ×2 (08:32→19:29)
[2016-07-17] MEDS: LISINOPRIL 10 MG TABLET PO SCH (08:32)
[2016-07-17] MEDS: ACETAMINOPHEN SR 650 MG TABLET PO SCH ×3 (08:32→19:30)
[2016-07-17] MEDS: POTASSIUM CL. 10mEq CAP PO SCH (08:32)
[2016-07-17] MEDS: MULTIVITAMIN PLAIN TABLET PO SCH (08:33)
[2016-07-17] MEDS: DOCUSATE SODIUM 100 MG CAPSULE PO SCH ×2 (08:33→19:29)
[2016-07-17] MEDS: AZELASTINE 0.1% NAS SCH ×2 (08:34→19:31)
[2016-07-17] MEDS: SALINE NASAL SPRAY 45ml NAS SCH ×2 (08:35→19:31)
--- NOTE | 2016-07-17 10:00 | NUR ---
sleep note patient went to sleep t 0200 and woke up at 0730 this morning. Slept a total of 5 :30 hr las night
[2016-07-17 16:56] VITALS: BP 124/54; PULSE 60; RESP 16; TEMP 98.2; O2SAT 98
--- NOTE | 2016-07-17 17:00 | GENPN ---
[facility] Subjective Date DATE: 07/16/16 TIME: 18:34 Subjective/Severity of Illness Medications Current Medications Medications (Trade) Dose Ordered Sig/Nelly Start Time Stop Time Status Last Admin Dose Admin Miscellaneous Medication (May use PRN orders) 13 PRN PRN 07/04/16 15:45 Haloperidol (Haldol) 0.5 mg Q6H PRN 07/04/16 15:45 07/04/16 18:19 DC Lorazepam (Ativan) 0.5 mg Q6H PRN 07/04/16 15:45 07/15/16 14:09 0.5 MG Lorazepam (Ativan) 0.5 mg Q6H PRN 07/04/16 15:45 Haloperidol Lactate (Haldol 5 Mg/ml Inj) 0.5 mg Q6H PRN 07/04/16 15:45 07/04/16 18:19 DC Acetaminophen (Tylenol Extra Strength) 1,000 mg Q6H PRN 07/04/16 18:15 07/11/16 20:00 1,000 MG Acetaminophen (Tylenol Arthritis) 650 mg TID 07/04/16 21:00 07/16/16 15:00 650 MG Azelastine HCl (Astelin) 2 spray BID 07/04/16 21:00 07/16/16 09:24 2 SPRAY Bisacodyl (Dulcolax) 10 mg BID PRN 07/04/16 18:15 Buspirone HCl (Buspar) 15 mg BID 07/04/16 21:00 07/16/16 09:22 15 MG Docusate Sodium (Colace) 100 mg BID 07/04/16 21:00 07/16/16 09:21 100 MG Furosemide (Lasix) 80 mg DAILY 07/05/16 09:00 07/16/16 09:29 80 MG Lisinopril (Prinivil) 10 mg DAILY 07/05/16 09:00 07/16/16 09:29 10 MG Lorazepam (Ativan) 0.5 mg TID PRN 07/04/16 18:15 Magnesium Hydroxide (Mom) 30 ml DAILY PRN 07/04/16 18:15 Metoprolol Tartrate (Lopressor) 25 mg BIDWM 07/05/16 08:00 07/05/16 08:18 DC Montelukast Sodium (SINGULAIR 10 mg) 10 mg DAILY 07/05/16 09:00 07/07/16 15:07 DC 07/07/16 08:52 10 MG Polyethylene Glycol (Miralax) 17 g DAILY PRN 07/04/16 18:15 Potassium Chloride (Micro-K) 10 meq BIDWM 07/05/16 08:00 07/07/16 15:07 DC 07/07/16 08:52 10 MEQ Rivaroxaban (Xarelto) 20 mg DAILY 07/05/16 09:00 07/06/16 10:06 DC 07/06/16 08:25 20 MG Sodium Chloride (DEEP SEA Nasal [place]) 2 spray BID 07/04/16 21:00 07/16/16 09:24 2 SPRAY Atorvastatin Calcium (LIPITOR 40 mg) 80 mg HS 07/04/16 21:00 07/15/16 20:24 80 MG Calcium/Vitamin D (Oyst-Isai-D) 1 tab DAILY 07/05/16 09:00 07/16/16 09:22 1 TAB Levetiracetam (Keppra) 750 mg BID 07/04/16 21:00 07/07/16 15:07 DC 07/07/16 08:52 750 MG Al Hydroxide/Mg Hydroxide (Maalox Plus Xs) 30 ml Q4H PRN 07/04/16 18:15 Multivitamins Therapeutic (Theragran) 1 tab DAILY 07/05/16 09:00 07/16/16 09:22 1 TAB [place]-2-[place] Ethyl Esters (Lovaza) 1 g BID 07/04/16 21:00 07/16/16 09:21 1 G Lorazepam (Ativan Intensol) 1 mg Q6HR PRN 07/05/16 00:45 07/05/16 06:31 DC 07/05/16 00:49 1 MG Metoprolol Tartrate (Lopressor) 12.5 mg BIDWM 07/05/16 17:30 07/16/16 17:00 12.5 MG Rivaroxaban (Xarelto) 20 mg WS 07/07/16 17:30 07/07/16 17:30 DC Rivaroxaban (Xarelto) 15 mg WS 07/07/16 17:30 07/16/16 17:00 15 MG Levetiracetam (Keppra) 500 mg BID 07/07/16 21:00 07/09/16 16:33 DC 07/09/16 08:48 500 MG Potassium Chloride (Micro-K) 10 meq WB 07/08/16 08:00 07/16/16 09:21 10 MEQ Risperidone (Risperdal) 0.5 mg HS 07/07/16 21:00 07/15/16 20:24 0.5 MG Levetiracetam (Keppra) 500 mg DAILY 07/10/16 09:00 07/10/16 15:56 DC 07/10/16 09:25 500 MG Divalproex Sodium (Depakote) 125 mg BID 07/10/16 21:00 07/16/16 09:21 125 MG Cyanocobalamin (Vit. B-12) 1,000 mcg DAILY 07/16/16 09:00 07/16/16 09:22 1,000 MCG Subjective Patient seen and chart reviewed. Case discussed with treatment team. On interview, patient is in dayroom with peers on approach. She is pleasantly confused and polite through interview, reporting her mood is good. She does believe that she will go to [place] to live with her after discharge but this seems to be more patient admitting representative of her dementia rather than delusional thoughts. Patient denies any SI, HI or AVH. Patient denies any adverse side effects related to psychotropic medications. Nursing staff report patient has been more cooperative today than previously. Patient slept 9 hours overnight. VSS. Patient is eating well. Psychotropic PRNs required in the past 24 hours: none. Time of Service: 11:00 Start Time: 19:40 Stop Time: 20:00 Care >50% of this visit spent in counseling/coordination care. [facility] Exam Vitals Vital Signs Date Time Temp Pulse Resp B/P Pulse Ox O2 Delivery O2 Flow Rate FiO2 07/16/16 16:00 98.2 65 20 140/59 97 Room Air Physical examination performed by the hospitalist. Height (Feet): 5 Height (Inches): 5.00 Mental Status Exam Muscle Strength/Tone: Normal Dressing: Casual Grooming: Fair Attitude: Cooperative Motor Activity: Retardation Eye Contact: Fair Speech: Slowed Volume: Soft Rhythm: Appropriate Rhythm Sensory: Alert Orientation: Disoriented to situation, Oriented to person Mood: Euthymic Affect: Stable Rate of Thoughts: Delayed Thought Organization: Confused Associations: Illogical Abstract Reasoning: Impaired, concrete Thought Content: Normal Perception/Psychotic: Perception Normal Attention Span/Concentration: Short Span Language: Naming Intact Fund of Knowledge: Poor fund of knowledge Memory: Poor-recent, Poor-remote Suicidal Ideation: Denies Homicidal Ideation: Denies Insight: Limited Judgment: Limited Impulse Control: Fair Laboratory Tests Test 07/16/16 08:24 Turbidity < 20 Sodium Level 143MEQ/L Potassium Level 4.5MEQ/L Chloride Level 104MEQ/L Carbon Dioxide Level 29MEQ/L Anion Gap 10MEQ/L Blood Urea Nitrogen 29.0MG/DL Creatinine 0.9MG/DL Glomerular Filtration Rate Calc 60 BUN/Creatinine Ratio 32RATIO Glucose Level 97MG/DL Calculated Osmolality 281MOSM/KG Calcium Level 8.6MG/DL Icterus Index < 2 Chemistry Specimen Hemolysis 25 Assessment and Plan (1) Psychosis Assessment: 07/04/16: Hold Zyprexa and PRN antipsychotics due to prolonged QTc. Check Mg level to see if replacement may help normalize QTc 07/05/16: Continuing to hold medications, Mg high. Will recheck EKG today. 07/07/16: Compressed Gas Tester reports QTc prolongation due to pacing and states it is okay to proceed with medication changes. Daughter reports patient has no known seizure history and Keppra was used for seizure prophylaxis only. Discussed medication changes and risks/benefits with daughter/DPOA, who is in agreement with switching from Keppra to Depakote and restarting an antipsychotic. Patient was previously taking Zyprexa without significant benefit, so will start Risperdal 0.5mg PO q HS tonight as it has less tendency to prolong QTc. 07/08/16: Start Depakote 250mg PO BID per plan to switch from Keppra to Depakote. Daughter/DPOA in agreement with plan. 07/09/16: Cont current treatment 07/10/16: Discontinue Keppa 500mg BID and start Depakote 125mg BID. 07/11/16: Cont current medication and monitor patient for psychotic symptoms. 07/12/16: Cont current treatment 07/13/16 Continue current care 07/14/16 Continue current care 07/15/16 Continue current care 07/16/16: Patient significantly improved from admission; continue current care (2) Major neurocognitive disorder, due to multiple etiologies, with behavioral disturbance, moderate Assessment: Vascular component suspected, hx of stroke and seizures as well Cont. current psych. meds MAREK TOLLIVER MD July 16, 2016 18:34
--- NOTE | 2016-07-17 17:05 | GENPN ---
[facility] Subjective Date DATE: 07/17/16 TIME: 17:00 Subjective/Severity of Illness Medications Current Medications Medications (Trade) Dose Ordered Sig/Nelly Start Time Stop Time Status Last Admin Dose Admin Miscellaneous Medication (May use PRN orders) 13 PRN PRN 07/04/16 15:45 Haloperidol (Haldol) 0.5 mg Q6H PRN 07/04/16 15:45 07/04/16 18:19 DC Lorazepam (Ativan) 0.5 mg Q6H PRN 07/04/16 15:45 07/17/16 01:34 0.5 MG Lorazepam (Ativan) 0.5 mg Q6H PRN 07/04/16 15:45 Haloperidol Lactate (Haldol 5 Mg/ml Inj) 0.5 mg Q6H PRN 07/04/16 15:45 07/04/16 18:19 DC Acetaminophen (Tylenol Extra Strength) 1,000 mg Q6H PRN 07/04/16 18:15 07/17/16 01:34 1,000 MG Acetaminophen (Tylenol Arthritis) 650 mg TID 07/04/16 21:00 07/17/16 15:31 650 MG Azelastine HCl (Astelin) 2 spray BID 07/04/16 21:00 07/17/16 08:34 2 SPRAY Bisacodyl (Dulcolax) 10 mg BID PRN 07/04/16 18:15 Buspirone HCl (Buspar) 15 mg BID 07/04/16 21:00 07/17/16 08:31 15 MG Docusate Sodium (Colace) 100 mg BID 07/04/16 21:00 07/17/16 08:33 100 MG Furosemide (Lasix) 80 mg DAILY 07/05/16 09:00 07/17/16 08:29 80 MG Lisinopril (Prinivil) 10 mg DAILY 07/05/16 09:00 07/17/16 08:32 10 MG Lorazepam (Ativan) 0.5 mg TID PRN 07/04/16 18:15 07/17/16 12:37 DC Magnesium Hydroxide (Mom) 30 ml DAILY PRN 07/04/16 18:15 Metoprolol Tartrate (Lopressor) 25 mg BIDWM 07/05/16 08:00 07/05/16 08:18 DC Montelukast Sodium (SINGULAIR 10 mg) 10 mg DAILY 07/05/16 09:00 07/07/16 15:07 DC 07/07/16 08:52 10 MG Polyethylene Glycol (Miralax) 17 g DAILY PRN 07/04/16 18:15 Potassium Chloride (Micro-K) 10 meq BIDWM 07/05/16 08:00 07/07/16 15:07 DC 07/07/16 08:52 10 MEQ Rivaroxaban (Xarelto) 20 mg DAILY 07/05/16 09:00 07/06/16 10:06 DC 07/06/16 08:25 20 MG Sodium Chloride (DEEP SEA Nasal [place]) 2 spray BID 07/04/16 21:00 07/17/16 08:35 2 SPRAY Atorvastatin Calcium (LIPITOR 40 mg) 80 mg HS 07/04/16 21:00 07/16/16 20:16 80 MG Calcium/Vitamin D (Oyst-Isai-D) 1 tab DAILY 07/05/16 09:00 07/17/16 08:29 1 TAB Levetiracetam (Keppra) 750 mg BID 07/04/16 21:00 07/07/16 15:07 DC 07/07/16 08:52 750 MG Al Hydroxide/Mg Hydroxide (Maalox Plus Xs) 30 ml Q4H PRN 07/04/16 18:15 Multivitamins Therapeutic (Theragran) 1 tab DAILY 07/05/16 09:00 07/17/16 08:33 1 TAB Mddxc-1-Snil Ethyl Esters (Lovaza) 1 g BID 07/04/16 21:00 07/17/16 08:29 1 G Lorazepam (Ativan Intensol) 1 mg Q6HR PRN 07/05/16 00:45 07/05/16 06:31 DC 07/05/16 00:49 1 MG Metoprolol Tartrate (Lopressor) 12.5 mg BIDWM 07/05/16 17:30 07/17/16 08:31 12.5 MG Rivaroxaban (Xarelto) 20 mg WS 07/07/16 17:30 07/07/16 17:30 DC Rivaroxaban (Xarelto) 15 mg WS 07/07/16 17:30 07/16/16 17:00 15 MG Levetiracetam (Keppra) 500 mg BID 07/07/16 21:00 07/09/16 16:33 DC 07/09/16 08:48 500 MG Potassium Chloride (Micro-K) 10 meq WB 07/08/16 08:00 07/17/16 08:32 10 MEQ Risperidone (Risperdal) 0.5 mg HS 07/07/16 21:00 07/16/16 20:16 0.5 MG Levetiracetam (Keppra) 500 mg DAILY 07/10/16 09:00 07/10/16 15:56 DC 07/10/16 09:25 500 MG Divalproex Sodium (Depakote) 125 mg BID 07/10/16 21:00 07/17/16 08:32 125 MG Cyanocobalamin (Vit. B-12) 1,000 mcg DAILY 07/16/16 09:00 07/17/16 08:31 1,000 MCG Lorazepam (Ativan) 1 mg HS PRN 07/17/16 12:45 Subjective Patient seen and chart reviewed. Case discussed with treatment team. On interview, patient is sleeping in dayroom on approach and does not wake up to my attempt at interview as she slept only 5.5 hours overnight. She does believe that she will go to [place] to live with her after discharge but this seems to be more field support representative of her dementia rather than delusional thoughts. Patient has denied any SI, HI or AVH. Patient denies any adverse side effects related to psychotropic medications. Nursing staff report patient has been more cooperative but was tearful last evening, complaining of pain. She was given PRN acetaminophen and then PRN Ativan 0.5mg PO at 0134, which led to her falling asleep at 0200. VSS. Patient is eating well. Time of Service: 11:00 Start Time: 12:50 Stop Time: 13:10 Care >50% of this visit spent in counseling/coordination care. [facility] Exam Vitals Vital Signs Date Time Temp Pulse Resp B/P Pulse Ox O2 Delivery O2 Flow Rate FiO2 07/17/16 08:00 60 16 07/17/16 08:00 97.6 133/54 96 Room Air Physical examination performed by the hospitalist. Height (Feet): 5 Height (Inches): 5.00 Mental Status Exam Muscle Strength/Tone: Normal Dressing: Casual Grooming: Fair Attitude: Cooperative Motor Activity: Normal Eye Contact: Fair Speech: Normal Volume: Soft Rhythm: Appropriate Rhythm Sensory: Other (Currently sleeping) Orientation: Disoriented to situation, Oriented to person Mood: Euthymic Affect: Stable Rate of Thoughts: Delayed Thought Organization: Confused Associations: Illogical Abstract Reasoning: Impaired, concrete Thought Content: Normal Perception/Psychotic: Perception Normal Attention Span/Concentration: Short Span Language: Naming Intact Fund of Knowledge: Other (Decreased) Memory: Poor-recent, Poor-remote Suicidal Ideation: Denies Homicidal Ideation: Denies Insight: Limited Judgment: Limited Impulse Control: Fair Assessment and Plan (1) Psychosis Assessment: 07/04/16: Hold Zyprexa and PRN antipsychotics due to prolonged QTc. Check Mg level to see if replacement may help normalize QTc 07/05/16: Continuing to hold medications, Mg high. Will recheck EKG today. 07/07/16: Solder Making Supervisor reports QTc prolongation due to pacing and states it is okay to proceed with medication changes. Daughter reports patient has no known seizure history and Keppra was used for seizure prophylaxis only. Discussed medication changes and risks/benefits with daughter/DPOA, who is in agreement with switching from Keppra to Depakote and restarting an antipsychotic. Patient was previously taking Zyprexa without significant benefit, so will start Risperdal 0.5mg PO q HS tonight as it has less tendency to prolong QTc. 07/08/16: Start Depakote 250mg PO BID per plan to switch from Keppra to Depakote. Daughter/DPOA in agreement with plan. 07/09/16: Cont current treatment 07/10/16: Discontinue Keppa 500mg BID and start Depakote 125mg BID. 07/11/16: Cont current medication and monitor patient for psychotic symptoms. 07/12/16: Cont current treatment 07/13/16 Continue current care 07/14/16 Continue current care 07/15/16 Continue current care 07/16/16: Patient significantly improved from admission; continue current care 07/17/16: Patient doing well other than poor sleep - will target this tonight with lorazepam 1mg PO q HS PRN sleep. Have discontinued previous PRN lorazepam ( was available TID but patient has not been requiring it). (2) Major neurocognitive disorder, due to multiple etiologies, with behavioral disturbance, moderate Assessment: Vascular component suspected, hx of stroke and seizures as well Cont. current psych. meds MAREK TOLLIVER MD July 17, 2016 17:03
[2016-07-17] MEDS: RIVAROXABAN 15 MG TABLET PO SCH (17:30)
--- NOTE | 2016-07-17 18:28 | NUR ---
SHIFT SUMMARY patient is AO x 1, speech is clear and appropriate, she is able to make needs known, she has been in the day room most of the day, she only went to her room for cares and to take a short nap, patient continues to have a productive cough, she has been spitting in a cup or in a napkin very often. Patient denies any pain this shift, no hallucinations noted, no delusions noted, patient has a flat affect, does not smile, she allow staff to assist with cares and her shower this morning, patient was compliant with medications, patient did not participate in any activities today, No PRN medications given. Patient denies needs or concern at the moment.
[2016-07-17] MEDS: RISPERIDONE 0.5 MG TABLET PO SCH (19:29)
[2016-07-17] MEDS: ATORVASTATIN 40 MG TABLET PO SCH (19:29)
--- NOTE | 2016-07-17 21:57 | NUR ---
SUMMARY PATIENT HAS BEEN PLEASANT AND COOPERATIVE THIS EVENING. SHE WAS IN THE DAYROOM FOR A SHORT WHILE THEN REQUESTED TO GO TO BED BECAUSE SHE WAS READY TO SLEEP. SHE TOOK ALL HER MEDICATIONS WHOLE. PATIENT DID NOT HAVE ANY BEHAVIORS THIS EVENING. SHE CONTINUES TO BE CONFUSED BUT NO HALLUCINATIONS NOTED. NO PRN'S OF NOW. PATIENT REMAINED IN BED ASLEEP WITH BED RAILS UP X2 AND BED ALARM ON.
[2016-07-17 22:16] VITALS: BP 104/47; PULSE 60; RESP 17; TEMP 98.2; O2SAT 96
[2016-07-17] MEDS: LORAZEPAM 1 MG TABLET PO PRN (23:06)
--- NOTE | 2016-07-18 05:40 | NUR ---
Summary/PRN for insomnia Pt went to bed at 1900, she fell asleep at 2145 for 30 minutes. Pt was up and down multiple times requesting food. Pt was given jello at one time and a sandwich another. Pt was requesting coffee, pop. At 2306 pt was given PRN Ativan 1 mg for insomnia. Pt slept from [id number] and then back to sleep at 0145 and is currently sleeping. No further PRNs given. Bed in low position, SR up x 2, call light in reach but does not use it and bed alarm is on and functioning.
--- NOTE | 2016-07-18 10:06 | PNPDOC ---
KARIME VIGIL V PRINCIPAL SECRETARY 07/18/16 1004: Subjective Date DATE: 07/18/16 TIME: 09:59 Subjective Ginger is seen today in follow up. She is sleeping however will answer questions while keeping her eyes closed. She denies feeling shortness of breath , chest pain, or GI complaints. She states that she felt good. She asks what time it is, and if breakfast is ready. Blood pressure last evening 104/47. Objective Vital Signs Vital signs Vital Signs Date Time Temp Pulse Resp B/P Pulse Ox O2 Delivery O2 Flow Rate FiO2 07/17/16 22:16 98.2 60 17 104/47 96 Room Air Height (Feet): 5 Height (Inches): 5.00 Weight (Kilograms): 67.700 General General Appearance: Alert, Orientated x 1, Cooperative, No Acute Distress Eyes (Brief) Eyes: FOUND: EOMI ENMT (Brief) ENMT: FOUND: mucosa moist, normal dentition, NOT FOUND: pharnyx erythema Neck (Brief) Neck: FOUND: midline, NOT FOUND: adenopathy, carotid bruits, tracheal deviation Respiratory (Brief) Respiratory: FOUND: clear all lopez, equal bilaterally, NOT FOUND: wheezes Cardiovascular (Brief) Cardiac: FOUND: regular rate, regular rhythm, NOT FOUND: murmur, pedal edema Capillary Refill: <2 sec Abdomen (Brief) Abdominal: FOUND: BS normo active x4, soft, NOT FOUND: distended, tender Lymphatic (Brief) Lymphatic: NOT FOUND: adenopathy Musculoskeletal (Brief) Musculoskeletal: NOT FOUND: tenderness Integumentary (Brief) Integumentary: FOUND: dry, pink, warm Neurologic (Brief) Neurological: FOUND: cranial 2-12 intact Psychiatric (Brief) Psychiatric: FOUND: alert, attentive, normal affect Assessment & Plan Problems: (1) Major neurocognitive disorder, due to multiple etiologies, with behavioral disturbance, moderate (2) Dementia with behavioral disturbance Status: Acute Qualifiers: Dementia type: unspecified type Qualified Codes: F03.91 - Unspecified dementia with behavioral disturbance (3) Aortic stenosis Status: Chronic (4) Atrial fibrillation Status: Chronic (5) Presence of cardiac pacemaker Status: Chronic (6) Diastolic heart failure Status: Chronic (7) History of CVA (cerebrovascular accident) (8) Pulmonary HTN Status: Chronic (9) Low TSH level Plan/Intensity of Service 07/18/16 Hypernatremia has resolved. Continue with Lasix daily for chronic diuresing. Blood pressure appears to be well controlled on current regimen of lisinopril and Lopressor Continue with oral supplementation of vitamin B12. Chronically on Xarelto for anticoagulation Psychiatric progress notes reviewed. Code Status Do Not Resuscitate Hospital Course Summary Disclaimer The hospital course summary below is not to be considered part of the above Progress Note. Hospital Course Summary Agree with admission to [facility] for further psychiatric evaluation and treatment. Patient does have significant cardiac history. Current med list is reviewed. Continue with lisinopril, metoprolol for blood pressure control. Agree with continuing Lasix 80 milligrams daily for ongoing diuresis given chronic heart failure. Monitor for evidence of dehydration. Given hypernatremia, would recommend encouraging oral intake. Patient takes Xarelto for chronic anticoagulation Continue Keppra twice a day with known seizure history. Scheduled Colace and MiraLAX for ongoing bowel motivation The hospitalist services will continue to follow patient medically manage her existing comorbidities during her stay in the [facility]. At time of discharge medical care will return to her primary care provider. Dr. Srikanth Zamora in [place] 07/05/16 EKG was reviewed. Atrially paced rhythm, prolonged QTc at 535 ms. This was discussed with Dr. Urbano. She has holding antipsychotics at this time. She plans on rechecking EKG in a couple of days. Potassium is normal, and magnesium was elevated at 2.4. Pharmacy also reviewed medications, and other than antipsychotics, none other were associated with prolonged QT. Heart rate has been bradycardic or borderline bradycardic. This morning's dose of Lopressor was held, and hold parameters were put in place to hold if heart rate is less than 60. Her systolic blood pressure is less than 110 mmHg. The dose was decreased to 12.5 mg twice a day. Labs are reviewed. Her TSH was 0.02. Will check free T4 and free T3. Mild hypernatremia noted. Monitor closely, patient does take 80 mg of Lasix daily. Mild normocytic anemia with a hemoglobin of 11.6. Vitamin B12 and folate have been ordered and are pending. 07/07/16- Pt. remains irritable at times. Continue supportive care, med mgmt per attending. Stop singulair- can cause behaviors/psychosis. (Don't see hx of pulmonary issues ). No history of seizures per family reports- may want to confirm with PCP during the week. Will decrease Keppra to 500mg PO BID. Keppra can cause irritable behavior as well. If she needs sz. px., consider change to Depakote. No evidence of QT changes- EKG changes due to PPM per Dr. Segundo. Ok for antipsychotics. Recheck TSH, T3,T4 is pending. If she is truly hyperthyroid, consider further evaluation as thyroid toxicosis can cause mental health concerns and acute psychosis. Will repeat labs in AM. 07/09/16 Discussed low TSH level and normal T4 value with Dr. Florez. If free T3 is normal, he recommends simply observing the patient and rechecking TSH in about 6 months. It is not uncommon to see frequent fluctuations and TSH in older adults. Recommend follow-up with primary care provider to discuss ongoing need for seizure prophylaxis. Potassium level is stable at 4.2. Dose was reduced yesterday. Psychiatric progress notes were reviewed. Daughter reported no known seizure history, and Keppra was discontinued. Depakote was initiated. Risperdal has been started. 07/13/16 Low TSH level discussed with geospatial developer on admission. He recommends outpatient follow-up and ask months. Blood Pressure is well-controlled on Lopressor and lisinopril. Encourage patient to participate in unit activities, and provide a safe environment. 07/15/16 Patient is medically stable and well managed on current pharmacologic regimen, despite multiple chronic conditions. Will repeat BMP tomorrow morning to follow-up on hypernatremia noted on admission. She is also on high doses of diuretics. Vitamin B12 was in the low normal range at 315. Will start oral replacement. Psychiatric progress notes reviewed. 07/18/16 Hypernatremia has resolved. Continue with Lasix daily for chronic diuresing. Blood pressure appears to be well controlled on current regimen of lisinopril and Lopressor Continue with oral supplementation of vitamin B12. Chronically on Xarelto for anticoagulation Psychiatric progress notes reviewed. BEATRIZ ROME MD 07/18/161937: Assessment & Plan Assessment The patient is seen after supper today. She states she feels well and she denies any complaints. She denies any pain. On exam she is alert and in no acute distress. She is pleasant. Chest is clear to auscultation. Cardiovascular reveals regular rate and rhythm. Abdomen is soft and nontender. Extremities are free of edema. We'll continue with current treatment plan for paroxysmal A. fib, hypertension, aortic stenosis. She is on oral B 12 for borderline low vitamin B-12 level. She has low TSH but normal free T3 and free T4. TSH will likely need to be rechecked in the future. DVT Prophylaxis: KARIME Vera APRN July 18, 2016 10:04 BEATRIZ ROME MD July 18, 2016 19:38
[2016-07-18 10:22] VITALS: BP 137/49; PULSE 67; RESP 20; TEMP 97.3; O2SAT 96
--- NOTE | 2016-07-18 10:31 | NUR ---
CM DR TOLLIVER IS PLANNING TO D/C PT TO [facility] TOMORROW. CM LEFT FOR JONH NURSING RESIDENT REGARDING D/C PLAN AND NEED FOR CONVERSION MAN TIME. CM SPOKE WITH ESTEBAN GRAND DAUGHTER AND SHE IS AWARE THAT PT WILL RETURN TO [facility] TOMORROW AND THAT CM IS AWAITING A CONVERSION MAN TIME FROM FACILITY. ESTEBAN AWARE TO CONTACT CM IF NEEDS ARISE.
--- NOTE | 2016-07-18 10:57 | GENPN ---
[facility] Subjective Date DATE: 07/18/16 TIME: 08:20 Subjective/Severity of Illness Medications Current Medications Medications (Trade) Dose Ordered Sig/Nelly Start Time Stop Time Status Last Admin Dose Admin Miscellaneous Medication (May use PRN orders) 13 PRN PRN 07/04/16 15:45 Haloperidol (Haldol) 0.5 mg Q6H PRN 07/04/16 15:45 07/04/16 18:19 DC Lorazepam (Ativan) 0.5 mg Q6H PRN 07/04/16 15:45 07/17/16 01:34 0.5 MG Lorazepam (Ativan) 0.5 mg Q6H PRN 07/04/16 15:45 Haloperidol Lactate (Haldol 5 Mg/ml Inj) 0.5 mg Q6H PRN 07/04/16 15:45 07/04/16 18:19 DC Acetaminophen (Tylenol Extra Strength) 1,000 mg Q6H PRN 07/04/16 18:15 07/17/16 01:34 1,000 MG Acetaminophen (Tylenol Arthritis) 650 mg TID 07/04/16 21:00 07/17/16 19:30 650 MG Azelastine HCl (Astelin) 2 spray BID 07/04/16 21:00 07/17/16 08:34 2 SPRAY Bisacodyl (Dulcolax) 10 mg BID PRN 07/04/16 18:15 Buspirone HCl (Buspar) 15 mg BID 07/04/16 21:00 07/17/16 19:29 15 MG Docusate Sodium (Colace) 100 mg BID 07/04/16 21:00 07/17/16 19:29 100 MG Furosemide (Lasix) 80 mg DAILY 07/05/16 09:00 07/17/16 08:29 80 MG Lisinopril (Prinivil) 10 mg DAILY 07/05/16 09:00 07/17/16 08:32 10 MG Lorazepam (Ativan) 0.5 mg TID PRN 07/04/16 18:15 07/17/16 12:37 DC Magnesium Hydroxide (Mom) 30 ml DAILY PRN 07/04/16 18:15 Metoprolol Tartrate (Lopressor) 25 mg BIDWM 07/05/16 08:00 07/05/16 08:18 DC Montelukast Sodium (SINGULAIR 10 mg) 10 mg DAILY 07/05/16 09:00 07/07/16 15:07 DC 07/07/16 08:52 10 MG Polyethylene Glycol (Miralax) 17 g DAILY PRN 07/04/16 18:15 Potassium Chloride (Micro-K) 10 meq BIDWM 07/05/16 08:00 07/07/16 15:07 DC 07/07/16 08:52 10 MEQ Rivaroxaban (Xarelto) 20 mg DAILY 07/05/16 09:00 07/06/16 10:06 DC 07/06/16 08:25 20 MG Sodium Chloride (DEEP SEA Nasal [place]) 2 spray BID 07/04/16 21:00 07/17/16 08:35 2 SPRAY Atorvastatin Calcium (LIPITOR 40 mg) 80 mg HS 07/04/16 21:00 07/17/16 19:29 80 MG Calcium/Vitamin D (Oyst-Isai-D) 1 tab DAILY 07/05/16 09:00 07/17/16 08:29 1 TAB Levetiracetam (Keppra) 750 mg BID 07/04/16 21:00 07/07/16 15:07 DC 07/07/16 08:52 750 MG Al Hydroxide/Mg Hydroxide (Maalox Plus Xs) 30 ml Q4H PRN 07/04/16 18:15 Multivitamins Therapeutic (Theragran) 1 tab DAILY 07/05/16 09:00 07/17/16 08:33 1 TAB [id number] Ethyl Esters (Lovaza) 1 g BID 07/04/16 21:00 07/17/16 19:29 1 G Lorazepam (Ativan Intensol) 1 mg Q6HR PRN 07/05/16 00:45 07/05/16 06:31 DC 07/05/16 00:49 1 MG Metoprolol Tartrate (Lopressor) 12.5 mg BIDWM 07/05/16 17:30 07/17/16 17:30 12.5 MG Rivaroxaban (Xarelto) 20 mg WS 07/07/16 17:30 07/07/16 17:30 DC Rivaroxaban (Xarelto) 15 mg WS 07/07/16 17:30 07/17/16 17:30 15 MG Levetiracetam (Keppra) 500 mg BID 07/07/16 21:00 07/09/16 16:33 DC 07/09/16 08:48 500 MG Potassium Chloride (Micro-K) 10 meq WB 07/08/16 08:00 07/17/16 08:32 10 MEQ Risperidone (Risperdal) 0.5 mg HS 07/07/16 21:00 07/17/16 19:29 0.5 MG Levetiracetam (Keppra) 500 mg DAILY 07/10/16 09:00 07/10/16 15:56 DC 07/10/16 09:25 500 MG Divalproex Sodium (Depakote) 125 mg BID 07/10/16 21:00 07/17/16 19:29 125 MG Cyanocobalamin (Vit. B-12) 1,000 mcg DAILY 07/16/16 09:00 07/17/16 08:31 1,000 MCG Lorazepam (Ativan) 1 mg HS PRN 07/17/16 12:45 07/17/16 23:06 1 MG Subjective Patient seen and chart reviewed. Case discussed with treatment team. On interview, patient is sleeping in her room as she went to bed a little late ( after PRN Ativan given PO) but then slept 6+ hours overnight. Nursing staff report that patient was pleasant and cooperative throughout the day yesterday. She did ask for a snack, drink, to go to the restroom, etc. at bedtime but went to sleep fairly quickly after given PRN for insomnia. No episodes of tearfulness in past 24 hours. She does believe that she will go to [place] to live with her after discharge but this seems to be more international representative of her dementia rather than delusional thoughts. Patient has denied any SI, HI or AVH. Patient denies any adverse side effects related to psychotropic medications. VSS. Patient is eating well. Time of Service: 11:00 Start Time: 09:40 Stop Time: 10:00 Care >50% of this visit spent in counseling/coordination care. [facility] Exam Vitals Vital Signs Date Time Temp Pulse Resp B/P Pulse Ox O2 Delivery O2 Flow Rate FiO2 07/17/16 22:16 98.2 60 17 104/47 96 Room Air Physical examination performed by the hospitalist. Height (Feet): 5 Height (Inches): 5.00 Mental Status Exam Muscle Strength/Tone: Normal Dressing: Casual Grooming: Fair Attitude: Cooperative Motor Activity: Retardation Eye Contact: Fair Speech: Normal Volume: Normal Rhythm: Appropriate Rhythm Sensory: Alert Orientation: Oriented to person Mood: Euthymic Affect: Congruent, Stable Rate of Thoughts: Delayed Thought Organization: Confused Associations: Illogical (at times) Abstract Reasoning: Poor abstract reasoning Thought Content: Normal (other than limited memory/insight due to dementia) Perception/Psychotic: Hx psychosis,not current Attention Span/Concentration: Short Span Language: Naming Impaired Fund of Knowledge: Poor fund of knowledge Memory: Poor-recent, Poor-remote Suicidal Ideation: None Homicidal Ideation: None Insight: Limited Judgment: Limited Impulse Control: Good Assessment and Plan (1) Psychosis Assessment: 07/04/16: Hold Zyprexa and PRN antipsychotics due to prolonged QTc. Check Mg level to see if replacement may help normalize QTc 07/05/16: Continuing to hold medications, Mg high. Will recheck EKG today. 07/07/16: Corner Brace Block Machine Operator reports QTc prolongation due to pacing and states it is okay to proceed with medication changes. Daughter reports patient has no known seizure history and Keppra was used for seizure prophylaxis only. Discussed medication changes and risks/benefits with daughter/DPOA, who is in agreement with switching from Keppra to Depakote and restarting an antipsychotic. Patient was previously taking Zyprexa without significant benefit, so will start Risperdal 0.5mg PO q HS tonight as it has less tendency to prolong QTc. 07/08/16: Start Depakote 250mg PO BID per plan to switch from Keppra to Depakote. Daughter/DPOA in agreement with plan. 07/09/16: Cont current treatment 07/10/16: Discontinue Keppa 500mg BID and start Depakote 125mg BID. 07/11/16: Cont current medication and monitor patient for psychotic symptoms. 07/12/16: Cont current treatment 07/13/16 Continue current care 07/14/16 Continue current care 07/15/16 Continue current care 07/16/16: Patient significantly improved from admission; continue current care 07/17/16: Patient doing well other than poor sleep - will target this tonight with lorazepam 1mg PO q HS PRN sleep. Have discontinued previous PRN lorazepam ( was available TID but patient has not been requiring it). 07/18/16: Continue current care; will recheck EKG today and talk to support/DPOA in regards to progress and possible discharge on 07/19. (2) Major neurocognitive disorder, due to multiple etiologies, with behavioral disturbance, moderate Assessment: Vascular component suspected, hx of stroke and seizures as well Cont. current psych. meds MAREK TOLLIVER MD July 18, 2016 08:20
--- NOTE | 2016-07-18 11:00 | PDOCECFAO ---
Admission Orders Admission Orders Admit to: [facility] Allergies: Coded Allergies: Penicillins (Verified Allergy, Unknown, 07/04/16) cefadroxil (Verified Allergy, Unknown, 07/04/16) clarithromycin (Verified Allergy, Unknown, 07/04/16) shellfish derived (Verified Allergy, Unknown, 07/04/16) Admitting Diagnosis Unspecified Neurocognitive W/ Behavioral Disorder Admitting Physician Luda Tolliver MD Attending Physician Luda Tolliver MD Code Status Do Not Resuscitate Diet: Regular (Dysphagia diet, chopped 1/4" meat) Wound/Incision Care: N/A May use Facility Protocol /SO: Yes May Have Flu Vaccine: Yes Evaluations/Treat: Psychiatric, As Needed Senior Care Certification I certify that SNF services are required to be given on an Inpatient basis because of the patients need for [facility] care on a continuing basis for the condition(s) for which he/she received inpatient hospital services prior to his/her transfer to the SNF. SNF inpatient care is necessary for the following reasons Not Applicable LUDA TOLLIVER MD July 18, 2016 10:59
[2016-07-18] MEDS: LISINOPRIL 10 MG TABLET PO SCH (11:03)
[2016-07-18] MEDS: POTASSIUM CL. 10mEq CAP PO SCH (11:03)
[2016-07-18] MEDS: DIVALPROEX 125 MG TABLET PO SCH ×2 (11:03→19:28)
[2016-07-18] MEDS: DOCUSATE SODIUM 100 MG CAPSULE PO SCH ×2 (11:03→19:28)
[2016-07-18] MEDS: OMEGA-3 ACID ESTERS 1 G CAPSULE PO SCH ×2 (11:03→19:29)
[2016-07-18] MEDS: ACETAMINOPHEN SR 650 MG TABLET PO SCH ×3 (11:03→19:28)
[2016-07-18] MEDS: CYANOCOBALAMIN (B-12) 500mcg TABLET PO SCH (11:03)
[2016-07-18] MEDS: FUROSEMIDE 80 MG TABLET PO SCH (11:04)
[2016-07-18] MEDS: MULTIVITAMIN PLAIN TABLET PO SCH (11:04)
[2016-07-18] MEDS: CALCIUM PO SCH (11:04)
[2016-07-18] MEDS: [UNRECOGNIZED DRUG - OTHER] PO SCH (11:04)
[2016-07-18] MEDS: SALINE NASAL SPRAY 45ml NAS SCH ×2 (11:05→19:34)
[2016-07-18] MEDS: AZELASTINE 0.1% NAS SCH ×2 (11:05→19:34)
[2016-07-18] MEDS ORDERED: [UNRECOGNIZED DRUG - CODE] PO (11:06)
[2016-07-18] MEDS ORDERED: RISP0.5T14 PO (11:06)
[2016-07-18] MEDS ORDERED: LORA-204 PO (11:06)
--- NOTE | 2016-07-18 11:10 | NUR ---
ELECTRICAL SOFTWARE ENGINEER--AM GROUP Pt. was asleep and did not participate in AM psychoeducational group facilitated by [facility].
--- NOTE | 2016-07-18 13:04 | NUR ---
CM CM RECEIVED A MESSAGE FOR [facility] AT THE [facility]. THEY WILL TRANSPORT PT TOMORROW AT 1:00PM. PT GRANDDAUGHTER ESTEBAN IS AWARE OF D/C PLAN AND POWDERER TIME. ESTEBAN IS AWARE TO CONTACT CM IF NEEDS ARISE.
[2016-07-18 16:08] VITALS: BP 150/59; PULSE 60; RESP 80; TEMP 97.8; O2SAT 96
[2016-07-18] MEDS: RIVAROXABAN 15 MG TABLET PO SCH (17:09)
--- NOTE | 2016-07-18 17:53 | NUR ---
summary pt woke this am at 0945, total sleep time was 8.hrs. pt alert and oriented x2. pleasant and cooperative. compliant with medication. has a good appetite. no complaints of pain or discomfort. pt cooperative with all cares this shift.
[2016-07-18] MEDS: ATORVASTATIN 40 MG TABLET PO SCH (19:27)
[2016-07-18] MEDS: RISPERIDONE 0.5 MG TABLET PO SCH (19:29)
[2016-07-18] MEDS: LORAZEPAM 1 MG TABLET PO PRN (19:29)
[2016-07-18 19:39] VITALS: BP 129/59; PULSE 61; RESP 18; TEMP 98.4; O2SAT 96
--- NOTE | 2016-07-19 01:13 | NUR ---
Status Pt sitting in DR at start of shift. Pt is cooperative with doctor, nursing assessment and VS. Pt up with walker and SBA. Pt with flat affect but visits with staff when pt is approached. Pt sat out in the DR until going to bed at 2044. Pt was up several times once to the bathroom and the other just to sit up in bed. Pt fell asleep at 2200 and is currently sleeping. Bed in low position, SR up x 2, call light in reach but pt does not always use and bed alarm is on and functioning. Pt has had no behaviors and only PRN Ativan 1 mg at HS for insomnia was given. Will continue to monitor.
--- NOTE | 2016-07-19 05:57 | NUR ---
Chart Check 24 hour chart check completed
--- NOTE | 2016-07-19 05:59 | NUR ---
Summary Pt slept from 2200 to present time. She was up several times to use the restroom and several times she sat up in bed setting off the alarm because she wanted to make sure there was someone who could help her with her hair this morning. Pt was reassured both times that someone would be available to help her. Pt easily redirected to lie back down. She was only awake for 1HR and 15 minutes throughout the night. Pt had no behaviors, she has been cooperative with all cares and no further PRNs given this shift. Pt in bed, bed is locked, in low position and SR up x 2, call light in reach but pt does not use and bed alarm is on and functioning. Will continue to monitor.
[2016-07-19 08:00] VITALS: BP 130/51; PULSE 61; RESP 20; TEMP 97.8; O2SAT 93
[2016-07-19] MEDS: [UNRECOGNIZED DRUG - OTHER] PO SCH (08:36)
[2016-07-19] MEDS: CALCIUM PO SCH (08:36)
[2016-07-19] MEDS: MULTIVITAMIN PLAIN TABLET PO SCH (08:37)
[2016-07-19] MEDS: OMEGA-3 ACID ESTERS 1 G CAPSULE PO SCH (08:37)
[2016-07-19] MEDS: POTASSIUM CL. 10mEq CAP PO SCH (08:37)
[2016-07-19] MEDS: CYANOCOBALAMIN (B-12) 500mcg TABLET PO SCH (08:37)
[2016-07-19] MEDS: DOCUSATE SODIUM 100 MG CAPSULE PO SCH (08:37)
[2016-07-19] MEDS: ACETAMINOPHEN SR 650 MG TABLET PO SCH (08:37)
[2016-07-19] MEDS: LISINOPRIL 10 MG TABLET PO SCH (08:39)
[2016-07-19] MEDS: FUROSEMIDE 80 MG TABLET PO SCH (08:40)
[2016-07-19] MEDS: DIVALPROEX 125 MG TABLET PO SCH (08:40)
[2016-07-19] MEDS: SALINE NASAL SPRAY 45ml NAS SCH (08:41)
[2016-07-19] MEDS: AZELASTINE 0.1% NAS SCH (08:41)
[2016-07-19 09:33] VITALS: BP 130/51; PULSE 61; RESP 20; TEMP 97.8; O2SAT 93
--- NOTE | 2016-07-19 10:38 | NUR ---
LINE ORDERING CLINICIAN--AM GROUP Pt. was back in her room in bed after breakfast and did not participate in psychoeducational group facilitated by [facility].
[2016-07-19] MEDS ORDERED: METO25TA6 PO (10:50)
[2016-07-19] MEDS ORDERED: POTA10CA37 PO (10:50)
[2016-07-19] MEDS ORDERED: LORA-204 PO (11:34)
--- NOTE | 2016-07-19 13:15 | NUR ---
status pt alert and oriented x2. pt woke at 0800 slept well once she went to sleep. ate 100% of breakfast and 25% of lunch. compliant with medications. allows staff to assist with hygiene cares.
--- NOTE | 2016-07-19 14:18 | GENPN ---
[facility] Subjective Date DATE: 07/19/16 TIME: 14:12 Subjective/Severity of Illness Medications Current Medications Medications (Trade) Dose Ordered Sig/Nelly Start Time Stop Time Status Last Admin Dose Admin Miscellaneous Medication (May use PRN orders) 13 PRN PRN 07/04/16 15:45 Haloperidol (Haldol) 0.5 mg Q6H PRN 07/04/16 15:45 07/04/16 18:19 DC Lorazepam (Ativan) 0.5 mg Q6H PRN 07/04/16 15:45 07/17/16 01:34 0.5 MG Lorazepam (Ativan) 0.5 mg Q6H PRN 07/04/16 15:45 Haloperidol Lactate (Haldol 5 Mg/ml Inj) 0.5 mg Q6H PRN 07/04/16 15:45 07/04/16 18:19 DC Acetaminophen (Tylenol Extra Strength) 1,000 mg Q6H PRN 07/04/16 18:15 07/17/16 01:34 1,000 MG Acetaminophen (Tylenol Arthritis) 650 mg TID 07/04/16 21:00 07/19/16 08:37 650 MG Azelastine HCl (Astelin) 2 spray BID 07/04/16 21:00 07/19/16 08:41 2 SPRAY Bisacodyl (Dulcolax) 10 mg BID PRN 07/04/16 18:15 Buspirone HCl (Buspar) 15 mg BID 07/04/16 21:00 07/19/16 08:40 15 MG Docusate Sodium (Colace) 100 mg BID 07/04/16 21:00 07/19/16 08:37 100 MG Furosemide (Lasix) 80 mg DAILY 07/05/16 09:00 07/19/16 08:40 80 MG Lisinopril (Prinivil) 10 mg DAILY 07/05/16 09:00 07/19/16 08:39 10 MG Lorazepam (Ativan) 0.5 mg TID PRN 07/04/16 18:15 07/17/16 12:37 DC Magnesium Hydroxide (Mom) 30 ml DAILY PRN 07/04/16 18:15 Metoprolol Tartrate (Lopressor) 25 mg BIDWM 07/05/16 08:00 07/05/16 08:18 DC Montelukast Sodium (SINGULAIR 10 mg) 10 mg DAILY 07/05/16 09:00 07/07/16 15:07 DC 07/07/16 08:52 10 MG Polyethylene Glycol (Miralax) 17 g DAILY PRN 07/04/16 18:15 Potassium Chloride (Micro-K) 10 meq BIDWM 07/05/16 08:00 07/07/16 15:07 DC 07/07/16 08:52 10 MEQ Rivaroxaban (Xarelto) 20 mg DAILY 07/05/16 09:00 07/06/16 10:06 DC 07/06/16 08:25 20 MG Sodium Chloride (DEEP SEA Nasal [place]) 2 spray BID 07/04/16 21:00 07/19/16 08:41 2 SPRAY Atorvastatin Calcium (LIPITOR 40 mg) 80 mg HS 07/04/16 21:00 07/18/16 19:27 80 MG Calcium/Vitamin D (Oyst-Isai-D) 1 tab DAILY 07/05/16 09:00 07/19/16 08:36 1 TAB Levetiracetam (Keppra) 750 mg BID 07/04/16 21:00 07/07/16 15:07 DC 07/07/16 08:52 750 MG Al Hydroxide/Mg Hydroxide (Maalox Plus Xs) 30 ml Q4H PRN 07/04/16 18:15 Multivitamins Therapeutic (Theragran) 1 tab DAILY 07/05/16 09:00 07/19/16 08:37 1 TAB Hrpwp-4-[id number] Ethyl Esters (Lovaza) 1 g BID 07/04/16 21:00 07/19/16 08:37 1 G Lorazepam (Ativan Intensol) 1 mg Q6HR PRN 07/05/16 00:45 07/05/16 06:31 DC 07/05/16 00:49 1 MG Metoprolol Tartrate (Lopressor) 12.5 mg BIDWM 07/05/16 17:30 07/19/16 08:39 12.5 MG Rivaroxaban (Xarelto) 20 mg WS 07/07/16 17:30 07/07/16 17:30 DC Rivaroxaban (Xarelto) 15 mg WS 07/07/16 17:30 07/18/16 17:09 15 MG Levetiracetam (Keppra) 500 mg BID 07/07/16 21:00 07/09/16 16:33 DC 07/09/16 08:48 500 MG Potassium Chloride (Micro-K) 10 meq WB 07/08/16 08:00 07/19/16 08:37 10 MEQ Risperidone (Risperdal) 0.5 mg HS 07/07/16 21:00 07/18/16 19:29 0.5 MG Levetiracetam (Keppra) 500 mg DAILY 07/10/16 09:00 07/10/16 15:56 DC 07/10/16 09:25 500 MG Divalproex Sodium (Depakote) 125 mg BID 07/10/16 21:00 07/19/16 08:40 125 MG Cyanocobalamin (Vit. B-12) 1,000 mcg DAILY 07/16/16 09:00 07/19/16 08:37 1,000 MCG Lorazepam (Ativan) 1 mg HS PRN 07/17/16 12:45 07/19/16 10:35 DC 07/18/16 19:29 1 MG Lorazepam (Ativan) 1 mg HS 07/19/16 21:00 Subjective Patient seen and chart reviewed. Case discussed with treatment team. On interview, patient is resting in bed but is awake. She reports that her mood is good, she is tolerating her medications well and she feels ready for discharge today. She denies SI, HI, AVH. Nursing staff report that patient was pleasant and cooperative throughout the day yesterday. She did take lorazepam PRN for insomnia. No episodes of tearfulness in past 24 hours. She does believe that she will go to [place] to live with her after discharge but this seems to be more product support representative of her dementia rather than delusional thoughts. VSS. Patient is eating well. Time of Service: 11:00 Start Time: 11:00 Stop Time: 11:20 Care >50% of this visit spent in counseling/coordination care. [facility] Exam Vitals Vital Signs Date Time Temp Pulse Resp B/P Pulse Ox O2 Delivery O2 Flow Rate FiO2 07/19/16 09:33 97.8 61 20 130/51 93 Room Air Physical examination performed by the hospitalist. Height (Feet): 5 Height (Inches): 5.00 Mental Status Exam Muscle Strength/Tone: Normal Dressing: Casual Grooming: Fair Attitude: Cooperative Motor Activity: Retardation Eye Contact: Fair Speech: Slowed Volume: Soft Rhythm: Appropriate Rhythm Sensory: Alert Orientation: Disoriented to time, Disoriented to situation, Oriented to person Mood: Neutral Affect: Stable Rate of Thoughts: Delayed Thought Organization: Confused Associations: Illogical (at times, due to dementia) Abstract Reasoning: Poor abstract reasoning Thought Content: Normal (other than confusion related to dementia) Perception/Psychotic: Perception Normal Attention Span/Concentration: Short Span Language: Naming Intact Fund of Knowledge: Poor fund of knowledge Memory: Poor-recent, Poor-remote Suicidal Ideation: Denies Homicidal Ideation: Denies Insight: Limited Judgment: Limited Impulse Control: Good Assessment and Plan (1) Psychosis Assessment: 07/04/16: Hold Zyprexa and PRN antipsychotics due to prolonged QTc. Check Mg level to see if replacement may help normalize QTc 07/05/16: Continuing to hold medications, Mg high. Will recheck EKG today. 07/07/16: Pearl Maker reports QTc prolongation due to pacing and states it is okay to proceed with medication changes. Daughter reports patient has no known seizure history and Keppra was used for seizure prophylaxis only. Discussed medication changes and risks/benefits with daughter/DPOA, who is in agreement with switching from Keppra to Depakote and restarting an antipsychotic. Patient was previously taking Zyprexa without significant benefit, so will start Risperdal 0.5mg PO q HS tonight as it has less tendency to prolong QTc. 07/08/16: Start Depakote 250mg PO BID per plan to switch from Keppra to Depakote. Daughter/DPOA in agreement with plan. 07/09/16: Cont current treatment 07/10/16: Discontinue Keppa 500mg BID and start Depakote 125mg BID. 07/11/16: Cont current medication and monitor patient for psychotic symptoms. 07/12/16: Cont current treatment 07/13/16 Continue current care 07/14/16 Continue current care 07/15/16 Continue current care 07/16/16: Patient significantly improved from admission; continue current care 07/17/16: Patient doing well other than poor sleep - will target this tonight with lorazepam 1mg PO q HS PRN sleep. Have discontinued previous PRN lorazepam ( was available TID but patient has not been requiring it). 07/18/16: Continue current care; will recheck EKG today and talk to support/DPOA in regards to progress and possible discharge on 07/19. 07/19/16: QTc 464ms on recheck yesterday. Changed PRN lorazepam to 1mg PO q HS. Continue current care otherwise; discharge to LTC facility today. (2) Major neurocognitive disorder, due to multiple etiologies, with behavioral disturbance, moderate Assessment: Vascular component suspected, hx of stroke and seizures as well Cont. current psych. meds MAREK TOLLIVER MD July 19, 2016 14:15
--- NOTE | 2016-07-19 15:16 | NUR ---
ASSISTANT DIRECTOR--PM GROUP While waiting for pt's ride to pick her up, she participated in PM psychoeducational group facilitated by [facility]. Topic was on the need to have control. Talked with patients about this need begins as an infant and lasts our entire life. Asked patients questions about whether or not they felt they had control of various items. Pt. answered most of the questions and showed some good insight. When asked if she felt she had control over her feelings, she responded, "I try to." Pt. was alert, Ox2, with pleasant mood. She was slightly anxious and wondering where her ride was at because she was returning to her facility. Ended group by listening to a variety of tunes. Pt. was able to identify some of the artists. She relaxed more and interacted easily with peers and staff during the group.
--- NOTE | 2016-07-19 15:22 | NUR ---
Report called to "Kaylee"; unit contact information given along with plans for follow-up care with PCP and MH professional as outlined in P[facility]. No pending labs on discharge. pt is discharged back to the [facility]. pt is in stable condition upon discharge. all personal belongings were returned including walker. pt is taken via wheelchair. accompanied by facility staff security patrol driver and generations nurse.
[2016-07-19] MEDS ORDERED: LORAZEPAM 1 MG TABLET PO SCH (21:00)
--- NOTE | 2016-07-20 13:33 | NUR ---
[facility] WITH [id number] WHERE PT RESIDES AT FACILITY
--- NOTE | 2016-07-23 15:33 | NUR ---
CM CM LVM WITH HOUSE [phone]
== END 2016-07-19 15:15 | DRG 884 ==
LOC: ED 13:15 → GEN 14:45
PROVIDERS: ADMIT Psychiatry & Neurology Psychiatry; ATTEND Psychiatry & Neurology Psychiatry
DX: F03.91 Unspecified dementia, unspecified severity, with behavioral disturbance (principal); I50.32 Chronic diastolic (congestive) heart failure; F32.9 Major depressive disorder, single episode, unspecified; I11.0 Hypertensive heart disease with heart failure; I48.2 Chronic atrial fibrillation; I69.30 Unspecified sequelae of cerebral infarction; Z66 Do not resuscitate; I25.10 Atherosclerotic heart disease of native coronary artery without angina pectoris; I35.0 Nonrheumatic aortic (valve) stenosis; I27.2 Other secondary pulmonary hypertension; Z95.0 Presence of cardiac pacemaker; I25.2 Old myocardial infarction
CPT/HCPCS: 36415; 80048; 80061; 80069; 81001; 81003; 82607; 82746; 83036; 83735; 84439; 84443; 84481; 85025; 93005